=== PATIENT | male | born 1940 | race Caucasian/White ===

== ENCOUNTER 2016-09-10 10:38 | Inpatient (IN) | payer MEDICARE, OTHER, MEDICAID ==
[2016-09-10] MEDS ORDERED: Sodium Chloride 0.9% 10 ML Syringe FLUSH PRN ×2 (11:11→11:53)
[2016-09-10] MEDS ORDERED: Sodium Chloride 0.9% 1,000 ML IV ONE (11:13)
--- NOTE | 2016-09-10 11:26 | EDM.PDOC ---
<Shamar Chapman - Last Filed: 09/10/16 15:39> ED HPI Trauma - General Chief Complaint: Lower Extremity Injury/Pain Stated Complaint: LEG ULCER Time Seen by Provider: 09/10/16 11:03 - History of Present Illness Allergies/ADRs: Allergies levofloxacin [From Levaquin] Allergy (Verified 09/10/16 18:46) Rash Home Medications: Ambulatory Orders Amitriptyline [Elavil] 10 mg PO BEDTIME 01/08/15 [Confirmed 09/10/16] Clopidogrel [Plavix] 75 mg PO BEDTIME 01/08/15 [Confirmed 09/10/16] Furosemide 40 mg PO DAILY 01/08/15 [Confirmed 09/10/16] Gabapentin [Neurontin] 900 mg PO TID 01/08/15 [Confirmed 09/10/16] Insulin Aspart [NovoLOG] 14 units INJECT TIDMEALS 01/08/15 [Confirmed 09/10/16] Insulin Glarg,Human.Rec.Analog [LantUS Solostar] 40 units INJECT BEDTIME [Confirmed 09/10/16] Losartan [Cozaar] 100 mg PO DAILY 01/08/15 [Confirmed 09/10/16] Simvastatin [Zocor] 40 mg PO BEDTIME 01/08/15 [Confirmed 09/10/16] Arginine/Ascorbate Sod/Wilfred AC [Arginaid Powder] 1 each PO BID 04/08/16 [ Confirmed 09/10/16] Ascorbic Acid [Vitamin C] 500 mg PO DAILY 04/08/16 [Confirmed 09/10/16] Cranberry 400 mg PO BID 04/08/16 [Confirmed 09/10/16] Pantoprazole [Protonix] 40 mg PO ACBREAKFAST 04/08/16 [Confirmed 09/10/16] Sennosides [Senna] 17.2 mg PO DAILY PRN 04/08/16 [Confirmed 09/10/16] Acetaminophen [Tylenol] 650 mg PO Q4H PRN 06/25/16 [Confirmed 09/10/16] Albuterol [IJD: Ventolin HFA] 2 puff INH Q6H PRN 06/25/16 [Confirmed 09/10/16] Lactobacillus Acidophilus [Acidophilus Lactobacillus] 1 tab PO DAILY 06/25/16 [ Confirmed 09/10/16] Lidocaine 2% [Xylocaine 2% Jelly] 1 dose TOP TID PRN 06/25/16 [Confirmed ] Levothyroxine [Synthroid] 300 mcg PO ACBREAKFAST #30 tablet 06/27/16 [Confirmed 09/10/16] Albuterol/Ipratropium [DuoNeb 3.0-0.5 MG/3 ML] 3 ml NEB ACDINNER PRN 09/10/16 [ Confirmed 09/10/16] Bisacodyl [Dulcolax] 10 mg RECTAL DAILY PRN 09/10/16 [Confirmed 09/10/16] Insulin Glarg,Human.Rec.Analog [LantUS Solostar] 50 units SUBCUT DAILY 09/10/16 [Confirmed 09/10/16] oxyCODONE HCl/Acetaminophen [oxyCODONE-Acetaminophen 5-325] 2 tab PO Q6H PRN 09/24 [Confirmed 09/10/16] Course - Vital Signs Last Recorded V/S: Last Vital Signs Temp 37.1 C 09/10/16 20:13 Pulse 85 09/10/16 20:14 Resp 16 09/10/16 20:13 BP 116/48 L 09/10/16 20:14 Pulse Ox 97 09/10/16 20:14 - Orders/Labs/Meds Orders: Active Orders 24 hr Category Date Time Status POC Glucose [Blood Glucose Check, Bedside] [RC] ONETIME Care 09/10/16 11:13 Inactive CULTURE ANAEROBIC + SMEAR [] Stat Lab 09/10/16 13:10 Results CULTURE BLOOD [BC] Stat Lab 09/10/16 11:34 Received CULTURE BLOOD [BC] Stat Lab 09/10/16 11:43 Received Sodium Chloride 0.9% [Saline Flush] Med 09/10/16 11:11 Active 10 ml FLUSH ASDIRECTED PRN Sodium Chloride 0.9% [Saline Flush] Med 09/10/16 11:53 Active 10 ml FLUSH ONETIME PRN Blood Culture x2 Reflex Set [OM.PC] Stat Oth 09/10/16 11:11 Ordered Peripheral IV Insertion Adult [OM.PC] Routine Oth 09/10/16 11:10 Ordered Medication Orders Albuterol/Ipratropium (Duoneb 3.0-0.5 Mg/3 Ml) 3 ml NEB QIDRT PRN PRN Reason: Shortness of Breath Amitriptyline HCl (Elavil) 10 mg PO BEDTIME [facility] Last Admin: 09/10/16 20:39 Dose: 10 mg Ascorbic Acid (Vitamin C) 500 mg PO DAILY [facility] Bisacodyl (Dulcolax) 10 mg RECTAL DAILY PRN PRN Reason: Constipation Clopidogrel Bisulfate (Plavix) 75 mg PO BEDTIME [facility] Last Admin: 09/10/16 20:39 Dose: 75 mg Furosemide (Lasix) 40 mg PO DAILY [facility] Gabapentin (Neurontin) 900 mg PO TID [facility] Last Admin: 09/10/16 20:39 Dose: 900 mg Ceftazidime 1 gm/ Sodium (Chloride) 50 mls @ 100 mls/hr IV Q8HR [facility] Vancomycin HCl 1 gm/Vancomycin HCl 250 mg/ Sodium Chloride 250 mls @ 166.667 mls/hr IV Q12H [facility] Insulin Aspart (Novolog) 0 unit SUBCUT QIDACANDBED [facility] PRN Reason: Protocol Last Admin: 09/10/16 21:19 Dose: 3 units Levothyroxine Sodium (Synthroid) 300 mcg PO ACBREAKFAST [facility] Lidocaine HCl (Xylocaine 2% Jelly) 0 ml TOP TID PRN PRN Reason: Pain Losartan Potassium (Cozaar) 100 mg PO DAILY [facility] Non-Formulary Medication (Lactobacillus Acidophilus [Acidophilus Lactobacillus] ) 1 tab PO DAILY [facility] Non-Formulary Medication (Arginine/Ascorbate Sod/Wilfred Ac [Arginaid Powder]) 1 each PO BID [facility] Oxycodone/Acetaminophen (Percocet 325-5 Mg) 2 tab PO Q6H PRN PRN Reason: Pain Pantoprazole Sodium (Protonix) 40 mg PO ACBREAKFAST [facility] Senna (Senna) 17.2 mg PO DAILY PRN PRN Reason: Constipation Simvastatin (Zocor) 40 mg PO BEDTIME [facility] Last Admin: 09/10/16 20:39 Dose: 40 mg Sodium Chloride (Saline Flush) 10 ml FLUSH ASDIRECTED PRN PRN Reason: Keep Vein Open Last Admin: 09/10/16 13:29 Dose: 10 ml Sodium Chloride (Saline Flush) 10 ml FLUSH ONETIME PRN PRN Reason: Keep Vein Open Last Admin: 09/10/16 13:32 Dose: 10 ml Vancomycin HCl (Pharmacy To Dose - Vancomycin) 1 dose .XX ASDIRECTED [facility] Labs: Laboratory Tests 09/10/16 09/10/16 09/10/16 Range/Units 11:34 11:43 11:43 WBC 12.47 H (4.23-9.07) K/mm3 RBC 4.58 L (4.63-6.08) M/mm3 Hgb 11.0 L (13.7-17.5) gm/L Hct 35.4 L (40.1-51.0) % MCV 77.3 L (79.0-92.2) fl MCH 24.0 L (25.7-32.2) pg MCHC 31.1 L (32.2-35.5) g/dl RDW Std Deviation 42.6 (35.1-43.9) fL Plt Count 333 (163-337) K/mm3 MPV 9.8 (9.4-12.3) fl Neutrophils % (Manual) 81 H (40-60) % Band Neutrophils % 1 (0-10) % Lymphocytes % (Manual) 11 L (20-40) % Atypical Lymphs % 0 % Monocytes % (Manual) 4 (2-10) % Eosinophils % (Manual) 3 (0.8-7.0) % Basophils % (Manual) 0 L (0.2-1.2) Platelet Estimate Adequate RBC Morph Comment Normal ESR 84 H (0-15) mm/hr Sodium 133 L (136-145) mEq/L Potassium 4.7 (3.5-5.1) mEq/L Chloride 95 L (98-107) mEq/L Carbon Dioxide 28 (21-32) mEq/L Anion Gap 14.7 (5-15) BUN 30 H (7-18) mg/dL Creatinine 1.2 (0.7-1.3) mg/dL Est Cr Clr Drug Dosing 53.23 mL/min Estimated GFR (MDRD) 59 (>60) mL/min BUN/Creatinine Ratio 25.0 H (14-18) Glucose 267 H (83-115) mg/dL Calcium 9.1 (8.5-10.1) mg/dL Total Bilirubin 0.4 (0.2-1.0) mg/dL AST 16 (15-37) U/L ALT 19 (16-63) U/L Alkaline Phosphatase 69 (46-116) U/L C-Reactive Protein 4.6 H* (<1.0) mg/dL Total Protein 7.4 (6.4-8.2) g/dl Albumin 3.0 L (3.4-5.0) g/dl Globulin 4.4 gm/dL Albumin/Globulin Ratio 0.7 L (1-2) Urine Color (Yellow) Urine Appearance (Clear) Urine pH (5.0-8.0) Ur Specific Central (1.005-1.030) Urine Protein (Negative) Urine Glucose (UA) (Negative) Urine Ketones (Negative) Urine Occult Blood (Negative) Urine Nitrite (Negative) Urine Bilirubin (Negative) Urine Urobilinogen (0.2-1.0) Ur Leukocyte Esterase (Negative) Urine RBC (0-5) /hpf Urine WBC (0-5) /hpf Ur Epithelial Cells (0-5) /hpf Urine Bacteria (FEW) /hpf Urine Mucus (FEW) /hpf 09/10/16 Range/Units 13:15 WBC (4.23-9.07) K/mm3 RBC (4.63-6.08) M/mm3 Hgb (13.7-17.5) gm/L Hct (40.1-51.0) % MCV (79.0-92.2) fl MCH (25.7-32.2) pg MCHC (32.2-35.5) g/dl RDW Std Deviation (35.1-43.9) fL Plt Count (163-337) K/mm3 MPV (9.4-12.3) fl Neutrophils % (Manual) (40-60) % Band Neutrophils % (0-10) % Lymphocytes % (Manual) (20-40) % Atypical Lymphs % % Monocytes % (Manual) (2-10) % Eosinophils % (Manual) (0.8-7.0) % Basophils % (Manual) (0.2-1.2) Platelet Estimate RBC Morph Comment ESR (0-15) mm/hr Sodium (136-145) mEq/L Potassium (3.5-5.1) mEq/L Chloride (98-107) mEq/L Carbon Dioxide (21-32) mEq/L Anion Gap (5-15) BUN (7-18) mg/dL Creatinine (0.7-1.3) mg/dL Est Cr Clr Drug Dosing mL/min Estimated GFR (MDRD) (>60) mL/min BUN/Creatinine Ratio (14-18) Glucose (83-115) mg/dL Calcium (8.5-10.1) mg/dL Total Bilirubin (0.2-1.0) mg/dL AST (15-37) U/L ALT (16-63) U/L Alkaline Phosphatase (46-116) U/L C-Reactive Protein (<1.0) mg/dL Total Protein (6.4-8.2) g/dl Albumin (3.4-5.0) g/dl Globulin gm/dL Albumin/Globulin Ratio (1-2) Urine Color Light yellow (Yellow) Urine Appearance Slt cloudy H (Clear) Urine pH 7.0 (5.0-8.0) Ur Specific Central 1.020 (1.005-1.030) Urine Protein Trace H (Negative) Urine Glucose (UA) Negative (Negative) Urine Ketones Negative (Negative) Urine Occult Blood Negative (Negative) Urine Nitrite Negative (Negative) Urine Bilirubin Negative (Negative) Urine Urobilinogen 0.2 (0.2-1.0) Ur Leukocyte Esterase 2+ H (Negative) Urine RBC 0-5 (0-5) /hpf Urine WBC 75-100 H (0-5) /hpf Ur Epithelial Cells 0-5 (0-5) /hpf Urine Bacteria Few (FEW) /hpf Urine Mucus Not seen (FEW) /hpf Meds: Medications Generic Name Dose Route Start Last Admin Trade Name Freq PRN Reason Stop Dose Admin Albuterol/Ipratropium 3 ml 09/10/16 18:31 Duoneb 3.0-0.5 Mg/3 Ml NEB QIDRT PRN Shortness of Breath Amitriptyline HCl 10 mg 09/10/16 21:00 09/10/16 20:39 Elavil PO 10 mg BEDTIME DIAMOND Administration Ascorbic Acid 500 mg 09/11/16 09:00 Vitamin C PO DAILY DIAMOND Bisacodyl 10 mg 09/10/16 18:27 Dulcolax RECTAL DAILY PRN Constipation Clopidogrel Bisulfate 75 mg 09/10/16 21:00 09/10/16 20:39 Plavix PO 75 mg BEDTIME DIAMOND Administration Furosemide 40 mg 09/11/16 09:00 Lasix PO DAILY DIAMOND Gabapentin 900 mg 09/10/16 21:00 09/10/16 20:39 Neurontin PO 900 mg TID [facility] Administration Ceftazidime 1 gm/ Sodium 50 mls @ 100 mls/hr 09/10/16 22:00 Chloride IV Q8HR DIAMOND Vancomycin HCl 1 gm/ 250 mls @ 166.667 mls/hr 09/11/16 00:00 Vancomycin HCl 250 mg/ Sodium IV Chloride Q12H [facility] Insulin Aspart 0 unit 09/10/16 22:00 09/10/16 21:19 Novolog SUBCUT 3 units QIDACANDBED [facility] Administration Protocol Levothyroxine Sodium 300 mcg 09/11/16 06:00 Synthroid PO ACBREAKFAST [facility] Lidocaine HCl 0 ml 09/10/16 18:27 Xylocaine 2% Jelly TOP TID PRN Pain Losartan Potassium 100 mg 09/11/16 09:00 Cozaar PO DAILY [facility] Non-Formulary Medication 1 tab 09/11/16 09:00 Lactobacillus Acidophilus [Acidophilus Lactobacillus] PO DAILY [facility] Non-Formulary Medication 1 each 09/10/16 21:00 Arginine/Ascorbate Sod/Wilfred Ac [Arginaid Powder] PO BID [facility] Oxycodone/Acetaminophen 2 tab 09/10/16 18:27 Percocet 325-5 Mg PO Q6H PRN Pain Pantoprazole Sodium 40 mg 09/11/16 06:00 Protonix PO ACBREAKFAST [facility] Senna 17.2 mg 09/10/16 18:27 Senna PO DAILY PRN Constipation Simvastatin 40 mg 09/10/16 21:00 09/10/16 20:39 Zocor PO 40 mg BEDTIME DIAMOND Administration Sodium Chloride 10 ml 09/10/16 11:11 09/10/16 13:29 Saline Flush FLUSH 10 ml ASDIRECTED PRN Administration Keep Vein Open Sodium Chloride 10 ml 09/10/16 11:53 09/10/16 13:32 Saline Flush FLUSH 10 ml ONETIME PRN Administration Keep Vein Open Vancomycin HCl 1 dose 09/10/16 18:45 Pharmacy To Dose - Vancomycin .XX ASDIRECTED [facility] Discontinued Medications Generic Name Dose Route Start Last Admin Trade Name Freq PRN Reason Stop Dose Admin Gadobenate Dimeglumine 20 ml 09/10/16 11:53 09/10/16 13:12 Multihance IVPUSH 09/10/16 11:54 20 ml ONETIME ONE Administration Sodium Chloride 1,000 mls @ 125 mls/hr 09/10/16 11:13 09/10/16 13:29 Normal Saline IV 09/10/16 19:12 125 mls/hr ONETIME ONE Administration Vancomycin HCl 1 gm/ Sodium 250 mls @ 250 mls/hr 09/10/16 13:51 09/10/16 16: 10 Chloride IV 09/10/16 14:50 250 mls/hr ONETIME ONE Administration - Re-Assessments/Exams Free Text/Narrative Re-Assessment/Exam: 09/10/16 15:39PICC line placement right antecubital fossa met with difficulties in terms of that became tortuous at the axilla and came back down the vein supplying the inferior surface of the scapula. Multiple attempts at pullback and reinsertion failed to get the end of the PICC line into the vena cava. We will do as far as serving its need as far as antibiotic placement in its current position. Departure - Departure Disposition: Admitted As Inpatient 65 Clinical Impression: Osteomyelitis of ankle or foot, Diabetic foot ulcer - My Orders Last 24 Hours: My Active Orders 09/10/16 11:10 Peripheral IV Insertion Adult [OM.PC] Routine 09/10/16 11:11 Sodium Chloride 0.9% [Saline Flush] 10 ml FLUSH ASDIRECTED PRN Blood Culture x2 Reflex Set [OM.PC] Stat 09/10/16 11:13 POC Glucose [Blood Glucose Check, Bedside] [RC] ONETIME 09/10/16 11:34 CULTURE BLOOD [BC] Stat 09/10/16 11:43 CULTURE BLOOD [BC] Stat 09/10/16 11:53 Sodium Chloride 0.9% [Saline Flush] 10 ml FLUSH ONETIME PRN 09/10/16 13:10 CULTURE ANAEROBIC + SMEAR [] Stat - Assessment/Plan Last 24 Hours: My Active Orders 09/10/16 11:10 Peripheral IV Insertion Adult [OM.PC] Routine 09/10/16 11:11 Sodium Chloride 0.9% [Saline Flush] 10 ml FLUSH ASDIRECTED PRN Blood Culture x2 Reflex Set [OM.PC] Stat 09/10/16 11:13 POC Glucose [Blood Glucose Check, Bedside] [RC] ONETIME 09/10/16 11:34 CULTURE BLOOD [BC] Stat 09/10/16 11:43 CULTURE BLOOD [BC] Stat 09/10/16 11:53 Sodium Chloride 0.9% [Saline Flush] 10 ml FLUSH ONETIME PRN 09/10/16 13:10 CULTURE ANAEROBIC + SMEAR [RM] Stat <Zaira Bates - Last Filed: 09/10/16 22:08> ED HPI Trauma - General Source: Reports: Patient, Old records (clinic visit 09-09-16) History Limitations: Reports: No limitations - History of Present Illness INITIAL COMMENTS - FREE TEXT/NARRATIVE: Patient presents for evaluation and treatment of a left diabetic foot ulcer. Patient reports that ulcer has been present since December or January of this year. Located over the left heel. Patient reports that he has severe peripheral neuropathy and does not feel much pain. He has been seeing the surgeon for this but is overall been worsening. He is a diabetic on insulin. He does not know what his blood sugars are running. He is uncertain if he is currently on any antibiotics. He reports he has been coughing recently. he denies any fevers, nausea or vomiting. He is a poor historian. Dr. Kirk, surgeon at [facility] has sent over labs and her clinic visit from yesterday, 09-09-16. Cultures of the wound, a CBC, CMP, CRP and blood cultures were obtained. Patient was found to have an elevated white blood cell count of 14.2, hemoglobin is 11.2 and platelets are 305. He had no bandemia. Patient also had an elevated CRP of 44.1. 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 Past Medical History HEENT History: Reports: Impaired vision Cardiovascular History: Reports: Heart Failure, High cholesterol, Hypertension, PVD Respiratory History: Reports: COPD, Sleep apnea Other Respiratory History: Uases c-PAP at night Gastrointestinal History: Reports: Chronic constipation, GERD, PUD Other Gastrointestinal History: Bleeding ulcer Genitourinary History: Reports: BPH, Prostate disorder, UTI, recurrent Other Genitourinary History: Urinary catheter placed 11/19/15 Musculoskeletal History: Reports: Amputation, Fracture, Other (see below) Other Musculoskeletal History: Osteomylitis, Right arm w/plate/screws, Right leg Neurological History: Reports: Neuropathy, diabetic, Neuropathy, peripheral Psychiatric History: Reports: Depression Endocrine/Metabolic History: Reports: Diabetes, type II, Hypothyroidism Oncologic (Cancer) History: Reports: None Dermatologic History: Reports: Cellulitis, Other (see below) Other Dermatologic History: Ulcers - Infectious Disease History Infectious Disease History: Reports: MRSA - Past Surgical History HEENT Surgical History: Reports: Cataract surgery, Eye surgery Other HEENT Surgeries/Procedures: lens implant GI Surgical History: Reports: Appendectomy Endocrine Surgical History: Reports: Other (see below) Other Endocrine Surgeries/Procedures: Right BKA Musculoskeletal Surgical History: Reports: Amputation Social & Family History - Family History Family Medical History: Noncontributory Cardiac: Reports: VT Respiratory: Reports: Asthma, Other (see below) Other Respiratory Family Hisory: black lung disease : Reports: Diabetic nephropathy Neurological: Reports: Parkinson's Endocrine/Metabolic: Reports: Diabetes, type I, Diabetes, type II Oncologic: Reports: Colon - Tobacco Use Smoking Status *Q: Never Smoker Years of Tobacco use: 43 Packs/Tins Daily: 0.5 Used Tobacco, but Quit: Yes Month Tobacco Last Used: 1997 Second Hand Smoke Exposure: No - Caffeine Use Caffeine Use: Reports: Soda - Alcohol Use Days Per Week of Alcohol Use: 0 Number of Drinks Per Day: 0 Total Drinks Per Week: 0 - Recreational Drug Use Recreational Drug Use: No Drug Use in Last 12 Months: No - Living Situation & Occupation Living situation: Reports: Occupation: retired Review of Systems - Review of Systems Review Of Systems: See Below Constitutional: Denies: fever Respiratory: Reports: cough GI/Abdominal: Denies: Nausea, Vomiting Musculoskeletal: Reports: other (right BKA) Skin: Reports: wound (diabetic ulcer to the left heel) Neurological: Reports: numbness (peripheral neuropathy) Trauma Exam - Physical Exam Exam: See Below Exam Limited By: No limitations General Appearance: Reports: alert, WD/WN, no apparent distress Throat/Mouth: Reports: Normal inspection, Normal lips, Normal voice Respiratory Exam: Reports: no respiratory distress, lungs clear, normal breath sounds Cardiovascular: Reports: normal peripheral pulses, regular rate, rhythm, no murmur Extremities: Reports: other (right BKA) Skin: Reports: Normal color, Warm/dry, Other (7 x 4cm diabetic ulcer to the left heel with approximatly 3cm in diameter eschar ) Course - Orders/Labs/Meds Labs: Laboratory Tests 09/10/16 09/10/16 09/10/16 Range/Units 11:34 11:43 11:43 WBC 12.47 H (4.23-9.07) K/mm3 RBC 4.58 L (4.63-6.08) M/mm3 Hgb 11.0 L (13.7-17.5) gm/L Hct 35.4 L (40.1-51.0) % MCV 77.3 L (79.0-92.2) fl MCH 24.0 L (25.7-32.2) pg MCHC 31.1 L (32.2-35.5) g/dl RDW Std Deviation 42.6 (35.1-43.9) fL Plt Count 333 (163-337) K/mm3 MPV 9.8 (9.4-12.3) fl Neutrophils % (Manual) 81 H (40-60) % Band Neutrophils % 1 (0-10) % Lymphocytes % (Manual) 11 L (20-40) % Atypical Lymphs % 0 % Monocytes % (Manual) 4 (2-10) % Eosinophils % (Manual) 3 (0.8-7.0) % Basophils % (Manual) 0 L (0.2-1.2) Platelet Estimate Adequate RBC Morph Comment Normal ESR 84 H (0-15) mm/hr Sodium 133 L (136-145) mEq/L Potassium 4.7 (3.5-5.1) mEq/L Chloride 95 L (98-107) mEq/L Carbon Dioxide 28 (21-32) mEq/L Anion Gap 14.7 (5-15) BUN 30 H (7-18) mg/dL Creatinine 1.2 (0.7-1.3) mg/dL Est Cr Clr Drug Dosing 53.23 mL/min Estimated GFR (MDRD) 59 (>60) mL/min BUN/Creatinine Ratio 25.0 H (14-18) Glucose 267 H (83-115) mg/dL Calcium 9.1 (8.5-10.1) mg/dL Total Bilirubin 0.4 (0.2-1.0) mg/dL AST 16 (15-37) U/L ALT 19 (16-63) U/L Alkaline Phosphatase 69 (46-116) U/L C-Reactive Protein 4.6 H* (<1.0) mg/dL Total Protein 7.4 (6.4-8.2) g/dl Albumin 3.0 L (3.4-5.0) g/dl Globulin 4.4 gm/dL Albumin/Globulin Ratio 0.7 L (1-2) Urine Color (Yellow) Urine Appearance (Clear) Urine pH (5.0-8.0) Ur Specific Central (1.005-1.030) Urine Protein (Negative) Urine Glucose (UA) (Negative) Urine Ketones (Negative) Urine Occult Blood (Negative) Urine Nitrite (Negative) Urine Bilirubin (Negative) Urine Urobilinogen (0.2-1.0) Ur Leukocyte Esterase (Negative) Urine RBC (0-5) /hpf Urine WBC (0-5) /hpf Ur Epithelial Cells (0-5) /hpf Urine Bacteria (FEW) /hpf Urine Mucus (FEW) /hpf 09/10/16 Range/Units 13:15 WBC (4.23-9.07) K/mm3 RBC (4.63-6.08) M/mm3 Hgb (13.7-17.5) gm/L Hct (40.1-51.0) % MCV (79.0-92.2) fl MCH (25.7-32.2) pg MCHC (32.2-35.5) g/dl RDW Std Deviation (35.1-43.9) fL Plt Count (163-337) K/mm3 MPV (9.4-12.3) fl Neutrophils % (Manual) (40-60) % Band Neutrophils % (0-10) % Lymphocytes % (Manual) (20-40) % Atypical Lymphs % % Monocytes % (Manual) (2-10) % Eosinophils % (Manual) (0.8-7.0) % Basophils % (Manual) (0.2-1.2) Platelet Estimate RBC Morph Comment ESR (0-15) mm/hr Sodium (136-145) mEq/L Potassium (3.5-5.1) mEq/L Chloride (98-107) mEq/L Carbon Dioxide (21-32) mEq/L Anion Gap (5-15) BUN (7-18) mg/dL Creatinine (0.7-1.3) mg/dL Est Cr Clr Drug Dosing mL/min Estimated GFR (MDRD) (>60) mL/min BUN/Creatinine Ratio (14-18) Glucose (83-115) mg/dL Calcium (8.5-10.1) mg/dL Total Bilirubin (0.2-1.0) mg/dL AST (15-37) U/L ALT (16-63) U/L Alkaline Phosphatase (46-116) U/L C-Reactive Protein (<1.0) mg/dL Total Protein (6.4-8.2) g/dl Albumin (3.4-5.0) g/dl Globulin gm/dL Albumin/Globulin Ratio (1-2) Urine Color Light yellow (Yellow) Urine Appearance Slt cloudy H (Clear) Urine pH 7.0 (5.0-8.0) Ur Specific Central 1.020 (1.005-1.030) Urine Protein Trace H (Negative) Urine Glucose (UA) Negative (Negative) Urine Ketones Negative (Negative) Urine Occult Blood Negative (Negative) Urine Nitrite Negative (Negative) Urine Bilirubin Negative (Negative) Urine Urobilinogen 0.2 (0.2-1.0) Ur Leukocyte Esterase 2+ H (Negative) Urine RBC 0-5 (0-5) /hpf Urine WBC 75-100 H (0-5) /hpf Ur Epithelial Cells 0-5 (0-5) /hpf Urine Bacteria Few (FEW) /hpf Urine Mucus Not seen (FEW) /hpf - Radiology Interpretation Free Text/Narrative:: Chest [address] Zhou: 1.Nothing acute is identified on two- view chest xray. Left foot [address] Zhou: 1. mild focal osteopenia within the distal forth and fifth metatarsals. This may be projectile but if patient has symptoms to this area difficult to completely exclude early osteomyelitis. There is no erosive change being seen within the bones. 2. Diffuse soft tissue swelling. MRI left foot with and without contrast impression per Dr. Zhou: 1. Soft tissue ulceration within the calcaneus. Findings compatible with very minimal osteomyelitis within the adjacent posterior calcaneus 2. Diffuse sofe tissue edema with soft tissue enhancement compatible with edema/cellulitis. 3. No abnormal enhancement is seen within the distal fourth and fifth metatarsal heads as questioned on plain film exam. No findings of osteomyelitis are seen within these areasn ad osteopenia seen on plain film exam is felt to be benign. - Re-Assessments/Exams Free Text/Narrative Re-Assessment/Exam: 09/10/16 13:18 Labs returned. WBC elevated at 12.47, hgb is 11.0 and plts are 333 Sodium is 133, potassium is 4.7 and chloride is 95. Anion gap is 14.7. Glucose is 267 CRP is elevated at 4.6 ESR is elevated at 84 Patient resting comfortably. No complaints. Daughter is not yet present. 09/10/16 16:05 Reviewed the MRI results with the patient and his family. He is at he has mild osteomyelitis to the left calcaneous. He will likely need a month of antibiotics. Failed outpatient treatment. He also will require a wound care team. I attempted to get the patient into the [facility] for long-term care in [place], [place]. They're currently full. Spoke with Dr. Emmanuel regarding the patient. She agrees to admission. PICC line placed by anesthesia for suspected long-term antibiotics. Dr. Chapman was consulted during the patient's ER stay. Departure - Departure Time of Disposition: 17:00 Condition: serious
[2016-09-10] MEDS ORDERED: Gadobenate Dimeglumine 529 MG/ML 20 ML SDV IVPUSH ONE (11:53)
--- NOTE | 2016-09-10 12:20 | CR ---
Left foot: Four views of the left foot were obtained. Comparison: Previous left foot study of 02/28/13. Focal osteopenia is seen within the head of the distal fifth metatarsal. Focal osteopenia which appears less prominent than the fifth digit is noted within the head of the fourth metatarsal. Bony structures are also diffusely osteopenic. Diffuse soft tissue swelling is noted. No focal erosive change is seen. No acute fracture or other abnormality is seen. Impression: 1. Mild focal osteopenia within the distal fourth and fifth metatarsals. This may be projectional but if patient has symptoms to this area difficult to completely exclude early osteomyelitis. There is no erosive change being seen within the bones. 2. Diffuse soft tissue swelling. Diagnostic code #3
--- NOTE | 2016-09-10 12:20 | CR ---
Chest: AP and lateral views of the chest were obtained. Comparison: Previous chest x-ray of 04/07/16. Heart size and mediastinum are within normal limits. Lungs show no acute infiltrates. Degenerative endplate spurring noted within the spine. Impression: 1. Nothing acute is identified on two-view chest x-ray. Diagnostic code #2
--- NOTE | 2016-09-10 14:16 | MR ---
MRI left foot Technique: T1, fat-suppressed inversion recovery sagittal through the calcaneus were obtained. T1, fat-suppressed inversion recovery sagittal through the rest of the foot were obtained. T2 fat-suppressed coronal images were obtained through the calcaneus. Additional T2 fat-suppressed, T2 and proton weighted coronal images were obtained through the foot. Post-gadolinium fat-suppressed T1 axial, sagittal and coronal images were obtained through the foot and ankle. Comparison: Previous foot plain film study of 09/10/16. Findings: Soft tissue ulceration seen within the heel. Very minimal edema noted within the posterior calcaneus with very minimal enhancement. This is felt compatible with very early area of osteomyelitis. No significant enhancement is seen within the metatarsal heads as questioned on plain film exam. Diffuse soft tissue edema/cellulitis is seen. Diffuse soft tissue enhancement seen after gadolinium. No focal fluid collections are seen to indicate soft tissue abscess. Impression: 1. Soft tissue ulceration within the calcaneus. Findings compatible with very minimal osteomyelitis within the adjacent posterior calcaneus. 2. Diffuse soft tissue edema with soft tissue enhancement compatible with edema/cellulitis. 3. No abnormal enhancement is seen within the distal fourth and fifth metatarsal heads as questioned on plain film exam. No findings of osteomyelitis are seen within these areas and osteopenia seen on plain film exam is felt to be benign. Diagnostic code #3
--- NOTE | 2016-09-10 16:25 | PCM.SN ---
- Free Text/Narrative Note: Date: 09/10/2016 Start: 1430 Stop: 1550 Time Out: 1508 Procedure: PICC Line placement for IV antibiotic therapy Diagnosis: Anesthesia requested for PICC line placement. Patient educated on risk/benefits , allergies reviewed, medication list reviewed, patient agrees to proceed, consent obtained. Patient positioned in supine position. Right arm prepped with 3 chloroprep's, 20 gauge angiocatheter placed without difficulty, sterile drapes placed, and sterile gown, gloves used, along with cap and mask. (Sterile Technique Noted). MicroIntroducer kit used: [facility] PICC 4 honduran catheter single lumen advanced without difficulties noted. REF: [id number] LOT: [id number] EXP: 11/07/2017 Catheter advanced and secured at 43 cm at the skin. Catheter trimmed at 53cm. Easy blood aspiration noted and catheter flushed with 50 ml's of Normal Saline. Mastisol/Steri-Strips placed, along with Tegaderm with chlorahexidine square noted. Stat-Lock holding device used and dressing dated. Education card given to patient, and patient tolerated procedure well. Thank-you! Sara Dee CRNA / Arianna Yates CRNA
--- NOTE | 2016-09-10 16:33 | PCM.SN ---
- Free Text/Narrative Note: Anesthesia Note: Correction noted on PICC line placement times: Date: Start: 1430 Stop: 1625 Time Out: 1508 Please note corrections. Tripp RASHEED
[2016-09-10] MEDS ORDERED: Lidocaine 2% Jelly 5 ML Tube TOP PRN (18:27)
[2016-09-10] MEDS ORDERED: Bisacodyl 10 MG Supp RECTAL PRN (18:27)
[2016-09-10] MEDS ORDERED: Acetaminophen/oxyCODONE 325-5 MG Tab PO PRN (18:27)
[2016-09-10] MEDS ORDERED: Albuterol/Ipratropium 3.0-0.5 MG/3 ML Neb Soln NEB PRN (18:31)
--- NOTE | 2016-09-10 18:51 | PCM.HP ---
H&P History of Present Illness - General Date of Service: 09/10/16 Admit Problem/Dx: Admission Diagnosis/Problem Admission Diagnosis/Problem Osteomyelitis of ankle AND/OR foot Source of Information: Patient, Family, Provider History Limitations: Reports: No limitations - History of Present Illness Initial Comments - Free Text/Narative: 76 year old poorly controlled diabetic with long standing history of non compliance had been seen by general surgeon, Dr Kirk one day [employer]. Data from the [facility] system will be obtained; during the clinic visit; wound cx, blood cx, CBC, CMP, CRP were drawn. The patient has inconsistently sought medical care often not keeping appointments or completing medical therapy. Several providers have declined participating in his care as a result of his behavior. Currently the plan of care will focus on treatment of his OM, choice of antibiotics will be adjusted as needed. In the meantime, the patient will receive Vancomycin as well as a cephalosporin. A PICC line was successfully placed in the [facility], as the patient is expected to be transferred to [facility] when a bed is available. Onset of Symptoms: Reports: unknown/unsure Duration of Symptoms: Reports: Week(s):, Getting worse Location: Reports: lower extremity, left (heel) Quality: Reports: Other (numbness) Severity: moderate Improves with: Reports: Medication Worsens with: Reports: Movement Associated Symptoms: Reports: no other symptoms Left foot Pain Score (Numeric/FACES): 8 - Related Data Allergies/Adverse Reactions: Allergies Allergy/AdvReac Type Severity Reaction Status Date / Time levofloxacin [From Levaquin] Allergy Rash Verified 09/10/16 18:46 Home Medications: Home Meds Amitriptyline [Elavil] 10 mg PO BEDTIME 01/08/15 [History] Clopidogrel [Plavix] 75 mg PO BEDTIME 01/08/15 [History] Furosemide 40 mg PO DAILY 01/08/15 [History] Gabapentin [Neurontin] 900 mg PO TID 01/08/15 [History] Insulin Aspart [NovoLOG] 14 units INJECT TIDMEALS 01/08/15 [History] Insulin Glarg,Human.Rec.Analog [LantUS Solostar] 40 units INJECT BEDTIME [History] Losartan [Cozaar] 100 mg PO DAILY 01/08/15 [History] Simvastatin [Zocor] 40 mg PO BEDTIME 01/08/15 [History] Arginine/Ascorbate Sod/Wilfred AC [Arginaid Powder] 1 each PO BID 04/08/16 [History ] Ascorbic Acid [Vitamin C] 500 mg PO DAILY 04/08/16 [History] Cranberry 400 mg PO BID 04/08/16 [History] Pantoprazole [Protonix] 40 mg PO ACBREAKFAST 04/08/16 [History] Sennosides [Senna] 17.2 mg PO DAILY PRN 04/08/16 [History] Acetaminophen [Tylenol] 650 mg PO Q4H PRN 06/25/16 [History] Albuterol [IJD: Ventolin HFA] 2 puff INH Q6H PRN 06/25/16 [History] Lactobacillus Acidophilus [Acidophilus Lactobacillus] 1 tab PO DAILY 06/25/16 [ History] Lidocaine 2% [Xylocaine 2% Jelly] 1 dose TOP TID PRN 06/25/16 [History] Levothyroxine [Synthroid] 300 mcg PO ACBREAKFAST #30 tablet 06/27/16 [Rx] Albuterol/Ipratropium [DuoNeb 3.0-0.5 MG/3 ML] 3 ml NEB ACDINNER PRN 09/10/16 [ History] Bisacodyl [Dulcolax] 10 mg RECTAL DAILY PRN 09/10/16 [History] Insulin Glarg,Human.Rec.Analog [LantUS Solostar] 50 units SUBCUT DAILY 09/10/16 [History] oxyCODONE HCl/Acetaminophen [oxyCODONE-Acetaminophen 5-325] 2 tab PO Q6H PRN 09/24 [History] Past Medical History HEENT History: Reports: Impaired vision Cardiovascular History: Reports: Heart Failure, High cholesterol, Hypertension, PVD Respiratory History: Reports: COPD, Sleep apnea Other Respiratory History: Uases c-PAP at night Gastrointestinal History: Reports: Chronic constipation, GERD, PUD Other Gastrointestinal History: Bleeding ulcer Genitourinary History: Reports: BPH, Prostate disorder, UTI, recurrent Other Genitourinary History: Urinary catheter placed 11/19/15 Musculoskeletal History: Reports: Amputation, Fracture, Other (see below) Other Musculoskeletal History: Osteomylitis, Right arm w/plate/screws, Right leg Neurological History: Reports: Neuropathy, diabetic, Neuropathy, peripheral Psychiatric History: Reports: Depression Endocrine/Metabolic History: Reports: Diabetes, type II, Hypothyroidism Oncologic (Cancer) History: Reports: None Dermatologic History: Reports: Cellulitis, Other (see below) Other Dermatologic History: Ulcers - Infectious Disease History Infectious Disease History: Reports: Chicken pox, Measles, MRSA, Mumps - Past Surgical History HEENT Surgical History: Reports: Cataract surgery, Eye surgery Other HEENT Surgeries/Procedures: lens implant GI Surgical History: Reports: Appendectomy Endocrine Surgical History: Reports: Other (see below) Other Endocrine Surgeries/Procedures: Right BKA Musculoskeletal Surgical History: Reports: Amputation Social & Family History - Family History Family Medical History: Noncontributory Cardiac: Reports: [place] Respiratory: Reports: Asthma, Other (see below) Other Respiratory Family Hisory: black lung disease : Reports: Diabetic nephropathy Neurological: Reports: Parkinson's Endocrine/Metabolic: Reports: Diabetes, type I, Diabetes, type II Oncologic: Reports: Colon - Tobacco Use Smoking Status *Q: Never Smoker Years of Tobacco use: 43 Packs/Tins Daily: 0.5 Used Tobacco, but Quit: Yes Month Tobacco Last Used: 1997 Second Hand Smoke Exposure: No - Caffeine Use Caffeine Use: Reports: Coffee Caffeine Use Comment: with every meal - Alcohol Use Days Per Week of Alcohol Use: 0 Number of Drinks Per Day: 0 Total Drinks Per Week: 0 - Recreational Drug Use Recreational Drug Use: No Drug Use in Last 12 Months: No - Living Situation & Occupation Living situation: Reports: Occupation: retired H&P Review of Systems - Review of Systems: Review Of Systems: See Below General: Reports: fever, weakness HEENT: Reports: no symptoms Pulmonary: Reports: no symptoms Cardiovascular: Reports: no symptoms Gastrointestinal: Reports: No symptoms Genitourinary: Reports: no symptoms Musculoskeletal: Reports: no symptoms Skin: Reports: no symptoms Psychiatric: Reports: depression Neurological: Reports: paresthesia Hematologic/Lymphatic: Reports: no symptoms Immunologic: Reports: no symptoms Exam - Exam Exam: See Below - Vital Signs Vital Signs: Last Vital Signs Temp 36.4 C 09/10/16 16:56 Pulse 81 09/10/16 16:56 Resp 15 09/10/16 16:56 BP 113/38 L 09/10/16 16:56 Pulse Ox 94 L 09/10/16 16:56 Weight: 106.005 kg - Exam Quality Assessment: central line/PICC (RUE), urinary catheter, DVT prophylaxis General: alert, oriented, cooperative HEENT: Conjunctiva clear, EACs clear, EOMI, Nares patent, Normal nasal septum, Pupils equal, Pupils reactive Neck: supple, trachea midline Lungs: Clear to auscultation, Normal respiratory effort Cardiovascular: regular rate, regular rhythm Abdomen: normal bowel sounds, soft (Male) Exam: Deferred Rectal (Males) Exam: Deferred Back Exam: normal inspection Extremities: normal inspection (Bilateral UE), edema (LLE, heel/foot) Skin: other (medial heel with large ulcer) Neurological: cranial nerves intact Neuro Extensive - Mental Status: alert, oriented x3 Neuro Extensive - Motor, Sensory, Reflexes: CN II-XII intact Psychiatric: alert, depressed - Patient Data Result Diagrams: 09/11/16 06:05 09/11/16 06:05 *Q Meaningful Use (ADM) - VTE *Q VTE Criteria *Q: - Stroke *Q Stroke Criteria *Q: - AMI *Q AMI Criteria *Q: - Problem List (1) Cellulitis SNOMED Code(s): 656743651 ICD Code: L03.90 - CELLULITIS, UNSPECIFIED Status: Acute Current Visit: No Qualifiers: Site of cellulitis: extremity Site of cellulitis of extremity: lower extremity Laterality: left Qualified Code(s): L03.116 - Cellulitis of left lower limb (2) Diabetic foot ulcer SNOMED Code(s): 854026753 ICD Code: E11.621 - TYPE 2 DIABETES MELLITUS WITH FOOT ULCER; L97.509 - NON- PRESSURE CHRONIC ULCER OTH PRT UNSP FOOT W UNSP SEVERITY Status: Acute Current Visit: Yes (3) Diabetic ulcer of heel SNOMED Code(s): 37141251, 828108640 ICD Code: E11.621 - TYPE 2 DIABETES MELLITUS WITH FOOT ULCER; L97.409 - NON- PRS CHRONIC ULCER OF UNSP HEEL AND MIDFOOT W UNSP SEVERT Status: Acute Current Visit: No Problem List Initiated/Reviewed/Updated: Yes Orders Last 24hrs: Active Orders 24 hr Category Date Time Status Accu Check [Blood Glucose Check, Bedside] [RC] Care 09/10/16 18:32 Ordered QIDACANDBED RT Aerosol Therapy [RC] ASDIRECTED Care 09/10/16 18:31 Ordered Vital Signs [RC] PER UNIT ROUTINE Care 09/10/16 18:25 Ordered Consult to Case Management [CONS] Routine Cons 09/10/16 18:26 Ordered Consult to Occupational Therapy [OT Evaluation and Cons 09/10/16 18:26 Ordered Treatment] [CONS] Routine Consult to Physical Therapy [PT Evaluation and Cons 09/10/16 18:27 Ordered Treatment] [CONS] Routine Consult to Physical Therapy [PT Evaluation and Cons 09/10/16 18:37 Ordered Treatment] [CONS] Routine OR PCXR-No Charge-PICC/Central [CR] Routine Exams 09/10/16 15:44 Taken OR PCXR-No Charge-PICC/Central [CR] Routine Exams 09/10/16 15:44 Taken OR PCXR-No Charge-PICC/Central [CR] Routine Exams 09/10/16 15:45 Taken OR PCXR-No Charge-PICC/Central [CR] Stat Exams 09/10/16 15:11 Taken BASIC METABOLIC PANEL,BMP [CHEM] DAILY Lab 09/11/16 05:00 Ordered BASIC METABOLIC PANEL,BMP [CHEM] DAILY Lab 09/12/16 05:00 Ordered BASIC METABOLIC PANEL,BMP [CHEM] DAILY Lab 09/13/16 05:00 Ordered BASIC METABOLIC PANEL,BMP [CHEM] DAILY Lab 09/14/16 05:00 Ordered CBC WITH AUTO DIFF [HEME] DAILY Lab 09/11/16 05:00 Ordered CBC WITH AUTO DIFF [HEME] DAILY Lab 09/12/16 05:00 Ordered CBC WITH AUTO DIFF [HEME] DAILY Lab 09/13/16 05:00 Ordered CBC WITH AUTO DIFF [HEME] DAILY Lab 09/14/16 05:00 Ordered CRP [C-REACTIVE PROTEIN] [CHEM] DAILY Lab 09/11/16 05:00 Ordered CRP [C-REACTIVE PROTEIN] [CHEM] DAILY Lab 09/12/16 05:00 Ordered CRP [C-REACTIVE PROTEIN] [CHEM] DAILY Lab 09/13/16 05:00 Ordered CRP [C-REACTIVE PROTEIN] [CHEM] DAILY Lab 09/14/16 05:00 Ordered GLYCOSYLATED HEMOGLOBIN,HGBA1C [CHEM] Routine Lab 09/11/16 05:00 Ordered INFLUENZA A,B, H1N1 BY PCR [MREF] Routine Lab 09/10/16 18:44 Uncollected TSH [CHEM] Routine Lab 09/11/16 05:00 Ordered Acetaminophen/oxyCODONE [Percocet 325-5 MG] Med 09/10/16 18:27 Ordered 2 tab PO Q6H PRN Albuterol/Ipratropium [DuoNeb 3.0-0.5 MG/3 ML] Med 09/10/16 18:31 Ordered 3 ml NEB QID PRN Amitriptyline [Elavil] Med 09/10/16 21:00 Ordered 10 mg PO BEDTIME Arginine/Ascorbate Sod/Wilfred AC [Arginaid Powder] Med 09/10/16 21:00 Ordered 1 each PO BID Ascorbic Acid [Vitamin C] Med 09/11/16 09:00 Ordered 500 mg PO DAILY Bisacodyl [Dulcolax] Med 09/10/16 18:27 Ordered 10 mg RECTAL DAILY PRN Clopidogrel [Plavix] Med 09/10/16 21:00 Ordered 75 mg PO BEDTIME Furosemide [Lasix] Med 09/11/16 09:00 Ordered 40 mg PO DAILY Gabapentin [Neurontin] Med 09/10/16 21:00 Ordered 900 mg PO TID Insulin Aspart [NovoLOG] Med 09/10/16 22:00 Ordered See Protocol SUBCUT QIDACANDBED Lactobacillus Acidophilus [Acidophilus Lactobacillus] Med 09/11/16 09:00 Ordered 1 tab PO DAILY Levothyroxine [Synthroid] Med 09/11/16 06:00 Ordered 300 mcg PO ACBREAKFAST Lidocaine 2% [Xylocaine 2% Jelly] Med 09/10/16 18:27 Ordered 1 dose TOP TID PRN Losartan [Cozaar] Med 09/11/16 09:00 Ordered 100 mg PO DAILY Pantoprazole [Protonix] Med 09/11/16 06:00 Ordered 40 mg PO ACBREAKFAST Sennosides [Senna] Med 09/10/16 18:27 Ordered 17.2 mg PO DAILY PRN Simvastatin [Zocor] Med 09/10/16 21:00 Ordered 40 mg PO BEDTIME Vancomycin Pharmacy to Dose [Pharmacy to Dose - Med 09/10/16 18:45 Ordered Vancomycin] 1 dose .XX ASDIRECTED cefTAZidime [Fortaz] 1 gm Med 09/10/16 22:00 Ordered Sodium Chloride 0.9% [Normal Saline] 50 ml IV Q8HR Medication Orders Albuterol/Ipratropium (Duoneb 3.0-0.5 Mg/3 Ml) 3 ml NEB QID PRN PRN Reason: Shortness of Breath Amitriptyline HCl (Elavil) 10 mg PO BEDTIME [facility] Ascorbic Acid (Vitamin C) 500 mg PO DAILY [facility] Bisacodyl (Dulcolax) 10 mg RECTAL DAILY PRN PRN Reason: Constipation Clopidogrel Bisulfate (Plavix) 75 mg PO BEDTIME [facility] Furosemide (Lasix) 40 mg PO DAILY [facility] Gabapentin (Neurontin) 900 mg PO TID DI[facility]OND Sodium Chloride (Normal Saline) 1,000 mls @ 125 mls/hr IV ONETIME ONE Stop: 09/10/16 19:12 Last Admin: 09/10/16 13:29 Dose: 125 mls/hr Ceftazidime 1 gm/ Sodium (Chloride) 50 mls @ 100 mls/hr IV Q8HR [facility] Insulin Aspart (Novolog) 0 unit SUBCUT QIDACANDBED DIAMOND PRN Reason: Protocol Levothyroxine Sodium (Synthroid) 300 mcg PO ACBREAKFAST DI[facility]OND Lidocaine HCl (Xylocaine 2% Jelly) ml TOP TID PRN PRN Reason: Pain Losartan Potassium (Cozaar) 100 mg PO DAILY [facility] Non-Formulary Medication (Simvastatin [Zocor]) 40 mg PO BEDTIME [facility] Non-Formulary Medication (Lactobacillus Acidophilus [Acidophilus Lactobacillus] ) 1 tab PO DAILY [facility] Non-Formulary Medication (Arginine/Ascorbate Sod/Wilfred Ac [Arginaid Powder]) 1 each PO BID [facility] Oxycodone/Acetaminophen (Percocet 325-5 Mg) 2 tab PO Q6H PRN PRN Reason: Pain Pantoprazole Sodium (Protonix) 40 mg PO ACBREAKFAST [facility] Senna (Senna) 17.2 mg PO DAILY PRN PRN Reason: Constipation Sodium Chloride (Saline Flush) 10 ml FLUSH ASDIRECTED PRN PRN Reason: Keep Vein Open Last Admin: 09/10/16 13:29 Dose: 10 ml Sodium Chloride (Saline Flush) 10 ml FLUSH ONETIME PRN PRN Reason: Keep Vein Open Last Admin: 09/10/16 13:32 Dose: 10 ml Vancomycin HCl (Pharmacy To Dose - Vancomycin) 1 dose .XX ASDIRECTED [facility] Assessment/Plan Comment:: Impression: Non healing diabetic foot ulcer radiographic study illustrates min-mild OM; edema/cellulitis Poor controlled non complaint diabetic patient with extensive PVD S/P R BKA Has prosthesis but rarely willing to attempt wgt bearing Chronic DM, type II CHF HTN Hyperlipidemia JOSUE COPD GERD Depression Plan: Wound/Bld cx pending Wound care Parvin with pharmacy consuly [facility] Pain meds DM teaching Placement 24-[address] [facility] for safety analyst ATB Consult CM/PT/OT DVT/GI prophylaxis
[2016-09-10] MEDS: Gabapentin 300 MG Cap PO SCH (20:39)
[2016-09-10] MEDS: Simvastatin 40 MG Tab PO SCH (20:39)
[2016-09-10] MEDS: Amitriptyline 10 MG Tab PO SCH (20:39)
[2016-09-10] MEDS: Clopidogrel 75 MG Tab PO SCH (20:39)
[2016-09-10] MEDS: Insulin Aspart 100 Units/ML 3 ML Pen SUBCUT SCH (21:19)
[2016-09-10] MEDS ORDERED: cefTAZidime 1 GM in Sodium Chloride 0.9% 50 ML IV SCH (22:00)
[2016-09-10] MEDS: cefTAZidime 1 GM in Sodium Chloride 0.9% 50 ML IV SCH (22:23)
[2016-09-10] MEDS: Vancomycin 1 GM, Vancomycin 250 MG in Sodium Chloride 0.9% 250 ML IV SCH (23:25)
[2016-09-11] MEDS: cefTAZidime 1 GM in Sodium Chloride 0.9% 50 ML IV SCH ×3 (05:25→21:09)
[2016-09-11] MEDS: Levothyroxine 100 MCG Tab PO SCH (05:25)
[2016-09-11] MEDS: Pantoprazole 40 MG Tab.CR PO SCH (05:25)
[2016-09-11] MEDS: Insulin Aspart 100 Units/ML 3 ML Pen SUBCUT SCH ×4 (06:10→21:04)
[2016-09-11] MEDS: Sennosides 8.6 MG Tab PO PRN (08:33)
[2016-09-11] MEDS: Ascorbic Acid 500 MG Tab PO SCH (08:33)
[2016-09-11] MEDS: Gabapentin 300 MG Cap PO SCH ×3 (08:33→21:04)
[2016-09-11] MEDS: VITE AC PO SCH ×2 (08:34→21:04)
[2016-09-11] MEDS: ARGININE PO SCH ×2 (08:34→21:04)
[2016-09-11] MEDS: Furosemide 40 MG Tab PO SCH (08:34)
[2016-09-11] MEDS: ASCORBATE SOD PO SCH ×2 (08:34→21:04)
[2016-09-11] MEDS: Losartan 100 MG Tab PO SCH (08:38)
[2016-09-11] MEDS: Saccharomyces Boulardii (Probiotic) 250 MG Cap PO SCH (08:40)
[2016-09-11] MEDS: Vancomycin 1 GM, Vancomycin 250 MG in Sodium Chloride 0.9% 250 ML IV SCH ×2 (13:06→23:52)
--- NOTE | 2016-09-11 18:48 | PCM.PN ---
- General Info Date of Service: 09/11/16 Functional Status: Reports: pain controlled, tolerating diet, ambulating (rarely ) - Review of Systems General: Reports: weakness HEENT: Reports: no symptoms Pulmonary: Reports: no symptoms Cardiovascular: Reports: no symptoms Gastrointestinal: Reports: No symptoms Genitourinary: Reports: no symptoms Musculoskeletal: Reports: no symptoms Skin: Reports: no symptoms Neurological: Reports: no symptoms Psychiatric: Reports: depression - Patient Data Vitals - most recent: Last Vital Signs Temp 36.3 C 09/11/16 16:49 Pulse 80 09/11/16 16:49 Resp 18 09/11/16 16:49 BP 105/58 L 09/11/16 16:49 Pulse Ox 100 09/11/16 16:49 Weight - most recent: 106.005 kg I&O - last 24 hours: Intake & Output 09/11/16 09/11/16 09/11/16 06:59 14:59 22:59 Intake Total 147 792 7150 Output Total 1350 2475 Balance -744 810 -1325 Lab Results last 24 hrs: Laboratory Results - last 24 hr 09/10/16 09/11/16 09/11/16 Range/Units 21:10 06:03 06:05 WBC 11.97 H (4.23-9.07) K/mm3 RBC 4.61 L (4.63-6.08) M/mm3 Hgb 11.2 L (13.7-17.5) gm/L Hct 35.8 L (40.1-51.0) % MCV 77.7 L (79.0-92.2) fl MCH 24.3 L (25.7-32.2) pg MCHC 31.3 L (32.2-35.5) g/dl RDW Std Deviation 43.0 (35.1-43.9) fL Plt Count 319 (163-337) K/mm3 MPV 9.9 (9.4-12.3) fl Neut % (Auto) 74.5 H (34.0-67.9) % Lymph % (Auto) 12.3 L (21.8-53.1) % Brooke % (Auto) 8.9 (5.3-12.2) % Eos % (Auto) 3.4 (0.8-7.0) Baso % (Auto) 0.4 (0.1-1.2) % Neut # 8.92 H (1.78-5.38) K/mm3 Lymph # 1.47 (1.32-3.57) K/mm3 Brooke # 1.06 H (0.30-0.82) K/mm3 Eos # 0.41 (0.04-0.54) K/mm3 Baso # 0.05 (0.01-0.08) K/mm3 Sodium (136-145) mEq/L Potassium (3.5-5.1) mEq/L Chloride (98-107) mEq/L Carbon Dioxide (21-32) mEq/L Anion Gap (5-15) BUN (7-18) mg/dL Creatinine (0.7-1.3) mg/dL Est Cr Clr Drug Dosing mL/min Estimated GFR (MDRD) (>60) mL/min BUN/Creatinine Ratio (14-18) Glucose (83-115) mg/dL POC Glucose 179 H 127 H (83-110) mg/dL Hemoglobin A1c (4.50-6.20) % Calcium (8.5-10.1) mg/dL C-Reactive Protein (<1.0) mg/dL TSH 3rd Generation (0.358-3.74) uIU/mL 09/11/16 09/11/16 09/11/16 Range/Units 06:05 06:05 11:32 WBC (4.23-9.07) K/mm3 RBC (4.63-6.08) M/mm3 Hgb (13.7-17.5) gm/L Hct (40.1-51.0) % MCV (79.0-92.2) fl MCH (25.7-32.2) pg MCHC (32.2-35.5) g/dl RDW Std Deviation (35.1-43.9) fL Plt Count (163-337) K/mm3 MPV (9.4-12.3) fl Neut % (Auto) (34.0-67.9) % Lymph % (Auto) (21.8-53.1) % Brooke % (Auto) (5.3-12.2) % Eos % (Auto) (0.8-7.0) Baso % (Auto) (0.1-1.2) % Neut # (1.78-5.38) K/mm3 Lymph # (1.32-3.57) K/mm3 Brooke # (0.30-0.82) K/mm3 Eos # (0.04-0.54) K/mm3 Baso # (0.01-0.08) K/mm3 Sodium 134 L (136-145) mEq/L Potassium 4.3 (3.5-5.1) mEq/L Chloride 100 (98-107) mEq/L Carbon Dioxide 28 (21-32) mEq/L Anion Gap 10.3 (5-15) BUN 26 H (7-18) mg/dL Creatinine 1.2 (0.7-1.3) mg/dL Est Cr Clr Drug Dosing 53.23 mL/min Estimated GFR (MDRD) 59 (>60) mL/min BUN/Creatinine Ratio 21.7 H (14-18) Glucose 108 (83-115) mg/dL POC Glucose 195 H (83-110) mg/dL Hemoglobin A1c 7.20 H (4.50-6.20) % Calcium 8.6 (8.5-10.1) mg/dL C-Reactive Protein 4.9 H* (<1.0) mg/dL TSH 3rd Generation 0.137 L (0.358-3.74) uIU/mL 09/11/16 Range/Units 17:43 WBC (4.23-9.07) K/mm3 RBC (4.63-6.08) M/mm3 Hgb (13.7-17.5) gm/L Hct (40.1-51.0) % MCV (79.0-92.2) fl MCH (25.7-32.2) pg MCHC (32.2-35.5) g/dl RDW Std Deviation (35.1-43.9) fL Plt Count (163-337) K/mm3 MPV (9.4-12.3) fl Neut % (Auto) (34.0-67.9) % Lymph % (Auto) (21.8-53.1) % Brooke % (Auto) (5.3-12.2) % Eos % (Auto) (0.8-7.0) Baso % (Auto) (0.1-1.2) % Neut # (1.78-5.38) K/mm3 Lymph # (1.32-3.57) K/mm3 Brooke # (0.30-0.82) K/mm3 Eos # (0.04-0.54) K/mm3 Baso # (0.01-0.08) K/mm3 Sodium (136-145) mEq/L Potassium (3.5-5.1) mEq/L Chloride (98-107) mEq/L Carbon Dioxide (21-32) mEq/L Anion Gap (5-15) BUN (7-18) mg/dL Creatinine (0.7-1.3) mg/dL Est Cr Clr Drug Dosing mL/min Estimated GFR (MDRD) (>60) mL/min BUN/Creatinine Ratio (14-18) Glucose (83-115) mg/dL POC Glucose 191 H (83-110) mg/dL Hemoglobin A1c (4.50-6.20) % Calcium (8.5-10.1) mg/dL C-Reactive Protein (<1.0) mg/dL TSH 3rd Generation (0.358-3.74) uIU/mL Med Orders - Current: Current Medications Albuterol/Ipratropium (Duoneb 3.0-0.5 Mg/3 Ml) 3 ml NEB QIDRT PRN PRN Reason: Shortness of Breath Amitriptyline HCl (Elavil) 10 mg PO BEDTIME [facility] Last Admin: 09/10/16 20:39 Dose: 10 mg Ascorbic Acid (Vitamin C) 500 mg PO DAILY [facility] Last Admin: 09/11/16 08:33 Dose: 500 mg Bisacodyl (Dulcolax) 10 mg RECTAL DAILY PRN PRN Reason: Constipation Clopidogrel Bisulfate (Plavix) 75 mg PO BEDTIME [facility] Last Admin: 09/10/16 20:39 Dose: 75 mg Furosemide (Lasix) 40 mg PO DAILY [facility] Last Admin: 09/11/16 08:34 Dose: 40 mg Gabapentin (Neurontin) 900 mg PO TID [facility] Last Admin: 09/11/16 16:21 Dose: 900 mg Vancomycin HCl 1 gm/Vancomycin HCl 250 mg/ Sodium Chloride 250 mls @ 166.667 mls/hr IV Q12H [facility] Last Admin: 09/11/16 13:06 Dose: 166.667 mls/hr Ceftazidime 1 gm/ Sodium (Chloride) 50 mls @ 100 mls/hr IV Q8HR [facility] Last Admin: 09/11/16 16:21 Dose: 100 mls/hr Insulin Aspart (Novolog) 0 unit SUBCUT QIDACANDBED [facility] PRN Reason: Protocol Last Admin: 09/11/16 17:44 Dose: 3 units Levothyroxine Sodium (Synthroid) 300 mcg PO ACBREAKFAST [facility] Last Admin: 09/11/16 05:25 Dose: 300 mcg Lidocaine HCl (Xylocaine 2% Jelly) 0 ml TOP TID PRN PRN Reason: Pain Losartan Potassium (Cozaar) 100 mg PO DAILY [facility] Last Admin: 09/11/16 08:38 Dose: Not Given Oxycodone/Acetaminophen (Percocet 325-5 Mg) 2 tab PO Q6H PRN PRN Reason: Pain Last Admin: 09/10/16 22:35 Dose: 2 tab Pantoprazole Sodium (Protonix) 40 mg PO ACBREAKFAST [facility] Last Admin: 09/11/16 05:25 Dose: 40 mg Arginine/Ascorbate Sod/Wilfred Ac ( Arginiaid Powder) 0 each PO BID [facility] Last Admin: 09/11/16 08:34 Dose: Not Given Saccharomyces Boulardii (Florastor) 250 mg PO DAILY [facility] Last Admin: 09/11/16 08:40 Dose: 250 mg Senna (Senna) 17.2 mg PO DAILY PRN PRN Reason: Constipation Last Admin: 09/11/16 08:33 Dose: 17.2 mg Simvastatin (Zocor) 40 mg PO BEDTIME [facility] Last Admin: 09/10/16 20:39 Dose: 40 mg Sodium Chloride (Saline Flush) 10 ml FLUSH ASDIRECTED PRN PRN Reason: Keep Vein Open Last Admin: 09/10/16 13:29 Dose: 10 ml Sodium Chloride (Saline Flush) 10 ml FLUSH ONETIME PRN PRN Reason: Keep Vein Open Last Admin: 09/10/16 13:32 Dose: 10 ml Vancomycin HCl (Pharmacy To Dose - Vancomycin) 0 dose .XX ASDIRECTED PRN PRN Reason: RX DOSE Discontinued Medications Gadobenate Dimeglumine (Multihance) 20 ml IVPUSH ONETIME ONE Stop: 09/10/16 11:54 Last Admin: 09/10/16 13:12 Dose: 20 ml Sodium Chloride (Normal Saline) 1,000 mls @ 125 mls/hr IV ONETIME ONE Stop: 09/10/16 19:12 Last Admin: 09/10/16 13:29 Dose: 125 mls/hr Vancomycin HCl 1 gm/ Sodium (Chloride) 250 mls @ 250 mls/hr IV ONETIME ONE Stop: 09/10/16 14:50 Last Admin: 09/10/16 16:10 Dose: 250 mls/hr Ceftazidime 1 gm/ Sodium (Chloride) 50 mls @ 100 mls/hr IV Q8HR [facility] Last Admin: 09/10/16 22:43 Dose: Not Given - Exam Quality Assessment: central line/PICC (LUE), DVT prophylaxis General: alert, oriented, cooperative HEENT: Pupils equal, Pupils reactive, EOMI Neck: trachea midline Lungs: Clear to auscultation, Normal respiratory effort Cardiovascular: regular rate, regular rhythm Abdomen: bowel sounds present, soft, no tenderness, no distension (Male) Exam: Deferred Back Exam: normal inspection Extremities: normal pulses (UE, bilaterally) Skin: warm Wound/Incisions: dressing dry and intact Neurological: normal speech Psy/Mental Status: alert, depressed - Problem List & Annotations (1) Cellulitis SNOMED Code(s): 956540364 Code(s): L03.90 - CELLULITIS, UNSPECIFIED Status: Acute Current Visit: No Qualifiers: Site of cellulitis: extremity Site of cellulitis of extremity: lower extremity Laterality: left Qualified Code(s): L03.116 - Cellulitis of left lower limb (2) Diabetic foot ulcer SNOMED Code(s): 930422461 Code(s): E11.621 - TYPE 2 DIABETES MELLITUS WITH FOOT ULCER; L97.509 - NON- PRESSURE CHRONIC ULCER OTH PRT UNSP FOOT W UNSP SEVERITY Status: Acute Current Visit: Yes (3) Diabetic ulcer of heel SNOMED Code(s): 18695015, 768878036 Code(s): E11.621 - TYPE 2 DIABETES MELLITUS WITH FOOT ULCER; L97.409 - NON- PRS CHRONIC ULCER OF UNSP HEEL AND MIDFOOT W UNSP SEVERT Status: Acute Current Visit: No - Problem List Review Problem List Initiated/Reviewed/Updated: Yes - My Orders Last 24 Hours: My Active Orders 09/10/16 18:25 Vital Signs [RC] 03,09,15,21 09/10/16 18:26 Consult to Case Management [CONS] Routine Consult to Occupational Therapy [OT Evaluation and Treatment] [CONS] Routine 09/10/16 18:27 Consult to Physical Therapy [PT Evaluation and Treatment] [CONS] Routine Acetaminophen/oxyCODONE [Percocet 325-5 MG] 2 tab PO Q6H PRN Bisacodyl [Dulcolax] 10 mg RECTAL DAILY PRN Lidocaine 2% [Xylocaine 2% Jelly] 0 ml TOP TID PRN Sennosides [Senna] 17.2 mg PO DAILY PRN 09/10/16 18:31 RT Aerosol Therapy [RC] ASDIRECTED Albuterol/Ipratropium [DuoNeb 3.0-0.5 MG/3 ML] 3 ml NEB QIDRT PRN 09/10/16 18:32 Accu Check [Blood Glucose Check, Bedside] [RC] QIDACANDBED 09/10/16 18:37 Consult to Physical Therapy [PT Evaluation and Treatment] [CONS] Routine 09/10/16 18:45 Vancomycin Pharmacy to Dose [Pharmacy to Dose - Vancomycin] 0 dose .XX ASDIRECTED PRN 09/10/16 18:57 Resuscitation Status Routine 09/10/16 21:00 Amitriptyline [Elavil] 10 mg PO BEDTIME Clopidogrel [Plavix] 75 mg PO BEDTIME Gabapentin [Neurontin] 900 mg PO TID Patient's Own Medication [Ptom] 0 each PO BID Simvastatin [Zocor] 40 mg PO BEDTIME 09/10/16 21:30 INFLUENZA A,B, H1N1 BY PCR [MREF] Routine 09/10/16 22:00 Insulin Aspart [NovoLOG] See Protocol SUBCUT QIDACANDBED cefTAZidime [Fortaz] 1 gm Sodium Chloride 0.9% [Normal Saline] 50 ml IV Q8HR 09/11/16 00:00 Vancomycin 1 gm Vancomycin 250 mg Sodium Chloride 0.9% [Normal Saline] 250 ml IV Q12H 09/11/16 06:00 Levothyroxine [Synthroid] 300 mcg PO ACBREAKFAST Pantoprazole [Protonix] 40 mg PO ACBREAKFAST 09/11/16 09:00 Ascorbic Acid [Vitamin C] 500 mg PO DAILY Furosemide [Lasix] 40 mg PO DAILY Losartan [Cozaar] 100 mg PO DAILY Saccharomyces Boulardii [Florastor] 250 mg PO DAILY 09/11/16 09:13 Activity as Tolerated [RC] .Routine 09/11/16 Breakfast ADA Diabetic [[place] [employer] Diet] [DIET] 09/12/16 05:00 BASIC METABOLIC PANEL,BMP [CHEM] DAILY CBC WITH AUTO DIFF [HEME] DAILY CRP [C-REACTIVE PROTEIN] [CHEM] DAILY 09/13/16 05:00 BASIC METABOLIC PANEL,BMP [CHEM] DAILY CBC WITH AUTO DIFF [HEME] DAILY CRP [C-REACTIVE PROTEIN] [CHEM] DAILY 09/14/16 05:00 BASIC METABOLIC PANEL,BMP [CHEM] DAILY CBC WITH AUTO DIFF [HEME] DAILY CRP [C-REACTIVE PROTEIN] [CHEM] DAILY - Plan Plan:: Impression: Non healing diabetic foot ulcer radiographic study illustrates min-mild OM; edema/cellulitis Poor controlled non complaint diabetic patient with extensive PVD S/P R BKA Has prosthesis but rarely willing to attempt wgt bearing Chronic DM, type II CHF HTN Hyperlipidemia JOSUE COPD GERD Depression Plan: Wound/Bld cx pending Wound care Vanco with pharmacy consult [facility] Pain meds DM teaching [facility] Consult CM/PT/OT DVT/GI prophylaxis
[2016-09-11] MEDS: Amitriptyline 10 MG Tab PO SCH (21:04)
[2016-09-11] MEDS: Simvastatin 40 MG Tab PO SCH (21:04)
[2016-09-11] MEDS: Clopidogrel 75 MG Tab PO SCH (21:04)
[2016-09-12] MEDS: cefTAZidime 1 GM in Sodium Chloride 0.9% 50 ML IV SCH ×3 (05:27→21:53)
[2016-09-12] MEDS: Levothyroxine 100 MCG Tab PO SCH (05:27)
[2016-09-12] MEDS: Pantoprazole 40 MG Tab.CR PO SCH (05:27)
[2016-09-12] MEDS: Insulin Aspart 100 Units/ML 3 ML Pen SUBCUT SCH ×4 (07:29→22:00)
[2016-09-12] MEDS: Gabapentin 300 MG Cap PO SCH ×3 (08:52→21:55)
[2016-09-12] MEDS: Furosemide 40 MG Tab PO SCH (08:52)
[2016-09-12] MEDS: Ascorbic Acid 500 MG Tab PO SCH (08:52)
[2016-09-12] MEDS: Losartan 100 MG Tab PO SCH (08:52)
[2016-09-12] MEDS: Sennosides 8.6 MG Tab PO PRN (08:52)
[2016-09-12] MEDS: Saccharomyces Boulardii (Probiotic) 250 MG Cap PO SCH (08:52)
[2016-09-12] MEDS: ARGININE PO SCH ×2 (08:53→22:00)
[2016-09-12] MEDS: ASCORBATE SOD PO SCH ×2 (08:53→22:00)
[2016-09-12] MEDS: VITE AC PO SCH ×2 (08:53→22:00)
[2016-09-12] MEDS ORDERED: Diphtheria,Pertussis(Acell),Tetanus Vaccine 0.5 ML SDV inactive IM ONE (09:18)
[2016-09-12] MEDS: Enoxaparin 40 MG/0.4 ML Syringe SUBCUT SCH (12:19)
[2016-09-12] MEDS: Vancomycin 1 GM, Vancomycin 250 MG in Sodium Chloride 0.9% 250 ML IV SCH ×2 (12:44→17:41)
--- NOTE | 2016-09-12 18:59 | PCM.PN ---
- General Info Date of Service: 09/12/16 Functional Status: Reports: tolerating diet, urinating - Review of Systems General: Reports: weakness, fatigue HEENT: Reports: no symptoms Pulmonary: Reports: no symptoms Cardiovascular: Reports: no symptoms Gastrointestinal: Reports: No symptoms Genitourinary: Reports: no symptoms Musculoskeletal: Reports: foot pain Skin: Reports: no symptoms Neurological: Reports: no symptoms Psychiatric: Reports: no symptoms - Patient Data Vitals - most recent: Last Vital Signs Temp 36.7 C 09/12/16 15:22 Pulse 91 09/12/16 15:22 Resp 16 09/12/16 15:22 BP 125/86 09/12/16 15:22 Pulse Ox 100 09/12/16 15:22 Weight - most recent: 106.005 kg I&O - last 24 hours: Intake & Output 09/12/16 09/12/16 09/12/16 06:59 14:59 22:59 Intake Total 516 1070 Output Total 1650 Balance -1134 1070 Lab Results last 24 hrs: Laboratory Results - last 24 hr 09/11/16 09/12/16 09/12/16 Range/Units 21:03 06:55 06:55 WBC 10.67 H (4.23-9.07) K/mm3 RBC 4.34 L (4.63-6.08) M/mm3 Hgb 10.5 L (13.7-17.5) gm/L Hct 33.6 L (40.1-51.0) % MCV 77.4 L (79.0-92.2) fl MCH 24.2 L (25.7-32.2) pg MCHC 31.3 L (32.2-35.5) g/dl RDW Std Deviation 41.7 (35.1-43.9) fL Plt Count 325 (163-337) K/mm3 MPV 9.7 (9.4-12.3) fl Neut % (Auto) 73.5 H (34.0-67.9) % Lymph % (Auto) 13.4 L (21.8-53.1) % Rhea % (Auto) 8.7 (5.3-12.2) % Eos % (Auto) 3.5 (0.8-7.0) Baso % (Auto) 0.4 (0.1-1.2) % Neut # 7.85 H (1.78-5.38) K/mm3 Lymph # 1.43 (1.32-3.57) K/mm3 Rhea # 0.93 H (0.30-0.82) K/mm3 Eos # 0.37 (0.04-0.54) K/mm3 Baso # 0.04 (0.01-0.08) K/mm3 Sodium 132 L (136-145) mEq/L Potassium 4.3 (3.5-5.1) mEq/L Chloride 97 L (98-107) mEq/L Carbon Dioxide 28 (21-32) mEq/L Anion Gap 11.3 (5-15) BUN 22 H (7-18) mg/dL Creatinine 1.1 (0.7-1.3) mg/dL Est Cr Clr Drug Dosing 58.07 mL/min Estimated GFR (MDRD) > 60 (>60) mL/min BUN/Creatinine Ratio 20.0 H (14-18) Glucose 145 H (83-115) mg/dL POC Glucose 235 H (83-110) mg/dL Calcium 8.5 (8.5-10.1) mg/dL C-Reactive Protein 6.3 H* (<1.0) mg/dL Free T4 (0.76-1.46) ng/dL Vancomycin Trough (10.0-20.0) 09/12/16 09/12/16 09/12/16 Range/Units 06:55 07:04 11:19 WBC (4.23-9.07) K/mm3 RBC (4.63-6.08) M/mm3 Hgb (13.7-17.5) gm/L Hct (40.1-51.0) % MCV (79.0-92.2) fl MCH (25.7-32.2) pg MCHC (32.2-35.5) g/dl RDW Std Deviation (35.1-43.9) fL Plt Count (163-337) K/mm3 MPV (9.4-12.3) fl Neut % (Auto) (34.0-67.9) % Lymph % (Auto) (21.8-53.1) % Rhea % (Auto) (5.3-12.2) % Eos % (Auto) (0.8-7.0) Baso % (Auto) (0.1-1.2) % Neut # (1.78-5.38) K/mm3 Lymph # (1.32-3.57) K/mm3 Rhea # (0.30-0.82) K/mm3 Eos # (0.04-0.54) K/mm3 Baso # (0.01-0.08) K/mm3 Sodium (136-145) mEq/L Potassium (3.5-5.1) mEq/L Chloride (98-107) mEq/L Carbon Dioxide (21-32) mEq/L Anion Gap (5-15) BUN (7-18) mg/dL Creatinine (0.7-1.3) mg/dL Est Cr Clr Drug Dosing mL/min Estimated GFR (MDRD) (>60) mL/min BUN/Creatinine Ratio (14-18) Glucose (83-115) mg/dL POC Glucose 143 H 184 H (83-110) mg/dL Calcium (8.5-10.1) mg/dL C-Reactive Protein (<1.0) mg/dL Free T4 2.06 H (0.76-1.46) ng/dL Vancomycin Trough (10.0-20.0) 09/12/16 09/12/16 Range/Units 11:39 17:22 WBC (4.23-9.07) K/mm3 RBC (4.63-6.08) M/mm3 Hgb (13.7-17.5) gm/L Hct (40.1-51.0) % MCV (79.0-92.2) fl MCH (25.7-32.2) pg MCHC (32.2-35.5) g/dl RDW Std Deviation (35.1-43.9) fL Plt Count (163-337) K/mm3 MPV (9.4-12.3) fl Neut % (Auto) (34.0-67.9) % Lymph % (Auto) (21.8-53.1) % Rhea % (Auto) (5.3-12.2) % Eos % (Auto) (0.8-7.0) Baso % (Auto) (0.1-1.2) % Neut # (1.78-5.38) K/mm3 Lymph # (1.32-3.57) K/mm3 Rhea # (0.30-0.82) K/mm3 Eos # (0.04-0.54) K/mm3 Baso # (0.01-0.08) K/mm3 Sodium (136-145) mEq/L Potassium (3.5-5.1) mEq/L Chloride (98-107) mEq/L Carbon Dioxide (21-32) mEq/L Anion Gap (5-15) BUN (7-18) mg/dL Creatinine (0.7-1.3) mg/dL Est Cr Clr Drug Dosing mL/min Estimated GFR (MDRD) (>60) mL/min BUN/Creatinine Ratio (14-18) Glucose (83-115) mg/dL POC Glucose 276 H (83-110) mg/dL Calcium (8.5-10.1) mg/dL C-Reactive Protein (<1.0) mg/dL Free T4 (0.76-1.46) ng/dL Vancomycin Trough 22.7 H (10.0-20.0) Med Orders - Current: Current Medications Albuterol/Ipratropium (Duoneb 3.0-0.5 Mg/3 Ml) 3 ml NEB QIDRT PRN PRN Reason: Shortness of Breath Amitriptyline HCl (Elavil) 10 mg PO BEDTIME [facility] Last Admin: 09/11/16 21:04 Dose: 10 mg Ascorbic Acid (Vitamin C) 500 mg PO DAILY [facility] Last Admin: 09/12/16 08:52 Dose: 500 mg Bisacodyl (Dulcolax) 10 mg RECTAL DAILY PRN PRN Reason: Constipation Clopidogrel Bisulfate (Plavix) 75 mg PO BEDTIME [facility] Last Admin: 09/11/16 21:04 Dose: 75 mg Enoxaparin Sodium (Lovenox) 40 mg SUBCUT DAILY [facility] Last Admin: 09/12/16 12:19 Dose: 40 mg Furosemide (Lasix) 40 mg PO DAILY [facility] Last Admin: 09/12/16 08:52 Dose: 40 mg Gabapentin (Neurontin) 900 mg PO TID [facility] Last Admin: 09/12/16 15:12 Dose: 900 mg Ceftazidime 1 gm/ Sodium (Chloride) 50 mls @ 100 mls/hr IV Q8HR [facility] Last Admin: 09/12/16 15:13 Dose: 100 mls/hr Vancomycin HCl 1 gm/Vancomycin HCl 250 mg/ Sodium Chloride 250 mls @ 166.667 mls/hr IV Q18H [facility] Last Admin: 09/12/16 17:41 Dose: 166.667 mls/hr Insulin Aspart (Novolog) 0 unit SUBCUT QIDACANDBED [facility] PRN Reason: Protocol Last Admin: 09/12/16 17:30 Dose: 9 units Levothyroxine Sodium (Synthroid) 300 mcg PO ACBREAKFAST [facility] Last Admin: 09/12/16 05:27 Dose: 300 mcg Lidocaine HCl (Xylocaine 2% Jelly) 0 ml TOP TID PRN PRN Reason: Pain Losartan Potassium (Cozaar) 100 mg PO DAILY [facility] Last Admin: 09/12/16 08:52 Dose: 100 mg Oxycodone/Acetaminophen (Percocet 325-5 Mg) 2 tab PO Q6H PRN PRN Reason: Pain Last Admin: 09/10/16 22:35 Dose: 2 tab Pantoprazole Sodium (Protonix) 40 mg PO ACBREAKFAST [facility] Last Admin: 09/12/16 05:27 Dose: 40 mg Arginine/Ascorbate Sod/Wilfred Ac ( Arginiaid Powder) 0 each PO BID [facility] Last Admin: 09/12/16 08:53 Dose: Not Given Saccharomyces Boulardii (Florastor) 250 mg PO DAILY [facility] Last Admin: 09/12/16 08:52 Dose: 250 mg Senna (Senna) 17.2 mg PO DAILY PRN PRN Reason: Constipation Last Admin: 09/12/16 08:52 Dose: 17.2 mg Simvastatin (Zocor) 40 mg PO BEDTIME [facility] Last Admin: 09/11/16 21:04 Dose: 40 mg Sodium Chloride (Saline Flush) 10 ml FLUSH ASDIRECTED PRN PRN Reason: Keep Vein Open Last Admin: 09/10/16 13:29 Dose: 10 ml Sodium Chloride (Saline Flush) 10 ml FLUSH ONETIME PRN PRN Reason: Keep Vein Open Last Admin: 09/10/16 13:32 Dose: 10 ml Vancomycin HCl (Pharmacy To Dose - Vancomycin) 0 dose .XX ASDIRECTED PRN PRN Reason: RX DOSE Discontinued Medications Diphtheria/Tetanus/Acell Pertussis (Boostrix) 0.5 ml IM .ONCE ONE Stop: 09/12/16 09:19 Gadobenate Dimeglumine (Multihance) 20 ml IVPUSH ONETIME ONE Stop: 09/10/16 11:54 Last Admin: 09/10/16 13:12 Dose: 20 ml Sodium Chloride (Normal Saline) 1,000 mls @ 125 mls/hr IV ONETIME ONE Stop: 09/10/16 19:12 Last Admin: 09/10/16 13:29 Dose: 125 mls/hr Vancomycin HCl 1 gm/ Sodium (Chloride) 250 mls @ 250 mls/hr IV ONETIME ONE Stop: 09/10/16 14:50 Last Admin: 09/10/16 16:10 Dose: 250 mls/hr Ceftazidime 1 gm/ Sodium (Chloride) 50 mls @ 100 mls/hr IV Q8HR [facility] Last Admin: 09/10/16 22:43 Dose: Not Given Vancomycin HCl 1 gm/Vancomycin HCl 250 mg/ Sodium Chloride 250 mls @ 166.667 mls/hr IV Q12H [facility] Last Admin: 09/12/16 12:44 Dose: Not Given - Exam Quality Assessment: central line/PICC, DVT prophylaxis General: alert, oriented, cooperative, no acute distress HEENT: Pupils equal, Pupils reactive, EOMI Neck: trachea midline, no JVD Lungs: Normal respiratory effort Cardiovascular: regular rate, regular rhythm Abdomen: bowel sounds present, soft, no tenderness, no distension (Male) Exam: Deferred Back Exam: normal inspection Extremities: normal pulses, edema Skin: warm Wound/Incisions: dressing dry and intact Neurological: no new focal deficit, normal speech Psy/Mental Status: alert, depressed. No: normal affect - Problem List & Annotations (1) Cellulitis SNOMED Code(s): 075547290 Code(s): L03.90 - CELLULITIS, UNSPECIFIED Status: Acute Current Visit: No Qualifiers: Site of cellulitis: extremity Site of cellulitis of extremity: lower extremity Laterality: left Qualified Code(s): L03.116 - Cellulitis of left lower limb (2) Diabetic foot ulcer SNOMED Code(s): 357295442 Code(s): E11.621 - TYPE 2 DIABETES MELLITUS WITH FOOT ULCER; L97.509 - NON- PRESSURE CHRONIC ULCER OTH PRT UNSP FOOT W UNSP SEVERITY Status: Acute Current Visit: Yes (3) Diabetic ulcer of heel SNOMED Code(s): 96804020, 999768884 Code(s): E11.621 - TYPE 2 DIABETES MELLITUS WITH FOOT ULCER; L97.409 - NON- PRS CHRONIC ULCER OF UNSP HEEL AND MIDFOOT W UNSP SEVERT Status: Acute Current Visit: No - Problem List Review Problem List Initiated/Reviewed/Updated: Yes - My Orders Last 24 Hours: My Active Orders 09/12/16 09:18 Vaccines to be Administered [RC] PER UNIT ROUTINE 09/12/16 09:23 CULTURE URINE [RM] Routine 09/12/16 11:15 Enoxaparin [Lovenox] 40 mg SUBCUT DAILY 09/12/16 18:00 Vancomycin 1 gm Vancomycin 250 mg Sodium Chloride 0.9% [Normal Saline] 250 ml IV Q18H 09/13/16 05:00 BASIC METABOLIC PANEL,BMP [CHEM] DAILY CBC WITH AUTO DIFF [HEME] DAILY CRP [C-REACTIVE PROTEIN] [CHEM] DAILY 09/13/16 07:00 CBC W/O DIFF,HEMOGRAM [HEME] MOTH@0700 09/14/16 05:00 BASIC METABOLIC PANEL,BMP [CHEM] DAILY CBC WITH AUTO DIFF [HEME] DAILY CRP [C-REACTIVE PROTEIN] [CHEM] DAILY 09/16/16 07:00 CBC W/O DIFF,HEMOGRAM [HEME] MOTH@0700 09/20/16 07:00 CBC W/O DIFF,HEMOGRAM [HEME] MOTH@0700 09/23/16 07:00 CBC W/O DIFF,HEMOGRAM [HEME] MOTH@0700 09/27/16 07:00 CBC W/O DIFF,HEMOGRAM [HEME] MOTH@0700 09/30/16 07:00 CBC W/O DIFF,HEMOGRAM [HEME] MOTH@0700 - Plan Plan:: Impression: Non healing diabetic foot ulcer radiographic study illustrates min-mild OM; edema/cellulitis Poor controlled non complaint diabetic patient with extensive PVD S/P R BKA Has prosthesis but rarely willing to attempt wgt bearing Chronic DM, type II CHF HTN Hyperlipidemia JOSUE COPD GERD Depression Plan: Wound/Bld cx pending Wound care Vanco with pharmacy consult [facility] Pain meds DM teaching Placement 24-72 hours at [facility] for custodial ATB Consult CM/PT/OT DVT/GI prophylaxis
[2016-09-12] MEDS: Simvastatin 40 MG Tab PO SCH (21:55)
[2016-09-12] MEDS: Clopidogrel 75 MG Tab PO SCH (21:55)
[2016-09-12] MEDS: Amitriptyline 10 MG Tab PO SCH (21:55)
[2016-09-13] MEDS: cefTAZidime 1 GM in Sodium Chloride 0.9% 50 ML IV SCH (05:50)
[2016-09-13] MEDS: Levothyroxine 100 MCG Tab PO SCH (05:53)
[2016-09-13] MEDS: Pantoprazole 40 MG Tab.CR PO SCH (05:54)
[2016-09-13] MEDS: Insulin Aspart 100 Units/ML 3 ML Pen SUBCUT SCH ×4 (06:39→22:04)
[2016-09-13] MEDS: ASCORBATE SOD PO SCH ×2 (09:31→22:04)
[2016-09-13] MEDS: VITE AC PO SCH ×2 (09:31→22:04)
[2016-09-13] MEDS: ARGININE PO SCH ×2 (09:31→22:04)
[2016-09-13] MEDS: Enoxaparin 40 MG/0.4 ML Syringe SUBCUT SCH (09:32)
[2016-09-13] MEDS: Ascorbic Acid 500 MG Tab PO SCH (09:33)
[2016-09-13] MEDS: Furosemide 40 MG Tab PO SCH (09:33)
[2016-09-13] MEDS: Losartan 100 MG Tab PO SCH (09:33)
[2016-09-13] MEDS: Saccharomyces Boulardii (Probiotic) 250 MG Cap PO SCH (09:33)
[2016-09-13] MEDS: Gabapentin 300 MG Cap PO SCH ×3 (09:33→22:03)
--- NOTE | 2016-09-13 10:03 | CR ---
Chest: Portable view of the chest was obtained. Study obtained at time 3:21 PM Comparison: Previous chest x-ray performed earlier on the same day. PICC line has been slightly withdrawn but still remains within abnormal position. Other portions of the study are stable. Impression: 1. PICC line slightly withdrawn but still within abnormal position. Diagnostic code #3
--- NOTE | 2016-09-13 10:03 | CR ---
Chest: Portable view of the chest was obtained time 13:16 p.m. Right-sided PICC line is seen extending down the lateral thoracic vein. Visualized lungs are clear. Heart size and mediastinum are within normal limits for portable technique. Bony structures are grossly intact. Impression: 1. Abnormal position of right-sided PICC line. Diagnostic code #3
--- NOTE | 2016-09-13 10:03 | CR ---
Chest: Portable view of the chest was obtained time 3:32 PM. Comparison: Previous studies are available. PICC line has been withdrawn but still remains in an abnormal position. Other portions of the chest remain stable. Impression: 1. Continuing abnormal position of PICC line. Diagnostic code #3
--- NOTE | 2016-09-13 10:03 | CR ---
Chest: Portable view of the chest was obtained at time 3:31 PM. Comparison: Previous studies performed earlier on Tuesday. PICC line continues to be within an abnormal position. Other portions of the chest are stable. Impression: 1. Continued abnormal position of PICC line. Diagnostic code #3
[2016-09-13] MEDS: Vancomycin 1 GM, Vancomycin 250 MG in Sodium Chloride 0.9% 250 ML IV SCH (11:28)
[2016-09-13] MEDS: Meropenem 500 MG in Sodium Chloride 0.9% 100 ML IV SCH ×2 (15:01→22:03)
--- NOTE | 2016-09-13 20:25 | PCM.PN ---
- General Info Date of Service: 09/13/16 Functional Status: Reports: pain controlled, tolerating diet, urinating - Review of Systems General: Reports: no symptoms HEENT: Reports: no symptoms Pulmonary: Reports: no symptoms Cardiovascular: Reports: no symptoms Gastrointestinal: Reports: No symptoms Genitourinary: Reports: no symptoms Musculoskeletal: Reports: no symptoms Skin: Reports: no symptoms Neurological: Reports: no symptoms Psychiatric: Reports: no symptoms - Patient Data Vitals - most recent: Last Vital Signs Temp 36.8 C 09/13/16 15:27 Pulse 69 09/13/16 15:27 Resp 18 09/13/16 15:27 BP 119/80 09/13/16 15:27 Pulse Ox 100 09/13/16 15:27 Weight - most recent: 106.821 kg I&O - last 24 hours: Intake & Output 09/13/16 09/13/16 09/13/16 06:59 14:59 22:59 Intake Total 650 1100 1930 Output Total 1750 2000 Balance -1100 1100 -70 Lab Results last 24 hrs: Laboratory Results - last 24 hr 09/12/16 09/13/16 09/13/16 Range/Units 21:51 04:48 04:48 WBC 10.62 H (4.23-9.07) K/mm3 RBC 4.31 L (4.63-6.08) M/mm3 Hgb 10.4 L (13.7-17.5) gm/L Hct 32.9 L (40.1-51.0) % MCV 76.3 L (79.0-92.2) fl MCH 24.1 L (25.7-32.2) pg MCHC 31.6 L (32.2-35.5) g/dl RDW Std Deviation 40.8 (35.1-43.9) fL Plt Count 301 (163-337) K/mm3 MPV 9.9 (9.4-12.3) fl Neut % (Auto) 70.4 H (34.0-67.9) % Lymph % (Auto) 15.6 L (21.8-53.1) % [place] % (Auto) 9.7 (5.3-12.2) % Eos % (Auto) 3.4 (0.8-7.0) Baso % (Auto) 0.4 (0.1-1.2) % Neut # 7.48 H (1.78-5.38) K/mm3 Lymph # 1.66 (1.32-3.57) K/mm3 [place] # 1.03 H (0.30-0.82) K/mm3 Eos # 0.36 (0.04-0.54) K/mm3 Baso # 0.04 (0.01-0.08) K/mm3 Sodium 130 L (136-145) mEq/L Potassium 4.6 (3.5-5.1) mEq/L Chloride 97 L (98-107) mEq/L Carbon Dioxide 26 (21-32) mEq/L Anion Gap 11.6 (5-15) BUN 22 H (7-18) mg/dL Creatinine 0.9 (0.7-1.3) mg/dL Est Cr Clr Drug Dosing 70.97 mL/min Estimated GFR (MDRD) > 60 (>60) mL/min BUN/Creatinine Ratio 24.4 H (14-18) Glucose 166 H (83-115) mg/dL POC Glucose 222 H (83-110) mg/dL Calcium 8.7 (8.5-10.1) mg/dL C-Reactive Protein 4.5 H* (<1.0) mg/dL 09/13/16 09/13/16 09/13/16 Range/Units 06:38 10:47 17:44 WBC (4.23-9.07) K/mm3 RBC (4.63-6.08) M/mm3 Hgb (13.7-17.5) gm/L Hct (40.1-51.0) % MCV (79.0-92.2) fl MCH (25.7-32.2) pg MCHC (32.2-35.5) g/dl RDW Std Deviation (35.1-43.9) fL Plt Count (163-337) K/mm3 MPV (9.4-12.3) fl Neut % (Auto) (34.0-67.9) % Lymph % (Auto) (21.8-53.1) % [place] % (Auto) (5.3-12.2) % Eos % (Auto) (0.8-7.0) Baso % (Auto) (0.1-1.2) % Neut # (1.78-5.38) K/mm3 Lymph # (1.32-3.57) K/mm3 [place] # (0.30-0.82) K/mm3 Eos # (0.04-0.54) K/mm3 Baso # (0.01-0.08) K/mm3 Sodium (136-145) mEq/L Potassium (3.5-5.1) mEq/L Chloride (98-107) mEq/L Carbon Dioxide (21-32) mEq/L Anion Gap (5-15) BUN (7-18) mg/dL Creatinine (0.7-1.3) mg/dL Est Cr Clr Drug Dosing mL/min Estimated GFR (MDRD) (>60) mL/min BUN/Creatinine Ratio (14-18) Glucose (83-115) mg/dL POC Glucose 161 H 288 H 249 H (83-110) mg/dL Calcium (8.5-10.1) mg/dL C-Reactive Protein (<1.0) mg/dL Med Orders - Current: Current Medications Albuterol/Ipratropium (Duoneb 3.0-0.5 Mg/3 Ml) 3 ml NEB QIDRT PRN PRN Reason: Shortness of Breath Amitriptyline HCl (Elavil) 10 mg PO BEDTIME [facility] Last Admin: 09/12/16 21:55 Dose: 10 mg Ascorbic Acid (Vitamin C) 500 mg PO DAILY [facility] Last Admin: 09/13/16 09:33 Dose: 500 mg Bisacodyl (Dulcolax) 10 mg RECTAL DAILY PRN PRN Reason: Constipation Clopidogrel Bisulfate (Plavix) 75 mg PO BEDTIME [facility] Last Admin: 09/12/16 21:55 Dose: 75 mg Enoxaparin Sodium (Lovenox) 40 mg SUBCUT DAILY [facility] Last Admin: 09/13/16 09:32 Dose: 40 mg Furosemide (Lasix) 40 mg PO DAILY [facility] Last Admin: 09/13/16 09:33 Dose: 40 mg Gabapentin (Neurontin) 900 mg PO TID [facility] Last Admin: 09/13/16 15:01 Dose: 900 mg Vancomycin HCl 1 gm/Vancomycin HCl 250 mg/ Sodium Chloride 250 mls @ 166.667 mls/hr IV Q18H [facility] Last Admin: 09/13/16 11:28 Dose: 166.667 mls/hr Meropenem 500 mg/ Sodium (Chloride) 100 mls @ 200 mls/hr IV Q6H [facility] Last Admin: 09/13/16 15:01 Dose: 200 mls/hr Insulin Aspart (Novolog) 0 unit SUBCUT QIDACANDBED [facility] PRN Reason: Protocol Last Admin: 09/13/16 17:45 Dose: 6 units Levothyroxine Sodium (Synthroid) 300 mcg PO ACBREAKFAST [facility] Last Admin: 09/13/16 05:53 Dose: 300 mcg Lidocaine HCl (Xylocaine 2% Jelly) 0 ml TOP TID PRN PRN Reason: Pain Losartan Potassium (Cozaar) 100 mg PO DAILY [facility] Last Admin: 09/13/16 09:33 Dose: 100 mg Oral Electrolytes (Thermotabs) 2 each PO DAILY [facility] Oxycodone/Acetaminophen (Percocet 325-5 Mg) 2 tab PO Q6H PRN PRN Reason: Pain Last Admin: 09/10/16 22:35 Dose: 2 tab Pantoprazole Sodium (Protonix) 40 mg PO ACBREAKFAST [facility] Last Admin: 09/13/16 05:54 Dose: 40 mg Arginine/Ascorbate Sod/Wilfred Ac ( Arginiaid Powder) 0 each PO BID [facility] Last Admin: 09/13/16 09:31 Dose: Not Given Saccharomyces Boulardii (Florastor) 250 mg PO DAILY [facility] Last Admin: 09/13/16 09:33 Dose: 250 mg Senna (Senna) 17.2 mg PO DAILY PRN PRN Reason: Constipation Last Admin: 09/12/16 08:52 Dose: 17.2 mg Simvastatin (Zocor) 40 mg PO BEDTIME [facility] Last Admin: 09/12/16 21:55 Dose: 40 mg Sodium Chloride (Saline Flush) 10 ml FLUSH ASDIRECTED PRN PRN Reason: Keep Vein Open Last Admin: 09/10/16 13:29 Dose: 10 ml Sodium Chloride (Saline Flush) 10 ml FLUSH ONETIME PRN PRN Reason: Keep Vein Open Last Admin: 09/10/16 13:32 Dose: 10 ml Vancomycin HCl (Pharmacy To Dose - Vancomycin) 0 dose .XX ASDIRECTED PRN PRN Reason: RX DOSE Discontinued Medications Diphtheria/Tetanus/Acell Pertussis (Boostrix) 0.5 ml IM .ONCE ONE Stop: 09/12/16 09:19 Gadobenate Dimeglumine (Multihance) 20 ml IVPUSH ONETIME ONE Stop: 09/10/16 11:54 Last Admin: 09/10/16 13:12 Dose: 20 ml Sodium Chloride (Normal Saline) 1,000 mls @ 125 mls/hr IV ONETIME ONE Stop: 09/10/16 19:12 Last Admin: 09/10/16 13:29 Dose: 125 mls/hr Vancomycin HCl 1 gm/ Sodium (Chloride) 250 mls @ 250 mls/hr IV ONETIME ONE Stop: 09/10/16 14:50 Last Admin: 09/10/16 16:10 Dose: 250 mls/hr Ceftazidime 1 gm/ Sodium (Chloride) 50 mls @ 100 mls/hr IV Q8HR [facility] Last Admin: 09/10/16 22:43 Dose: Not Given Vancomycin HCl 1 gm/Vancomycin HCl 250 mg/ Sodium Chloride 250 mls @ 166.667 mls/hr IV Q12H [facility] Last Admin: 09/12/16 12:44 Dose: Not Given Ceftazidime 1 gm/ Sodium (Chloride) 50 mls @ 100 mls/hr IV Q8HR [facility] Last Admin: 09/13/16 05:50 Dose: 100 mls/hr - Exam Quality Assessment: DVT prophylaxis General: alert, oriented, no acute distress HEENT: Pupils equal, Pupils reactive, EOMI Neck: supple, trachea midline Lungs: Normal respiratory effort, Decreased breath sounds Cardiovascular: regular rate, regular rhythm Abdomen: bowel sounds present, soft, no tenderness, no distension (Male) Exam: Deferred Back Exam: normal inspection Extremities: normal pulses Skin: warm Neurological: no new focal deficit, normal speech Psy/Mental Status: alert, depressed - Problem List & Annotations (1) Cellulitis SNOMED Code(s): 081484909 Code(s): L03.90 - CELLULITIS, UNSPECIFIED Status: Acute Current Visit: No Qualifiers: Site of cellulitis: extremity Site of cellulitis of extremity: lower extremity Laterality: left Qualified Code(s): L03.116 - Cellulitis of left lower limb (2) Diabetic foot ulcer SNOMED Code(s): 085229177 Code(s): E11.621 - TYPE 2 DIABETES MELLITUS WITH FOOT ULCER; L97.509 - NON- PRESSURE CHRONIC ULCER OTH PRT UNSP FOOT W UNSP SEVERITY Status: Acute Current Visit: Yes (3) Diabetic ulcer of heel SNOMED Code(s): 59014558, 741975547 Code(s): E11.621 - TYPE 2 DIABETES MELLITUS WITH FOOT ULCER; L97.409 - NON- PRS CHRONIC ULCER OF UNSP HEEL AND MIDFOOT W UNSP SEVERT Status: Acute Current Visit: No - Problem List Review Problem List Initiated/Reviewed/Updated: Yes - My Orders Last 24 Hours: My Active Orders 09/13/16 14:00 Meropenem [Merrem] 500 mg Sodium Chloride 0.9% [Normal Saline] 100 ml IV Q6H 09/13/16 20:30 Potassium Chloride/NaCl [Thermotabs] 2 each PO DAILY 09/14/16 05:00 BASIC METABOLIC PANEL,BMP [CHEM] DAILY CBC WITH AUTO DIFF [HEME] DAILY CRP [C-REACTIVE PROTEIN] [CHEM] DAILY 09/14/16 05:30 VANCOMYCIN TROUGH [CHEM] Timed 09/16/16 07:00 CBC W/O DIFF,HEMOGRAM [HEME] MOTH@0700 09/20/16 07:00 CBC W/O DIFF,HEMOGRAM [HEME] MOTH@0700 09/23/16 07:00 CBC W/O DIFF,HEMOGRAM [HEME] MOTH@0700 09/27/16 07:00 CBC W/O DIFF,HEMOGRAM [HEME] MOTH@0700 09/30/16 07:00 CBC W/O DIFF,HEMOGRAM [HEME] MOTH@0700 - Plan Plan:: Impression: Non healing diabetic foot ulcer radiographic study illustrates min-mild OM; edema/cellulitis Poor controlled non complaint diabetic patient with extensive PVD S/P R BKA Has prosthesis but rarely willing to attempt wgt bearing Chronic DM, type II CHF HTN Hyperlipidemia JOSUE COPD GERD Depression Plan: Wound/Bld Cx, change per sensitivity: Cont Vanco, change to Meropenem; stop Fortaz. 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
[2016-09-13] MEDS: Clopidogrel 75 MG Tab PO SCH (22:03)
[2016-09-13] MEDS: Amitriptyline 10 MG Tab PO SCH (22:04)
[2016-09-13] MEDS: Simvastatin 40 MG Tab PO SCH (22:04)
[2016-09-13] MEDS: Potassium Chloride/Sodium Chloride Tab PO SCH (22:04)
[2016-09-14] MEDS: Meropenem 500 MG in Sodium Chloride 0.9% 100 ML IV SCH ×4 (02:05→21:12)
[2016-09-14] MEDS: Pantoprazole 40 MG Tab.CR PO SCH (07:02)
[2016-09-14] MEDS: Levothyroxine 100 MCG Tab PO SCH (07:02)
[2016-09-14] MEDS: Vancomycin 1 GM, Vancomycin 250 MG in Sodium Chloride 0.9% 250 ML IV SCH ×2 (08:06→11:03)
[2016-09-14] MEDS: Insulin Aspart 100 Units/ML 3 ML Pen SUBCUT SCH ×4 (08:27→21:29)
[2016-09-14] MEDS: Saccharomyces Boulardii (Probiotic) 250 MG Cap PO SCH (08:29)
[2016-09-14] MEDS: Gabapentin 300 MG Cap PO SCH ×3 (08:29→21:11)
[2016-09-14] MEDS: Potassium Chloride/Sodium Chloride Tab PO SCH (08:30)
[2016-09-14] MEDS: Losartan 100 MG Tab PO SCH (08:30)
[2016-09-14] MEDS: Ascorbic Acid 500 MG Tab PO SCH (08:30)
[2016-09-14] MEDS: Enoxaparin 40 MG/0.4 ML Syringe SUBCUT SCH (08:31)
[2016-09-14] MEDS: ARGININE PO SCH ×2 (10:48→21:59)
[2016-09-14] MEDS: ASCORBATE SOD PO SCH ×2 (10:48→21:59)
[2016-09-14] MEDS: VITE AC PO SCH ×2 (10:48→21:59)
--- NOTE | 2016-09-14 15:38 | PCM.PN ---
- General Info Date of Service: 09/14/16 Functional Status: Reports: pain controlled, tolerating diet, urinating - Review of Systems General: Reports: weakness HEENT: Reports: no symptoms Pulmonary: Reports: no symptoms Cardiovascular: Reports: no symptoms Gastrointestinal: Reports: No symptoms Genitourinary: Reports: no symptoms Musculoskeletal: Reports: no symptoms Skin: Reports: no symptoms Neurological: Reports: no symptoms Psychiatric: Reports: no symptoms - Patient Data Vitals - most recent: Last Vital Signs Temp 36.4 C 09/14/16 07:41 Pulse 71 09/14/16 07:43 Resp 16 09/14/16 07:41 BP 94/54 L 09/14/16 08:30 Pulse Ox 97 09/14/16 07:43 Weight - most recent: 103.464 kg I&O - last 24 hours: Intake & Output 09/14/16 09/14/16 09/14/16 06:59 14:59 22:59 Intake Total 900 270 Output Total 1675 Balance -775 270 Lab Results last 24 hrs: Laboratory Results - last 24 hr 09/12/16 09/13/16 09/13/16 Range/Units 06:55 17:44 22:02 WBC (4.23-9.07) K/mm3 RBC (4.63-6.08) M/mm3 Hgb (13.7-17.5) gm/L Hct (40.1-51.0) % MCV (79.0-92.2) fl MCH (25.7-32.2) pg MCHC (32.2-35.5) g/dl RDW Std Deviation (35.1-43.9) fL Plt Count (163-337) K/mm3 MPV (9.4-12.3) fl Neut % (Auto) (34.0-67.9) % Lymph % (Auto) (21.8-53.1) % [place] % (Auto) (5.3-12.2) % Eos % (Auto) (0.8-7.0) Baso % (Auto) (0.1-1.2) % Neut # (1.78-5.38) K/mm3 Lymph # (1.32-3.57) K/mm3 [place] # (0.30-0.82) K/mm3 Eos # (0.04-0.54) K/mm3 Baso # (0.01-0.08) K/mm3 Sodium (136-145) mEq/L Potassium (3.5-5.1) mEq/L Chloride (98-107) mEq/L Carbon Dioxide (21-32) mEq/L Anion Gap (5-15) BUN (7-18) mg/dL Creatinine (0.7-1.3) mg/dL Est Cr Clr Drug Dosing mL/min Estimated GFR (MDRD) (>60) mL/min BUN/Creatinine Ratio (14-18) Glucose (83-115) mg/dL POC Glucose 249 H 233 H (83-110) mg/dL Calcium (8.5-10.1) mg/dL C-Reactive Protein (<1.0) mg/dL Free T4 2.06 H (0.76-1.46) ng/dL Vancomycin Trough (10.0-20.0) 09/14/16 09/14/16 09/14/16 Range/Units 05:55 05:56 05:56 WBC 10.50 H (4.23-9.07) K/mm3 RBC 4.58 L (4.63-6.08) M/mm3 Hgb 11.0 L (13.7-17.5) gm/L Hct 34.8 L (40.1-51.0) % MCV 76.0 L (79.0-92.2) fl MCH 24.0 L (25.7-32.2) pg MCHC 31.6 L (32.2-35.5) g/dl RDW Std Deviation 41.1 (35.1-43.9) fL Plt Count 308 (163-337) K/mm3 MPV 9.7 (9.4-12.3) fl Neut % (Auto) 71.8 H (34.0-67.9) % Lymph % (Auto) 14.4 L (21.8-53.1) % [place] % (Auto) 9.4 (5.3-12.2) % Eos % (Auto) 3.4 (0.8-7.0) Baso % (Auto) 0.4 (0.1-1.2) % Neut # 7.54 H (1.78-5.38) K/mm3 Lymph # 1.51 (1.32-3.57) K/mm3 [place] # 0.99 H (0.30-0.82) K/mm3 Eos # 0.36 (0.04-0.54) K/mm3 Baso # 0.04 (0.01-0.08) K/mm3 Sodium 132 L (136-145) mEq/L Potassium 4.2 (3.5-5.1) mEq/L Chloride 97 L (98-107) mEq/L Carbon Dioxide 28 (21-32) mEq/L Anion Gap 11.2 (5-15) BUN 18 (7-18) mg/dL Creatinine 0.9 (0.7-1.3) mg/dL Est Cr Clr Drug Dosing 70.97 mL/min Estimated GFR (MDRD) > 60 (>60) mL/min BUN/Creatinine Ratio 20.0 H (14-18) Glucose 193 H (83-115) mg/dL POC Glucose 186 H (83-110) mg/dL Calcium 8.8 (8.5-10.1) mg/dL C-Reactive Protein 3.1 H* (<1.0) mg/dL Free T4 (0.76-1.46) ng/dL Vancomycin Trough (10.0-20.0) 09/14/16 09/14/16 Range/Units 05:56 11:05 WBC (4.23-9.07) K/mm3 RBC (4.63-6.08) M/mm3 Hgb (13.7-17.5) gm/L Hct (40.1-51.0) % MCV (79.0-92.2) fl MCH (25.7-32.2) pg MCHC (32.2-35.5) g/dl RDW Std Deviation (35.1-43.9) fL Plt Count (163-337) K/mm3 MPV (9.4-12.3) fl Neut % (Auto) (34.0-67.9) % Lymph % (Auto) (21.8-53.1) % [place] % (Auto) (5.3-12.2) % Eos % (Auto) (0.8-7.0) Baso % (Auto) (0.1-1.2) % Neut # (1.78-5.38) K/mm3 Lymph # (1.32-3.57) K/mm3 [place] # (0.30-0.82) K/mm3 Eos # (0.04-0.54) K/mm3 Baso # (0.01-0.08) K/mm3 Sodium (136-145) mEq/L Potassium (3.5-5.1) mEq/L Chloride (98-107) mEq/L Carbon Dioxide (21-32) mEq/L Anion Gap (5-15) BUN (7-18) mg/dL Creatinine (0.7-1.3) mg/dL Est Cr Clr Drug Dosing mL/min Estimated GFR (MDRD) (>60) mL/min BUN/Creatinine Ratio (14-18) Glucose (83-115) mg/dL POC Glucose 247 H (83-110) mg/dL Calcium (8.5-10.1) mg/dL C-Reactive Protein (<1.0) mg/dL Free T4 (0.76-1.46) ng/dL Vancomycin Trough 21.7 H (10.0-20.0) Karlos Results last 24 hrs: Microbiology 09/13/16 04:45 Urine Culture - Preliminary Urine, Clean Catch Gram Negative Rods 09/10/16 21:30 Influenza Types A & B (PCR) - Final Nasopharynx, Left Med Orders - Current: Current Medications Albuterol/Ipratropium (Duoneb 3.0-0.5 Mg/3 Ml) 3 ml NEB QIDRT PRN PRN Reason: Shortness of Breath Amitriptyline HCl (Elavil) 10 mg PO BEDTIME [facility] Last Admin: 09/13/16 22:04 Dose: 10 mg Ascorbic Acid (Vitamin C) 500 mg PO DAILY [facility] Last Admin: 09/14/16 08:30 Dose: 500 mg Bisacodyl (Dulcolax) 10 mg RECTAL DAILY PRN PRN Reason: Constipation Clopidogrel Bisulfate (Plavix) 75 mg PO BEDTIME [facility] Last Admin: 09/13/16 22:03 Dose: 75 mg Enoxaparin Sodium (Lovenox) 40 mg SUBCUT DAILY [facility] Last Admin: 09/14/16 08:31 Dose: 40 mg Furosemide (Lasix) 40 mg PO DAILY [facility] Last Admin: 09/13/16 09:33 Dose: 40 mg Gabapentin (Neurontin) 900 mg PO TID [facility] Last Admin: 09/14/16 14:01 Dose: 900 mg Meropenem 500 mg/ Sodium (Chloride) 100 mls @ 200 mls/hr IV Q6H [facility] Last Admin: 09/14/16 14:01 Dose: 200 mls/hr Vancomycin HCl 1 gm/Vancomycin HCl 250 mg/ Sodium Chloride 250 mls @ 166.667 mls/hr IV Q24H [facility] Last Admin: 09/14/16 11:03 Dose: 166.667 mls/hr Insulin Aspart (Novolog) 0 unit SUBCUT QIDACANDBED [facility] PRN Reason: Protocol Last Admin: 09/14/16 11:42 Dose: 6 units Levothyroxine Sodium (Synthroid) 300 mcg PO ACBREAKFAST [facility] Last Admin: 09/14/16 07:02 Dose: 300 mcg Lidocaine HCl (Xylocaine 2% Jelly) 0 ml TOP TID PRN PRN Reason: Pain Losartan Potassium (Cozaar) 100 mg PO DAILY [facility] Last Admin: 09/14/16 08:30 Dose: 100 mg Oral Electrolytes (Thermotabs) 2 each PO DAILY [facility] Last Admin: 09/14/16 08:30 Dose: 2 each Oxycodone/Acetaminophen (Percocet 325-5 Mg) 2 tab PO Q6H PRN PRN Reason: Pain Last Admin: 09/10/16 22:35 Dose: 2 tab Pantoprazole Sodium (Protonix) 40 mg PO ACBREAKFAST [facility] Last Admin: 09/14/16 07:02 Dose: 40 mg Arginine/Ascorbate Sod/Wilrfed Ac ( Arginiaid Powder) 0 each PO BID [facility] Last Admin: 09/14/16 10:48 Dose: Not Given Saccharomyces Boulardii (Florastor) 250 mg PO DAILY [facility] Last Admin: 09/14/16 08:29 Dose: 250 mg Senna (Senna) 17.2 mg PO DAILY PRN PRN Reason: Constipation Last Admin: 09/12/16 08:52 Dose: 17.2 mg Simvastatin (Zocor) 40 mg PO BEDTIME [facility] Last Admin: 09/13/16 22:04 Dose: 40 mg Sodium Chloride (Saline Flush) 10 ml FLUSH ASDIRECTED PRN PRN Reason: Keep Vein Open Last Admin: 09/10/16 13:29 Dose: 10 ml Sodium Chloride (Saline Flush) 10 ml FLUSH ONETIME PRN PRN Reason: Keep Vein Open Last Admin: 09/10/16 13:32 Dose: 10 ml Vancomycin HCl (Pharmacy To Dose - Vancomycin) 0 dose .XX ASDIRECTED PRN PRN Reason: RX DOSE Discontinued Medications Diphtheria/Tetanus/Acell Pertussis (Boostrix) 0.5 ml IM .ONCE ONE Stop: 09/12/16 09:19 Gadobenate Dimeglumine (Multihance) 20 ml IVPUSH ONETIME ONE Stop: 09/10/16 11:54 Last Admin: 09/10/16 13:12 Dose: 20 ml Sodium Chloride (Normal Saline) 1,000 mls @ 125 mls/hr IV ONETIME ONE Stop: 09/10/16 19:12 Last Admin: 09/10/16 13:29 Dose: 125 mls/hr Vancomycin HCl 1 gm/ Sodium (Chloride) 250 mls @ 250 mls/hr IV ONETIME ONE Stop: 09/10/16 14:50 Last Admin: 09/10/16 16:10 Dose: 250 mls/hr Ceftazidime 1 gm/ Sodium (Chloride) 50 mls @ 100 mls/hr IV Q8HR [facility] Last Admin: 09/10/16 22:43 Dose: Not Given Vancomycin HCl 1 gm/Vancomycin HCl 250 mg/ Sodium Chloride 250 mls @ 166.667 mls/hr IV Q12H [facility] Last Admin: 09/12/16 12:44 Dose: Not Given Ceftazidime 1 gm/ Sodium (Chloride) 50 mls @ 100 mls/hr IV Q8HR [facility] Last Admin: 09/13/16 05:50 Dose: 100 mls/hr Vancomycin HCl 1 gm/Vancomycin HCl 250 mg/ Sodium Chloride 250 mls @ 166.667 mls/hr IV Q18H [facility] Last Admin: 09/14/16 08:06 Dose: Not Given - Exam Quality Assessment: DVT prophylaxis General: alert, oriented, cooperative, no acute distress HEENT: Pupils reactive, EOMI Neck: supple, trachea midline Lungs: Normal respiratory effort Cardiovascular: regular rhythm Abdomen: bowel sounds present, soft, no tenderness, no distension (Male) Exam: Deferred Back Exam: normal inspection Extremities: edema Skin: warm Wound/Incisions: dressing dry and intact Neurological: no new focal deficit, normal speech Psy/Mental Status: alert - Problem List & Annotations (1) Cellulitis SNOMED Code(s): 567358192 Code(s): L03.90 - CELLULITIS, UNSPECIFIED Status: Acute Current Visit: No Qualifiers: Site of cellulitis: extremity Site of cellulitis of extremity: lower extremity Laterality: left Qualified Code(s): L03.116 - Cellulitis of left lower limb (2) Diabetic foot ulcer SNOMED Code(s): 581732386 Code(s): E11.621 - TYPE 2 DIABETES MELLITUS WITH FOOT ULCER; L97.509 - NON- PRESSURE CHRONIC ULCER OTH PRT UNSP FOOT W UNSP SEVERITY Status: Acute Current Visit: Yes (3) Diabetic ulcer of heel SNOMED Code(s): 72091063, 061616234 Code(s): E11.621 - TYPE 2 DIABETES MELLITUS WITH FOOT ULCER; L97.409 - NON- PRS CHRONIC ULCER OF UNSP HEEL AND MIDFOOT W UNSP SEVERT Status: Acute Current Visit: No - Problem List Review Problem List Initiated/Reviewed/Updated: Yes - My Orders Last 24 Hours: My Active Orders 09/13/16 20:30 Potassium Chloride/NaCl [Thermotabs] 2 each PO DAILY 09/14/16 12:00 Vancomycin 1 gm Vancomycin 250 mg Sodium Chloride 0.9% [Normal Saline] 250 ml IV Q24H 09/16/16 07:00 CBC W/O DIFF,HEMOGRAM [HEME] MOTH@0700 09/16/16 11:30 VANCOMYCIN TROUGH [CHEM] Timed 09/20/16 07:00 CBC W/O DIFF,HEMOGRAM [HEME] MOTH@0700 09/23/16 07:00 CBC W/O DIFF,HEMOGRAM [HEME] MOTH@0700 09/27/16 07:00 CBC W/O DIFF,HEMOGRAM [HEME] MOTH@0700 09/30/16 07:00 CBC W/O DIFF,HEMOGRAM [HEME] MOTH@0700 - Plan Plan:: Impression: Non healing diabetic foot ulcer radiographic study illustrates min-mild OM; edema/cellulitis Poor controlled non complaint diabetic patient with extensive PVD S/P R BKA Has prosthesis but rarely willing to attempt wgt bearing Chronic DM, type II CHF HTN Hyperlipidemia JOSUE COPD GERD Depression Plan: Wound/Bld Cx; Meropenem; Wound care Pain meds DM teaching Possible swing bed placement PT/OT DVT/GI prophylaxis LOS>96 hours for placement
[2016-09-14] MEDS: Simvastatin 40 MG Tab PO SCH (21:11)
[2016-09-14] MEDS: Amitriptyline 10 MG Tab PO SCH (21:12)
[2016-09-14] MEDS: Clopidogrel 75 MG Tab PO SCH (21:30)
[2016-09-15] MEDS: Meropenem 500 MG in Sodium Chloride 0.9% 100 ML IV SCH ×4 (02:37→20:10)
[2016-09-15] MEDS: Pantoprazole 40 MG Tab.CR PO SCH (06:10)
[2016-09-15] MEDS: Levothyroxine 100 MCG Tab PO SCH (06:10)
[2016-09-15] MEDS: Insulin Aspart 100 Units/ML 3 ML Pen SUBCUT SCH ×4 (07:47→21:10)
[2016-09-15] MEDS: Enoxaparin 40 MG/0.4 ML Syringe SUBCUT SCH (09:34)
[2016-09-15] MEDS: Saccharomyces Boulardii (Probiotic) 250 MG Cap PO SCH (09:34)
[2016-09-15] MEDS: Potassium Chloride/Sodium Chloride Tab PO SCH (09:34)
[2016-09-15] MEDS: Ascorbic Acid 500 MG Tab PO SCH (09:35)
[2016-09-15] MEDS: Losartan 100 MG Tab PO SCH (09:35)
[2016-09-15] MEDS: Gabapentin 300 MG Cap PO SCH ×3 (09:35→20:10)
[2016-09-15] MEDS: Furosemide 40 MG Tab PO SCH (09:35)
[2016-09-15] MEDS: ASCORBATE SOD PO SCH ×2 (09:38→21:10)
[2016-09-15] MEDS: ARGININE PO SCH ×2 (09:38→21:10)
[2016-09-15] MEDS: VITE AC PO SCH ×2 (09:38→21:10)
[2016-09-15] MEDS: Vancomycin 1 GM, Vancomycin 250 MG in Sodium Chloride 0.9% 250 ML IV SCH (12:31)
--- NOTE | 2016-09-15 12:43 | PCM.PN ---
- General Info Date of Service: 09/15/16 Admission Dx/Problem (Free Text): Admission Diagnosis/Problem Admission Diagnosis/Problem Osteomyelitis of ankle AND/OR foot Functional Status: Reports: pain controlled, tolerating diet, urinating. Denies : new symptoms - Review of Systems General: Reports: no symptoms HEENT: Reports: no symptoms Pulmonary: Reports: no symptoms Cardiovascular: Reports: no symptoms Gastrointestinal: Reports: No symptoms Genitourinary: Reports: no symptoms Musculoskeletal: Reports: leg pain, foot pain Skin: Reports: no symptoms Neurological: Reports: no symptoms Psychiatric: Reports: no symptoms - Patient Data Vitals - most recent: Last Vital Signs Temp 97.5 F 09/15/16 02:37 Pulse 74 09/15/16 02:37 Resp 18 09/15/16 02:37 BP 111/76 09/15/16 09:35 Pulse Ox 97 09/15/16 02:37 Weight - most recent: 233 lb 14.4 oz I&O - last 24 hours: Intake & Output 09/14/16 09/15/16 09/15/16 22:59 06:59 14:59 Intake Total 2770 1100 690 Output Total 1100 2350 Balance 1670 -1250 690 Lab Results last 24 hrs: Laboratory Results - last 24 hr 09/14/16 09/14/16 09/15/16 Range/Units 16:42 21:26 09:51 Sodium 132 L (136-145) mEq/L POC Glucose 224 H 221 H (83-110) mg/dL 09/15/16 Range/Units 12:24 Sodium (136-145) mEq/L POC Glucose 260 H (83-110) mg/dL Karlos Results last 24 hrs: Microbiology 09/13/16 04:45 Urine Culture - Final Urine, Clean Catch Pseudomonas Aeruginosa Med Orders - Current: Current Medications Albuterol/Ipratropium (Duoneb 3.0-0.5 Mg/3 Ml) 3 ml NEB QIDRT PRN PRN Reason: Shortness of Breath Amitriptyline HCl (Elavil) 10 mg PO BEDTIME [facility] Last Admin: 09/14/16 21:12 Dose: 10 mg Ascorbic Acid (Vitamin C) 500 mg PO DAILY [facility] Last Admin: 09/15/16 09:35 Dose: 500 mg Bisacodyl (Dulcolax) 10 mg RECTAL DAILY PRN PRN Reason: Constipation Clopidogrel Bisulfate (Plavix) 75 mg PO BEDTIME [facility] Last Admin: 09/14/16 21:30 Dose: 75 mg Enoxaparin Sodium (Lovenox) 40 mg SUBCUT DAILY [facility] Last Admin: 09/15/16 09:34 Dose: 40 mg Furosemide (Lasix) 40 mg PO DAILY [facility] Last Admin: 09/15/16 09:35 Dose: 40 mg Gabapentin (Neurontin) 900 mg PO TID [facility] Last Admin: 09/15/16 09:35 Dose: 900 mg Meropenem 500 mg/ Sodium (Chloride) 100 mls @ 200 mls/hr IV Q6H [facility] Last Admin: 09/15/16 09:33 Dose: 200 mls/hr Vancomycin HCl 1 gm/Vancomycin HCl 250 mg/ Sodium Chloride 250 mls @ 166.667 mls/hr IV Q24H [facility] Last Admin: 09/15/16 12:31 Dose: 166.667 mls/hr Insulin Aspart (Novolog) 0 unit SUBCUT QIDACANDBED [facility] PRN Reason: Protocol Last Admin: 09/15/16 07:47 Dose: 3 units Levothyroxine Sodium (Synthroid) 300 mcg PO ACBREAKFAST [facility] Last Admin: 09/15/16 06:10 Dose: 300 mcg Lidocaine HCl (Xylocaine 2% Jelly) 0 ml TOP TID PRN PRN Reason: Pain Losartan Potassium (Cozaar) 100 mg PO DAILY [facility] Last Admin: 09/15/16 09:35 Dose: 100 mg Oral Electrolytes (Thermotabs) 2 each PO DAILY [facility] Last Admin: 09/15/16 09:34 Dose: 2 each Oxycodone/Acetaminophen (Percocet 325-5 Mg) 2 tab PO Q6H PRN PRN Reason: Pain Last Admin: 09/10/16 22:35 Dose: 2 tab Pantoprazole Sodium (Protonix) 40 mg PO ACBREAKFAST [facility] Last Admin: 09/15/16 06:10 Dose: 40 mg Arginine/Ascorbate Sod/Wilfred Ac ( Arginiaid Powder) 0 each PO BID [facility] Last Admin: 09/15/16 09:38 Dose: Not Given Saccharomyces Boulardii (Florastor) 250 mg PO DAILY [facility] Last Admin: 09/15/16 09:34 Dose: 250 mg Senna (Senna) 17.2 mg PO DAILY PRN PRN Reason: Constipation Last Admin: 09/12/16 08:52 Dose: 17.2 mg Simvastatin (Zocor) 40 mg PO BEDTIME [facility] Last Admin: 09/14/16 21:11 Dose: 40 mg Sodium Chloride (Saline Flush) 10 ml FLUSH ASDIRECTED PRN PRN Reason: Keep Vein Open Last Admin: 09/10/16 13:29 Dose: 10 ml Sodium Chloride (Saline Flush) 10 ml FLUSH ONETIME PRN PRN Reason: Keep Vein Open Last Admin: 09/10/16 13:32 Dose: 10 ml Vancomycin HCl (Pharmacy To Dose - Vancomycin) 0 dose .XX ASDIRECTED PRN PRN Reason: RX DOSE Discontinued Medications Diphtheria/Tetanus/Acell Pertussis (Boostrix) 0.5 ml IM .ONCE ONE Stop: 09/12/16 09:19 Gadobenate Dimeglumine (Multihance) 20 ml IVPUSH ONETIME ONE Stop: 09/10/16 11:54 Last Admin: 09/10/16 13:12 Dose: 20 ml Sodium Chloride (Normal Saline) 1,000 mls @ 125 mls/hr IV ONETIME ONE Stop: 09/10/16 19:12 Last Admin: 09/10/16 13:29 Dose: 125 mls/hr Vancomycin HCl 1 gm/ Sodium (Chloride) 250 mls @ 250 mls/hr IV ONETIME ONE Stop: 09/10/16 14:50 Last Admin: 09/10/16 16:10 Dose: 250 mls/hr Ceftazidime 1 gm/ Sodium (Chloride) 50 mls @ 100 mls/hr IV Q8HR [facility] Last Admin: 09/10/16 22:43 Dose: Not Given Vancomycin HCl 1 gm/Vancomycin HCl 250 mg/ Sodium Chloride 250 mls @ 166.667 mls/hr IV Q12H [facility] Last Admin: 09/12/16 12:44 Dose: Not Given Ceftazidime 1 gm/ Sodium (Chloride) 50 mls @ 100 mls/hr IV Q8HR [facility] Last Admin: 09/13/16 05:50 Dose: 100 mls/hr Vancomycin HCl 1 gm/Vancomycin HCl 250 mg/ Sodium Chloride 250 mls @ 166.667 mls/hr IV Q18H [facility] Last Admin: 09/14/16 08:06 Dose: Not Given - Exam Quality Assessment: central line/PICC, urine catheter, DVT prophylaxis General: alert, oriented, cooperative, no acute distress HEENT: Pupils equal, Pupils reactive, EOMI, Mucous membr. moist/pink Neck: supple Lungs: Clear to auscultation, Normal respiratory effort, Decreased breath sounds (to bases) Cardiovascular: regular rate, regular rhythm Abdomen: bowel sounds present, soft, no tenderness (Male) Exam: Deferred Extremities: other (BKA rt; lt with dressing in place to lt foot) Wound/Incisions: dressing dry and intact (lt foot) Neurological: no new focal deficit - Problem List & Annotations (1) Osteomyelitis of ankle or foot SNOMED Code(s): 08811413 Code(s): M86.9 - OSTEOMYELITIS, UNSPECIFIED Status: Acute Priority: High Current Visit: Yes (2) Diabetic foot ulcer SNOMED Code(s): 948416254 Code(s): E11.621 - TYPE 2 DIABETES MELLITUS WITH FOOT ULCER; L97.509 - NON- PRESSURE CHRONIC ULCER OTH PRT UNSP FOOT W UNSP SEVERITY Status: Acute Priority: High Current Visit: Yes (3) 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 SNOMED Code(s): 38175464, 671987190 Code(s): E11.51 - TYPE 2 DIABETES W DIABETIC PERIPHERAL ANGIOPATH W/O GANGRENE; E11.65 - TYPE 2 DIABETES MELLITUS WITH HYPERGLYCEMIA Status: Chronic Priority: High Current Visit: Yes (4) Renal insufficiency SNOMED Code(s): 944230678 Code(s): N28.9 - DISORDER OF KIDNEY AND URETER, UNSPECIFIED Status: Chronic Priority: Medium Current Visit: Yes - Problem List Review Problem List Initiated/Reviewed/Updated: Yes - Plan Plan:: Impression: Non healing diabetic foot ulcer--radiographic study illustrates min-mild OM; edema/cellulitis -Placement for [facility] IV abx levaquin and vancomycin via PICC line; plan for dc to [facility] tomorrow morning -Wound care per PT instruction Poor controlled non complaint diabetic patient with extensive PVD S/P R BKA-- Has prosthesis but rarely willing to attempt wt bearing -CDE -SSI coverage during hospitalization 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
[2016-09-15] MEDS: Amitriptyline 10 MG Tab PO SCH (20:10)
[2016-09-15] MEDS: Simvastatin 40 MG Tab PO SCH (20:10)
[2016-09-15] MEDS: Clopidogrel 75 MG Tab PO SCH (20:10)
[2016-09-16] MEDS: Meropenem 500 MG in Sodium Chloride 0.9% 100 ML IV SCH ×2 (02:24→07:44)
--- NOTE | 2016-09-16 06:30 | PCM.DCSUM1 ---
Discharge Summary - Hospital Course Free Text/Narrative:: Patient presents to ER from [facility] where he resides, for evaluation and treatment of a left diabetic foot ulcer. Patient reports that ulcer has been present since December or January of this year. Located over the left heel. Patient reports that he has severe peripheral neuropathy and does not feel much pain. He has been seeing the surgeon for this but is overall been worsening. He last saw surgeon, Dr. Kirk yesterday at the clinic. He is a diabetic on insulin. He does not know what his blood sugars are running. He is uncertain if he is currently on any antibiotics. He reports he has been coughing recently. he denies any fevers, nausea or vomiting. He is a poor historian. Dr. Kirk, surgeon at [facility] has sent over labs and her clinic visit from yesterday, 09-09-16. Cultures of the wound, a CBC, CMP, CRP and blood cultures were obtained. Patient was found to have an elevated white blood cell count of 14.2, hemoglobin is 11.2 and platelets are 305. He had no bandemia. Patient also had an elevated CRP of 44.1. 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 ER evaluation was felt patient had osteomyelitis to left calcaneous, Hospitalist service was consulted for admission. PICC line was placed in ER. Social work did work on availability for LTAC placement with [facility] in [place] but there was no bed availability. He was admitted to medical surgical floor for further treatment. MRI of the left foot was obtained, confirming osteomyelitis of the calcaneous. He has hx of MRSA, was started on Vancomycin intially and Fortaz pending culture results. 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 He will continue on vancomycin and was switched to meropenem. He will require 6 weeks total of appropriate IV antibiotic treatment. He is insulin dependent diabetic. A1C was 7.2, sugars running 200-300's during his stay. He has chronic indwelling chandler catheter due to BPH and urinary retention. He was found to have AUTI, sensitive to merrem. VSS otherwise, he has been afebrile. He does have prosthesis for BKA to the right but does not like wearing it and is essentially NWB, transfers with lift with nursing and staff. He will be transferred via ambulance today to [facility] for residential antibiotic treatment via PICC line. I spoke with accepting provider yesterday for report. - Discharge Data Discharge Date: 09/16/16 (admit date09/10/16) Discharge Disposition: DC/Tfer to SNF 03 Condition: Good - Discharge Diagnosis/Problem(s) (1) Osteomyelitis of ankle or foot SNOMED Code(s): 49076267 ICD Code: M86.9 - OSTEOMYELITIS, UNSPECIFIED Status: Acute Priority: High Current Visit: Yes (2) Diabetic foot ulcer SNOMED Code(s): 234825973 ICD Code: E11.621 - TYPE 2 DIABETES MELLITUS WITH FOOT ULCER; L97.509 - NON- PRESSURE CHRONIC ULCER OTH PRT UNSP FOOT W UNSP SEVERITY Status: Acute Priority: High Current Visit: Yes (3) 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 SNOMED Code(s): 25928991, 942533626 ICD Code: E11.51 - TYPE 2 DIABETES W DIABETIC PERIPHERAL ANGIOPATH W/O GANGRENE; E11.65 - TYPE 2 DIABETES MELLITUS WITH HYPERGLYCEMIA Status: Chronic Priority: High Current Visit: Yes (4) Renal insufficiency SNOMED Code(s): 117987913 ICD Code: N28.9 - DISORDER OF KIDNEY AND URETER, UNSPECIFIED Status: Chronic Priority: Medium Current Visit: Yes - Patient Summary/Data Operative Procedure(s) Performed: None; PT for wound care- debriedments daily to ulcer to left heel. Complications: None Consults: Consultations 09/10/16 18:26 Consult to Case Management [CONS] Routine Consult to Occupational Therapy [OT Evaluation and Treatment] [CONS] Routine 09/10/16 18:27 Consult to Physical Therapy [PT Evaluation and Treatment] [CONS] Routine 09/10/16 18:37 Consult to Physical Therapy [PT Evaluation and Treatment] [CONS] Routine Labs Pending at D/C: None Recommended Follow-up Testing/Procedures: Follow up with Dr. Kirk, General Surgeon after completion of IV abx course Follow up with PCP, Dr. Mcginnis after discharge from [facility]/completion of IV abx course Planned Operative Procedure(s) after DC: None Hospital Course: As above - Patient Instructions Diet: Heart Healthy Diet, Low Sodium, Diabetic Diet Activity: As Tolerated, Elevate Extremity (left heel elevated off of bed at all times) Showering/Bathing: May Shower Wound/Incision Care: Change Dressing Daily Notify Provider of: Fever, Increased Pain, Swelling and Redness, Drainage, Nausea and/or Vomiting - Discharge Plan Prescriptions/Med Rec: Insulin Aspart [NovoLOG] 0 unit SUBCUT QIDACANDBED #2 pen Meropenem [Merrem] 500 mg IV Q6H #1 sdv Vancomycin 1 gm IV Q24H #1 sdv Home Medications: Home Meds Amitriptyline [Elavil] 10 mg PO BEDTIME 01/08/15 [History] Clopidogrel [Plavix] 75 mg PO BEDTIME 01/08/15 [History] Furosemide 40 mg PO DAILY 01/08/15 [History] Gabapentin [Neurontin] 900 mg PO TID 01/08/15 [History] Insulin Aspart [NovoLOG] 14 units INJECT TIDMEALS 01/08/15 [History] Insulin Glarg,Human.Rec.Analog [LantUS Solostar] 40 units INJECT BEDTIME [History] Losartan [Cozaar] 100 mg PO DAILY 01/08/15 [History] Simvastatin [Zocor] 40 mg PO BEDTIME 01/08/15 [History] Arginine/Ascorbate Sod/Wilfred AC [Arginaid Powder] 1 each PO BID 04/08/16 [History ] Ascorbic Acid [Vitamin C] 500 mg PO DAILY 04/08/16 [History] Cranberry 400 mg PO BID 04/08/16 [History] Pantoprazole [Protonix] 40 mg PO ACBREAKFAST 04/08/16 [History] Sennosides [Senna] 17.2 mg PO DAILY PRN 04/08/16 [History] Acetaminophen [Tylenol] 650 mg PO Q4H PRN 06/25/16 [History] Albuterol [IJD: Ventolin HFA] 2 puff INH Q6H PRN 06/25/16 [History] Lactobacillus Acidophilus [Acidophilus Lactobacillus] 1 tab PO DAILY 06/25/16 [ History] Lidocaine 2% [Xylocaine 2% Jelly] 1 dose TOP TID PRN 06/25/16 [History] Levothyroxine [Synthroid] 300 mcg PO ACBREAKFAST #30 tablet 06/27/16 [Rx] Albuterol/Ipratropium [DuoNeb 3.0-0.5 MG/3 ML] 3 ml NEB ACDINNER PRN 09/10/16 [ History] Bisacodyl [Dulcolax] 10 mg RECTAL DAILY PRN 09/10/16 [History] Insulin Glarg,Human.Rec.Analog [LantUS Solostar] 50 units SUBCUT DAILY 09/10/16 [History] oxyCODONE HCl/Acetaminophen [oxyCODONE-Acetaminophen 5-325] 2 tab PO Q6H PRN 09/24 [History] Insulin Aspart [NovoLOG] 0 unit SUBCUT QIDACANDBED #2 pen 09/16/16 [Rx] Meropenem [Merrem] 500 mg IV Q6H #1 sdv 09/16/16 [Rx] Vancomycin 1 gm IV Q24H #1 sdv 09/16/16 [Rx] Patient Handouts: Bone and Joint Infections, Adult Forms: ED Department Discharge Referrals: Gil Mcginnis MD [Primary Care Provider] - - Discharge Summary/Plan Comment DC Time >30 min.: Yes (40 min) - General Info Date of Service: 09/16/16 Admission Dx/Problem (Free Text: Admission Diagnosis/Problem Admission Diagnosis/Problem Osteomyelitis of ankle AND/OR foot Functional Status: Reports: pain controlled, tolerating diet, urinating ( chronic indwelling chandler cath). Denies: ambulating, new symptoms - Review of Systems General: Reports: no symptoms HEENT: Reports: no symptoms Pulmonary: Reports: no symptoms Cardiovascular: Reports: no symptoms Gastrointestinal: Reports: No symptoms Genitourinary: Reports: no symptoms Musculoskeletal: Reports: no symptoms Skin: Reports: no symptoms Neurological: Reports: other (peripheral neuropathy) Psychiatric: Reports: no symptoms - Patient Data Vitals - Most Recent: Last Vital Signs Temp 97.7 F 09/16/16 03:47 Pulse 75 09/16/16 03:47 Resp 16 09/16/16 03:47 BP 116/54 L 09/16/16 03:47 Pulse Ox 95 09/16/16 03:47 Weight - Most Recent: 233 lb 14.4 oz I&O - Last 24 hours: Intake & Output 09/15/16 09/15/16 09/16/16 14:59 22:59 06:59 Intake Total 690 2330 1800 Output Total 2800 1700 Balance 690 -470 100 Lab Results - Last 24 hrs: Laboratory Results - last 24 hr 09/15/16 09/15/16 09/15/16 Range/Units 09:51 12:24 20:25 WBC (4.23-9.07) K/mm3 RBC (4.63-6.08) M/mm3 Hgb (13.7-17.5) gm/L Hct (40.1-51.0) % MCV (79.0-92.2) fl MCH (25.7-32.2) pg MCHC (32.2-35.5) g/dl RDW Std Deviation (35.1-43.9) fL Plt Count (163-337) K/mm3 MPV (9.4-12.3) fl Neut % (Auto) (34.0-67.9) % Lymph % (Auto) (21.8-53.1) % [place] % (Auto) (5.3-12.2) % Eos % (Auto) (0.8-7.0) Baso % (Auto) (0.1-1.2) % Neut # (1.78-5.38) K/mm3 Lymph # (1.32-3.57) K/mm3 [place] # (0.30-0.82) K/mm3 Eos # (0.04-0.54) K/mm3 Baso # (0.01-0.08) K/mm3 Sodium 132 L (136-145) mEq/L Potassium (3.5-5.1) mEq/L Chloride (98-107) mEq/L Carbon Dioxide (21-32) mEq/L Anion Gap (5-15) BUN (7-18) mg/dL Creatinine (0.7-1.3) mg/dL Est Cr Clr Drug Dosing mL/min Estimated GFR (MDRD) (>60) mL/min BUN/Creatinine Ratio (14-18) Glucose (83-115) mg/dL POC Glucose 260 H 313 H (83-110) mg/dL Calcium (8.5-10.1) mg/dL 09/16/16 09/16/16 Range/Units 05:03 05:05 WBC 9.96 H (4.23-9.07) K/mm3 RBC 4.72 (4.63-6.08) M/mm3 Hgb 11.3 L (13.7-17.5) gm/L Hct 36.4 L (40.1-51.0) % MCV 77.1 L (79.0-92.2) fl MCH 23.9 L (25.7-32.2) pg MCHC 31.0 L (32.2-35.5) g/dl RDW Std Deviation 41.9 (35.1-43.9) fL Plt Count 268 (163-337) K/mm3 MPV 9.9 (9.4-12.3) fl Neut % (Auto) 65.2 (34.0-67.9) % Lymph % (Auto) 19.4 L (21.8-53.1) % [place] % (Auto) 10.0 (5.3-12.2) % Eos % (Auto) 4.2 (0.8-7.0) Baso % (Auto) 0.5 (0.1-1.2) % Neut # 6.49 H (1.78-5.38) K/mm3 Lymph # 1.93 (1.32-3.57) K/mm3 [place] # 1.00 H (0.30-0.82) K/mm3 Eos # 0.42 (0.04-0.54) K/mm3 Baso # 0.05 (0.01-0.08) K/mm3 Sodium 132 L (136-145) mEq/L Potassium 4.5 (3.5-5.1) mEq/L Chloride 99 (98-107) mEq/L Carbon Dioxide 26 (21-32) mEq/L Anion Gap 11.5 (5-15) BUN 26 H (7-18) mg/dL Creatinine 1.1 (0.7-1.3) mg/dL Est Cr Clr Drug Dosing 58.07 mL/min Estimated GFR (MDRD) > 60 (>60) mL/min BUN/Creatinine Ratio 23.6 H (14-18) Glucose 261 H (83-115) mg/dL POC Glucose (83-110) mg/dL Calcium 8.9 (8.5-10.1) mg/dL JACOB Results - Last 24 hrs: Microbiology 09/13/16 04:45 Urine Culture - Final Urine, Clean Catch Pseudomonas Aeruginosa Med Orders - Current: Current Medications Albuterol/Ipratropium (Duoneb 3.0-0.5 Mg/3 Ml) 3 ml NEB QIDRT PRN PRN Reason: Shortness of Breath Amitriptyline HCl (Elavil) 10 mg PO BEDTIME [facility] Last Admin: 09/15/16 20:10 Dose: 10 mg Ascorbic Acid (Vitamin C) 500 mg PO DAILY [facility] Last Admin: 09/15/16 09:35 Dose: 500 mg Bisacodyl (Dulcolax) 10 mg RECTAL DAILY PRN PRN Reason: Constipation Clopidogrel Bisulfate (Plavix) 75 mg PO BEDTIME [facility] Last Admin: 09/15/16 20:10 Dose: 75 mg Enoxaparin Sodium (Lovenox) 40 mg SUBCUT DAILY [facility] Last Admin: 09/15/16 09:34 Dose: 40 mg Furosemide (Lasix) 40 mg PO DAILY [facility] Last Admin: 09/15/16 09:35 Dose: 40 mg Gabapentin (Neurontin) 900 mg PO TID [facility] Last Admin: 09/15/16 20:10 Dose: 900 mg Meropenem 500 mg/ Sodium (Chloride) 100 mls @ 200 mls/hr IV Q6H [facility] Last Admin: 09/16/16 02:24 Dose: 200 mls/hr Vancomycin HCl 1 gm/Vancomycin HCl 250 mg/ Sodium Chloride 250 mls @ 166.667 mls/hr IV Q24H [facility] Last Admin: 09/15/16 12:31 Dose: 166.667 mls/hr Insulin Aspart (Novolog) 0 unit SUBCUT QIDACANDBED [facility] PRN Reason: Protocol Last Admin: 09/15/16 21:10 Dose: 12 units Levothyroxine Sodium (Synthroid) 300 mcg PO ACBREAKFAST [facility] Last Admin: 09/15/16 06:10 Dose: 300 mcg Lidocaine HCl (Xylocaine 2% Jelly) 0 ml TOP TID PRN PRN Reason: Pain Losartan Potassium (Cozaar) 100 mg PO DAILY [facility] Last Admin: 09/15/16 09:35 Dose: 100 mg Oral Electrolytes (Thermotabs) 2 each PO DAILY [facility] Last Admin: 09/15/16 09:34 Dose: 2 each Oxycodone/Acetaminophen (Percocet 325-5 Mg) 2 tab PO Q6H PRN PRN Reason: Pain Last Admin: 09/10/16 22:35 Dose: 2 tab Pantoprazole Sodium (Protonix) 40 mg PO ACBREAKFAST [facility] Last Admin: 09/15/16 06:10 Dose: 40 mg Arginine/Ascorbate Sod/Wilfred Ac ( Arginiaid Powder) 0 each PO BID [facility] Last Admin: 09/15/16 21:10 Dose: Not Given Saccharomyces Boulardii (Florastor) 250 mg PO DAILY [facility] Last Admin: 09/15/16 09:34 Dose: 250 mg Senna (Senna) 17.2 mg PO DAILY PRN PRN Reason: Constipation Last Admin: 09/12/16 08:52 Dose: 17.2 mg Simvastatin (Zocor) 40 mg PO BEDTIME [facility] Last Admin: 09/15/16 20:10 Dose: 40 mg Sodium Chloride (Saline Flush) 10 ml FLUSH ASDIRECTED PRN PRN Reason: Keep Vein Open Last Admin: 09/10/16 13:29 Dose: 10 ml Sodium Chloride (Saline Flush) 10 ml FLUSH ONETIME PRN PRN Reason: Keep Vein Open Last Admin: 09/10/16 13:32 Dose: 10 ml Vancomycin HCl (Pharmacy To Dose - Vancomycin) 0 dose .XX ASDIRECTED PRN PRN Reason: RX DOSE Discontinued Medications Diphtheria/Tetanus/Acell Pertussis (Boostrix) 0.5 ml IM .ONCE ONE Stop: 09/12/16 09:19 Gadobenate Dimeglumine (Multihance) 20 ml IVPUSH ONETIME ONE Stop: 09/10/16 11:54 Last Admin: 09/10/16 13:12 Dose: 20 ml Sodium Chloride (Normal Saline) 1,000 mls @ 125 mls/hr IV ONETIME ONE Stop: 09/10/16 19:12 Last Admin: 09/10/16 13:29 Dose: 125 mls/hr Vancomycin HCl 1 gm/ Sodium (Chloride) 250 mls @ 250 mls/hr IV ONETIME ONE Stop: 09/10/16 14:50 Last Admin: 09/10/16 16:10 Dose: 250 mls/hr Ceftazidime 1 gm/ Sodium (Chloride) 50 mls @ 100 mls/hr IV Q8HR [facility] Last Admin: 09/10/16 22:43 Dose: Not Given Vancomycin HCl 1 gm/Vancomycin HCl 250 mg/ Sodium Chloride 250 mls @ 166.667 mls/hr IV Q12H [facility] Last Admin: 09/12/16 12:44 Dose: Not Given Ceftazidime 1 gm/ Sodium (Chloride) 50 mls @ 100 mls/hr IV Q8HR [facility] Last Admin: 09/13/16 05:50 Dose: 100 mls/hr Vancomycin HCl 1 gm/Vancomycin HCl 250 mg/ Sodium Chloride 250 mls @ 166.667 mls/hr IV Q18H [facility] Last Admin: 09/14/16 08:06 Dose: Not Given - Exam Quality Assessment: Reports: DVT prophylaxis General: Reports: alert, oriented, cooperative, no acute distress HEENT: Reports: Pupils equal, Pupils reactive, EOMI, Mucous membr. moist/pink Neck: Reports: supple Lungs: Reports: Clear to auscultation, Normal respiratory effort, Decreased breath sounds (to bases) Cardiovascular: Reports: regular rate, regular rhythm Abdomen: Reports: bowel sounds present, soft, no tenderness (Male) Exam: Deferred Rectal (Males) Exam: Deferred Extremities: Reports: other (rt BKA; lt with dressing to foot CDI, trace to 1+ edema to ankle) Neurological: Reports: no new focal deficit Psy/Mental Status: Reports: alert, normal affect, normal mood *Q Meaningful Use (DIS) - VTE *Q VTE Criteria *Q: - Stroke *Q Stroke Criteria *Q: - AMI *Q AMI Criteria *Q:
[2016-09-16] MEDS: Levothyroxine 100 MCG Tab PO SCH (06:33)
[2016-09-16] MEDS: Pantoprazole 40 MG Tab.CR PO SCH (06:33)
[2016-09-16] MEDS: Insulin Aspart 100 Units/ML 3 ML Pen SUBCUT SCH (06:36)
[2016-09-16 07:35] VITALS: BP 121/56
[2016-09-16] MEDS: Potassium Chloride/Sodium Chloride Tab PO SCH ×2 (07:45→08:10)
[2016-09-16] MEDS ORDERED: Diphtheria,Pertussis(Acell),Tetanus Vaccine 0.5 ML SDV inactive IM ONE (07:45)
[2016-09-16] MEDS: Saccharomyces Boulardii (Probiotic) 250 MG Cap PO SCH (07:45)
[2016-09-16] MEDS: Gabapentin 300 MG Cap PO SCH ×2 (07:46→08:10)
[2016-09-16] MEDS: Furosemide 40 MG Tab PO SCH ×2 (07:46→08:10)
[2016-09-16] MEDS: Ascorbic Acid 500 MG Tab PO SCH ×2 (07:46→08:11)
[2016-09-16] MEDS: Losartan 100 MG Tab PO SCH ×2 (07:46→08:10)
[2016-09-16] MEDS: Enoxaparin 40 MG/0.4 ML Syringe SUBCUT SCH ×2 (07:47→08:10)
[2016-09-16] MEDS: VITE AC PO SCH (08:10)
[2016-09-16] MEDS: ASCORBATE SOD PO SCH (08:10)
[2016-09-16] MEDS: ARGININE PO SCH (08:10)
== END 2016-09-16 08:30 | DRG 638 ==
LOC: JD.ED 10:38 → JD.MS 14:53
PROVIDERS: ADMIT Internal Medicine Cardiovascular Disease; ATTEND Internal Medicine Cardiovascular Disease
PROC: 05H533Z Insertion of Infusion Device into Right Subclavian Vein, Percutaneous Approach (ICD-10-PCS; principal; 2016-09-10)
DX: E11.621 Type 2 diabetes mellitus with foot ulcer (principal); L97.429 Non-pressure chronic ulcer of left heel and midfoot with unspecified severity; L03.116 Cellulitis of left lower limb; M86.9 Osteomyelitis, unspecified; N39.0 Urinary tract infection, site not specified; E11.65 Type 2 diabetes mellitus with hyperglycemia; E11.42 Type 2 diabetes mellitus with diabetic polyneuropathy; Z79.4 Long term (current) use of insulin; Z91.14 Patient's other noncompliance with medication regimen; Z89.511 Acquired absence of right leg below knee; G47.30 Sleep apnea, unspecified; N28.9 Disorder of kidney and ureter, unspecified; I11.0 Hypertensive heart disease with heart failure; I50.9 Heart failure, unspecified; E78.00 Pure hypercholesterolemia, unspecified; E78.5 Hyperlipidemia, unspecified; G47.33 Obstructive sleep apnea (adult) (pediatric); J44.9 Chronic obstructive pulmonary disease, unspecified; K21.9 Gastro-esophageal reflux disease without esophagitis; K59.00 Constipation, unspecified; F32.9 Major depressive disorder, single episode, unspecified; I73.9 Peripheral vascular disease, unspecified; N40.0 Benign prostatic hyperplasia without lower urinary tract symptoms; E03.9 Hypothyroidism, unspecified; Z86.14 Personal history of Methicillin resistant Staphylococcus aureus infection; Z87.891 Personal history of nicotine dependence; Z88.1 Allergy status to other antibiotic agents; Z79.899 Other long term (current) drug therapy; Z93.6 Other artificial openings of urinary tract status; R33.9 Retention of urine, unspecified
CPT/HCPCS: 36415; 36556; 71020; 73630; 73720; 80053; 81001; 85025; 85652; 86140; 87040 ×2; 87075; 87077 ×3; 87186 ×3; 87205; 87804 ×2; 96361; 99285; A9577; C1751; J7040; J7050 ×2; 36569; 80048; 80202; 82962; 83036; 84295; 84439; 84443; 87086; 87088; 87502; 87503; 90471; 90715; 96360; 96365; 97110-GP; 97161-GP; 97166-GO; 97530-GP; 97597-GP; 99232; 99239; 99284; A9270-GY; J0713; J1650; J1815-GY; J2185; J3370; J7030

== ENCOUNTER 2016-10-29 13:26 | Emergency (ER) | payer MEDICARE, OTHER, MEDICAID ==
[2016-10-29 13:43] VITALS: BP 128/63
[2016-10-29] MEDS ORDERED: Sodium Chloride 0.9% 10 ML Syringe FLUSH PRN (13:59)
--- NOTE | 2016-10-29 14:13 | EDM.PDOC ---
ED HPI Trauma - General Chief Complaint: Lower Extremity Injury/Pain Stated Complaint: EVALUATE FOR OSTEOMYELITIS Time Seen by Provider: 10/29/16 13:50 Source: Reports: Patient History Limitations: Reports: No limitations - History of Present Illness INITIAL COMMENTS - FREE TEXT/NARRATIVE: Patient is a 76-year-old male presents ED complaining of intermittent left lower leg foot pain and MRI study suggesting osteomyelitis. Patient states he has a history of osteomyelitis and MRSA. He was just recently discharged from [facility] to which he was there for one month in 4 days for IV antibiotic therapy for osteomyelitis to left foot. 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 He developed fevers last night and some pain to his left hip and to his lower leg that has resolved as well. Denies any fever today, nausea/vomiting, shortness of breath, chest pain, pain to his lower leg, or abdominal pain. He does have a Chandler in place which was changed out 21 October. Urine is light yellow and clear. Has mild cough described as nonproductive. States the redness and swelling to lower leg are unchanged. He has no history of DVTs or PEs. Has history of 3 stents to the left leg and also femoral popliteal bypass per family. Pain/Injury Location: Reports: lower extremity, left (Intermittent) Associated Symptoms: Reports: trouble walking (Below the knee amputation right leg) Allergies/ADRs: Allergies levofloxacin [From Levaquin] Allergy (Verified 10/29/16 13:43) Rash Home Medications: Ambulatory Orders Amitriptyline [Elavil] 10 mg PO BEDTIME 01/08/15 [Confirmed 10/29/16] Furosemide 40 mg PO DAILY 01/08/15 [Confirmed 10/29/16] Gabapentin [Neurontin] 900 mg PO TID 01/08/15 [Confirmed 10/29/16] Losartan [Cozaar] 100 mg PO DAILY 01/08/15 [Confirmed 10/29/16] Simvastatin [Zocor] 40 mg PO BEDTIME 01/08/15 [Confirmed 10/29/16] Arginine/Ascorbate Sod/Wilfred AC [Arginaid Powder] 1,000 mg PO DAILY 04/08/16 [ Confirmed 10/29/16] Ascorbic Acid [Vitamin C] 500 mg PO DAILY 04/08/16 [Confirmed 10/29/16] Cranberry 400 mg PO BID 04/08/16 [Confirmed 10/29/16] Pantoprazole [ProTONIX] 40 mg PO ACBREAKFAST 04/08/16 [Confirmed 10/29/16] Sennosides [Senna] 17.2 mg PO DAILY PRN 04/08/16 [Confirmed 10/29/16] Acetaminophen [Tylenol] 650 mg PO Q4H PRN 06/25/16 [Confirmed 10/29/16] Albuterol [IJD: Ventolin HFA] 2 puff INH Q6H PRN 06/25/16 [Confirmed 10/29/16] Lactobacillus Acidophilus [Acidophilus Lactobacillus] 1 tab PO DAILY 06/25/16 [ Confirmed 10/29/16] Levothyroxine [Synthroid] 300 mcg PO ACBREAKFAST #30 tablet 06/27/16 [Confirmed 10/29/16] Albuterol/Ipratropium [DuoNeb 3.0-0.5 MG/3 ML] 3 ml NEB ACDINNER PRN 09/10/16 [ Confirmed 09/10/16] Bisacodyl [Dulcolax] 10 mg RECTAL DAILY PRN 09/10/16 [Confirmed 10/29/16] oxyCODONE HCl/Acetaminophen [oxyCODONE-Acetaminophen 5-325] 2 tab PO Q6H PRN 09/24 [Confirmed 10/29/16] Clopidogrel [Plavix] 75 mg PO BEDTIME 10/29/16 [Confirmed 10/29/16] Insulin Aspart [NovoLOG] 7 unit SUBCUT TIDMEALS 10/29/16 [Confirmed 10/29/16] Insulin Glarg,Human.Rec.Analog [LantUS Solostar] 25 units SQ BEDTIME 10/29/16 [ Confirmed 10/29/16] Insulin Glarg,Human.Rec.Analog [LantUS Solostar] 36 units SQ DAILY 10/29/16 [ Confirmed 10/29/16] Past Medical History HEENT History: Reports: Impaired vision Cardiovascular History: Reports: Heart Failure, High cholesterol, Hypertension, PVD Respiratory History: Reports: COPD, Sleep apnea Other Respiratory History: Uases c-PAP at night Gastrointestinal History: Reports: Chronic constipation, GERD, PUD Other Gastrointestinal History: Bleeding ulcer Genitourinary History: Reports: BPH, Prostate disorder, UTI, recurrent Other Genitourinary History: Urinary catheter placed 11/19/15 Musculoskeletal History: Reports: Amputation, Fracture, Other (see below) Other Musculoskeletal History: Osteomylitis, Right arm w/plate/screws, Right leg Neurological History: Reports: Neuropathy, diabetic, Neuropathy, peripheral Psychiatric History: Reports: Depression Endocrine/Metabolic History: Reports: Diabetes, type II, Hypothyroidism Oncologic (Cancer) History: Reports: None Dermatologic History: Reports: Cellulitis, Other (see below) Other Dermatologic History: Ulcers - Infectious Disease History Infectious Disease History: Reports: Chicken pox, Measles, MRSA, Mumps - Past Surgical History HEENT Surgical History: Reports: Cataract surgery, Eye surgery Other HEENT Surgeries/Procedures: lens implant GI Surgical History: Reports: Appendectomy Endocrine Surgical History: Reports: Other (see below) Other Endocrine Surgeries/Procedures: Right BKA Musculoskeletal Surgical History: Reports: Amputation Social & Family History - Family History Family Medical History: Noncontributory Cardiac: Reports: [place] Respiratory: Reports: Asthma, Other (see below) Other Respiratory Family Hisory: black lung disease : Reports: Diabetic nephropathy Neurological: Reports: Parkinson's Endocrine/Metabolic: Reports: Diabetes, type I, Diabetes, type II Oncologic: Reports: Colon - Tobacco Use Smoking Status *Q: Former Smoker Years of Tobacco use: 43 Packs/Tins Daily: 0.5 Used Tobacco, but Quit: Yes Month Tobacco Last Used: unknown Second Hand Smoke Exposure: No - Caffeine Use Caffeine Use: Reports: Coffee Caffeine Use Comment: with every meal - Alcohol Use Days Per Week of Alcohol Use: 0 Number of Drinks Per Day: 0 Total Drinks Per Week: 0 - Recreational Drug Use Recreational Drug Use: No Drug Use in Last 12 Months: No - Living Situation & Occupation Living situation: Reports: Occupation: retired Review of Systems - Review of Systems Review Of Systems: See Below Constitutional: Reports: fever (Last night) Ears: Reports: no symptoms Respiratory: Reports: No Symptoms Cardiovascular: Reports: no symptoms GI/Abdominal: Reports: No symptoms Genitourinary: Reports: other (Chandler in place) Musculoskeletal: Reports: leg pain (Left lower leg, intermittent pain), foot pain (Left foot intermittent pain), joint swelling (Swelling to the lower leg and foot below the knee) Skin: Reports: erythema (Mild redness noted to the lower leg and foot below the knee) Neurological: Reports: Numbness (Left foot, chronic) Trauma Exam - Physical Exam Exam: See Below Exam Limited By: No limitations General Appearance: Reports: alert, WD/WN, no apparent distress Ears: Reports: hearing grossly normal Nose: Reports: normal inspection Throat/Mouth: Reports: Normal voice, No airway compromise Neck: Reports: normal alignment, normal inspection Respiratory Exam: Reports: no respiratory distress, lungs clear, normal breath sounds, no accessory muscle use Cardiovascular: Reports: normal peripheral pulses, regular rate, rhythm GI/Abdominal: Reports: normal bowel sounds, soft, non tender, no organomegaly (Male) Exam: Other (chandler in place) Extremities: Reports: other (swelling and mild redness to the left lower leg and foot. No increased warmth or drainage noted. Aprox. Stage 2 ulcer to the left heal. No pain with palpation. ) Neurologic: Reports: alert, normal mood/affect, oriented x 3 Skin: Reports: Normal color, Warm/dry Course - Vital Signs Last Recorded V/S: Last Vital Signs Temp 98.5 F 10/29/16 13:39 Pulse 104 H 10/29/16 13:39 Resp 18 10/29/16 13:39 BP 128/63 10/29/16 13:39 Pulse Ox 95 10/29/16 13:39 - Orders/Labs/Meds Orders: Active Orders 24 hr Category Date Time Status Peripheral IV Care [RC] . DIRECTED Care 10/29/16 14:00 Active CXR [Chest 1V Frontal] [CR] Stat Exams 10/29/16 14:18 Taken CULTURE BLOOD [BC] Stat Lab 10/29/16 14:40 Received CULTURE BLOOD [BC] Stat Lab 10/29/16 14:44 Received UA W/MICROSCOPIC [URIN] Stat Lab 10/29/16 14:18 Uncollected Sodium Chloride 0.9% [Saline Flush] Med 10/29/16 13:59 Active 10 ml FLUSH ASDIRECTED PRN Blood Culture x2 Reflex Set [OM.PC] Stat Oth 10/29/16 14:01 Ordered Peripheral IV Insertion Adult [OM.PC] Stat Oth 10/29/16 13:59 Ordered Medication Orders Sodium Chloride (Saline Flush) 10 ml FLUSH ASDIRECTED PRN PRN Reason: Keep Vein Open Last Admin: 10/29/16 14:53 Dose: 10 ml Labs: Laboratory Tests 10/29/16 10/29/16 Range/Units 14:40 14:40 WBC 11.05 H (4.23-9.07) K/mm3 RBC 4.60 L (4.63-6.08) M/mm3 Hgb 10.7 L (13.7-17.5) gm/L Hct 33.2 L (40.1-51.0) % MCV 72.2 L (79.0-92.2) fl MCH 23.3 L (25.7-32.2) pg MCHC 32.2 (32.2-35.5) g/dl RDW Std Deviation 39.5 (35.1-43.9) fL Plt Count 291 (163-337) K/mm3 MPV 9.5 (9.4-12.3) fl Neut % (Auto) 64.4 (34.0-67.9) % Lymph % (Auto) 13.3 L (21.8-53.1) % Ross % (Auto) 15.9 H (5.3-12.2) % Eos % (Auto) 5.4 (0.8-7.0) Baso % (Auto) 0.5 (0.1-1.2) % Neut # (Auto) 7.12 H (1.78-5.38) K/mm3 Lymph # (Auto) 1.47 (1.32-3.57) K/mm3 Ross # (Auto) 1.76 H (0.30-0.82) K/mm3 Eos # (Auto) 0.60 H (0.04-0.54) K/mm3 Baso # (Auto) 0.05 (0.01-0.08) K/mm3 Manual Slide Review Abnormal smear Sodium 128 L (136-145) mEq/L Potassium 4.7 (3.5-5.1) mEq/L Chloride 93 L (98-107) mEq/L Carbon Dioxide 30 (21-32) mEq/L Anion Gap 9.7 (5-15) BUN 26 H (7-18) mg/dL Creatinine 1.4 H (0.7-1.3) mg/dL Est Cr Clr Drug Dosing 45.63 mL/min Estimated GFR (MDRD) 49 (>60) mL/min BUN/Creatinine Ratio 18.6 H (14-18) Glucose 316 H (83-115) mg/dL Calcium 9.1 (8.5-10.1) mg/dL Total Bilirubin 0.6 (0.2-1.0) mg/dL AST 11 L (15-37) U/L ALT 21 (16-63) U/L Alkaline Phosphatase 87 (46-116) U/L C-Reactive Protein 11.6 H* (<1.0) mg/dL Total Protein 7.7 (6.4-8.2) g/dl Albumin 3.1 L (3.4-5.0) g/dl Globulin 4.6 gm/dL Albumin/Globulin Ratio 0.7 L (1-2) Meds: Medications Generic Name Dose Route Start Last Admin Trade Name Freq PRN Reason Stop Dose Admin Sodium Chloride 10 ml 10/29/16 13:59 10/29/16 14:53 Saline Flush FLUSH 10 ml ASDIRECTED PRN Administration Keep Vein Open Discontinued Medications Generic Name Dose Route Start Last Admin Trade Name Freq PRN Reason Stop Dose Admin Linezolid 600 mg/ Premix 300 mls @ 300 mls/hr 10/29/16 15:35 10/29/16 15:55 IV 10/29/16 16:34 300 mls/hr ONETIME ONE Administration - Re-Assessments/Exams Free Text/Narrative Re-Assessment/Exam: Order peripheral IV, CBC, chem 14, CRP, and blood cultures x2. Ordered UA w/ micro and CXR. CXR: no acute findings noted. Final interpretation pending. MRI obtained yesterday reviewed impression: Diffuse edema and mild diffuse soft tissue enhancement. Findings presently due to persisting cellulitis. Minimal edema and enhancement within the posterior calcaneus presumably due to minimal residual change of previous osteomyelitis. No additional abnormalities identified. Reviewed discharge summary from [facility] dated October 21, 2016. Patient was admitted to swing bed and treated with vancomycin 1 g every 72 hours or meropenem 1 g every 8 hours for 6 weeks. Cultures of heal ulcer were obtained and grew out PSEAER, MRSA, and ENTFAECA. He completed the 6 weeks of IV antibiotic therapy and was discharged on October 21, 2016. He is to followup with Dr. Curtis for further evaluation of ulcer to the left heel. White blood cell count 10.05, hemoglobin 10.7, platelets 291, neutrophil percentage 64.4, neutrophil number is 7.12, sodium 128, potassium 4.7, creatinine 1.4, glucose 316, and CRP 11.6. 10/29/[address] Conteh, he has agreed to admit patient for osteomyelititis. Suggested patient be started on Zyvox. There is a type I contraindication with amitriptyline. Dr. Conteh was made aware of this and would like to continue with antibiotic therapy. Patient has not improved with the vancomycin or meropenem.. The amitriptyline will be discontinued with admission to the hospital. MCG status is pending. Do believe patient requires a second antibiotic to treat the pseudomonas since Zyvox does not treat this. This will be addressed on in patient's side. [address] Kirk race relations professor General Surgeon. She knows the patient very well. States he has had two vascular procedures by CT surgery [facility] in attempt to improve distal circulation to help heal the ulcer to left heal. States they have discussed further procedures such as femoral popliteal bypass and or BKA maybe required. States patient should be transferred to [facility] so that he can be evaluated by CT surgery, Infectious disease, and ortho to determine next treatment course. 10/29/16 16:[address] Bee race relations professor hospitalists at [facility] has accepted patient. Does not want any additional antibiotics administered at this time. Ambulance has been been notified. All appropriate transfer paper work has been completed. Departure - Departure Time of Disposition: 18:10 Disposition: DC/Tfer to Acute Hospital 02 Condition: fair Clinical Impression: MRSA (methicillin resistant Staphylococcus aureus) Osteomyelitis of foot Qualifiers: Osteomyelitis type: other Laterality: left Qualified Code(s): M86.8X7 - Other osteomyelitis, ankle and foot Decubitus ulcer Qualifiers: Pressure ulcer location: heel Pressure ulcer stage: unspecified pressure ulcer stage Laterality: left Qualified Code(s): L89.629 - Pressure ulcer of left heel , unspecified stage Diabetic ulcer of heel Qualifiers: Diabetes mellitus type: due to underlying condition Laterality: left Non- pressure ulcer stage: unspecified non-pressure ulcer stage Qualified Code(s): E08.621 - Diabetes mellitus due to underlying condition with foot ulcer Referrals: Taylor Murray NP [Ordering Only Provider] - Forms: ED Department Discharge - My Orders Last 24 Hours: My Active Orders 10/29/16 13:59 Sodium Chloride 0.9% [Saline Flush] 10 ml FLUSH ASDIRECTED PRN Peripheral IV Insertion Adult [OM.PC] Stat 10/29/16 14:00 Peripheral IV Care [RC] . DIRECTED 10/29/16 14:01 Blood Culture x2 Reflex Set [OM.PC] Stat 10/29/16 14:18 CXR [Chest 1V Frontal] [CR] Stat UA W/MICROSCOPIC [URIN] Stat 10/29/16 14:40 CULTURE BLOOD [BC] Stat 10/29/16 14:44 CULTURE BLOOD [BC] Stat - Assessment/Plan Last 24 Hours: My Active Orders 10/29/16 13:59 Sodium Chloride 0.9% [Saline Flush] 10 ml FLUSH ASDIRECTED PRN Peripheral IV Insertion Adult [OM.PC] Stat 10/29/16 14:00 Peripheral IV Care [RC] . DIRECTED 10/29/16 14:01 Blood Culture x2 Reflex Set [OM.PC] Stat 10/29/16 14:18 CXR [Chest 1V Frontal] [CR] Stat UA W/MICROSCOPIC [URIN] Stat 10/29/16 14:40 CULTURE BLOOD [BC] Stat 10/29/16 14:44 CULTURE BLOOD [BC] Stat
[2016-10-29] MEDS ORDERED: Linezolid 600 MG in Premix Bag 1 BAG IV ONE (15:35)
--- NOTE | 2016-10-31 11:59 | CR ---
Chest: Frontal view of the chest was obtained. Comparison: Previous chest x-ray of 09/10/16. Heart size and mediastinum are within normal limits. Lungs are clear. Bony structures are grossly intact. Impression: 1. Nothing acute is identified on frontal chest x-ray. Diagnostic code #1
== END 2016-10-29 18:16 ==
LOC: JD.ED 13:26
DX: M86.8X7 Other osteomyelitis, ankle and foot (principal); L89.629 Pressure ulcer of left heel, unspecified stage; E08.621 Diabetes mellitus due to underlying condition with foot ulcer; I11.0 Hypertensive heart disease with heart failure; I50.9 Heart failure, unspecified; K21.9 Gastro-esophageal reflux disease without esophagitis; E03.9 Hypothyroidism, unspecified; E11.9 Type 2 diabetes mellitus without complications; Z79.899 Other long term (current) drug therapy
CPT/HCPCS: 36415; 71010; 80053; 85025; 86140; 87040; 96365; 99283; J2020; J7050; 99285; 99285-25

== ENCOUNTER 2019-03-16 11:21 | Emergency (ER) | payer MEDICARE, OTHER, MEDICAID ==
[2019-03-16 11:35] VITALS: BP 126/60
--- NOTE | 2019-03-16 11:37 | EDM.PDOC ---
ED HPI GENERAL MEDICAL PROBLEM - General Chief Complaint: Genitourinary Problem Stated Complaint: URINARY PROBLEMS Time Seen by Provider: 03/16/19 11:37 - History of Present Illness INITIAL COMMENTS - FREE TEXT/NARRATIVE: 79-year-old male presents to the emergency room with urinary problems. Patient has had blood noticed out of this catheter all day today he had it intermittently a couple of days ago but that seemed to resolve. Patient has not had any other complaints. He has not had any clotting or catheter dysfunction issues. He's not had any fevers or chills. - Related Data Allergies Allergy/AdvReac Type Severity Reaction Status Date / Time levofloxacin [From Levaquin] Allergy Rash Verified 03/16/19 13:37 bactrim ds Allergy Other Uncoded 03/16/19 13:37 Home Meds: Home Meds Furosemide 40 mg PO DAILY 01/08/15 [History] Gabapentin [Neurontin] 900 mg PO TID 01/08/15 [History] Losartan [Cozaar] 50 mg PO DAILY 01/08/15 [History] Simvastatin [Zocor] 40 mg PO BEDTIME 01/08/15 [History] Ascorbic Acid [Vitamin C] 500 mg PO DAILY 04/08/16 [History] Cranberry 405 mg PO BID 04/08/16 [History] Sennosides [Senna] 2 tab PO DAILY PRN 04/08/16 [History] Acetaminophen [Tylenol] 650 mg PO Q4H PRN 06/25/16 [History] Bisacodyl [Dulcolax] 10 mg RECTAL DAILY PRN 09/10/16 [History] oxyCODONE HCl/Acetaminophen [oxyCODONE-Acetaminophen 5-325] 5 - 325 mg PO BID [History] Insulin Aspart [NovoLOG] 7 unit SUBCUT TIDMEALS 10/29/16 [History] Insulin Glarg,Human.Rec.Analog [LantUS Solostar] 27 units SQ BEDTIME 10/29/16 [ History] Insulin Glarg,Human.Rec.Analog [LantUS Solostar] 38 units SQ DAILY 10/29/16 [ History] Acetaminophen 650 mg PO BID 02/14/18 [History] Albuterol [Proventil HFA] 2 puff INH Q4H PRN #1 inhaler 08/07/18 [Rx] Aspirin [Adult Low Dose Aspirin EC] 81 mg PO DAILY 02/14/18 [History] Doxycycline [Vibramycin] 100 mg PO BID #20 cap 02/14/18 [Rx] Insulin Aspart [Novolog Flexpen] 0 units SQ ASDIRECTED PRN 02/14/18 [History] L Acidophil/B Lactis/B Longum [Florajen3] 460 mg PO DAILY 02/14/18 [History] Levothyroxine [Synthroid] 200 mcg PO ACBREAKFAST 02/14/18 [History] Lidocaine 2% [Xylocaine 2% Jelly] 1 applic TOP ASDIRECTED PRN 02/14/18 [History] Multivitamin with Minerals [Multivitamins with Minerals] 1 tab PO DAILY [History] Polyethylene Glycol 3350 [MiraLAX] 17 gm PO DAILY 02/14/18 [History] Sennosides/Docusate Sodium [Senna Plus Tablet] 2 tab PO DAILY 02/14/18 [History] Sertraline [Zoloft] 25 mg PO DAILY 02/14/18 [History] guaiFENesin [Robafen] 4 tsp PO Q4H PRN 02/14/18 [History] oxyCODONE HCl/Acetaminophen [Endocet 5-325 Tablet] 5 - 325 mg PO Q6H PRN [History] oxyCODONE HCl/Acetaminophen [Oxycodone-Acetaminophen 5-325] 2 tab PO Q6H PRN 01/25 [History] predniSONE 60 mg PO WITHBREAKFAST 3 Days tab 02/14/18 [Rx] Cefdinir [Omnicef] 300 mg PO Q12H #14 cap 03/16/19 [Rx] Past Medical History HEENT History: Reports: Impaired Vision Cardiovascular History: Reports: Heart Failure, High Cholesterol, Hypertension, PVD Respiratory History: Reports: COPD, Sleep Apnea Other Respiratory History: Uases c-PAP at night Gastrointestinal History: Reports: Chronic Constipation, GERD, PUD Other Gastrointestinal History: Bleeding ulcer Genitourinary History: Reports: BPH, Prostate Disorder, UTI, Recurrent Other Genitourinary History: Urinary catheter placed 11/19/15 Musculoskeletal History: Reports: Amputation, Fracture, Other (See Below) Other Musculoskeletal History: Osteomylitis, Right arm w/plate/screws, Right leg Neurological History: Reports: Neuropathy, Diabetic, Neuropathy, Peripheral Psychiatric History: Reports: Depression Endocrine/Metabolic History: Reports: Diabetes, Type II, Hypothyroidism Oncologic (Cancer) History: Reports: None Dermatologic History: Reports: Cellulitis, Other (See Below) Other Dermatologic History: Ulcers - Infectious Disease History Infectious Disease History: Reports: Chicken Pox, Measles, MRSA, Mumps - Past Surgical History HEENT Surgical History: Reports: Cataract Surgery, Eye Surgery Cardiovascular Surgical History: Reports: Carotid Endarterectomy, Carotid Stents , Other (See Below) Male Surgical History: Reports: Other (See Below) Endocrine Surgical History: Reports: Other (See Below) Social & Family History - Family History Family Medical History: Noncontributory Cardiac: Reports: [place] Respiratory: Reports: Asthma, Other (See Below) Other Respiratory Family Hisory: black lung disease : Reports: Diabetic Nephropathy Neurological: Reports: Parkinson's Endocrine/Metabolic: Reports: Diabetes, Type I, Diabetes, type II Oncologic: Reports: Colon - Caffeine Use Caffeine Use: Reports: Coffee Caffeine Use Comment: with every meal - Living Situation & Occupation Living situation: Reports: Occupation: Retired ED ROS GENERAL - Review of Systems Review Of Systems: See Below Constitutional: Denies: Fever, Chills Respiratory: Reports: No Symptoms Cardiovascular: Reports: No Symptoms GI/Abdominal: Reports: No Symptoms : Reports: No Symptoms, Other (He has a chronic indwelling [place]) ED EXAM, RENAL/ - Physical Exam Exam: See Below Exam Limited By: No Limitations General Appearance: Alert, No Apparent Distress Respiratory/Chest: No Respiratory Distress, Lungs Clear, Normal Breath Sounds Cardiovascular: Regular Rate, Rhythm, No Edema, No Murmur GI/Abdominal: Normal Bowel Sounds, Soft, Non-Tender (Male) Exam: Other (He has blood noted in the catheter that he said he had some draining around the catheter also) Back Exam: Normal Inspection. No: CVA Tenderness (L), CVA Tenderness (R) Neurological: Alert, Oriented, Normal Cognition Course - Vital Signs Last Recorded V/S: Last Vital Signs Temp 36.4 C 03/16/19 11:33 Pulse 97 03/16/19 11:33 Resp 20 03/16/19 11:33 BP 126/60 03/16/19 11:33 Pulse Ox 91 L 03/16/19 11:33 - Orders/Labs/Meds Orders: Active Orders 24 hr Category Date Time Status CULTURE URINE [RM] Stat Lab 03/16/19 13:28 Ordered Labs: Laboratory Tests 03/16/19 Range/Units 12:19 Urine Color Red H (Yellow) Urine Appearance Cloudy H (Clear) Urine pH 8.5 H (5.0-8.0) Ur Specific [place] 1.015 (1.005-1.030) Urine Protein 3+ H (Negative) Urine Glucose (UA) Trace H (Negative) Urine Ketones 1+ H (Negative) Urine Occult Blood 3+ H (Negative) Urine Nitrite Positive H (Negative) Urine Bilirubin 3+ H (Negative) Urine Urobilinogen 2.0 H (0.2-1.0) Ur Leukocyte Esterase 3+ H (Negative) Urine RBC Too numerous to cnt H (0-5) /hpf Urine WBC 20-30 H (0-5) /hpf Ur Epithelial Cells Not seen (0-5) /hpf Urine Bacteria Moderate H (FEW) /hpf Urine Mucus Not seen (FEW) /hpf Meds: Medications Discontinued Medications Generic Name Dose Route Start Last Admin Trade Name Freq PRN Reason Stop Dose Admin Ceftriaxone Sodium 1 gm 03/16/19 13:42 Rocephin IM 03/16/19 13:43 ONETIME ONE - Re-Assessments/Exams Free Text/Narrative Re-Assessment/Exam: 03/16/19 13:50 Lots of RBCs noted in the urine however his urine is leukocyte esterase positive and nitrate positive. The urine is sent for culture and sensitivity the patient is allergic to Levaquin and Bactrim. We'll give him a gram of IM Rocephin and start him on Omnicef 300 mg by mouth twice a day for a week. Departure - Departure Time of Disposition: 13:37 Disposition: DC/Tfer to [facility] Preliminary Cause of *Q: Cardiac Arrest Clinical Impression: Hemorrhagic cystitis - Discharge Information Prescriptions: Cefdinir [Omnicef] 300 mg PO Q12H #14 cap Referrals: Gil Mcginnis MD [Primary Care Provider] - Forms: ED Department Discharge - My Orders Last 24 Hours: My Active Orders 03/16/19 13:28 CULTURE URINE [RM] Stat - Assessment/Plan Last 24 Hours: My Active Orders 03/16/19 13:28 CULTURE URINE [RM] Stat
[2019-03-16] MEDS ORDERED: cefTRIAXone 1 GM Vial IM ONE (13:42)
== END 2019-03-16 14:15 ==
LOC: JD.ED 11:21
DX: N30.90 Cystitis, unspecified without hematuria (principal); I11.0 Hypertensive heart disease with heart failure; I50.9 Heart failure, unspecified; E78.00 Pure hypercholesterolemia, unspecified; E11.42 Type 2 diabetes mellitus with diabetic polyneuropathy; E03.9 Hypothyroidism, unspecified; J44.9 Chronic obstructive pulmonary disease, unspecified; F32.9 Major depressive disorder, single episode, unspecified; Z88.1 Allergy status to other antibiotic agents; Z79.82 Long term (current) use of aspirin; Z79.4 Long term (current) use of insulin; Z79.899 Other long term (current) drug therapy
CPT/HCPCS: 51700; 81001; 87086; 96372; 99284; J0696; 87077; 87088; 87186

== ENCOUNTER 2019-03-16 19:42 | Emergency (ER) | payer MEDICARE, OTHER, MEDICAID ==
[2019-03-16 19:58] VITALS: BP 140/95
[2019-03-16] MEDS ORDERED: Lidocaine 2% Jelly 10 ML Urojet MUCMEM ONE (20:39)
--- NOTE | 2019-03-16 21:48 | EDM.PDOC ---
ED HPI GENERAL MEDICAL PROBLEM - General Chief Complaint: Genitourinary Problem Stated Complaint: SENT FROM [facility] Time Seen by Provider: 03/16/19 21:05 Source of Information: Reports: Patient, Assisted Records, Old Records (ED visit 03/16/2019) History Limitations: Reports: Physical Impairment (Patient is a poor historian) - History of Present Illness INITIAL COMMENTS - FREE TEXT/NARRATIVE: The patient states that he has had a chronic indwelling Piedra for the past 2 years, he believes, but he does not know why. Medical records indicate that the patient was seen in this ED this morning after blood was found in his catheter. He apparently had had a similar issue intermittently a couple of days ago, that resolved on its own. The patient had not had any fevers or chills. A new catheter was placed and irrigated twice, until clear. A urinalysis was abnormal, therefore the patient was given IV Rocephin and discharged back to [facility] with a prescription for Omnicef. The patient is now returned to the ED because of gross hematuria from his Piedra catheter. He has been passing clots, although the Piedra does not appear to be obstructed, since it is still draining. The patient's PCP is Dr. Gil Mcginnis. His Urologist is Dr. Iraida Schwarz. Treatments MATERIAL ENGINEER: Reports: Other (see below) Other Treatments MATERIAL ENGINEER: norco Bladder Pain Score (Numeric/FACES): 10 - Related Data Allergies Allergy/AdvReac Type Severity Reaction Status Date / Time levofloxacin [From Levaquin] Allergy Rash Verified 03/16/19 13:37 bactrim ds Allergy Other Uncoded 03/16/19 13:37 Home Meds: Home Meds Furosemide 40 mg PO DAILY 01/08/15 [History] Gabapentin [Neurontin] 900 mg PO TID 01/08/15 [History] Losartan [Cozaar] 50 mg PO DAILY 01/08/15 [History] Simvastatin [Zocor] 40 mg PO BEDTIME 01/08/15 [History] Ascorbic Acid [Vitamin C] 500 mg PO DAILY 04/08/16 [History] Cranberry 405 mg PO BID 04/08/16 [History] Sennosides [Senna] 2 tab PO DAILY PRN 04/08/16 [History] Acetaminophen [Tylenol] 650 mg PO DAILY PRN 06/25/16 [History] Bisacodyl [Dulcolax] 10 mg RECTAL DAILY PRN 09/10/16 [History] oxyCODONE HCl/Acetaminophen [oxyCODONE-Acetaminophen 5-325] 5 - 325 mg PO TID [History] Insulin Aspart [NovoLOG] 7 unit SUBCUT TIDMEALS 10/29/16 [History] Insulin Glarg,Human.Rec.Analog [LantUS Solostar] 0 units SQ DAILY 10/29/16 [ History] Insulin Glarg,Human.Rec.Analog [LantUS Solostar] 27 units SQ BEDTIME 10/29/16 [ History] Albuterol [Proventil HFA] 2 puff INH Q4H PRN #1 inhaler 02/14/18 [Rx] Aspirin [Adult Low Dose Aspirin EC] 81 mg PO DAILY 02/14/18 [History] Insulin Aspart [Novolog Flexpen] 0 units SQ BID 02/14/18 [History] L Acidophil/B Lactis/B Longum [Florajen3] 460 mg PO DAILY 02/14/18 [History] Levothyroxine [Synthroid] 200 mcg PO ACBREAKFAST 02/14/18 [History] Multivitamin with Minerals [Multivitamins with Minerals] 1 tab PO DAILY [History] Polyethylene Glycol 3350 [MiraLAX] 17 gm PO DAILY 02/14/18 [History] Sennosides/Docusate Sodium [Senna Plus Tablet] 2 tab PO DAILY 02/14/18 [History] Sertraline [Zoloft] 25 mg PO DAILY 02/14/18 [History] oxyCODONE HCl/Acetaminophen [Endocet 5-325 Tablet] 5 - 325 mg PO Q6H PRN [History] Budesonide/Formoterol [Symbicort 160-4.5 MCG] 2 puff INH BID 03/16/19 [History] Cefdinir [Omnicef] 300 mg PO Q12H #14 cap 03/16/19 [Rx] Furosemide [Lasix] 20 mg PO DAILY 03/16/19 [History] fentaNYL [Fentanyl] 1 patch TOP Q72H 03/16/19 [History] metFORMIN [Glucophage XR] 500 mg PO DAILY 03/16/19 [History] Past Medical History HEENT History: Reports: Impaired Vision Cardiovascular History: Reports: CAD, Heart Failure, High Cholesterol, Hypertension, PVD Respiratory History: Reports: COPD, Sleep Apnea (nightly CPAP) Gastrointestinal History: Reports: GERD, PUD Genitourinary History: Reports: BPH, Retention, Urinary (chronic indwelling Piedra) Musculoskeletal History: Reports: Fracture Neurological History: Reports: Neuropathy, Diabetic Psychiatric History: Reports: Depression Endocrine/Metabolic History: Reports: Diabetes, Type II, Hypothyroidism, Obesity /BMI 30+ Hematologic History: Reports: Anemia (of chronic disease) Oncologic (Cancer) History: Reports: Prostate (s/p brachytharapy) - Infectious Disease History Infectious Disease History: Reports: Chicken Pox, Measles, MRSA, Mumps - Past Surgical History HEENT Surgical History: Reports: Cataract Surgery (bilateral) GI Surgical History: Reports: Appendectomy Musculoskeletal Surgical History: Reports: Amputation (bilateral BKAs), ORIF ( right forearm) Oncologic Surgical History: Reports: Other (See Below) (Prostate brachytherapy) Social & Family History - Family History Family Medical History: Noncontributory Cardiac: Reports: [place] Respiratory: Reports: Asthma, Other (See Below) Other Respiratory Family Hisory: black lung disease : Reports: Diabetic Nephropathy Neurological: Reports: Parkinson's Endocrine/Metabolic: Reports: Diabetes, Type I, Diabetes, type II Oncologic: Reports: Colon - Tobacco Use Smoking Status *Q: Former Smoker Years of Tobacco use: 43 Packs/Tins Daily: 1 Month/Year Tobacco Last Used: Quit 1997 - Caffeine Use Caffeine Use: Reports: None Caffeine Use Comment: with every meal - Alcohol Use Alcohol Use History: No - Recreational Drug Use Recreational Drug Use: No - Living Situation & Occupation Living situation: Reports: ( lives at home), Extended Care Facility ([facility]) Occupation: Retired ED ROS GENERAL - Review of Systems Review Of Systems: ROS reveals no pertinent complaints other than HPI. GI/Abdominal: Reports: Constipation ED EXAM, RENAL/ - Physical Exam Exam: See Below Exam Limited By: No Limitations General Appearance: Alert, WD/WN, No Apparent Distress Eye Exam: Bilateral Eye: EOMI, Normal Inspection Ears: Normal External Exam, Hearing Loss Nose: Normal Inspection Throat/Mouth: Normal Inspection, Normal Lips, Normal Voice, No Airway Compromise Head: Atraumatic, Normocephalic Neck: Normal Inspection, Full Range of Motion Respiratory/Chest: No Respiratory Distress, Lungs Clear, Normal Breath Sounds, No Accessory Muscle Use Cardiovascular: Normal Peripheral Pulses, Regular Rate, Rhythm, No Gallop, No JVD, No Murmur, No Rub GI/Abdominal: Normal Bowel Sounds, Soft, Non-Tender, No Organomegaly, No Distention, No Abnormal Bruit, No Mass (Male) Exam: Deferred Rectal (Males) Exam: Deferred Extremities: Normal Range of Motion, Normal Capillary Refill, Other (Bilateral BKAs) Neurological: Alert, No Motor/Sensory Deficits, Confused Psychiatric: Normal Affect Skin Exam: Warm, Dry, Intact, Normal Color, No Rash Course - Vital Signs Last Recorded V/S: Last Vital Signs Temp 36.9 C 03/16/19 19:56 Pulse 97 03/16/19 19:56 Resp 20 03/16/19 19:56 BP 140/95 H 03/16/19 19:56 Pulse Ox 91 L 03/16/19 19:56 - Orders/Labs/Meds Labs: Laboratory Tests 03/16/19 Range/Units 22:15 Hgb 13.6 L (13.7-17.5) gm/L Hct 41.6 (40.1-51.0) % Meds: Medications Discontinued Medications Generic Name Dose Route Start Last Admin Trade Name Walterq PRN Reason Stop Dose Admin Lidocaine HCl 10 ml 03/16/19 20:39 03/16/19 21:00 Xylocaine 2% Jelly MUCMEM 03/16/19 20:40 10 ml ONETIME ONE Administration - Re-Assessments/Exams Free Text/Narrative Re-Assessment/Exam: 03/16/19 21:42 Tomasa YOST changed the patient's Piedra catheter to a 3-way irrigation catheter and irrigated the catheter to what is now very light pink output. The patient's family has returned to the room and we discussed the case. I explained that we are unable to determine the cause of the patient's hematuria - whether it is from his kidneys, bladder, or urethra - that in order to do so would require cystoscopy, which we do not have at this facility, nor a Urologist to operate that equipment. It would require transfer to [facility] for cystoscopy, but since his catheter isn't obstructed, I doubt that a Urologist would agree to a transfer; they would likely recommend having the patient follow up in the office. Nevertheless, I offered to call the Urologist transcription specialist at [facility], to see if they agree, or if they had any other ideas. 03/16/19 21:54 Case discussed with Anuj at [facility] at 21:41. Case then discussed with Dr. Quesada, Urologist transcription specialist at [facility] , at 21:48. He stated that they do not perform cystoscopy for gross hematuria unless urgent surgical intervention, such as fulguration, is indicated, which it is not in this case. He stated that if the patient were transferred to their facility, they would do nothing other than irrigation, which we have already done. 03/16/19 23:24 The patient H/H has returned 13.6/41.6. This was discussed with the patient and his family. I will discharge the patient back to the group home, with the recommendation that the group home call Dr. Schwarz's office first thing Tuesday morning to make an appointment for the patient to be seen. In the meantime, Tomasa YOST will send the patient back to the group home with the 3- way catheter still in place, along with an irrigation kit. Departure - Departure Time of Disposition: 23:25 Disposition: Home, Self-Care 01 Condition: Good Clinical Impression: Gross hematuria - Discharge Information *PRESCRIPTION DRUG MONITORING PROGRAM REVIEWED*: Not Applicable *COPY OF PRESCRIPTION DRUG MONITORING REPORT IN PATIENT JUAN MIGUEL: Not Applicable Instructions: Hematuria, Adult Referrals: Gil Mcginnis MD [Primary Care Provider] - Iraida Schwarz MD [Consulting Physician] - Forms: ED Department Discharge Additional Instructions: Mr. Joyce was seen in the emergency room for recurrent bloody urine through his Piedra catheter. His Piedra catheter was removed and replaced with a 3-way irrigation catheter, and his bladder was copiously irrigated. Workup in the ER included checking a hemoglobin/hematocrit, which returned normal at 13.6/41.6. The cause of his gross hematuria is unknown, and is not able to be determined from the ER. That determination can only be made with cystoscopy. His case was discussed with the Urologist Dr. Quesada, who did not recommend transfer to [facility], as the only thing that they would do is irrigate his bladder. Going forward, his bladder can be irrigated anytime there is a significant amount of gross hematuria. We recommend that the office of Mr. Joyce's Urologist, Dr. Schwarz, be contacted on Tuesday morning, to have an appointment made. It might help if the human resources receptionist is made aware that this is a follow-up from the ER. If any other problems, please do not hesitate to return Mr. Joyce to the ER.
== END 2019-03-17 00:30 | disposition home or self-care (01) ==
LOC: JD.ED 19:42 → SUPCPDRO 19:42 → JD.ED 03-17 00:30
DX: R31.0 Gross hematuria (principal); F32.9 Major depressive disorder, single episode, unspecified; E03.9 Hypothyroidism, unspecified; I11.0 Hypertensive heart disease with heart failure; I50.9 Heart failure, unspecified; E78.00 Pure hypercholesterolemia, unspecified; E11.40 Type 2 diabetes mellitus with diabetic neuropathy, unspecified; Z88.1 Allergy status to other antibiotic agents; E66.9 Obesity, unspecified; Z79.899 Other long term (current) drug therapy; Z79.4 Long term (current) use of insulin; Z79.51 Long term (current) use of inhaled steroids; Z90.49 Acquired absence of other specified parts of digestive tract; Z86.2 Personal history of diseases of the blood and blood-forming organs and certain disorders involving the immune mechanism; Z87.891 Personal history of nicotine dependence
CPT/HCPCS: 36415; 51700; 51702; 85014; 85018; 99284-25

== ENCOUNTER 2020-08-12 09:38 | Inpatient (IN) | payer MEDICARE, OTHER, MEDICAID ==
[2020-08-12] MEDS ORDERED: Sodium Chloride 0.9% 10 ML Syringe FLUSH PRN (09:43)
[2020-08-12] MEDS ORDERED: Sodium Chloride 0.9% 1,000 ML IV SCH (09:45)
[2020-08-12] MEDS ORDERED: Sodium Chloride 0.9% 1,000 ML IV ONE (09:52)
[2020-08-12] MEDS ORDERED: Diltiazem 50 MG/10 ML SDV IVPUSH ONE ×2 (09:57→13:59)
--- NOTE | 2020-08-12 10:38 | EDM.PDOC ---
ED HPI GENERAL MEDICAL PROBLEM - General Chief Complaint: Cardiovascular Problem Stated Complaint: [facility] Time Seen by Provider: 08/12/20 09:42 Source of Information: Reports: Patient, EMS, Provider History Limitations: Reports: No Limitations - History of Present Illness INITIAL COMMENTS - FREE TEXT/NARRATIVE: The patient presents from [facility] for elevated heart rate, hypoglycemia and fever. The patient is a resident of one of the nursing homes and he has bilateral below the knee amputations and an indwelling chandler catheter. He has been having generalized weakness and he went to see Dr Mcginnis. He was found to have a fast heart rate. His blood sugar also was low in the 20s and a snack brought him up to the 200s. He also had a fever or 101 for EMS. He has no headache, chest pain, shortness of breath, abdominal pain, nausea or vomiting. He does have a slight cough. He is on home oxygen. His heart rate is in the 140s and it appears to be supraventricular. Onset: Gradual Duration: Day(s): Severity: Moderate Improves with: Reports: None Worsens with: Reports: None Associated Symptoms: Reports: Cough, Fever/Chills. Denies: Chest Pain, Headaches, Nausea/Vomiting, Shortness of Breath - Related Data Allergies Allergy/AdvReac Type Severity Reaction Status Date / Time levofloxacin [From Levaquin] Allergy Severe Rash Verified 08/12/20 10:10 bactrim ds Allergy Severe Other Uncoded 08/12/20 10:10 Home Meds: Home Meds Furosemide 40 mg PO DAILY 01/08/15 [History] Gabapentin [Neurontin] 900 mg PO TID 01/08/15 [History] Losartan [Cozaar] 50 mg PO DAILY 01/08/15 [History] Simvastatin [Zocor] 40 mg PO BEDTIME 01/08/15 [History] Ascorbic Acid [Vitamin C] 500 mg PO DAILY 04/08/16 [History] Cranberry 405 mg PO BID 04/08/16 [History] Sennosides [Senna] 2 tab PO DAILY PRN 04/08/16 [History] Acetaminophen [Tylenol] 650 mg PO DAILY PRN 06/25/16 [History] Bisacodyl [Dulcolax] 10 mg RECTAL DAILY PRN 09/10/16 [History] oxyCODONE HCl/Acetaminophen [oxyCODONE-Acetaminophen 5-325] 5 - 325 mg PO TID 09/10/16 [History] Insulin Aspart [NovoLOG] 7 unit SUBCUT TIDMEALS 10/29/16 [History] Insulin Glarg,Human.Rec.Analog [LantUS Solostar] 0 units SQ DAILY 10/29/16 [History] Insulin Glarg,Human.Rec.Analog [LantUS Solostar] 27 units SQ BEDTIME 10/29/16 [History] Albuterol [Proventil HFA] 2 puff INH Q4H PRN #1 inhaler 02/14/18 [Rx] Aspirin [Adult Low Dose Aspirin EC] 81 mg PO DAILY 02/14/18 [History] Insulin Aspart [Novolog Flexpen] 0 units SQ BID 02/14/18 [History] L Acidophil/B Lactis/B Longum [Florajen3] 460 mg PO DAILY 02/14/18 [History] Levothyroxine [Synthroid] 200 mcg PO ACBREAKFAST 02/14/18 [History] Multivitamin with Minerals [Multivitamins with Minerals] 1 tab PO DAILY 02/14/18 [History] Sennosides/Docusate Sodium [Senna Plus Tablet] 2 tab PO DAILY 02/14/18 [History] Sertraline [Zoloft] 25 mg PO DAILY 02/14/18 [History] oxyCODONE HCl/Acetaminophen [Endocet 5-325 Tablet] 5 - 325 mg PO Q6H PRN 02/14/18 [History] polyethylene glycoL 3350 [MiraLAX] 17 gm PO DAILY 02/14/18 [History] Budesonide/Formoterol [Symbicort 160-4.5 MCG] 2 puff INH BID 03/16/19 [History] Cefdinir [Omnicef] 300 mg PO Q12H #14 cap 03/16/19 [Rx] Furosemide [Lasix] 20 mg PO DAILY 03/16/19 [History] fentaNYL [Fentanyl] 1 patch TOP Q72H 03/16/19 [History] metFORMIN [Glucophage XR] 500 mg PO DAILY 03/16/19 [History] Nitrofurantoin Monohyd/M-Cryst [Macrobid 100 mg Capsule] 100 mg PO BID #14 capsule 03/20/19 [Rx] Past Medical History HEENT History: Reports: Impaired Vision Cardiovascular History: Reports: CAD, Heart Failure, High Cholesterol, Hypertension, PVD Respiratory History: Reports: COPD, Sleep Apnea Other Respiratory History: Uases c-PAP at night Gastrointestinal History: Reports: GERD, PUD Other Gastrointestinal History: Bleeding ulcer Genitourinary History: Reports: BPH, Retention, Urinary Other Genitourinary History: Urinary catheter placed 11/19/15 Musculoskeletal History: Reports: Fracture Other Musculoskeletal History: Osteomylitis, Right arm w/plate/screws, Right leg Neurological History: Reports: Neuropathy, Diabetic Psychiatric History: Reports: Depression Endocrine/Metabolic History: Reports: Diabetes, Type II, Hypothyroidism, Obesity/BMI 30+ Hematologic History: Reports: Anemia Oncologic (Cancer) History: Reports: Prostate Dermatologic History: Reports: Cellulitis, Other (See Below) Other Dermatologic History: Ulcers - Infectious Disease History Infectious Disease History: Reports: Chicken Pox, Measles, MRSA, Mumps - Past Surgical History HEENT Surgical History: Reports: Cataract Surgery Other HEENT Surgeries/Procedures: lens implant Cardiovascular Surgical History: Reports: Carotid Endarterectomy, Carotid Stents, Other (See Below) Other Cardiovascular Surgeries/Procedures: Femoral stents X2, Carotid stents X3, Angiogram GI Surgical History: Reports: Appendectomy Endocrine Surgical History: Reports: Other (See Below) Musculoskeletal Surgical History: Reports: Amputation, ORIF Oncologic Surgical History: Reports: Other (See Below) Social & Family History - Family History Family Medical History: No Pertinent Family History Cardiac: Reports: [facility] Respiratory: Reports: Asthma, Other (See Below) Other Respiratory Family Hisory: black lung disease : Reports: Diabetic Nephropathy Neurological: Reports: Parkinson's Endocrine/Metabolic: Reports: Diabetes, Type I, Diabetes, type II Oncologic: Reports: Colon - Tobacco Use Tobacco Use Status *Q: Former Tobacco User Used Tobacco, but Quit: Yes Month/Year Tobacco Last Used: 1997 - Caffeine Use Caffeine Use: Reports: None Caffeine Use Comment: with every meal - Recreational Drug Use Recreational Drug Use: No - Living Situation & Occupation Living situation: Reports: ( lives at home), Extended Care Facility ([facility]) Occupation: Retired ED ROS GENERAL - Review of Systems Review Of Systems: See Below Constitutional: Reports: No Symptoms HEENT: Reports: No Symptoms Respiratory: Reports: Cough. Denies: Shortness of Breath Cardiovascular: Reports: No Symptoms Endocrine: Reports: No Symptoms GI/Abdominal: Reports: No Symptoms : Reports: No Symptoms Musculoskeletal: Reports: Other (Bilateral below the knee amputations) ED EXAM, GENERAL - Physical Exam Exam: See Below Exam Limited By: No Limitations General Appearance: Alert, No Apparent Distress Ears: Normal External Exam Nose: Normal Inspection Head: Atraumatic, Normocephalic Neck: Normal Inspection Respiratory/Chest: No Respiratory Distress, Decreased Breath Sounds Cardiovascular: No Edema, No Murmur, Tachycardia GI/Abdominal: Soft, Non-Tender, No Organomegaly, No Mass Extremities: Other (bilateral below the knee amputations) Neurological: Alert, Oriented, No Motor/Sensory Deficits #1 Interpretation EKG Date: 08/12/20 Time: 09:48 Rhythm: Other (Supraventricular tachycardia) Rate (Beats/Min): 142 [place]: LAD-Left [place] Deviation P-Wave: Present QRS: Normal ST-T: Normal QT: Normal EKG Interpretation Comments: PVC Course - Vital Signs Last Recorded V/S: Last Vital Signs Temp 97.6 F 08/12/20 09:46 Pulse 142 H 08/12/20 09:46 Resp 17 08/12/20 09:46 BP 116/81 08/12/20 09:46 Pulse Ox 92 L 08/12/20 09:46 - Orders/Labs/Meds Orders: Active Orders 24 hr Category Date Time Status Cardiac Monitoring [RC] . DIRECTED Care 08/12/20 09:43 Active EKG Documentation Completion [RC] STAT Care 08/12/20 09:44 Active Oxygen Therapy [RC] PRN Care 08/12/20 09:43 Active Peripheral IV Care [RC] . DIRECTED Care 08/12/20 09:44 Active CULTURE BLOOD [BC] Stat Lab 08/12/20 10:00 Received CULTURE BLOOD [BC] Stat Lab 08/12/20 10:15 Received CULTURE URINE [RM] Stat Lab 08/12/20 10:05 Received Diltiazem [Cardizem] 100 mg Med 08/12/20 10:00 Active Sodium Chloride 0.9% [Normal Saline] 100 ml IV TITRATE Sodium Chloride 0.9% [Normal Saline] 1,000 ml Med 08/12/20 09:45 Active IV ASDIRECTED Sodium Chloride 0.9% [Saline Flush] Med 08/12/20 09:43 Active 10 ml FLUSH ASDIRECTED PRN Blood Culture x2 Reflex Set [OM.PC] Stat Oth 08/12/20 09:45 Ordered Peripheral IV Insertion Adult [OM.PC] Stat Ot 08/12/20 09:43 Ordered Medication Orders Sodium Chloride (Normal Saline) 1,000 mls @ 125 mls/hr IV ASDIRECTED DIAMOND Diltiazem HCl 100 mg/ Sodium (Chloride) 100 mls @ 5 mls/hr IV TITRATE DIAMOND; Protocol Last Admin: 08/12/20 10:47 Dose: 5 mg/hr, 5 mls/hr Documented by: PADMAJA Sodium Chloride (Saline Flush) 10 ml FLUSH ASDIRECTED PRN PRN Reason: Keep Vein Open Last Admin: 08/12/20 10:42 Dose: 10 ml Documented by: PADMAJA Labs: Laboratory Tests 08/12/20 08/12/20 08/12/20 Range/Units 10:00 10:00 10:00 WBC 14.24 H (4.23-9.07) K/mm3 RBC 4.89 (4.63-6.08) M/mm3 Hgb 13.4 L (13.7-17.5) gm/dl Hct 43.4 (40.1-51.0) % MCV 88.8 D (79.0-92.2) fl MCH 27.4 (25.7-32.2) pg MCHC 30.9 L (32.2-35.5) g/dl RDW Std Deviation 51.6 H (35.1-43.9) fL Plt Count 248 (163-337) K/mm3 MPV 9.8 (9.4-12.3) fl Neut % (Auto) 83.1 H (34.0-67.9) % Lymph % (Auto) 7.4 L (21.8-53.1) % [place] % (Auto) 7.9 (5.3-12.2) % Eos % (Auto) 1.1 (0.8-7.0) Baso % (Auto) 0.1 (0.1-1.2) % Neut # (Auto) 11.82 H (1.78-5.38) K/mm3 Lymph # (Auto) 1.06 L (1.32-3.57) K/mm3 [place] # (Auto) 1.12 H (0.30-0.82) K/mm3 Eos # (Auto) 0.16 (0.04-0.54) K/mm3 Baso # (Auto) 0.02 (0.01-0.08) K/mm3 Manual Slide Review Normal smear PT (9.7-12.0) SECONDS INR APTT (21.7-31.4) SECONDS Sodium 134 L (136-145) mEq/L Potassium 4.1 (3.5-5.1) mEq/L Chloride 91 L (98-107) mEq/L Carbon Dioxide 36 H (21-32) mEq/L Anion Gap 11.1 (5-15) BUN 48 H D (7-18) mg/dL Creatinine 1.4 H (0.7-1.3) mg/dL Est Cr Clr Drug Dosing TNP Estimated GFR (MDRD) 49 (>60) mL/min BUN/Creatinine Ratio 34.3 H (14-18) Glucose 200 H (83-115) mg/dL Lactic Acid (0.4-2.0) mmol/L Calcium 9.2 (8.5-10.1) mg/dL Magnesium 2.0 (1.8-2.4) mg/dl Total Bilirubin 0.5 (0.2-1.0) mg/dL AST 41 H (15-37) U/L ALT 27 (16-63) U/L Alkaline Phosphatase 85 (46-116) U/L Troponin I 0.452 H* (0.00-0.056) ng/mL C-Reactive Protein 9.3 H* (<1.0) mg/dL Total Protein 7.8 (6.4-8.2) g/dl Albumin 3.1 L (3.4-5.0) g/dl Globulin 4.7 gm/dL Albumin/Globulin Ratio 0.7 L (1-2) Urine Color (Yellow) Urine Appearance (Clear) Urine pH (5.0-8.0) Ur Specific [place] (1.005-1.030) Urine Protein (Negative) Urine Glucose (UA) (Negative) Urine Ketones (Negative) Urine Occult Blood (Negative) Urine Nitrite (Negative) Urine Bilirubin (Negative) Urine Urobilinogen (0.2-1.0) Ur Leukocyte Esterase (Negative) Urine RBC (0-5) /hpf Urine WBC (0-5) /hpf Ur Squamous Epith Cells (0-5) /hpf Urine Bacteria (FEW) /hpf Urine Mucus (FEW) /hpf Influenza Type A RNA Negative (NEGATIVE) Influenza Type B RNA Negative (NEGATIVE) SARS-CoV-2 RNA (DYLAN) Positive H (NEGATIVE) 08/12/20 08/12/20 08/12/20 Range/Units 10:00 10:00 10:05 WBC (4.23-9.07) K/mm3 RBC (4.63-6.08) M/mm3 Hgb (13.7-17.5) gm/dl Hct (40.1-51.0) % MCV (79.0-92.2) fl MCH (25.7-32.2) pg MCHC (32.2-35.5) g/dl RDW Std Deviation (35.1-43.9) fL Plt Count (163-337) K/mm3 MPV (9.4-12.3) fl Neut % (Auto) (34.0-67.9) % Lymph % (Auto) (21.8-53.1) % [place] % (Auto) (5.3-12.2) % Eos % (Auto) (0.8-7.0) Baso % (Auto) (0.1-1.2) % Neut # (Auto) (1.78-5.38) K/mm3 Lymph # (Auto) (1.32-3.57) K/mm3 [place] # (Auto) (0.30-0.82) K/mm3 Eos # (Auto) (0.04-0.54) K/mm3 Baso # (Auto) (0.01-0.08) K/mm3 Manual Slide Review PT 12.7 H (9.7-12.0) SECONDS INR 1.19 APTT 27.9 (21.7-31.4) SECONDS Sodium (136-145) mEq/L Potassium (3.5-5.1) mEq/L Chloride (98-107) mEq/L Carbon Dioxide (21-32) mEq/L Anion Gap (5-15) BUN (7-18) mg/dL Creatinine (0.7-1.3) mg/dL Est Cr Clr Drug Dosing Estimated GFR (MDRD) (>60) mL/min BUN/Creatinine Ratio (14-18) Glucose (83-115) mg/dL Lactic Acid 1.5 (0.4-2.0) mmol/L Calcium (8.5-10.1) mg/dL Magnesium (1.8-2.4) mg/dl Total Bilirubin (0.2-1.0) mg/dL AST (15-37) U/L ALT (16-63) U/L Alkaline Phosphatase (46-116) U/L Troponin I (0.00-0.056) ng/mL C-Reactive Protein (<1.0) mg/dL Total Protein (6.4-8.2) g/dl Albumin (3.4-5.0) g/dl Globulin gm/dL Albumin/Globulin Ratio (1-2) Urine Color Yellow (Yellow) Urine Appearance Clear (Clear) Urine pH 6.0 (5.0-8.0) Ur Specific [place] 1.020 (1.005-1.030) Urine Protein Negative (Negative) Urine Glucose (UA) Negative (Negative) Urine Ketones Negative (Negative) Urine Occult Blood 2+ H (Negative) Urine Nitrite Positive H (Negative) Urine Bilirubin Negative (Negative) Urine Urobilinogen 0.2 (0.2-1.0) Ur Leukocyte Esterase 3+ H (Negative) Urine RBC 20-30 H (0-5) /hpf Urine WBC 50-75 H (0-5) /hpf Ur Squamous Epith Cells 0-5 (0-5) /hpf Urine Bacteria Many H (FEW) /hpf Urine Mucus Not seen (FEW) /hpf Influenza Type A RNA (NEGATIVE) Influenza Type B RNA (NEGATIVE) SARS-CoV-2 RNA (DYLAN) (NEGATIVE) Meds: Medications Generic Name Dose Route Start Last Admin Trade Name Freq PRN Reason Stop Dose Admin Sodium Chloride 1,000 mls @ 125 mls/hr 08/12/20 09:45 Normal Saline IV ASDIRECTED DIAMOND Diltiazem HCl 100 mg/ Sodium 100 mls @ 5 mls/hr 08/12/20 10:00 08/12/20 10:47 Chloride IV 5 mg/hr TITRATE DIAMOND 5 mls/hr Administration Protocol 5 MG/HR Sodium Chloride 10 ml 08/12/20 09:43 08/12/20 10:42 Saline Flush FLUSH 10 ml ASDIRECTED PRN Administration Keep Vein Open Discontinued Medications Generic Name Dose Route Start Last Admin Trade Name Angelina PRN Reason Stop Dose Admin Diltiazem HCl 10 mg 08/12/20 09:57 08/12/20 10:40 Cardizem IVPUSH 08/12/20 09:58 10 mg ONETIME ONE Administration Sodium Chloride 1,000 mls @ 1,000 mls/hr 08/12/20 09:52 08/12/20 10:39 Normal Saline IV 08/12/20 10:51 1,000 mls/hr ONETIME ONE Administration Ceftriaxone Sodium 2 gm/ 100 mls @ 200 mls/hr 08/12/20 11:09 Sodium Chloride IV 08/12/20 11:38 ONETIME ONE - Re-Assessments/Exams Free Text/Narrative Re-Assessment/Exam: 08/12/20 10:39 I ordered oxygen, IV NS 500ml bolus, EKG, CXR, labs, blood cultures, UA and a lactic acid. I also ordered a cardizem bolus and drip. 08/12/20 12:19 His EKG shows a supraventricular tachycardia with some PVCs. Her heart rate is 142. His CXR shows some congestive changes. His WBC is elevated at 14.24. His Hgb is a little low at 13.4. His creatinine is elevated at 1.4. His glucose is 200. His AST was elevated at 41. His troponin is elevated at 0.452. His CRP is elevated at 9.3. His UA shows a UTI. He was influenza negative. His COVID 19 was positive. He has sepsis and a UTI. He is also COVID 19 positive. I had Laurie our infectious disease specialist talk to the state and they said this is considered a reinfection. He was COVID 19 positive back in March. I have ordered blood cultures and rocephin. His heart rate is better so I stopped the cardizem. I feel he needs to be admitted. I called Dr Mayfield and he agreed to the admission. I did also call his and let her know what is going on and I updated the halfway. The patient is DNR/DNI. Departure - Departure Time of Disposition: 12:30 Disposition: Admitted As Inpatient 65 Condition: Serious Clinical Impression: COVID-19, Elevated troponin, Renal insufficiency Sepsis Qualifiers: Sepsis type: sepsis due to unspecified organism Sepsis acute organ dysfunction status: unspecified Qualified Code(s): A41.9 - Sepsis, unspecified organism UTI (urinary tract infection) Qualifiers: Urinary tract infection type: acute cystitis Hematuria presence: without hematuria Qualified Code(s): N30.00 - Acute cystitis without hematuria CHF (congestive heart failure) Qualifiers: Heart failure type: unspecified Heart failure chronicity: unspecified Qualified Code(s): I50.9 - Heart failure, unspecified Sepsis Event Note (ED) - Evaluation Sepsis Screening Result: No Definite Risk - Focused Exam Vital Signs: Vital Signs Temp Pulse Resp BP Pulse Ox 08/12/20 09:46 97.6 F 142 H 17 116/81 92 L - My Orders Last 24 Hours: My Active Orders 08/12/20 09:43 Cardiac Monitoring [RC] . DIRECTED Oxygen Therapy [RC] PRN Sodium Chloride 0.9% [Saline Flush] 10 ml FLUSH ASDIRECTED PRN Peripheral IV Insertion Adult [OM.PC] Stat 08/12/20 09:44 EKG Documentation Completion [RC] STAT Peripheral IV Care [RC] . DIRECTED 08/12/20 09:45 Sodium Chloride 0.9% [Normal Saline] 1,000 ml IV ASDIRECTED Blood Culture x2 Reflex Set [OM.PC] Stat 08/12/20 10:00 CULTURE BLOOD [BC] Stat Diltiazem [Cardizem] 100 mg Sodium Chloride 0.9% [Normal Saline] 100 ml IV TITRATE 08/12/20 10:05 CULTURE URINE [RM] Stat 08/12/20 10:15 CULTURE BLOOD [BC] Stat - Assessment/Plan Last 24 Hours: My Active Orders 08/12/20 09:43 Cardiac Monitoring [RC] . DIRECTED Oxygen Therapy [RC] PRN Sodium Chloride 0.9% [Saline Flush] 10 ml FLUSH ASDIRECTED PRN Peripheral IV Insertion Adult [OM.PC] Stat 08/12/20 09:44 EKG Documentation Completion [RC] STAT Peripheral IV Care [RC] . DIRECTED 08/12/20 09:45 Sodium Chloride 0.9% [Normal Saline] 1,000 ml IV ASDIRECTED Blood Culture x2 Reflex Set [OM.PC] Stat 08/12/20 10:00 CULTURE BLOOD [BC] Stat Diltiazem [Cardizem] 100 mg Sodium Chloride 0.9% [Normal Saline] 100 ml IV TITRATE 08/12/20 10:05 CULTURE URINE [RM] Stat 08/12/20 10:15 CULTURE BLOOD [BC] Stat
[2020-08-12] MEDS: Diltiazem 100 MG in Sodium Chloride 0.9% 100 ML IV SCH (10:47)
[2020-08-12 10:52] LABS: CORONAVIRUS COVID-19 NAA POSITIVE (NEGATIVE)
--- NOTE | 2020-08-12 11:08 | CR ---
Chest: Portable view of the chest was obtained. Comparison: Prior chest x-ray of 02/14/18. Heart is enlarged. Pulmonary vessels are minimally congested. Lateral left costophrenic angle is not well seen which is most likely technical. Bony structures are grossly intact. Impression: 1. Findings suspicious for minimal CHF. Diagnostic code #3
[2020-08-12] MEDS ORDERED: cefTRIAXone 2 GM in Sodium Chloride 0.9% 100 ML IV ONE (11:09)
--- NOTE | 2020-08-12 13:14 | PCM.HP.2 ---
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 Patient is a resident of a local detention and he saw his primary care provider Dr. Anna for his generalized weakness. Patient was found to be tachycardic with a blood sugar in the 20s. Patient was given a snack which apparently brought his blood sugars up to the 200s. He had a fever of 101 for EMS and a heart rate in the 140s appearing to be SVT. He is on 2 L of oxygen via nasal cannula as an outpatient and does complain of a slight cough. Patient is a very poor historian secondary to being hard of hearing and likely some underlying dementia. It appears he received at least 1 dose of the Covid vaccination around a month ago. In the emergency department patient was swabbed for COVID-19 and was positive. R student accounts coordinator contacted the state who stated that he should be considered a new infection or reinfection. Chest x-ray in the emergency department did show cardiomegaly with suspicious findings for minimal CHF. Initial labs showed a white count of 14.24 with hemoglobin of 13.4 and a platelet count of 248. Sodium slightly low at 134, potassium 4.1, BUN 48, creatinine of 1.4, estimated GFR of 49. Troponin was elevated at 0.452 and C- reactive protein of 9.3. INR is 1.19 with a lactic acid of 1.5. Patient does have an indwelling urinary catheter with UA showing 50-75 WBCs, nitrites positive, and many bacteria. Patient was given ceftriaxone 2 g in the emergency department diagnosed with sepsis, UTI, and CHF and transferred to the unit. - Related Data Allergies/Adverse Reactions: Allergies Allergy/AdvReac Type Severity Reaction Status Date / Time levofloxacin [From Levaquin] Allergy Intermediate Rash Verified 08/12/20 15:48 sulfamethoxazole Allergy Unknown Other Verified 08/12/20 15:48 [From Sulfamethoxazole-Trimethoprim] trimethoprim Allergy Unknown Other Verified 08/12/20 15:48 [From Sulfamethoxazole-Trimethoprim] Home Medications: Home Meds Furosemide 80 mg PO BID 01/08/15 [History] Gabapentin [Neurontin] 900 mg PO TID 01/08/15 [History] Losartan [Cozaar] 50 mg PO DAILY 01/08/15 [History] Simvastatin [Zocor] 40 mg PO BEDTIME 01/08/15 [History] Acetaminophen [Tylenol] 650 mg PO DAILY PRN 06/25/16 [History] Bisacodyl [Dulcolax] 10 mg RECTAL DAILY PRN 09/10/16 [History] oxyCODONE HCl/Acetaminophen [oxyCODONE-Acetaminophen 5-325] 5 - 325 mg PO TID 09/10/16 [History] Insulin Aspart [NovoLOG] 0 unit SUBCUT DAILY 10/29/16 [History] Insulin Glarg,Human.Rec.Analog [LantUS Solostar] 54 units SQ BEDTIME 10/29/16 [History] Insulin Glarg,Human.Rec.Analog [LantUS Solostar] 56 units SQ DAILY 10/29/16 [History] Insulin Aspart [Novolog Flexpen] 0 units SQ BID 02/14/18 [History] Levothyroxine [Synthroid] 200 mcg PO ACBREAKFAST 02/14/18 [History] Sennosides/Docusate Sodium [Senna Plus Tablet] 3 tab PO BID 02/14/18 [History] Sertraline [Zoloft] 50 mg PO DAILY 02/14/18 [History] oxyCODONE HCl/Acetaminophen [Endocet 5-325 Tablet] 1 tab PO Q6H PRN 02/14/18 [History] polyethylene glycoL 3350 [MiraLAX] 17 gm PO DAILY 02/14/18 [History] Budesonide/Formoterol [Symbicort 160-4.5 MCG] 2 puff INH BID 03/16/19 [History] fentaNYL [Fentanyl] 1 patch TOP Q72H 03/16/19 [History] metFORMIN [Glucophage XR] 500 mg PO DAILY 03/16/19 [History] Albuterol [Proventil HFA] 2 puff INH QID PRN 08/12/20 [History] Naloxone [Narcan] 0.4 mg SQ TID PRN 08/12/20 [History] Past Medical History HEENT History: Reports: Impaired Vision Cardiovascular History: Reports: CAD, Heart Failure, High Cholesterol, Hype rtension, PVD Respiratory History: Reports: COPD, Sleep Apnea Other Respiratory History: Uases c-PAP at night Gastrointestinal History: Reports: GERD, PUD Other Gastrointestinal History: Bleeding ulcer Genitourinary History: Reports: BPH, Retention, Urinary Other Genitourinary History: Urinary catheter placed 11/19/15 Musculoskeletal History: Reports: Fracture Other Musculoskeletal History: Osteomylitis, Right arm w/plate/screws, Right leg Neurological History: Reports: Neuropathy, Diabetic Psychiatric History: Reports: Depression Endocrine/Metabolic History: Reports: Diabetes, Type II, Hypothyroidism, Obesity/BMI 30+ Hematologic History: Reports: Anemia Oncologic (Cancer) History: Reports: Prostate Dermatologic History: Reports: Cellulitis, Other (See Below) Other Dermatologic History: Ulcers - Infectious Disease History Infectious Disease History: Reports: Chicken Pox, Measles, MRSA, Mumps - Past Surgical History HEENT Surgical History: Reports: Cataract Surgery Other HEENT Surgeries/Procedures: lens implant Cardiovascular Surgical History: Reports: Carotid Endarterectomy, Carotid Stents, Other (See Below) Other Cardiovascular Surgeries/Procedures: Femoral stents X2, Carotid stents X3, Angiogram GI Surgical History: Reports: Appendectomy Endocrine Surgical History: Reports: Other (See Below) Musculoskeletal Surgical History: Reports: Amputation, ORIF Oncologic Surgical History: Reports: Other (See Below) Social & Family History - Family History Family Medical History: No Pertinent Family History Cardiac: Reports: [place] Respiratory: Reports: Asthma, Other (See Below) Other Respiratory Family Hisory: black lung disease : Reports: Diabetic Nephropathy Neurological: Reports: Parkinson's Endocrine/Metabolic: Reports: Diabetes, Type I, Diabetes, type II Oncologic: Reports: Colon - Tobacco Use Tobacco Use Status *Q: Former Tobacco User Used Tobacco, but Quit: Yes Month/Year Tobacco Last Used: 1997 - Caffeine Use Caffeine Use: Reports: None Caffeine Use Comment: with every meal - Recreational Drug Use Recreational Drug Use: No - Living Situation & Occupation Living situation: Reports: ( lives at home), Extended Care Facility ([facility]) Occupation: Retired H&P Review of Systems - Review of Systems: Review Of Systems: Comprehensive ROS is negative, except as noted in HPI. Exam - Exam Exam: See Below - Vital Signs Vital Signs: Last Vital Signs Temp 97.6 F 08/12/20 09:46 Pulse 142 H 08/12/20 09:46 Resp 17 08/12/20 09:46 BP 116/81 08/12/20 09:46 Pulse Ox 92 L 08/12/20 09:46 - Exam Quality Assessment: Supplemental Oxygen General: Alert, Oriented, 4 HEENT: Conjunctiva Clear, Mucosa Moist & [place], Normal Nasal Septum. No: Hearing Intact Neck: Supple, Trachea Midline, 2 Lungs: Normal Respiratory Effort, Rales (Bibasilar) Cardiovascular: Irregular Rhythm, Tachycardia GI/Abdominal Exam: Normal Bowel Sounds, Soft, Non-Tender, No Organomegaly, No Distention (Morbidly obese), No Abnormal Bruit Extremities: Non-Tender, Other (Bilateral below-knee amputation. Excoriations to the right stump) Skin: Warm, Dry, Intact Neurological: Cranial Nerves Intact Neuro Extensive - Mental Status: Alert, Normal Mood/Affect. No: Memory Intact Psychiatric: Alert, Normal Affect, Normal Mood - Patient Data Lab Results Last 24 hrs: Laboratory Results - last 24 hr 08/12/20 08/12/20 08/12/20 Range/Units 10:00 10:00 10:00 WBC 14.24 H (4.23-9.07) K/mm3 RBC 4.89 (4.63-6.08) M/mm3 Hgb 13.4 L (13.7-17.5) gm/dl Hct 43.4 (40.1-51.0) % MCV 88.8 D (79.0-92.2) fl MCH 27.4 (25.7-32.2) pg MCHC 30.9 L (32.2-35.5) g/dl RDW Std Deviation 51.6 H (35.1-43.9) fL Plt Count 248 (163-337) K/mm3 MPV 9.8 (9.4-12.3) fl Neut % (Auto) 83.1 H (34.0-67.9) % Lymph % (Auto) 7.4 L (21.8-53.1) % [place] % (Auto) 7.9 (5.3-12.2) % Eos % (Auto) 1.1 (0.8-7.0) Baso % (Auto) 0.1 (0.1-1.2) % Neut # (Auto) 11.82 H (1.78-5.38) K/mm3 Lymph # (Auto) 1.06 L (1.32-3.57) K/mm3 [place] # (Auto) 1.12 H (0.30-0.82) K/mm3 Eos # (Auto) 0.16 (0.04-0.54) K/mm3 Baso # (Auto) 0.02 (0.01-0.08) K/mm3 Manual Slide Review Normal smear PT (9.7-12.0) SECONDS INR APTT (21.7-31.4) SECONDS Sodium 134 L (136-145) mEq/L Potassium 4.1 (3.5-5.1) mEq/L Chloride 91 L (98-107) mEq/L Carbon Dioxide 36 H (21-32) mEq/L Anion Gap 11.1 (5-15) BUN 48 H D (7-18) mg/dL Creatinine 1.4 H (0.7-1.3) mg/dL Est Cr Clr Drug Dosing TNP Estimated GFR (MDRD) 49 (>60) mL/min BUN/Creatinine Ratio 34.3 H (14-18) Glucose 200 H (83-115) mg/dL Lactic Acid (0.4-2.0) mmol/L Calcium 9.2 (8.5-10.1) mg/dL Magnesium 2.0 (1.8-2.4) mg/dl Total Bilirubin 0.5 (0.2-1.0) mg/dL AST 41 H (15-37) U/L ALT 27 (16-63) U/L Alkaline Phosphatase 85 (46-116) U/L Troponin I 0.452 H* (0.00-0.056) ng/mL C-Reactive Protein 9.3 H* (<1.0) mg/dL Total Protein 7.8 (6.4-8.2) g/dl Albumin 3.1 L (3.4-5.0) g/dl Globulin 4.7 gm/dL Albumin/Globulin Ratio 0.7 L (1-2) Urine Color (Yellow) Urine Appearance (Clear) Urine pH (5.0-8.0) Ur Specific Usk (1.005-1.030) Urine Protein (Negative) Urine Glucose (UA) (Negative) Urine Ketones (Negative) Urine Occult Blood (Negative) Urine Nitrite (Negative) Urine Bilirubin (Negative) Urine Urobilinogen (0.2-1.0) Ur Leukocyte Esterase (Negative) Urine RBC (0-5) /hpf Urine WBC (0-5) /hpf Ur Squamous Epith Cells (0-5) /hpf Urine Bacteria (FEW) /hpf Urine Mucus (FEW) /hpf Influenza Type A RNA Negative (NEGATIVE) Influenza Type B RNA Negative (NEGATIVE) SARS-CoV-2 RNA (DYLAN) Positive H (NEGATIVE) 08/12/20 08/12/20 08/12/20 Range/Units 10:00 10:00 10:05 WBC (4.23-9.07) K/mm3 RBC (4.63-6.08) M/mm3 Hgb (13.7-17.5) gm/dl Hct (40.1-51.0) % MCV (79.0-92.2) fl MCH (25.7-32.2) pg MCHC (32.2-35.5) g/dl RDW Std Deviation (35.1-43.9) fL Plt Count (163-337) K/mm3 MPV (9.4-12.3) fl Neut % (Auto) (34.0-67.9) % Lymph % (Auto) (21.8-53.1) % [place] % (Auto) (5.3-12.2) % Eos % (Auto) (0.8-7.0) Baso % (Auto) (0.1-1.2) % Neut # (Auto) (1.78-5.38) K/mm3 Lymph # (Auto) (1.32-3.57) K/mm3 [place] # (Auto) (0.30-0.82) K/mm3 Eos # (Auto) (0.04-0.54) K/mm3 Baso # (Auto) (0.01-0.08) K/mm3 Manual Slide Review PT 12.7 H (9.7-12.0) SECONDS INR 1.19 APTT 27.9 (21.7-31.4) SECONDS Sodium (136-145) mEq/L Potassium (3.5-5.1) mEq/L Chloride (98-107) mEq/L Carbon Dioxide (21-32) mEq/L Anion Gap (5-15) BUN (7-18) mg/dL Creatinine (0.7-1.3) mg/dL Est Cr Clr Drug Dosing Estimated GFR (MDRD) (>60) mL/min BUN/Creatinine Ratio (14-18) Glucose (83-115) mg/dL Lactic Acid 1.5 (0.4-2.0) mmol/L Calcium (8.5-10.1) mg/dL Magnesium (1.8-2.4) mg/dl Total Bilirubin (0.2-1.0) mg/dL AST (15-37) U/L ALT (16-63) U/L Alkaline Phosphatase (46-116) U/L Troponin I (0.00-0.056) ng/mL C-Reactive Protein (<1.0) mg/dL Total Protein (6.4-8.2) g/dl Albumin (3.4-5.0) g/dl Globulin gm/dL Albumin/Globulin Ratio (1-2) Urine Color Yellow (Yellow) Urine Appearance Clear (Clear) Urine pH 6.0 (5.0-8.0) Ur Specific Usk 1.020 (1.005-1.030) Urine Protein Negative (Negative) Urine Glucose (UA) Negative (Negative) Urine Ketones Negative (Negative) Urine Occult Blood 2+ H (Negative) Urine Nitrite Positive H (Negative) Urine Bilirubin Negative (Negative) Urine Urobilinogen 0.2 (0.2-1.0) Ur Leukocyte Esterase 3+ H (Negative) Urine RBC 20-30 H (0-5) /hpf Urine WBC 50-75 H (0-5) /hpf Ur Squamous Epith Cells 0-5 (0-5) /hpf Urine Bacteria Many H (FEW) /hpf Urine Mucus Not seen (FEW) /hpf Influenza Type A RNA (NEGATIVE) Influenza Type B RNA (NEGATIVE) SARS-CoV-2 RNA (DYLAN) (NEGATIVE) Result Diagrams: 08/12/20 10:00 08/12/20 10:00 Sepsis Event Note - Evaluation Sepsis Screening Result: Sepsis Risk - Focused Exam Vital Signs: Vital Signs Temp Pulse Resp BP Pulse Ox 08/12/20 09:46 97.6 F 142 H 17 116/81 92 L - Problem List (1) CHF (congestive heart failure) SNOMED Code(s): 24582481 ICD Code: I50.9 - HEART FAILURE, UNSPECIFIED Status: Acute Current Visit: Yes Qualifiers: Heart failure type: unspecified Heart failure chronicity: unspecified Qualified Code(s): I50.9 - Heart failure, unspecified (2) COVID-19 SNOMED Code(s): 234643764 ICD Code: U07.1 - COVID-19 Status: Acute Current Visit: Yes (3) Elevated troponin SNOMED Code(s): 080894251, 951425321, 247232812 ICD Code: R77.8 - OTHER SPECIFIED ABNORMALITIES OF PLASMA PROTEINS Status: Acute Current Visit: Yes (4) Sepsis SNOMED Code(s): 43169277 ICD Code: A41.9 - SEPSIS, UNSPECIFIED ORGANISM Status: Acute Current Visit: Yes Qualifiers: Sepsis type: sepsis due to unspecified organism Sepsis acute organ dysfunc tion status: unspecified Qualified Code(s): A41.9 - Sepsis, unspecified organism (5) UTI (urinary tract infection) SNOMED Code(s): 50046643 ICD Code: N39.0 - URINARY TRACT INFECTION, SITE NOT SPECIFIED Status: Acute Current Visit: Yes Qualifiers: Urinary tract infection type: acute cystitis Hematuria presence: without hematuria Qualified Code(s): N30.00 - Acute cystitis without hematuria (6) Renal insufficiency SNOMED Code(s): 684400614, 987240189 ICD Code: N28.9 - DISORDER OF KIDNEY AND URETER, UNSPECIFIED Status: Chronic Priority: Medium Current Visit: Yes Problem List Initiated/Reviewed/Updated: Yes Orders Last 24hrs: Active Orders 24 hr Category Date Time Status Patient Status [ADT] Routine ADT 08/12/20 11:58 Active Cardiac Monitoring [RC] . DIRECTED Care 08/12/20 09:43 Active EKG Documentation Completion [RC] STAT Care 08/12/20 09:44 Active Oxygen Therapy [RC] PRN Care 08/12/20 09:43 Active Peripheral IV Care [RC] . DIRECTED Care 08/12/20 09:44 Active CULTURE BLOOD [BC] Stat Lab 08/12/20 10:00 Received CULTURE BLOOD [BC] Stat Lab 08/12/20 10:15 Received CULTURE URINE [RM] Stat Lab 08/12/20 10:05 Received Diltiazem [Cardizem] 100 mg Med 08/12/20 10:00 Active Sodium Chloride 0.9% [Normal Saline] 100 ml IV TITRATE Sodium Chloride 0.9% [Normal Saline] 1,000 ml Med 08/12/20 09:45 Active IV ASDIRECTED Sodium Chloride 0.9% [Saline Flush] Med 08/12/20 09:43 Active 10 ml FLUSH ASDIRECTED PRN Blood Culture x2 Reflex Set [OM.PC] Stat Oth 08/12/20 09:45 Ordered Peripheral IV Insertion Adult [OM.PC] Stat Oth 08/12/20 09:43 Ordered Code Status [Resuscitation Status] Routine Resus Stat 08/12/20 12:28 Ordered Medication Orders Sodium Chloride (Normal Saline) 1,000 mls @ 125 mls/hr IV ASDIRECTED DIAMOND Diltiazem HCl 100 mg/ Sodium (Chloride) 100 mls @ 5 mls/hr IV TITRATE DIAMOND; Protocol Last Admin: 08/12/20 10:47 Dose: 5 mg/hr, 5 mls/hr Documented by: PADMAJA Sodium Chloride (Saline Flush) 10 ml FLUSH ASDIRECTED PRN PRN Reason: Keep Vein Open Last Admin: 08/12/20 10:42 Dose: 10 ml Documented by: PADMAJA Assessment/Plan Comment:: Assessment 80-year-old male with history of COVID-19 teen in March and vaccination last month comes to the emergency department with from his primary care providers office with UTI, sepsis, and reinfection from COVID-19. Severe sepsis UTI * Patient fulfills sepsis criteria * White count 14.2, C-reactive protein of 9.3 * Lactic acid 1.5 * Given Rocephin in the emergency department. * Blood cultures and urine cultures obtained prior to Rocephin * Given 1 L bolus in the emergency department Atrial flutter/SVT Elevated troponin CHF * EKG obtained at clinic showed SVT * Subsequent EKG done on admission showed atrial flutter with 2: 1 AV block. Borderline/minimal ST elevation in lead III. * Troponin 0.452. This is a independent risk factor for poor outcome. With the minimal ST elevation and elevated troponin this could signify a type II [place] versus myocardial strain. * Trial of Cardizem drip in ER was stopped because of low blood pressure. * No proBNP done in the emergency department Renal insufficiency stage III * Outpatient records are not available so it makes it difficult to know if this is a change from baseline or if this is his baseline GFR. * Creatinine 1.4, GFR 49, BUN 48 Type 2 diabetesinsulin-dependent * Unknown hemoglobin A1c. * Home insulin: Lantus 56 units every morning, 54 units every afternoon. NovoLog unknown 7 units 3 times daily with meals and sliding scale. COVID-19 reinfection * Initial infection in March 2020 * Vaccination last month * Respiratory status is at baseline * No D-dimer ordered Plan * Admit to ICU * Treat for complicated UTI to include vancomycin and meropenem * Follow blood cultures and urine cultures * 500 mL fluid bolus * Cardizem 5 mg IV x1 then start Cardizem drip as long as blood pressure holds * If he does not convert out of atrial flutter will need to anticoagulate * Continue FiO2 to keep SPO2 above 90%. * Repeat troponin in the morning. This will be a lagging indicator secondary to renal function. * Get proBNP for baseline * Get hemoglobin A1c and TSH * VTE prophylaxis with Lovenox, but will need to switch to full anticoagulation if he does not convert out of atrial flutter. * CODE STATUS: DNR/DNI - Mortality Measure Prognosis:: Poor
[2020-08-12] MEDS ORDERED: Lactated Ringers 500 ML IV ONE ×2 (13:58→20:06)
[2020-08-12] MEDS ORDERED: Diltiazem 100 MG in Sodium Chloride 0.9% 100 ML IV SCH (14:15)
[2020-08-12] MEDS: Lactated Ringers 1,000 ML IV SCH ×2 (15:00→19:37)
[2020-08-12] MEDS ORDERED: Acetaminophen 325 MG Tab PO PRN (15:35)
[2020-08-12] MEDS ORDERED: Ondansetron 4 MG/2 ML SDV IV PRN (15:35)
[2020-08-12] MEDS ORDERED: Meropenem 1 GM SDV IVPUSH SCH (15:45)
[2020-08-12] MEDS: Meropenem Premix 500 MG in Premix Bag 1 BAG IV SCH ×2 (17:59→22:07)
[2020-08-12] MEDS ORDERED: Vancomycin 1 GM, Vancomycin 500 MG in Sodium Chloride 0.9% 500 ML IV ONE (18:00)
[2020-08-12] MEDS ORDERED: Bisacodyl 10 MG Supp RECTAL PRN (19:42)
[2020-08-12] MEDS ORDERED: Albuterol 6.7 GM Inhaler INH PRN (19:42)
[2020-08-12] MEDS: Gabapentin 300 MG Cap PO SCH (21:11)
[2020-08-12] MEDS: Formoterol/Mometasone 200-5 MCG 8.8 GM Inhaler IH SCH (23:26)
[2020-08-13] MEDS: Diltiazem 100 MG in Sodium Chloride 0.9% 100 ML IV SCH ×3 (00:28→16:50)
[2020-08-13] MEDS: Meropenem Premix 500 MG in Premix Bag 1 BAG IV SCH ×3 (05:17→18:07)
[2020-08-13] MEDS ORDERED: Vancomycin 1 GM, Vancomycin 250 MG in Sodium Chloride 0.9% 250 ML IV SCH (06:00)
[2020-08-13 07:37] LABS: HEMOGLOBIN A1C 7.6 %
[2020-08-13] MEDS: Formoterol/Mometasone 200-5 MCG 8.8 GM Inhaler IH SCH ×2 (08:16→20:08)
[2020-08-13] MEDS: Gabapentin 300 MG Cap PO SCH ×3 (08:28→20:16)
[2020-08-13] MEDS: Sertraline 50 MG Tab PO SCH (08:29)
[2020-08-13] MEDS: Levalbuterol HCl 1.25 MG/3 ML Neb NEB PRN ×2 (08:49→17:48)
[2020-08-13] MEDS ORDERED: Enoxaparin 40 MG/0.4 ML Syringe SUBCUT SCH (09:00)
[2020-08-13] MEDS ORDERED: fentaNYL 25 MCG/HR Transdermal Patch TOP SCH (09:00)
[2020-08-13 10:45] LABS: VITAMIN D,25-HYDROXY 20.2 ng/ml (30.0-100.0)
--- NOTE | 2020-08-13 12:29 | PCM.PN ---
- General Info Date of Service: 08/13/20 Admission Dx/Problem (Free Text): Admission Diagnosis/Problem Admission Diagnosis/Problem Sepsis Subjective Update: Patient states that he is feeling well. Unfortunately, his heart rate has continued in the 120s even with titration of Cardizem. Fortunately blood pressure is improved with the resolution of his sepsis. Patient has good appetite. - Review of Systems General: Reports: No Symptoms HEENT: Reports: No Symptoms Pulmonary: Reports: No Symptoms Cardiovascular: Reports: No Symptoms Gastrointestinal: Reports: No Symptoms Musculoskeletal: Reports: No Symptoms Neurological: Reports: No Symptoms Psychiatric: Reports: No Symptoms - Patient Data Vitals - Most Recent: Last Vital Signs Temp 96.7 F L 08/13/20 08:00 Pulse 125 H 08/12/20 15:10 Resp 19 08/13/20 11:00 BP 132/95 H 08/13/20 11:00 Pulse Ox 92 L 08/13/20 11:00 Weight - Most Recent: 263 lb 7.662 oz I&O - Last 24 Hours: Intake & Output 08/12/20 08/13/20 08/13/20 22:59 06:59 14:59 Intake Total 1615 2261 360 Output Total 2225 725 375 Balance -610 1536 -15 Lab Results Last 24 Hours: Laboratory Results - last 24 hr 08/12/20 08/12/20 08/12/20 Range/Units 16:55 17:10 17:10 WBC (4.23-9.07) K/mm3 RBC (4.63-6.08) M/mm3 Hgb (13.7-17.5) gm/dl Hct (40.1-51.0) % MCV (79.0-92.2) fl MCH (25.7-32.2) pg MCHC (32.2-35.5) g/dl RDW Std Deviation (35.1-43.9) fL Plt Count (163-337) K/mm3 MPV (9.4-12.3) fl Neut % (Auto) (34.0-67.9) % Lymph % (Auto) (21.8-53.1) % Dewitt % (Auto) (5.3-12.2) % Eos % (Auto) (0.8-7.0) Baso % (Auto) (0.1-1.2) % Neut # (Auto) (1.78-5.38) K/mm3 Lymph # (Auto) (1.32-3.57) K/mm3 [place] # (Auto) (0.30-0.82) K/mm3 Eos # (Auto) (0.04-0.54) K/mm3 Baso # (Auto) (0.01-0.08) K/mm3 Manual Slide Review D-Dimer, Quantitative 1.85 H (0.19-0.50) mg/L Sodium (136-145) mEq/L Potassium (3.5-5.1) mEq/L Chloride (98-107) mEq/L Carbon Dioxide (21-32) mEq/L Anion Gap (5-15) BUN (7-18) mg/dL Creatinine (0.7-1.3) mg/dL Est Cr Clr Drug Dosing mL/min Estimated GFR (MDRD) (>60) mL/min BUN/Creatinine Ratio (14-18) Glucose (83-115) mg/dL POC Glucose 51 L (83-110) mg/dL Hemoglobin A1c ( - 5.6) % Calcium (8.5-10.1) mg/dL Phosphorus (2.6-4.7) mg/dL Magnesium (1.8-2.4) mg/dl Total Bilirubin (0.2-1.0) mg/dL AST (15-37) U/L ALT (16-63) U/L Alkaline Phosphatase (46-116) U/L C-Reactive Protein (<1.0) mg/dL NT-Pro-B Natriuret Pep 3067 H (0-450) pg/mL Total Protein (6.4-8.2) g/dl Albumin (3.4-5.0) g/dl Globulin gm/dL Albumin/Globulin Ratio (1-2) Vitamin D 25-Hydroxy (30.0-100.0) ng/ml TSH 3rd Generation (0.358-3.74) uIU/mL 08/12/20 08/12/20 08/12/20 Range/Units 17:10 17:51 21:17 WBC (4.23-9.07) K/mm3 RBC (4.63-6.08) M/mm3 Hgb (13.7-17.5) gm/dl Hct (40.1-51.0) % MCV (79.0-92.2) fl MCH (25.7-32.2) pg MCHC (32.2-35.5) g/dl RDW Std Deviation (35.1-43.9) fL Plt Count (163-337) K/mm3 MPV (9.4-12.3) fl Neut % (Auto) (34.0-67.9) % Lymph % (Auto) (21.8-53.1) % Dewitt % (Auto) (5.3-12.2) % Eos % (Auto) (0.8-7.0) Baso % (Auto) (0.1-1.2) % Neut # (Auto) (1.78-5.38) K/mm3 Lymph # (Auto) (1.32-3.57) K/mm3 Dewitt # (Auto) (0.30-0.82) K/mm3 Eos # (Auto) (0.04-0.54) K/mm3 Baso # (Auto) (0.01-0.08) K/mm3 Manual Slide Review D-Dimer, Quantitative (0.19-0.50) mg/L Sodium (136-145) mEq/L Potassium (3.5-5.1) mEq/L Chloride (98-107) mEq/L Carbon Dioxide (21-32) mEq/L Anion Gap (5-15) BUN (7-18) mg/dL Creatinine (0.7-1.3) mg/dL Est Cr Clr Drug Dosing mL/min Estimated GFR (MDRD) (>60) mL/min BUN/Creatinine Ratio (14-18) Glucose (83-115) mg/dL POC Glucose 246 H 176 H (83-110) mg/dL Hemoglobin A1c ( - 5.6) % Calcium (8.5-10.1) mg/dL Phosphorus (2.6-4.7) mg/dL Magnesium (1.8-2.4) mg/dl Total Bilirubin (0.2-1.0) mg/dL AST (15-37) U/L ALT (16-63) U/L Alkaline Phosphatase (46-116) U/L C-Reactive Protein (<1.0) mg/dL NT-Pro-B Natriuret Pep (0-450) pg/mL Total Protein (6.4-8.2) g/dl Albumin (3.4-5.0) g/dl Globulin gm/dL Albumin/Globulin Ratio (1-2) Vitamin D 25-Hydroxy (30.0-100.0) ng/ml TSH 3rd Generation 2.528 (0.358-3.74) uIU/mL 08/13/20 08/13/20 08/13/20 Range/Units 05:54 06:07 06:07 WBC 15.04 H (4.23-9.07) K/mm3 RBC 4.76 (4.63-6.08) M/mm3 Hgb 13.0 L (13.7-17.5) gm/dl Hct 42.7 (40.1-51.0) % MCV 89.7 (79.0-92.2) fl MCH 27.3 (25.7-32.2) pg MCHC 30.4 L (32.2-35.5) g/dl RDW Std Deviation 51.6 H (35.1-43.9) fL Plt Count 218 (163-337) K/mm3 MPV 9.9 (9.4-12.3) fl Neut % (Auto) 79.5 H (34.0-67.9) % Lymph % (Auto) 6.6 L (21.8-53.1) % Dewitt % (Auto) 11.0 (5.3-12.2) % Eos % (Auto) 2.2 (0.8-7.0) Baso % (Auto) 0.3 (0.1-1.2) % Neut # (Auto) 11.97 H (1.78-5.38) K/mm3 Lymph # (Auto) 0.99 L (1.32-3.57) K/mm3 Dewitt # (Auto) 1.65 H (0.30-0.82) K/mm3 Eos # (Auto) 0.33 (0.04-0.54) K/mm3 Baso # (Auto) 0.04 (0.01-0.08) K/mm3 Manual Slide Review Abnormal smear D-Dimer, Quantitative 1.76 H (0.19-0.50) mg/L Sodium (136-145) mEq/L Potassium (3.5-5.1) mEq/L Chloride (98-107) mEq/L Carbon Dioxide (21-32) mEq/L Anion Gap (5-15) BUN (7-18) mg/dL Creatinine (0.7-1.3) mg/dL Est Cr Clr Drug Dosing mL/min Estimated GFR (MDRD) (>60) mL/min BUN/Creatinine Ratio (14-18) Glucose (83-115) mg/dL POC Glucose 108 (83-110) mg/dL Hemoglobin A1c ( - 5.6) % Calcium (8.5-10.1) mg/dL Phosphorus (2.6-4.7) mg/dL Magnesium (1.8-2.4) mg/dl Total Bilirubin (0.2-1.0) mg/dL AST (15-37) U/L ALT (16-63) U/L Alkaline Phosphatase (46-116) U/L C-Reactive Protein (<1.0) mg/dL NT-Pro-B Natriuret Pep (0-450) pg/mL Total Protein (6.4-8.2) g/dl Albumin (3.4-5.0) g/dl Globulin gm/dL Albumin/Globulin Ratio (1-2) Vitamin D 25-Hydroxy (30.0-100.0) ng/ml TSH 3rd Generation (0.358-3.74) uIU/mL 08/13/20 08/13/20 08/13/20 Range/Units 06:07 06:07 12:15 WBC (4.23-9.07) K/mm3 RBC (4.63-6.08) M/mm3 Hgb (13.7-17.5) gm/dl Hct (40.1-51.0) % MCV (79.0-92.2) fl MCH (25.7-32.2) pg MCHC (32.2-35.5) g/dl RDW Std Deviation (35.1-43.9) fL Plt Count (163-337) K/mm3 MPV (9.4-12.3) fl Neut % (Auto) (34.0-67.9) % Lymph % (Auto) (21.8-53.1) % [place]itt % (Auto) (5.3-12.2) % Eos % (Auto) (0.8-7.0) Baso % (Auto) (0.1-1.2) % Neut # (Auto) (1.78-5.38) K/mm3 Lymph # (Auto) (1.32-3.57) K/mm3 [place]itt # (Auto) (0.30-0.82) K/mm3 Eos # (Auto) (0.04-0.54) K/mm3 Baso # (Auto) (0.01-0.08) K/mm3 Manual Slide Review D-Dimer, Quantitative (0.19-0.50) mg/L Sodium 137 (136-145) mEq/L Potassium 3.9 (3.5-5.1) mEq/L Chloride 95 L (98-107) mEq/L Carbon Dioxide 34 H (21-32) mEq/L Anion Gap 11.9 (5-15) BUN 37 H (7-18) mg/dL Creatinine 1.3 (0.7-1.3) mg/dL Est Cr Clr Drug Dosing 31.52 mL/min Estimated GFR (MDRD) 53 (>60) mL/min BUN/Creatinine Ratio 28.5 H (14-18) Glucose 88 (83-115) mg/dL POC Glucose 195 H (83-110) mg/dL Hemoglobin A1c 7.6 H ( - 5.6) % Calcium 8.8 (8.5-10.1) mg/dL Phosphorus 3.3 (2.6-4.7) mg/dL Magnesium 2.1 (1.8-2.4) mg/dl Total Bilirubin 0.5 (0.2-1.0) mg/dL AST 24 (15-37) U/L ALT 21 (16-63) U/L Alkaline Phosphatase 75 (46-116) U/L C-Reactive Protein 7.6 H* (<1.0) mg/dL NT-Pro-B Natriuret Pep (0-450) pg/mL Total Protein 7.3 (6.4-8.2) g/dl Albumin 2.9 L (3.4-5.0) g/dl Globulin 4.4 gm/dL Albumin/Globulin Ratio 0.7 L (1-2) Vitamin D 25-Hydroxy 20.2 L (30.0-100.0) ng/ml TSH 3rd Generation (0.358-3.74) uIU/mL Karlos Results Last 24 Hours: Microbiology 08/12/20 10:15 Aerobic Blood Culture - Preliminary Blood - Venous - Lab Draw NO GROWTH AFTER 1 DAY Anaerobic Blood Culture - Preliminary NO GROWTH AFTER 1 DAY 08/12/20 10:00 Aerobic Blood Culture - Preliminary Blood - Venous NO GROWTH AFTER 1 DAY Anaerobic Blood Culture - Preliminary NO GROWTH AFTER 1 DAY 08/12/20 10:05 Urine Culture - Preliminary Urine, Catheterized Gram Negative Rods Med Orders - Current: Current Medications Acetaminophen (Tylenol) 650 mg PO Q4H PRN PRN Reason: Pain (Mild 1-3)/fever Albuterol (Proventil Hfa) 0 gm INH QID PRN PRN Reason: Wheezing Bisacodyl (Dulcolax) 10 mg RECTAL DAILY PRN PRN Reason: Constipation Enoxaparin Sodium (Lovenox) 40 mg SUBCUT DAILY [facility] Last Admin: 08/13/20 08:29 Dose: 40 mg Documented by: Fentanyl (Duragesic) 25 mcg TOP Q72H [facility] Last Admin: 08/13/20 09:16 Dose: 25 mcg Documented by: Gabapentin (Neurontin) 900 mg PO TID [facility] Last Admin: 08/13/20 08:28 Dose: 900 mg Documented by: Diltiazem HCl 100 mg/ Sodium (Chloride) 100 mls @ 5 mls/hr IV TITRATE [facility]; Protocol Last Admin: 08/13/20 11:01 Dose: 15 mg/hr, 15 mls/hr Documented by: Lactated Ringer's (Ringers, Lactated) 1,000 mls @ 100 mls/hr IV ASDIRECTED [facility] Last Admin: 08/12/20 19:37 Dose: 100 mls/hr Documented by: Meropenem/Sodium Chloride 500 (mg/ Premix) 50 mls @ 100 mls/hr IV Q8H [facility] Vancomycin HCl 1 gm/Vancomycin HCl 250 mg/ Sodium Chloride 250 mls @ 166.667 mls/hr IV Q18H [facility] Insulin Human Lispro (Humalog) 0 unit SUBCUT QIDACANDBED [facility]; Protocol Last Admin: 08/13/20 06:58 Dose: Not Given Documented by: Levalbuterol HCl (Xopenex) 1.25 mg NEB Q2H PRN PRN Reason: Wheezing Last Admin: 08/13/20 08:49 Dose: 1.25 mg Documented by: Levothyroxine Sodium (Levothyroxine) 200 mcg PO ACBREAKFAST [facility] Last Admin: 08/13/20 05:17 Dose: 200 mcg Documented by: Miscellaneous Information (Remove Patch) 1 ea TRDERM Q72H [facility] Last Admin: 08/13/20 09:16 Dose: 1 ea Documented by: Mometasone Furoate/Formoterol Fumar (Dulera 200-5 Mcg) 2 puff IH BID [facility] Last Admin: 08/13/20 08:16 Dose: 2 dose Documented by: Ondansetron HCl (Zofran) 4 mg IV Q4H PRN PRN Reason: Nausea/Vomiting Oxycodone HCl (Oxycodone) 5 mg PO Q4H PRN PRN Reason: Pain (moderate 4-6) Senna/Docusate Sodium (Senna Plus) 3 tab PO BID [facility] Last Admin: 08/13/20 08:27 Dose: 3 tab Documented by: Sertraline HCl (Zoloft) 50 mg PO DAILY [facility] Last Admin: 08/13/20 08:29 Dose: 50 mg Documented by: Sodium Chloride (Saline Flush) 10 ml FLUSH ASDIRECTED PRN PRN Reason: Keep Vein Open Last Admin: 08/12/20 10:42 Dose: 10 ml Documented by: Vancomycin HCl (Pharmacy To Dose - Vancomycin) 0 dose .XX ASDIRECTED PRN PRN Reason: RX TO DOSE VANCOMYCIN Discontinued Medications Diltiazem HCl (Cardizem) 10 mg IVPUSH ONETIME ONE Stop: 08/12/20 09:58 Last Admin: 08/12/20 10:40 Dose: 10 mg Documented by: Diltiazem HCl (Cardizem) 5 mg IVPUSH ONETIME ONE Stop: 08/12/20 14:00 Last Admin: 08/12/20 14:48 Dose: 5 mg Documented by: Sodium Chloride (Normal Saline) 1,000 mls @ 125 mls/hr IV ASDIRECTED [facility] Sodium Chloride (Normal Saline) 1,000 mls @ 1,000 mls/hr IV ONETIME ONE Stop: 08/12/20 10:51 Last Admin: 08/12/20 10:39 Dose: 1,000 mls/hr Documented by: Ceftriaxone Sodium 2 gm/ (Sodium Chloride) 100 mls @ 200 mls/hr IV ONETIME ONE Stop: 08/12/20 11:38 Last Admin: 08/12/20 11:50 Dose: 200 mls/hr Documented by: Lactated Ringer's (Ringers, Lactated) 500 mls @ 999 mls/hr IV .BOLUS ONE Stop: 08/12/20 14:28 Last Admin: 08/12/20 14:16 Dose: 999 mls/hr Documented by: Diltiazem HCl 100 mg/ Sodium (Chloride) 100 mls @ 5 mls/hr IV TITRATE [facility]; Protocol Meropenem/Sodium Chloride 500 (mg/ Premix) 50 mls @ 100 mls/hr IV Q6H [facility] Last Admin: 08/13/20 10:09 Dose: 100 mls/hr Documented by: Vancomycin HCl 1 gm/Vancomycin HCl 500 mg/ Sodium Chloride 500 mls @ 250 mls/hr IV ONETIME ONE Stop: 08/12/20 19:59 Last Admin: 08/12/20 18:37 Dose: 250 mls/hr Documented by: Vancomycin HCl 1 gm/Vancomycin HCl 250 mg/ Sodium Chloride 250 mls @ 166 mls/hr IV Q12H [facility] Last Admin: 08/13/20 05:17 Dose: 166 mls/hr Documented by: Lactated Ringer's (Ringers, Lactated) 500 mls @ 500 mls/hr IV .BOLUS ONE Stop: 08/12/20 21:05 Last Admin: 08/12/20 21:11 Dose: 500 mls/hr Documented by: Meropenem (Merrem) 1 gm IVPUSH Q8H [facility] Last Admin: 08/12/20 20:32 Dose: Not Given Documented by: - Exam Quality Assessment: Supplemental Oxygen General: Alert, Oriented HEENT: Pupils Equal, Mucous Membr. Moist/[place] Neck: Supple Lungs: Normal Respiratory Effort, Rales (Mild bibasilar rales) Cardiovascular: Irregular Rhythm, Tachycardia GI/Abdominal Exam: Normal Bowel Sounds, Soft, Non-Tender, No Distention, No Abnormal Bruit Extremities: Normal Inspection, Other (1-2+ edema in bilateral stumps) Skin: Warm, Dry, Intact Psy/Mental Status: Alert, Normal Affect, Normal Mood Sepsis Event Note - Evaluation Sepsis Screening Result: Sepsis Risk - Focused Exam Vital Signs: Vital Signs Temp Resp BP BP Pulse Ox Pulse Ox 08/13/20 11:00 19 132/95 H 92 L 08/13/20 10:00 18 118/82 93 L 08/13/20 09:00 18 128/68 92 L 08/13/20 08:51 95 08/13/20 08:17 93 L 08/13/20 08:00 96.7 F L 18 126/107 H 93 L 08/13/20 07:00 18 121/109 H 93 L 08/13/20 06:00 19 113/86 94 L 08/13/20 05:00 20 112/64 95 08/13/20 04:00 98.1 F 24 H 118/69 96 08/13/20 03:00 16 107/73 94 L 08/13/20 02:00 22 H 128/79 98 08/13/20 01:00 24 H 124/88 99 - Problem List & Annotations (1) CHF (congestive heart failure) SNOMED Code(s): 36438097 Code(s): I50.9 - HEART FAILURE, UNSPECIFIED Status: Acute Current Visit: Yes Qualifiers: Heart failure type: unspecified Heart failure chronicity: unspecified Qualified Code(s): I50.9 - Heart failure, unspecified (2) COVID-19 SNOMED Code(s): 059887594 Code(s): U07.1 - COVID-19 Status: Acute Current Visit: Yes (3) Elevated troponin SNOMED Code(s): 589389717, 380300782, 384796363 Code(s): R77.8 - OTHER SPECIFIED ABNORMALITIES OF PLASMA PROTEINS Status: Acute Current Visit: Yes (4) Sepsis SNOMED Code(s): 68654745 Code(s): A41.9 - SEPSIS, UNSPECIFIED ORGANISM Status: Acute Current Visit: Yes Qualifiers: Sepsis type: sepsis due to unspecified organism Sepsis acute organ dysfunction status: unspecified Qualified Code(s): A41.9 - Sepsis, unspecified organism (5) UTI (urinary tract infection) SNOMED Code(s): 18858317 Code(s): N39.0 - URINARY TRACT INFECTION, SITE NOT SPECIFIED Status: Acute Current Visit: Yes Qualifiers: Urinary tract infection type: acute cystitis Hematuria presence: without hematuria Qualified Code(s): N30.00 - Acute cystitis without hematuria (6) Renal insufficiency SNOMED Code(s): 495844573, 870660343 Code(s): N28.9 - DISORDER OF KIDNEY AND URETER, UNSPECIFIED Status: Chronic Priority: Medium Current Visit: Yes - Problem List Review Problem List Initiated/Reviewed/Updated: Yes - My Orders Last 24 Hours: My Active Orders 08/12/20 14:00 Lactated Ringers [Ringers, Lactated] 1,000 ml IV ASDIRECTED 08/12/20 15:27 EKG 12 Lead [EK] Urgent 08/12/20 15:30 Up With Assistance [RC] ASDIRECTED 08/12/20 15:35 Acetaminophen [TylenoL] 650 mg PO Q4H PRN Ondansetron [Zofran] 4 mg IV Q4H PRN oxyCODONE 5 mg PO Q4H PRN 08/12/20 15:45 Pharmacy to Dose - Vancomycin 0 dose .XX ASDIRECTED PRN 08/12/20 16:28 Blood Glucose Check, Bedside [RC] WITHMEALSANDBED 08/12/20 Dinner Heart Healthy Diet [DIET] Insulin Lispro [HumaLOG] See Protocol SUBCUT QIDACANDBED 08/12/20 19:42 Albuterol [Proventil HFA] 0 gm INH QID PRN bisacodyL [Dulcolax] 10 mg RECTAL DAILY PRN 08/12/20 19:44 RT Post Treatment Assessment [RC] Click to Edit RT Pre-Treatment Assessment [RC] Click to Edit 08/12/20 21:00 Docusate Sodium/Sennosides [Senna Plus] 3 tab PO BID Gabapentin [Neurontin] 900 mg PO TID Mometasone/Formoterol [Dulera 200-5 MCG] 2 puff IH BID 08/13/20 06:00 Levothyroxine 200 mcg PO ACBREAKFAST 08/13/20 06:54 EKG 12 Lead [EK] Stat 08/13/20 06:55 EKG Documentation Completion [RC] ASDIRECTED 08/13/20 08:20 levalbuterol HCL [Xopenex] 1.25 mg NEB Q2H PRN 08/13/20 08:21 RT Aerosol Therapy [RC] ASDIRECTED 08/13/20 09:00 Enoxaparin [Lovenox] 40 mg SUBCUT DAILY Remove Patch 1 ea TRDERM Q72H Sertraline [Zoloft] 50 mg PO DAILY fentaNYL [Duragesic] 25 mcg TOP Q72H 08/13/20 12:30 Cholecalciferol (Vitamin D3) [Vitamin D3] 5,000 unit PO DAILY 08/13/20 18:00 Meropenem Premix [Meropenem in NS 500 MG/50 ML] 500 mg Premix Bag 1 bag IV Q8H 08/14/20 00:00 Vancomycin 1 gm Vancomycin 250 mg Sodium Chloride 0.9% [Normal Saline] 250 ml IV Q18H 08/14/20 17:00 VANCOMYCIN TROUGH [CHEM] Timed - Plan Plan:: Assessment 80-year-old male with history of COVID-19 teen in March and vaccination last month comes to the emergency department with from his primary care providers office with UTI, sepsis, and reinfection from COVID-19. Severe sepsis UTI * Patient fulfills sepsis criteria * White count 14.2, C-reactive protein of 9.3 * Lactic acid 1.5 * Given Rocephin in the emergency department. * Blood cultures and urine cultures obtained prior to Rocephin * Given 1 L bolus in the emergency department Atrial flutter/SVT Elevated troponin CHF * EKG obtained at clinic showed SVT * Subsequent EKG done on admission showed atrial flutter with 2: 1 AV block. Borderline/minimal ST elevation in lead III. * Troponin 0.452. This is a independent risk factor for poor outcome. With the minimal ST elevation and elevated troponin this could signify a type II PA versus myocardial strain. * Trial of Cardizem drip in ER was stopped because of low blood pressure. * No proBNP done in the emergency department Renal insufficiency stage III * Outpatient records are not available so it makes it difficult to know if this is a change from baseline or if this is his baseline GFR. * Creatinine 1.4, GFR 49, BUN 48 Type 2 diabetesinsulin-dependent * Unknown hemoglobin A1c. * Home insulin: Lantus 56 units every morning, 54 units every afternoon. NovoLog unknown 7 units 3 times daily with meals and sliding scale. COVID-19 reinfection * Initial infection in March 2020 * Vaccination last month * Respiratory status is at baseline * No D-dimer ordered Plan * Admit to ICU * Treat for complicated UTI to include vancomycin and meropenem * Follow blood cultures and urine cultures * 500 mL fluid bolus * Cardizem 5 mg IV x1 then start Cardizem drip as long as blood pressure holds * If he does not convert out of atrial flutter will need to anticoagulate * Continue FiO2 to keep SPO2 above 90%. * Repeat troponin in the morning. This will be a lagging indicator secondary to renal function. * Get proBNP for baseline * Get hemoglobin A1c and TSH * VTE prophylaxis with Lovenox, but will need to switch to full anticoagulation if he does not convert out of atrial flutter. * CODE STATUS: DNR/DNI August 13, 2020 Severe sepsisresolved UTI Atrial flutter/atrial fibrillation with rapid ventricular response CHF Renal insufficiency stage III COVID-19 reinfection Insulin-dependent type 2 diabetes * Patient continues to be tachycardic but his hypotension has resolved. * Continue to increase Cardizem drip until heart rate is less than 90 then switch to oral * Start dexamethasone 6 mg daily * Continue meropenem until sensitivities on urine culture * Stop vancomycin * Creatinine 1.3improved * Hemoglobin A1c 7.6 * Restart small dose of long-acting insulin * Discharge likely in 3 to 4 days.
[2020-08-13] MEDS: Lactated Ringers 1,000 ML IV SCH ×2 (13:18→21:46)
[2020-08-13] MEDS: Cholecalciferol (Vitamin D3) 5,000 UNIT Cap PO SCH (14:32)
[2020-08-13] MEDS: Dexamethasone 4 MG Tab PO SCH (14:32)
[2020-08-13] MEDS ORDERED: Metoprolol Tartrate 25 MG Tab PO ONE ×2 (17:30→22:00)
[2020-08-13] MEDS ORDERED: Furosemide 40 MG/4 ML VIAL IVPUSH ONE ×2 (17:52→17:55)
[2020-08-13] MEDS ORDERED: REMDESIVIR 200 MG in Sodium Chloride 0.9% 250 ML IV ONE (19:48)
--- NOTE | 2020-08-13 19:54 | PCM.SN.2 ---
- Free Text/Narrative Note: Called to patient's bedside secondary the patient requiring increasing oxygen supplementation. Madelaine stated that he was not feeling well and he is having increasing shortness of breath. Patient's breath sounds are increasingly wheezy and labored. He is requiring 4 L nasal cannula to keep his SPO2 in the low 90s. Madelaine did receive his first dose of dexamethasone but has not received remdesivir secondary to no increased oxygen demand. Also, patient was felt to be in heart failure so a repeat proBNP was performed which was lower than the initial BNP. BNP decreased from 3067 down to 2439.Weight did go up overnight by approximately 1-1/2 pounds so patient was given IV Lasix. Assessment/plan Covid reinfection * It appears patient is having increasing labored breathing and oxygen demand secondary to his Covid reinfection. He has been started on dexamethasone and we will now start him on remdesivir. Atrial flutter/atrial fib with RVR * Patient was started on 25 mg of metoprolol tartrate orally and had a very good response with decreasing his heart rate. We will wean him off of Cardizem.
[2020-08-13] MEDS: Insulin Glarg,Human.Rec.Analog 100 Unit/ML SUBCUT SCH (20:49)
[2020-08-13] MEDS ORDERED: Lactated Ringers 250 ML IV ONE (22:00)
[2020-08-14] MEDS ORDERED: Vancomycin 1 GM, Vancomycin 250 MG in Sodium Chloride 0.9% 250 ML IV SCH ×3
[2020-08-14] MEDS ORDERED: Lactated Ringers 250 ML IV ONE (00:03)
[2020-08-14] MEDS: Meropenem Premix 500 MG in Premix Bag 1 BAG IV SCH ×3 (01:29→20:27)
[2020-08-14] MEDS ORDERED: Metoprolol Tartrate 5 MG in Sodium Chloride 0.9% 50 ML IV PRN (05:28)
[2020-08-14] MEDS: Metoprolol Tartrate 5 MG/5 ML SDV IVPUSH PRN ×4 (06:05→11:52)
[2020-08-14] MEDS: Gabapentin 300 MG Cap PO SCH ×4 (08:11→20:30)
[2020-08-14] MEDS: Metoprolol Tartrate 50 MG Tab PO SCH ×2 (08:11→09:03)
[2020-08-14] MEDS ORDERED: Furosemide 40 MG/4 ML VIAL IVPUSH ONE ×2 (08:11→12:30)
[2020-08-14] MEDS: Cholecalciferol (Vitamin D3) 5,000 UNIT Cap PO SCH ×2 (08:12→09:03)
[2020-08-14] MEDS: Dexamethasone 4 MG Tab PO SCH ×2 (08:12→09:02)
[2020-08-14] MEDS: Losartan 50 MG Tab PO SCH ×2 (08:15→09:02)
[2020-08-14] MEDS: Rivaroxaban 15 MG Tab PO SCH ×2 (08:16→09:03)
[2020-08-14] MEDS: Sertraline 50 MG Tab PO SCH ×2 (08:16→09:03)
[2020-08-14] MEDS: Formoterol/Mometasone 200-5 MCG 8.8 GM Inhaler IH SCH ×2 (08:55→21:01)
[2020-08-14] MEDS ORDERED: Insulin Glarg,Human.Rec.Analog 100 Unit/ML SUBCUT SCH (09:00)
[2020-08-14] MEDS ORDERED: Furosemide 40 MG/4 ML VIAL IVPUSH SCH (09:00)
--- NOTE | 2020-08-14 09:07 | PCM.PN ---
- General Info Date of Service: 08/14/20 Admission Dx/Problem (Free Text): Admission Diagnosis/Problem Admission Diagnosis/Problem Sepsis Subjective Update: Patient had of his respiratory status and mental status overnight. He became more obtunded and his oxygen saturations worsened. Patient required increasing O2 and even after 60 mg of Lasix he had very little urine output overnight. He was given a total of three 250 mL boluses of LR and placed on maintenance dose of 100 mL an hour. Patient had very little urine output with those measures. Early this morning patient required increase to 6 L for short time. He was then placed on BiPAP and blood gases were drawn. Blood gases at 837 hours: pH 7.24, PCO2 83, PO2 98, PCO 334, saturation at 96%. Patient at that time was on 14/7 BiPAP. BiPAP was adjusted to 18/7 with 35% FiO2 and blood gases improved somewhat to: pH 7.27, PCO2 78, PO2 81, HCO3 34.5, oxygen saturation of 93.3. At this time patient was unable to take his medications orally because of altered mental status. Oxygen saturations maintained in the upper to mid 90s, therefore supplemental oxygen was ultimately weaned down to room air. Patient was given Lasix 40 mg IV and had 600 mL per 4 hours urine output. Patient was more arousa ble but still unable to carry on a conversation. Patient also had his fentanyl patch removed and was also given Narcan 0.4 mg x 2 which did cause restlessness but did not help him become less sedated. - Review of Systems General: Reports: Other (Unable to obtain secondary to patient being lethargic) - Patient Data Vitals - Most Recent: Last Vital Signs Temp 96.8 F L 08/14/20 07:54 Pulse 127 H 08/14/20 07:42 Resp 18 08/14/20 09:01 BP 108/61 08/14/20 09:00 Pulse Ox 93 L 08/14/20 09:05 Weight - Most Recent: 265 lb 14.251 oz I&O - Last 24 Hours: Intake & Output 08/13/20 08/14/20 08/14/20 22:59 06:59 14:59 Intake Total 2541 1664 Output Total 425 215 120 Balance 2116 1449 -120 Lab Results Last 24 Hours: Laboratory Results - last 24 hr 08/13/20 08/13/20 08/13/20 Range/Units 06:07 12:15 18:07 WBC (4.23-9.07) K/mm3 RBC (4.63-6.08) M/mm3 Hgb (13.7-17.5) gm/dl Hct (40.1-51.0) % MCV (79.0-92.2) fl MCH (25.7-32.2) pg MCHC (32.2-35.5) g/dl RDW Std Deviation (35.1-43.9) fL Plt Count (163-337) K/mm3 MPV (9.4-12.3) fl Neut % (Auto) (34.0-67.9) % Lymph % (Auto) (21.8-53.1) % [place] % (Auto) (5.3-12.2) % Eos % (Auto) (0.8-7.0) Baso % (Auto) (0.1-1.2) % Neut # (Auto) (1.78-5.38) K/mm3 Lymph # (Auto) (1.32-3.57) K/mm3 [place] # (Auto) (0.30-0.82) K/mm3 Eos # (Auto) (0.04-0.54) K/mm3 Baso # (Auto) (0.01-0.08) K/mm3 Manual Slide Review D-Dimer, Quantitative (0.19-0.50) mg/L Puncture Site ABG pH (7.35-7.45) ABG pCO2 (35.0-45.0) mmHg ABG pO2 (80.0-100.0) mmHg ABG HCO3 (22.0-26.0) meq/L ABG O2 Saturation (96.0-97.0) % ABG Base Excess (-2-2.0) Abdullahi Test O2 Delivery Device FiO2 (21.00-100.00) % PEEP cmH20 Sodium (136-145) mEq/L Potassium (3.5-5.1) mEq/L Chloride (98-107) mEq/L Carbon Dioxide (21-32) mEq/L Anion Gap (5-15) BUN (7-18) mg/dL Creatinine (0.7-1.3) mg/dL Est Cr Clr Drug Dosing mL/min Estimated GFR (MDRD) (>60) mL/min BUN/Creatinine Ratio (14-18) Glucose (83-115) mg/dL POC Glucose 195 H 337 H (83-110) mg/dL Lactic Acid (0.4-2.0) mmol/L Calcium (8.5-10.1) mg/dL Phosphorus (2.6-4.7) mg/dL Magnesium (1.8-2.4) mg/dl Total Bilirubin (0.2-1.0) mg/dL AST (15-37) U/L ALT (16-63) U/L Alkaline Phosphatase (46-116) U/L Troponin I (0.00-0.056) ng/mL C-Reactive Protein (<1.0) mg/dL NT-Pro-B Natriuret Pep (0-450) pg/mL Total Protein (6.4-8.2) g/dl Albumin (3.4-5.0) g/dl Globulin gm/dL Albumin/Globulin Ratio (1-2) Vitamin D 25-Hydroxy 20.2 L (30.0-100.0) ng/ml 08/13/20 08/13/20 08/14/20 Range/Units 18:12 20:20 01:37 WBC (4.23-9.07) K/mm3 RBC (4.63-6.08) M/mm3 Hgb (13.7-17.5) gm/dl Hct (40.1-51.0) % MCV (79.0-92.2) fl MCH (25.7-32.2) pg MCHC (32.2-35.5) g/dl RDW Std Deviation (35.1-43.9) fL Plt Count (163-337) K/mm3 MPV (9.4-12.3) fl Neut % (Auto) (34.0-67.9) % Lymph % (Auto) (21.8-53.1) % [place] % (Auto) (5.3-12.2) % Eos % (Auto) (0.8-7.0) Baso % (Auto) (0.1-1.2) % Neut # (Auto) (1.78-5.38) K/mm3 Lymph # (Auto) (1.32-3.57) K/mm3 [place] # (Auto) (0.30-0.82) K/mm3 Eos # (Auto) (0.04-0.54) K/mm3 Baso # (Auto) (0.01-0.08) K/mm3 Manual Slide Review D-Dimer, Quantitative (0.19-0.50) mg/L Puncture Site ABG pH (7.35-7.45) ABG pCO2 (35.0-45.0) mmHg ABG pO2 (80.0-100.0) mmHg ABG HCO3 (22.0-26.0) meq/L ABG O2 Saturation (96.0-97.0) % ABG Base Excess (-2-2.0) Abdullahi Test O2 Delivery Device FiO2 (21.00-100.00) % PEEP cmH20 Sodium (136-145) mEq/L Potassium (3.5-5.1) mEq/L Chloride (98-107) mEq/L Carbon Dioxide (21-32) mEq/L Anion Gap (5-15) BUN (7-18) mg/dL Creatinine (0.7-1.3) mg/dL Est Cr Clr Drug Dosing mL/min Estimated GFR (MDRD) (>60) mL/min BUN/Creatinine Ratio (14-18) Glucose (83-115) mg/dL POC Glucose 331 H 258 H (83-110) mg/dL Lactic Acid (0.4-2.0) mmol/L Calcium (8.5-10.1) mg/dL Phosphorus (2.6-4.7) mg/dL Magnesium (1.8-2.4) mg/dl Total Bilirubin (0.2-1.0) mg/dL AST (15-37) U/L ALT (16-63) U/L Alkaline Phosphatase (46-116) U/L Troponin I (0.00-0.056) ng/mL C-Reactive Protein (<1.0) mg/dL NT-Pro-B Natriuret Pep 2439 H (0-450) pg/mL Total Protein (6.4-8.2) g/dl Albumin (3.4-5.0) g/dl Globulin gm/dL Albumin/Globulin Ratio (1-2) Vitamin D 25-Hydroxy (30.0-100.0) ng/ml 08/14/20 08/14/20 08/14/20 Range/Units 05:30 05:30 05:30 WBC 13.96 H (4.23-9.07) K/mm3 RBC 5.42 (4.63-6.08) M/mm3 Hgb 14.7 D (13.7-17.5) gm/dl Hct 48.6 (40.1-51.0) % MCV 89.7 (79.0-92.2) fl MCH 27.1 (25.7-32.2) pg MCHC 30.2 L (32.2-35.5) g/dl RDW Std Deviation 53.7 H (35.1-43.9) fL Plt Count 209 (163-337) K/mm3 MPV 10.1 (9.4-12.3) fl Neut % (Auto) 80.9 H (34.0-67.9) % Lymph % (Auto) 6.0 L (21.8-53.1) % [place] % (Auto) 7.7 (5.3-12.2) % Eos % (Auto) 3.9 (0.8-7.0) Baso % (Auto) 0.1 (0.1-1.2) % Neut # (Auto) 11.30 H (1.78-5.38) K/mm3 Lymph # (Auto) 0.84 L (1.32-3.57) K/mm3 [place] # (Auto) 1.07 H (0.30-0.82) K/mm3 Eos # (Auto) 0.54 (0.04-0.54) K/mm3 Baso # (Auto) 0.02 (0.01-0.08) K/mm3 Manual Slide Review Abnormal smear D-Dimer, Quantitative 2.37 H (0.19-0.50) mg/L Puncture Site ABG pH (7.35-7.45) ABG pCO2 (35.0-45.0) mmHg ABG pO2 (80.0-100.0) mmHg ABG HCO3 (22.0-26.0) meq/L ABG O2 Saturation (96.0-97.0) % ABG Base Excess (-2-2.0) Abdullahi Test O2 Delivery Device FiO2 (21.00-100.00) % PEEP cmH20 Sodium (136-145) mEq/L Potassium (3.5-5.1) mEq/L Chloride (98-107) mEq/L Carbon Dioxide (21-32) mEq/L Anion Gap (5-15) BUN (7-18) mg/dL Creatinine (0.7-1.3) mg/dL Est Cr Clr Drug Dosing mL/min Estimated GFR (MDRD) (>60) mL/min BUN/Creatinine Ratio (14-18) Glucose (83-115) mg/dL POC Glucose (83-110) mg/dL Lactic Acid 1.2 (0.4-2.0) mmol/L Calcium (8.5-10.1) mg/dL Phosphorus (2.6-4.7) mg/dL Magnesium (1.8-2.4) mg/dl Total Bilirubin (0.2-1.0) mg/dL AST (15-37) U/L ALT (16-63) U/L Alkaline Phosphatase (46-116) U/L Troponin I (0.00-0.056) ng/mL C-Reactive Protein (<1.0) mg/dL NT-Pro-B Natriuret Pep (0-450) pg/mL Total Protein (6.4-8.2) g/dl Albumin (3.4-5.0) g/dl Globulin gm/dL Albumin/Globulin Ratio (1-2) Vitamin D 25-Hydroxy (30.0-100.0) ng/ml 08/14/20 08/14/20 08/14/20 Range/Units 05:54 07:05 08:37 WBC (4.23-9.07) K/mm3 RBC (4.63-6.08) M/mm3 Hgb (13.7-17.5) gm/dl Hct (40.1-51.0) % MCV (79.0-92.2) fl MCH (25.7-32.2) pg MCHC (32.2-35.5) g/dl RDW Std Deviation (35.1-43.9) fL Plt Count (163-337) K/mm3 MPV (9.4-12.3) fl Neut % (Auto) (34.0-67.9) % Lymph % (Auto) (21.8-53.1) % [place] % (Auto) (5.3-12.2) % Eos % (Auto) (0.8-7.0) Baso % (Auto) (0.1-1.2) % Neut # (Auto) (1.78-5.38) K/mm3 Lymph # (Auto) (1.32-3.57) K/mm3 [place] # (Auto) (0.30-0.82) K/mm3 Eos # (Auto) (0.04-0.54) K/mm3 Baso # (Auto) (0.01-0.08) K/mm3 Manual Slide Review D-Dimer, Quantitative (0.19-0.50) mg/L Puncture Site Lt radial ABG pH 7.24 L (7.35-7.45) ABG pCO2 82.8 H* (35.0-45.0) mmHg ABG pO2 98.0 (80.0-100.0) mmHg ABG HCO3 34.1 H (22.0-26.0) meq/L ABG O2 Saturation 96.3 (96.0-97.0) % ABG Base Excess 3.8 H (-2-2.0) Abdullahi Test Positive O2 Delivery Device Bipap FiO2 0.00 L (21.00-100.00) % PEEP 7.0 cmH20 Sodium 138 (136-145) mEq/L Potassium 4.9 (3.5-5.1) mEq/L Chloride 96 L (98-107) mEq/L Carbon Dioxide 33 H (21-32) mEq/L Anion Gap 13.9 (5-15) BUN 43 H (7-18) mg/dL Creatinine 1.3 (0.7-1.3) mg/dL Est Cr Clr Drug Dosing 31.52 mL/min Estimated GFR (MDRD) 53 (>60) mL/min BUN/Creatinine Ratio 33.1 H (14-18) Glucose 163 H (83-115) mg/dL POC Glucose 206 H (83-110) mg/dL Lactic Acid (0.4-2.0) mmol/L Calcium 9.2 (8.5-10.1) mg/dL Phosphorus 4.8 H (2.6-4.7) mg/dL Magnesium 2.6 H (1.8-2.4) mg/dl Total Bilirubin 0.6 (0.2-1.0) mg/dL AST 47 H (15-37) U/L ALT 41 (16-63) U/L Alkaline Phosphatase 96 (46-116) U/L Troponin I 0.136 H* (0.00-0.056) ng/mL C-Reactive Protein 17.7 H* (<1.0) mg/dL NT-Pro-B Natriuret Pep (0-450) pg/mL Total Protein 8.5 H (6.4-8.2) g/dl Albumin 3.2 L (3.4-5.0) g/dl Globulin 5.3 gm/dL Albumin/Globulin Ratio 0.6 L (1-2) Vitamin D 25-Hydroxy (30.0-100.0) ng/ml Karlos Results Last 24 Hours: Microbiology 08/12/20 10:15 Aerobic Blood Culture - Preliminary Blood - Venous - Lab Draw NO GROWTH AFTER 1 DAY Anaerobic Blood Culture - Preliminary NO GROWTH AFTER 1 DAY 08/12/20 10:00 Aerobic Blood Culture - Preliminary Blood - Venous NO GROWTH AFTER 1 DAY Anaerobic Blood Culture - Preliminary NO GROWTH AFTER 1 DAY 08/12/20 10:05 Urine Culture - Preliminary Urine, Catheterized Gram Negative Rods Med Orders - Current: Current Medications Acetaminophen (Tylenol) 650 mg PO Q4H PRN PRN Reason: Pain (Mild 1-3)/fever Albuterol (Proventil Hfa) 0 gm INH QID PRN PRN Reason: Wheezing Bisacodyl (Dulcolax) 10 mg RECTAL DAILY PRN PRN Reason: Constipation Cholecalciferol (Vitamin D3) 5,000 unit PO DAILY [facility] Last Admin: 08/14/20 09:03 Dose: Not Given Documented by: Dexamethasone (Dexamethasone) 6 mg PO DAILY [facility] Last Admin: 08/14/20 09:02 Dose: Not Given Documented by: Fentanyl (Duragesic) 25 mcg TOP Q72H [facility] Last Admin: 08/13/20 09:16 Dose: 25 mcg Documented by: Gabapentin (Neurontin) 900 mg PO TID [facility] Last Admin: 08/14/20 09:03 Dose: Not Given Documented by: Diltiazem HCl 100 mg/ Sodium (Chloride) 100 mls @ 5 mls/hr IV TITRATE [facility]; Protocol Last Titration: 08/13/20 20:21 Dose: 0 mg/hr, 0 mls/hr Documented by: Lactated Ringer's (Ringers, Lactated) 1,000 mls @ 100 mls/hr IV ASDIRECTED [facility] Last Admin: 08/13/20 21:46 Dose: 100 mls/hr Documented by: Meropenem/Sodium Chloride 500 (mg/ Premix) 50 mls @ 100 mls/hr IV Q8H [facility] Last Admin: 08/14/20 01:29 Dose: 100 mls/hr Documented by: Remdesivir 100 mg/ Sodium (Chloride) 100 mls @ 100 mls/hr IV Q24H [facility] Stop: 08/17/20 20:59 Insulin Glargine (Lantus) 25 unit SUBCUT BID [facility] Last Admin: 08/13/20 20:49 Dose: 25 units Documented by: Insulin Human Lispro (Humalog) 0 unit SUBCUT QIDACANDBED [facility]; Protocol Last Admin: 08/14/20 06:03 Dose: 4 units Documented by: Levalbuterol HCl (Xopenex) 1.25 mg NEB Q2H PRN PRN Reason: Wheezing Last Admin: 08/13/20 17:48 Dose: 1.25 mg Documented by: Levothyroxine Sodium (Levothyroxine) 200 mcg PO ACBREAKFAST [facility] Last Admin: 08/14/20 05:53 Dose: 200 mcg Documented by: Losartan Potassium (Cozaar) 50 mg PO DAILY [facility] Last Admin: 08/14/20 09:02 Dose: Not Given Documented by: Metoprolol Tartrate (Lopressor) 50 mg PO Q12H [facility] Last Admin: 08/14/20 09:03 Dose: Not Given Documented by: Metoprolol Tartrate (Lopressor) 5 mg IVPUSH Q4H PRN PRN Reason: Tachycardia Last Admin: 08/14/20 07:42 Dose: 5 mg Documented by: Miscellaneous Information (Remove Patch) 1 ea TRDERM Q72H [facility] Last Admin: 08/13/20 09:16 Dose: 1 ea Documented by: Mometasone Furoate/Formoterol Fumar (Dulera 200-5 Mcg) 2 puff IH BID [facility] Last Admin: 08/14/20 08:55 Dose: Not Given Documented by: Ondansetron HCl (Zofran) 4 mg IV Q4H PRN PRN Reason: Nausea/Vomiting Oxycodone HCl (Oxycodone) 5 mg PO Q4H PRN PRN Reason: Pain (moderate 4-6) Rivaroxaban (Xarelto) 15 mg PO DAILY [facility] Last Admin: 08/14/20 09:03 Dose: Not Given Documented by: Senna/Docusate Sodium (Senna Plus) 3 tab PO BID [facility] Last Admin: 08/14/20 09:03 Dose: Not Given Documented by: Sertraline HCl (Zoloft) 50 mg PO DAILY [facility] Last Admin: 08/14/20 09:03 Dose: Not Given Documented by: Sodium Chloride (Saline Flush) 10 ml FLUSH ASDIRECTED PRN PRN Reason: Keep Vein Open Last Admin: 08/12/20 10:42 Dose: 10 ml Documented by: Vancomycin HCl (Pharmacy To Dose - Vancomycin) 0 dose .XX ASDIRECTED PRN PRN Reason: RX TO DOSE VANCOMYCIN Discontinued Medications Diltiazem HCl (Cardizem) 10 mg IVPUSH ONETIME ONE Stop: 08/12/20 09:58 Last Admin: 08/12/20 10:40 Dose: 10 mg Documented by: Diltiazem HCl (Cardizem) 5 mg IVPUSH ONETIME ONE Stop: 08/12/20 14:00 Last Admin: 08/12/20 14:48 Dose: 5 mg Documented by: Enoxaparin Sodium (Lovenox) 40 mg SUBCUT DAILY [facility] Last Admin: 08/13/20 08:29 Dose: 40 mg Documented by: Furosemide (Lasix) 40 mg IVPUSH DAILY [facility] Furosemide (Lasix) 60 mg IVPUSH NOW ONE Stop: 08/13/20 17:53 Last Admin: 08/13/20 18:09 Dose: 60 mg Documented by: Furosemide (Lasix) 40 mg IVPUSH NOW ONE Stop: 08/14/20 08:12 Last Admin: 08/14/20 08:35 Dose: 40 mg Documented by: Sodium Chloride (Normal Saline) 1,000 mls @ 125 mls/hr IV ASDIRECTED [facility] Sodium Chloride (Normal Saline) 1,000 mls @ 1,000 mls/hr IV ONETIME ONE Stop: 08/12/20 10:51 Last Admin: 08/12/20 10:39 Dose: 1,000 mls/hr Documented by: Ceftriaxone Sodium 2 gm/ (Sodium Chloride) 100 mls @ 200 mls/hr IV ONETIME ONE Stop: 08/12/20 11:38 Last Admin: 08/12/20 11:50 Dose: 200 mls/hr Documented by: Lactated Ringer's (Ringers, Lactated) 500 mls @ 999 mls/hr IV .BOLUS ONE Stop: 08/12/20 14:28 Last Admin: 08/12/20 14:16 Dose: 999 mls/hr Documented by: Diltiazem HCl 100 mg/ Sodium (Chloride) 100 mls @ 5 mls/hr IV TITRATE [facility]; Protocol Meropenem/Sodium Chloride 500 (mg/ Premix) 50 mls @ 100 mls/hr IV Q6H [facility] Last Admin: 08/13/20 10:09 Dose: 100 mls/hr Documented by: Vancomycin HCl 1 gm/Vancomycin HCl 500 mg/ Sodium Chloride 500 mls @ 250 mls/hr IV ONETIME ONE Stop: 08/12/20 19:59 Last Admin: 08/12/20 18:37 Dose: 250 mls/hr Documented by: Vancomycin HCl 1 gm/Vancomycin HCl 250 mg/ Sodium Chloride 250 mls @ 166 mls/hr IV Q12H [facility] Last Admin: 08/13/20 05:17 Dose: 166 mls/hr Documented by: Lactated Ringer's (Ringers, Lactated) 500 mls @ 500 mls/hr IV .BOLUS ONE Stop: 08/12/20 21:05 Last Admin: 08/12/20 21:11 Dose: 500 mls/hr Documented by: Vancomycin HCl 1 gm/Vancomycin HCl 250 mg/ Sodium Chloride 250 mls @ 166.667 mls/hr IV Q18H [facility] Remdesivir 200 mg/ Sodium (Chloride) 250 mls @ 250 mls/hr IV ONETIME ONE Stop: 08/13/20 19:49 Last Admin: 08/13/20 20:14 Dose: 250 mls/hr Documented by: Lactated Ringer's (Ringers, Lactated) 250 mls @ 999 mls/hr IV ONETIME ONE Stop: 08/13/20 22:15 Last Admin: 08/13/20 21:59 Dose: 999 mls/hr Documented by: Lactated Ringer's (Ringers, Lactated) 250 mls @ 999 mls/hr IV ONETIME ONE Stop: 08/14/20 00:18 Last Admin: 08/14/20 00:36 Dose: 999 mls/hr Documented by: Metoprolol Tartrate 5 mg/ (Sodium Chloride) 55 mls @ 100 mls/hr IV Q4H PRN PRN Reason: Tachycardia Insulin Glargine (Lantus) 56 unit SUBCUT DAILY [facility] Meropenem (Merrem) 1 gm IVPUSH Q8H [facility] Last Admin: 08/12/20 20:32 Dose: Not Given Documented by: Metoprolol Tartrate (Lopressor) 25 mg PO ONETIME ONE Stop: 08/13/20 17:31 Last Admin: 08/13/20 17:32 Dose: 25 mg Documented by: Metoprolol Tartrate (Lopressor) 25 mg PO ONETIME ONE Stop: 08/13/20 22:01 Last Admin: 08/13/20 22:05 Dose: 25 mg Documented by: - Exam Quality Assessment: Supplemental Oxygen (BiPAP), Urine Catheter (Chronic) General: Lethargic Neck: Supple Lungs: Crackles (Throughout). No: Normal Respiratory Effort (Increased respiratory rate and effort) Cardiovascular: Irregular Rhythm, Tachycardia GI/Abdominal Exam: Normal Bowel Sounds, Soft, Non-Tender, No Distention Extremities: Other (Edema bilateral Bright) Sepsis Event Note - Evaluation Sepsis Screening Result: Sepsis Risk - Focused Exam Vital Signs: Vital Signs Temp Pulse Resp BP BP Pulse Ox Pulse Ox 08/14/20 09:05 93 L 08/14/20 09:01 18 93 L 08/14/20 09:00 21 H 108/61 94 L 08/14/20 08:59 18 93 L 08/14/20 08:54 16 110/70 94 L 08/14/20 08:53 16 94 L 08/14/20 08:50 18 107/71 95 08/14/20 08:49 11 L 96 08/14/20 08:20 96 08/14/20 08:01 20 119/80 94 L 08/14/20 08:00 17 93 L 08/14/20 07:59 17 112/98 H 93 L 08/14/20 07:58 23 H 91 L 08/14/20 07:55 22 H 92 L 08/14/20 07:54 96.8 F L 18 163/94 H 92 L 08/14/20 07:46 20 163/94 H 90 L 08/14/20 07:45 19 93 L 08/14/20 07:44 19 160/104 H 94 L 08/14/20 07:43 20 91 L 08/14/20 07:42 127 H 163/94 H 08/14/20 07:00 15 94 L 08/14/20 06:05 115 H 133/76 08/14/20 06:01 18 133/76 96 08/14/20 06:00 20 94 L 08/14/20 05:55 08/14/20 05:24 19 136/101 H 08/14/20 05:23 18 08/14/20 05:01 18 131/107 H 96 08/14/20 05:00 18 94 L 08/14/20 04:01 28 H 08/14/20 04:00 97.5 F 18 130/90 130/90 95 08/14/20 03:59 18 08/14/20 03:01 18 08/14/20 03:00 17 125/84 08/14/20 02:59 16 08/14/20 02:01 16 93 L 08/14/20 02:00 20 135/102 H 91 L 08/14/20 01:59 17 93 L 08/14/20 01:40 19 129/90 94 L 08/14/20 01:39 21 H 95 08/14/20 01:33 18 85/37 L 90 L 08/14/20 01:32 17 88 L 08/14/20 01:30 19 93 L 08/14/20 01:01 20 98 08/14/20 00:59 17 96 08/14/20 00:30 15 127/75 93 L 08/14/20 00:29 18 87 L 08/14/20 00:01 18 121/68 91 L 08/14/20 00:00 97.2 F 16 121/68 95 08/13/20 23:30 19 127/110 H 97 08/13/20 23:29 21 H 90 L 08/13/20 23:01 16 126/108 H 93 L 08/13/20 23:00 16 94 L 08/13/20 22:05 90 127/72 Pulse Ox 08/14/20 09:05 08/14/20 09:01 08/14/20 09:00 08/14/20 08:59 08/14/20 08:54 08/14/20 08:53 08/14/20 08:50 08/14/20 08:49 08/14/20 08:20 08/14/20 08:01 08/14/20 08:00 08/14/20 07:59 08/14/20 07:58 08/14/20 07:55 08/14/20 07:54 08/14/20 07:46 08/14/20 07:45 08/14/20 07:44 08/14/20 07:43 08/14/20 07:42 08/14/20 07:00 08/14/20 06:05 08/14/20 06:01 08/14/20 06:00 08/14/20 05:55 93 L 08/14/20 05:24 08/14/20 05:23 08/14/20 05:01 08/14/20 05:00 08/14/20 04:01 08/14/20 04:00 08/14/20 03:59 08/14/20 03:01 08/14/20 03:00 08/14/20 02:59 08/14/20 02:01 08/14/20 02:00 08/14/20 01:59 08/14/20 01:40 08/14/20 01:39 08/14/20 01:33 08/14/20 01:32 08/14/20 01:30 08/14/20 01:01 08/14/20 00:59 08/14/20 00:30 08/14/20 00:29 08/14/20 00:01 08/14/20 00:00 08/13/20 23:30 08/13/20 23:29 08/13/20 23:01 08/13/20 23:00 08/13/20 22:05 - Problem List & Annotations (1) CHF (congestive heart failure) SNOMED Code(s): 45566830 Code(s): I50.9 - HEART FAILURE, UNSPECIFIED Status: Acute Current Visit: Yes Qualifiers: Heart failure type: unspecified Heart failure chronicity: unspecified Qualified Code(s): I50.9 - Heart failure, unspecified (2) COVID-19 SNOMED Code(s): 812309669 Code(s): U07.1 - COVID-19 Status: Acute Current Visit: Yes (3) Elevated troponin SNOMED Code(s): 472091100, 598099123, 604514251 Code(s): R77.8 - OTHER SPECIFIED ABNORMALITIES OF PLASMA PROTEINS Status: Acute Current Visit: Yes (4) Sepsis SNOMED Code(s): 61660515 Code(s): A41.9 - SEPSIS, UNSPECIFIED ORGANISM Status: Acute Current Visit: Yes Qualifiers: Sepsis type: sepsis due to unspecified organism Sepsis acute organ dysfu nction status: unspecified Qualified Code(s): A41.9 - Sepsis, unspecified organism (5) UTI (urinary tract infection) SNOMED Code(s): 19841686 Code(s): N39.0 - URINARY TRACT INFECTION, SITE NOT SPECIFIED Status: Acute Current Visit: Yes Qualifiers: Urinary tract infection type: acute cystitis Hematuria presence: without hematuria Qualified Code(s): N30.00 - Acute cystitis without hematuria (6) Renal insufficiency SNOMED Code(s): 867684037, 626439608 Code(s): N28.9 - DISORDER OF KIDNEY AND URETER, UNSPECIFIED Status: Chronic Priority: Medium Current Visit: Yes - Problem List Review Problem List Initiated/Reviewed/Updated: Yes - My Orders Last 24 Hours: My Active Orders 08/13/20 08:20 levalbuterol HCL [Xopenex] 1.25 mg NEB Q2H PRN 08/13/20 08:21 RT Aerosol Therapy [RC] ASDIRECTED 08/13/20 09:00 Remove Patch 1 ea TRDERM Q72H Sertraline [Zoloft] 50 mg PO DAILY fentaNYL [Duragesic] 25 mcg TOP Q72H 08/13/20 12:30 Cholecalciferol (Vitamin D3) [Vitamin D3] 5,000 unit PO DAILY 08/13/20 14:15 dexAMETHasone 6 mg PO DAILY 08/13/20 18:00 Meropenem Premix [Meropenem in NS 500 MG/50 ML] 500 mg Premix Bag 1 bag IV Q8H 08/13/20 21:00 Insulin Glarg,Human.Rec.Analog [LantUS] 25 unit SUBCUT BID 08/14/20 06:02 Metoprolol Tartrate [Lopressor] 5 mg IVPUSH Q4H PRN 08/14/20 09:00 Losartan [Cozaar] 50 mg PO DAILY Metoprolol Tartrate [Lopressor] 50 mg PO Q12H Rivaroxaban [Xarelto] 15 mg PO DAILY 08/14/20 09:02 RT BiPAP/CPAP [RC] ASDIRECTED 08/14/20 20:00 Remdesivir 100 mg Sodium Chloride 0.9% [Normal Saline] 100 ml IV Q24H - Plan Plan:: Assessment 80-year-old male with history of COVID-19 teen in March and vaccination last month comes to the emergency department with from his primary care providers office with UTI, sepsis, and reinfection from COVID-19. Severe sepsis UTI * Patient fulfills sepsis criteria * White count 14.2, C-reactive protein of 9.3 * Lactic acid 1.5 * Given Rocephin in the emergency department. * Blood cultures and urine cultures obtained prior to Rocephin * Given 1 L bolus in the emergency department Atrial flutter/SVT Elevated troponin CHF * EKG obtained at clinic showed SVT * Subsequent EKG done on admission showed atrial flutter with 2: 1 AV block. Borderline/minimal ST elevation in lead III. * Troponin 0.452. This is a independent risk factor for poor outcome. With the minimal ST elevation and elevated troponin this could signify a type II MN versus myocardial strain. * Trial of Cardizem drip in ER was stopped because of low blood pressure. * No proBNP done in the emergency department Renal insufficiency stage III * Outpatient records are not available so it makes it difficult to know if this is a change from baseline or if this is his baseline GFR. * Creatinine 1.4, GFR 49, BUN 48 Type 2 diabetesinsulin-dependent * Unknown hemoglobin A1c. * Home insulin: Lantus 56 units every morning, 54 units every afternoon. NovoLog unknown 7 units 3 times daily with meals and sliding scale. COVID-19 reinfection * Initial infection in March 2020 * Vaccination last month * Respiratory status is at baseline * No D-dimer ordered Plan * Admit to ICU * Treat for complicated UTI to include vancomycin and meropenem * Follow blood cultures and urine cultures * 500 mL fluid bolus * Cardizem 5 mg IV x1 then start Cardizem drip as long as blood pressure holds * If he does not convert out of atrial flutter will need to anticoagulate * Continue FiO2 to keep SPO2 above 90%. * Repeat troponin in the morning. This will be a lagging indicator secondary to renal function. * Get proBNP for baseline * Get hemoglobin A1c and TSH * VTE prophylaxis with Lovenox, but will need to switch to full anticoagulation if he does not convert out of atrial flutter. * CODE STATUS: DNR/DNI August 13, 2020 Severe sepsisresolved UTI Atrial flutter/atrial fibrillation with rapid ventricular response CHF Renal insufficiency stage III COVID-19 reinfection Insulin-dependent type 2 diabetes * Patient continues to be tachycardic but his hypotension has resolved. * Continue to increase Cardizem drip until heart rate is less than 90 then switch to oral * Start dexamethasone 6 mg daily * Continue meropenem until sensitivities on urine culture * Stop vancomycin * Creatinine 1.3improved * Hemoglobin A1c 7.6 * Restart small dose of long-acting insulin * Discharge likely in 3 to 4 days. August 14, 2020 COVID-19 reinfection Respiratory failure D-dimer did increase to 2.37 Patient developed respiratory failure with exacerbation of CHF and renal failure overnight. Apparently patient has a CPAP/BiPAP at the [facility]. That was not continued here last night. Patient also appears to have severe sleep apnea and likely pickwickian syndrome. He had a significant elevation in his CO2 overnight and decrease in mentation. This was followed by an ABG showing severe hypercapnia with a PCO2 greater than 80. Patient was placed on BiPAP and PCO2 decreased to 66. Patient's mentation is improving, but he still not following commands. Acute kidney injury stage II-likely secondary to ATN from sepsis versus prerenal disease from circulating hypovolemia His urine output went to less than 0.5 mL/kg/h for over 12 hours. This placed him at stage II acute kidney injury. Patient was given several fluid boluses over the evening and after then giving him Lasix 40 mg x 2 he had very urine output greater than 100 mL/h. Fortunately his creatinine did not change overnight and his creatinine was 1.3 although his BUN was 43. UTI Sepsis resolved UA growing gram-negative rods, gram-positive cocci, and a separate gram-negative rods Vancomycin was stopped yesterday secondary to initial cultures growing out only gram-negative rods Atrial flutter/atrial fibrillation with rapid ventricular response CHF Elevated troponintroponin decreased to 0.136 Patient has had good response to beta-miriam with calcium channel miriam. Unfortunately we do not have a recent echocardiogram. Patient was switched over to digoxin and a calcium channel miriam. This may be adjusted or have a beta- miriam added to digoxin at a later date. Plan echocardiogram if rate is less than 90 in the morning. Insulin-dependent type 2 diabetes Essentially half of his Lantus was started overnight at 25 units twice daily. Unfortunately, patient is no longer able to take p.o. and will continue to follow his blood sugars 4 times daily. Will stick to sliding scale and hold his long-acting insulin at this time. Plan * Continue BiPAP * Lasix drip to keep urine output greater than 100 mL/h * Repeat ABGs as needed * Hold fentanyl at this time avoid centrally acting sedating agents including gabapentin for now * Follow CBC, CMP, magnesium, Phos, C-reactive protein * Digoxin loading with 500 mcg x 1 then 250 mcg x 2 * Diltiazem drip to keep heart rate less than 90 * Hold metoprolol * Echocardiogram in the morning * Restart vancomycin secondary to gram-positive cocci in urine possible Enterococcus * Continue meropenem * Start Lovenox 1 mg/kg every 12 hours and stop Xarelto * Hold Lantus until taking orally * Follow potassium closely secondary to Lasix drip and digoxin. Will repeat BMP this evening. * Continue remdesivir and dexamethasone. Switch dexamethasone to IV.
[2020-08-14] MEDS ORDERED: Dexamethasone 4 MG/ML SDV IV ONE (09:48)
[2020-08-14] MEDS ORDERED: Naloxone 0.4 MG/ML SDV IVPUSH ONE ×2 (09:57→10:30)
[2020-08-14] MEDS: Insulin Glarg,Human.Rec.Analog 100 Unit/ML SUBCUT SCH ×2 (10:00→21:58)
--- NOTE | 2020-08-14 12:04 | CR ---
Chest: Portable view of the chest was obtained. Comparison: Prior chest x-ray of 08/12/20. Increasing lung markings are noted on both sides of the chest. Possible small right-sided pleural effusion is seen. Heart is enlarged. Bony structures show nothing acute. Impression: 1. Findings are felt compatible with worsening CHF. Diagnostic code #3
[2020-08-14] MEDS ORDERED: Furosemide 100 MG in Sodium Chloride 0.9% 90 ML IV SCH (12:30)
[2020-08-14] MEDS ORDERED: Digoxin 500 MCG/2 ML Amp IVPUSH ONE (12:30)
[2020-08-14] MEDS: Enoxaparin 120 MG/0.8 ML Syringe SUBCUT SCH (12:53)
[2020-08-14] MEDS: Diltiazem 100 MG in Sodium Chloride 0.9% 100 ML IV SCH ×2 (13:39→20:23)
[2020-08-14] MEDS: Vancomycin 1 GM, Vancomycin 250 MG in Sodium Chloride 0.9% 250 ML IV SCH (18:32)
[2020-08-14] MEDS ORDERED: Digoxin 500 MCG/2 ML Amp IVPUSH SCH (19:00)
--- NOTE | 2020-08-14 20:16 | PCM.PRNOTE ---
- Free Text/Narrative Note: Procedure note Date: 08/14/2020 Procedure: left internal jugular vein central line placement Surgeon: Reji Constantino MD Report: Informed consent was obtained from the patient. The left neck was prepped and draped in sterile fashion. The ultrasound was used to identify the left jugular vein. 1 cc 1% lidocaine was injected at this site intradermally. A large hollow needle on syringe was used to access the vein under visualization with ultrasound. Dark venous-appearing blood was aspirated. The syringe was removed, and the guidewire was threaded through the needle with ease. A small incision was made at the insertion site at the skin, and dilator passed over the tract. A triple lumen catheter was threaded over the wire into position. All ports flushed and sanjiv back without a problem. The catheter was secured at the skin with silk suture and a sterile dressing was placed. Chest X-ray confirmed proper positioning of the central line.
--- NOTE | 2020-08-14 20:28 | CR ---
Chest: Portable view of the chest was obtained. Comparison: Prior chest x-ray performed earlier on same day (10:17 AM). Heart size is enlarged. Pulmonary vessels remain congested. Left jugular line is seen. Inferior tip lies within the right atria, if superior vena cava location is needed this should be removed by about 7 mm. Scattered degenerative spurring is noted within the spine. Impression: 1. Findings compatible with continuing CHF. 2. Jugular line is seen with tip lying within the right atria. If superior vena cava location is needed this line should be removed by about 7 mm. Diagnostic code #3
[2020-08-14] MEDS: REMDESIVIR 100 MG in Sodium Chloride 0.9% 100 ML IV SCH (20:30)
[2020-08-14] MEDS: Levalbuterol HCl 1.25 MG/3 ML Neb NEB PRN (21:02)
[2020-08-15] MEDS: Enoxaparin 120 MG/0.8 ML Syringe SUBCUT SCH ×3 (01:56→21:44)
[2020-08-15] MEDS: Meropenem Premix 500 MG in Premix Bag 1 BAG IV SCH ×3 (01:57→18:14)
[2020-08-15] MEDS ORDERED: Digoxin 500 MCG/2 ML Amp IVPUSH SCH (02:30)
[2020-08-15] MEDS ORDERED: Digoxin 500 MCG/2 ML Amp IVPUSH ONE (02:30)
[2020-08-15] MEDS: Formoterol/Mometasone 200-5 MCG 8.8 GM Inhaler IH SCH ×2 (08:15→20:01)
[2020-08-15] MEDS: Insulin Glarg,Human.Rec.Analog 100 Unit/ML SUBCUT SCH ×2 (08:25→21:45)
[2020-08-15] MEDS: Losartan 50 MG Tab PO SCH (08:29)
[2020-08-15] MEDS: Digoxin 250 MCG Tab PO SCH (08:30)
[2020-08-15] MEDS: Gabapentin 300 MG Cap PO SCH ×3 (08:31→20:04)
[2020-08-15] MEDS: Cholecalciferol (Vitamin D3) 5,000 UNIT Cap PO SCH (08:31)
[2020-08-15] MEDS: Dexamethasone 4 MG Tab PO SCH (08:33)
[2020-08-15] MEDS: Sertraline 50 MG Tab PO SCH (08:35)
[2020-08-15] MEDS: Diltiazem 100 MG in Sodium Chloride 0.9% 100 ML IV SCH (10:50)
--- NOTE | 2020-08-15 16:02 | PCM.PN ---
- General Info Date of Service: 08/15/20 Admission Dx/Problem (Free Text): Admission Diagnosis/Problem Admission Diagnosis/Problem Sepsis Subjective Update: When I saw this patient this morning, he was on BiPAP with setting 16/7/FiO2 35% with good oxygen saturation. Patient alert and awake. he can answer questions. He does not have any new complaints. His urine output greater than 5 L today Blood pressure is fine, 144/66 ABG showed PCO2 66.2 and PO2 68.2 which are improving WBC 14.59 Creatinine 1.1 CRP 11.7, D-dimer 3.82 Glucose 201 - Review of Systems Systems Review Comment:: Positive for shortness of breath. All other systems were reviewed and are negative. - Patient Data Vitals - Most Recent: Last Vital Signs Temp 36.2 C 08/15/20 15:48 Pulse 98 08/15/20 15:48 Resp 20 08/15/20 15:48 BP 143/83 H 08/15/20 15:48 Pulse Ox 95 08/15/20 15:48 Weight - Most Recent: 118.614 kg I&O - Last 24 Hours: Intake & Output 08/15/20 08/15/20 08/15/20 06:59 14:59 22:59 Intake Total 797 Output Total 1303 1690 375 Balance -506 -1690 -375 Lab Results Last 24 Hours: Laboratory Results - last 24 hr 08/14/20 08/14/20 08/14/20 Range/Units 17:30 18:32 21:43 WBC (4.23-9.07) K/mm3 RBC (4.63-6.08) M/mm3 Hgb (13.7-17.5) gm/dl Hct (40.1-51.0) % MCV (79.0-92.2) fl MCH (25.7-32.2) pg MCHC (32.2-35.5) g/dl RDW Std Deviation (35.1-43.9) fL Plt Count (163-337) K/mm3 MPV (9.4-12.3) fl Neut % (Auto) (34.0-67.9) % Lymph % (Auto) (21.8-53.1) % [place] % (Auto) (5.3-12.2) % Eos % (Auto) (0.8-7.0) Baso % (Auto) (0.1-1.2) % Neut # (Auto) (1.78-5.38) K/mm3 Lymph # (Auto) (1.32-3.57) K/mm3 [place] # (Auto) (0.30-0.82) K/mm3 Eos # (Auto) (0.04-0.54) K/mm3 Baso # (Auto) (0.01-0.08) K/mm3 Manual Slide Review D-Dimer, Quantitative (0.19-0.50) mg/L Sodium 142 (136-145) mEq/L Potassium 4.7 (3.5-5.1) mEq/L Chloride 99 (98-107) mEq/L Carbon Dioxide 34 H (21-32) mEq/L Anion Gap 13.7 (5-15) BUN 42 H (7-18) mg/dL Creatinine 1.3 (0.7-1.3) mg/dL Est Cr Clr Drug Dosing 31.52 mL/min Estimated GFR (MDRD) 53 (>60) mL/min BUN/Creatinine Ratio 32.3 H (14-18) Glucose 155 H (83-115) mg/dL POC Glucose 159 H 218 H (83-110) mg/dL Calcium 9.3 (8.5-10.1) mg/dL Phosphorus (2.6-4.7) mg/dL Magnesium (1.8-2.4) mg/dl Total Bilirubin (0.2-1.0) mg/dL AST (15-37) U/L ALT (16-63) U/L Alkaline Phosphatase (46-116) U/L C-Reactive Protein (<1.0) mg/dL Total Protein (6.4-8.2) g/dl Albumin (3.4-5.0) g/dl Globulin gm/dL Albumin/Globulin Ratio (1-2) 08/15/20 08/15/20 08/15/20 Range/Units 05:25 05:25 05:25 WBC 14.59 H (4.23-9.07) K/mm3 RBC 5.41 (4.63-6.08) M/mm3 Hgb 14.6 (13.7-17.5) gm/dl Hct 48.2 (40.1-51.0) % MCV 89.1 (79.0-92.2) fl MCH 27.0 (25.7-32.2) pg MCHC 30.3 L (32.2-35.5) g/dl RDW Std Deviation 51.4 H (35.1-43.9) fL Plt Count 252 (163-337) K/mm3 MPV 9.9 (9.4-12.3) fl Neut % (Auto) 85.6 H (34.0-67.9) % Lymph % (Auto) 5.0 L (21.8-53.1) % Upson % (Auto) 8.8 (5.3-12.2) % Eos % (Auto) 0 L (0.8-7.0) Baso % (Auto) 0.0 L (0.1-1.2) % Neut # (Auto) 12.49 H (1.78-5.38) K/mm3 Lymph # (Auto) 0.73 L (1.32-3.57) K/mm3 [place] # (Auto) 1.28 H (0.30-0.82) K/mm3 Eos # (Auto) 0.00 L (0.04-0.54) K/mm3 Baso # (Auto) 0.00 L (0.01-0.08) K/mm3 Manual Slide Review Abnormal smear D-Dimer, Quantitative 3.20 H (0.19-0.50) mg/L Sodium 143 (136-145) mEq/L Potassium 4.1 (3.5-5.1) mEq/L Chloride 99 (98-107) mEq/L Carbon Dioxide 38 H (21-32) mEq/L Anion Gap 10.1 (5-15) BUN 43 H (7-18) mg/dL Creatinine 1.1 (0.7-1.3) mg/dL Est Cr Clr Drug Dosing 37.25 mL/min Estimated GFR (MDRD) > 60 (>60) mL/min BUN/Creatinine Ratio 39.1 H (14-18) Glucose 131 H (83-115) mg/dL POC Glucose (83-110) mg/dL Calcium 8.8 (8.5-10.1) mg/dL Phosphorus 2.8 (2.6-4.7) mg/dL Magnesium 2.1 (1.8-2.4) mg/dl Total Bilirubin 0.6 (0.2-1.0) mg/dL AST 31 (15-37) U/L ALT 33 (16-63) U/L Alkaline Phosphatase 81 (46-116) U/L C-Reactive Protein 11.7 H* (<1.0) mg/dL Total Protein 7.3 (6.4-8.2) g/dl Albumin 2.7 L (3.4-5.0) g/dl Globulin 4.6 gm/dL Albumin/Globulin Ratio 0.6 L (1-2) 08/15/20 08/15/20 Range/Units 06:54 11:09 WBC (4.23-9.07) K/mm3 RBC (4.63-6.08) M/mm3 Hgb (13.7-17.5) gm/dl Hct (40.1-51.0) % MCV (79.0-92.2) fl MCH (25.7-32.2) pg MCHC (32.2-35.5) g/dl RDW Std Deviation (35.1-43.9) fL Plt Count (163-337) K/mm3 MPV (9.4-12.3) fl Neut % (Auto) (34.0-67.9) % Lymph % (Auto) (21.8-53.1) % [place] % (Auto) (5.3-12.2) % Eos % (Auto) (0.8-7.0) Baso % (Auto) (0.1-1.2) % Neut # (Auto) (1.78-5.38) K/mm3 Lymph # (Auto) (1.32-3.57) K/mm3 [place] # (Auto) (0.30-0.82) K/mm3 Eos # (Auto) (0.04-0.54) K/mm3 Baso # (Auto) (0.01-0.08) K/mm3 Manual Slide Review D-Dimer, Quantitative (0.19-0.50) mg/L Sodium (136-145) mEq/L Potassium (3.5-5.1) mEq/L Chloride (98-107) mEq/L Carbon Dioxide (21-32) mEq/L Anion Gap (5-15) BUN (7-18) mg/dL Creatinine (0.7-1.3) mg/dL Est Cr Clr Drug Dosing mL/min Estimated GFR (MDRD) (>60) mL/min BUN/Creatinine Ratio (14-18) Glucose (83-115) mg/dL POC Glucose 231 H 201 H (83-110) mg/dL Calcium (8.5-10.1) mg/dL Phosphorus (2.6-4.7) mg/dL Magnesium (1.8-2.4) mg/dl Total Bilirubin (0.2-1.0) mg/dL AST (15-37) U/L ALT (16-63) U/L Alkaline Phosphatase (46-116) U/L C-Reactive Protein (<1.0) mg/dL Total Protein (6.4-8.2) g/dl Albumin (3.4-5.0) g/dl Globulin gm/dL Albumin/Globulin Ratio (1-2) Karlos Results Last 24 Hours: Microbiology 08/12/20 10:15 Aerobic Blood Culture - Preliminary Blood - Venous - Lab Draw NO GROWTH AFTER 3 DAYS Anaerobic Blood Culture - Preliminary NO GROWTH AFTER 3 DAYS 08/12/20 10:00 Aerobic Blood Culture - Preliminary Blood - Venous NO GROWTH AFTER 3 DAYS Anaerobic Blood Culture - Preliminary NO GROWTH AFTER 3 DAYS 08/12/20 10:05 Urine Culture - Preliminary Urine, Catheterized Gram Negative Rods Gram Positive Cocci Gram Negative Rods#2 Med Orders - Current: Current Medications Acetaminophen (Tylenol) 650 mg PO Q4H PRN PRN Reason: Pain (Mild 1-3)/fever Albuterol (Proventil Hfa) 0 gm INH QID PRN PRN Reason: Wheezing Bisacodyl (Dulcolax) 10 mg RECTAL DAILY PRN PRN Reason: Constipation Cholecalciferol (Vitamin D3) 5,000 unit PO DAILY [facility] Last Admin: 08/15/20 08:31 Dose: 5,000 unit Documented by: Dexamethasone (Dexamethasone) 6 mg PO DAILY [facility] Stop: 08/21/20 09:01 Last Admin: 08/15/20 08:33 Dose: 6 mg Documented by: Digoxin (Lanoxin) 250 mcg PO DAILY [facility] Last Admin: 08/15/20 08:30 Dose: 250 mcg Documented by: Enoxaparin Sodium (Lovenox) 120 mg SUBCUT Q12H [facility] Last Admin: 08/15/20 13:13 Dose: 120 mg Documented by: Gabapentin (Neurontin) 900 mg PO TID [facility] Last Admin: 08/15/20 15:44 Dose: 900 mg Documented by: Diltiazem HCl 100 mg/ Sodium (Chloride) 100 mls @ 5 mls/hr IV TITRATE [facility]; Protocol Last Admin: 08/15/20 10:50 Dose: 10 mg/hr, 10 mls/hr Documented by: Meropenem/Sodium Chloride 500 (mg/ Premix) 50 mls @ 100 mls/hr IV Q8H [facility] Last Admin: 08/15/20 10:12 Dose: 100 mls/hr Documented by: Remdesivir 100 mg/ Sodium (Chloride) 100 mls @ 100 mls/hr IV Q24H [facility] Stop: 08/17/20 20:59 Last Admin: 08/14/20 20:30 Dose: 100 mls/hr Documented by: Vancomycin HCl 1 gm/Vancomycin HCl 250 mg/ Sodium Chloride 250 mls @ 166.667 mls/hr IV Q24H [facility] Last Admin: 08/14/20 18:32 Dose: 166.667 mls/hr Documented by: Insulin Glargine (Lantus) 25 unit SUBCUT BID [facility] Last Admin: 08/15/20 08:25 Dose: 25 units Documented by: Insulin Human Lispro (Humalog) 0 unit SUBCUT QIDACANDBED [facility]; Protocol Last Admin: 08/15/20 13:12 Dose: 4 units Documented by: Levalbuterol HCl (Xopenex) 1.25 mg NEB Q2H PRN PRN Reason: Wheezing Last Admin: 08/14/20 21:02 Dose: 1.25 mg Documented by: Levothyroxine Sodium (Levothyroxine) 200 mcg PO ACBREAKFAST [facility] Last Admin: 08/15/20 06:09 Dose: 200 mcg Documented by: Losartan Potassium (Cozaar) 50 mg PO DAILY [facility] Last Admin: 08/15/20 08:29 Dose: 50 mg Documented by: Mometasone Furoate/Formoterol Fumar (Dulera 200-5 Mcg) 2 puff IH BID [facility] Last Admin: 08/15/20 08:15 Dose: 2 dose Documented by: Ondansetron HCl (Zofran) 4 mg IV Q4H PRN PRN Reason: Nausea/Vomiting Oxycodone HCl (Oxycodone) 5 mg PO Q4H PRN PRN Reason: Pain (moderate 4-6) Senna/Docusate Sodium (Senna Plus) 3 tab PO BID [facility] Last Admin: 08/15/20 08:31 Dose: 3 tab Documented by: Sertraline HCl (Zoloft) 50 mg PO DAILY [facility] Last Admin: 08/15/20 08:35 Dose: 50 mg Documented by: Sodium Chloride (Saline Flush) 10 ml FLUSH ASDIRECTED PRN PRN Reason: Keep Vein Open Last Admin: 08/12/20 10:42 Dose: 10 ml Documented by: Vancomycin HCl (Pharmacy To Dose - Vancomycin) 1 dose .XX ASDIRECTED PRN PRN Reason: RX TO DOSE VANCO Discontinued Medications Dexamethasone (Decadron) 6 mg IV ONETIME ONE Stop: 08/14/20 09:49 Last Admin: 08/14/20 10:11 Dose: 6 mg Documented by: Digoxin (Lanoxin) 500 mcg IVPUSH ONETIME ONE Stop: 08/14/20 12:31 Last Admin: 08/14/20 12:40 Dose: 500 mcg Documented by: Digoxin (Lanoxin) 250 mcg IVPUSH Q6H [facility] Stop: 08/15/20 01:01 Last Admin: 08/14/20 20:28 Dose: 250 mcg Documented by: Digoxin (Lanoxin) 250 mcg IVPUSH ONETIME ONE Stop: 08/15/20 02:31 Last Admin: 08/15/20 02:34 Dose: 250 mcg Documented by: Diltiazem HCl (Cardizem) 10 mg IVPUSH ONETIME ONE Stop: 08/12/20 09:58 Last Admin: 08/12/20 10:40 Dose: 10 mg Documented by: Diltiazem HCl (Cardizem) 5 mg IVPUSH ONETIME ONE Stop: 08/12/20 14:00 Last Admin: 08/12/20 14:48 Dose: 5 mg Documented by: Enoxaparin Sodium (Lovenox) 40 mg SUBCUT DAILY [facility] Last Admin: 08/13/20 08:29 Dose: 40 mg Documented by: Fentanyl (Duragesic) 25 mcg TOP Q72H [facility] Last Admin: 08/13/20 09:16 Dose: 25 mcg Documented by: Furosemide (Lasix) 40 mg IVPUSH DAILY [facility] Furosemide (Lasix) 60 mg IVPUSH NOW ONE Stop: 08/13/20 17:53 Last Admin: 08/13/20 18:09 Dose: 60 mg Documented by: Furosemide (Lasix) 40 mg IVPUSH NOW ONE Stop: 08/14/20 08:12 Last Admin: 08/14/20 08:35 Dose: 40 mg Documented by: Furosemide (Lasix) 40 mg IVPUSH NOW ONE Stop: 08/14/20 12:31 Last Admin: 08/14/20 12:48 Dose: 40 mg Documented by: Furosemide (Lasix) 40 mg IVPUSH Q12H [facility] Sodium Chloride (Normal Saline) 1,000 mls @ 125 mls/hr IV ASDIRECTED [facility] Sodium Chloride (Normal Saline) 1,000 mls @ 1,000 mls/hr IV ONETIME ONE Stop: 08/12/20 10:51 Last Admin: 08/12/20 10:39 Dose: 1,000 mls/hr Documented by: Ceftriaxone Sodium 2 gm/ (Sodium Chloride) 100 mls @ 200 mls/hr IV ONETIME ONE Stop: 08/12/20 11:38 Last Admin: 08/12/20 11:50 Dose: 200 mls/hr Documented by: Lactated Ringer's (Ringers, Lactated) 500 mls @ 999 mls/hr IV .BOLUS ONE Stop: 08/12/20 14:28 Last Admin: 08/12/20 14:16 Dose: 999 mls/hr Documented by: Lactated Ringer's (Ringers, Lactated) 1,000 mls @ 100 mls/hr IV ASDIRECTED [facility] Last Admin: 08/13/20 21:46 Dose: 100 mls/hr Documented by: Diltiazem HCl 100 mg/ Sodium (Chloride) 100 mls @ 5 mls/hr IV TITRATE [facility]; Protocol Meropenem/Sodium Chloride 500 (mg/ Premix) 50 mls @ 100 mls/hr IV Q6H [facility] Last Admin: 08/13/20 10:09 Dose: 100 mls/hr Documented by: Vancomycin HCl 1 gm/Vancomycin HCl 500 mg/ Sodium Chloride 500 mls @ 250 mls/hr IV ONETIME ONE Stop: 08/12/20 19:59 Last Admin: 08/12/20 18:37 Dose: 250 mls/hr Documented by: Vancomycin HCl 1 gm/Vancomycin HCl 250 mg/ Sodium Chloride 250 mls @ 166 mls/hr IV Q12H [facility] Last Admin: 08/13/20 05:17 Dose: 166 mls/hr Documented by: Lactated Ringer's (Ringers, Lactated) 500 mls @ 500 mls/hr IV .BOLUS ONE Stop: 08/12/20 21:05 Last Admin: 08/12/20 21:11 Dose: 500 mls/hr Documented by: Vancomycin HCl 1 gm/Vancomycin HCl 250 mg/ Sodium Chloride 250 mls @ 166.667 mls/hr IV Q18H [facility] Remdesivir 200 mg/ Sodium (Chloride) 250 mls @ 250 mls/hr IV ONETIME ONE Stop: 08/13/20 19:49 Last Admin: 08/13/20 20:14 Dose: 250 mls/hr Documented by: Lactated Ringer's (Ringers, Lactated) 250 mls @ 999 mls/hr IV ONETIME ONE Stop: 08/13/20 22:15 Last Admin: 08/13/20 21:59 Dose: 999 mls/hr Documented by: Lactated Ringer's (Ringers, Lactated) 250 mls @ 999 mls/hr IV ONETIME ONE Stop: 08/14/20 00:18 Last Admin: 08/14/20 00:36 Dose: 999 mls/hr Documented by: Metoprolol Tartrate 5 mg/ (Sodium Chloride) 55 mls @ 100 mls/hr IV Q4H PRN PRN Reason: Tachycardia Furosemide 100 mg/ Sodium (Chloride) 100 mls @ 10 mls/hr IV TITRATE [facility]; Protocol Stop: 08/15/20 12:00 Last Titration: 08/15/20 11:16 Dose: 0 mg/hr, 0 mls/hr Documented by: Insulin Glargine (Lantus) 56 unit SUBCUT DAILY [facility] Meropenem (Merrem) 1 gm IVPUSH Q8H [facility] Last Admin: 08/12/20 20:32 Dose: Not Given Documented by: Metoprolol Tartrate (Lopressor) 25 mg PO ONETIME ONE Stop: 08/13/20 17:31 Last Admin: 08/13/20 17:32 Dose: 25 mg Documented by: Metoprolol Tartrate (Lopressor) 50 mg PO Q12H [facility] Last Admin: 08/14/20 09:03 Dose: Not Given Documented by: Metoprolol Tartrate (Lopressor) 25 mg PO ONETIME ONE Stop: 08/13/20 22:01 Last Admin: 08/13/20 22:05 Dose: 25 mg Documented by: Metoprolol Tartrate (Lopressor) 5 mg IVPUSH Q4H PRN PRN Reason: Tachycardia Last Admin: 08/14/20 11:52 Dose: 5 mg Documented by: Miscellaneous Information (Remove Patch) 1 ea TRDERM Q72H [facility] Last Admin: 08/13/20 09:16 Dose: 1 ea Documented by: Naloxone HCl (Narcan) 0.4 mg IVPUSH ONETIME ONE Stop: 08/14/20 09:58 Last Admin: 08/14/20 10:11 Dose: 0.4 mg Documented by: Naloxone HCl (Narcan) 0.4 mg IVPUSH ONETIME ONE Stop: 08/14/20 10:31 Last Admin: 08/14/20 10:46 Dose: 0.4 mg Documented by: Rivaroxaban (Xarelto) 15 mg PO DAILY [facility] Last Admin: 08/14/20 09:03 Dose: Not Given Documented by: Vancomycin HCl (Pharmacy To Dose - Vancomycin) 0 dose .XX ASDIRECTED PRN PRN Reason: RX TO DOSE VANCOMYCIN - Exam Physical Findings Comments:: Physical Exam: General: No acute distress, on BiPAP HEENT: Conjunctiva Clear, EOMI, Mucosa Moist & [place] Neck: Supple, Trachea Midline, NO JVD Lungs: Diminished breathing sounds, bibasilar crackles Cardiovascular: Regular Rate, Regular Rhythm GI/Abdominal Exam: Normal Bowel Sounds, Soft, Non-Tender, No Organomegaly, No Distention, No Abnormal Bruit, No Mass Extremities: Bilateral BKA, normal Inspection, Non-Tender Skin: Warm, Dry, Intact Neurology: A+O x 3, no focal neurological deficits Psychiatric: Normal Mood Sepsis Event Note - Evaluation Sepsis Screening Result: No Definite Risk - Focused Exam Vital Signs: Vital Signs Temp Pulse Resp BP BP Pulse Ox Pulse Ox 08/15/20 15:48 36.2 C 98 20 143/83 H 95 08/15/20 15:11 95 08/15/20 13:52 95 02/05/21 12:00 36.1 C 93 125/85 08/15/20 11:32 94 L 08/15/20 09:31 18 141/66 H 90 L 08/15/20 09:30 15 93 L 08/15/20 09:01 19 145/97 H 90 L 08/15/20 09:00 19 89 L 08/15/20 08:30 111 H 21 H 93 L 08/15/20 08:29 155/81 H 08/15/20 08:25 21 H 155/81 H 89 L 08/15/20 08:24 22 H 90 L 08/15/20 08:16 08/15/20 08:01 22 H 155/75 H 93 L 08/15/20 08:00 36.2 C 108 H 21 H 145/97 H 91 L 08/15/20 07:38 23 H 153/70 H 91 L 08/15/20 07:37 21 H 91 L 08/15/20 07:31 20 151/100 H 92 L 08/15/20 07:30 23 H 08/15/20 07:01 22 H 138/62 96 08/15/20 07:00 24 H 88 L 08/15/20 06:31 17 148/70 H 96 08/15/20 06:30 22 H 97 08/15/20 06:01 19 139/69 97 08/15/20 06:00 15 96 08/15/20 05:31 21 H 120/94 H 95 08/15/20 05:30 20 97 08/15/20 05:01 14 143/69 H 95 08/15/20 05:00 21 H 98 08/15/20 04:46 91 L 08/15/20 04:31 16 148/68 H 93 L 08/15/20 04:30 17 93 L 08/15/20 04:01 19 129/64 93 L 08/15/20 04:00 36.1 C 21 H 129/64 92 L Pulse Ox 08/15/20 15:48 08/15/20 15:11 08/15/20 13:52 08/15/20 12:00 08/15/20 11:32 08/15/20 09:31 08/15/20 09:30 08/15/20 09:01 08/15/20 09:00 08/15/20 08:30 08/15/20 08:29 08/15/20 08:25 08/15/20 08:24 08/15/20 08:16 92 L 08/15/20 08:01 08/15/20 08:00 08/15/20 07:38 08/15/20 07:37 08/15/20 07:31 08/15/20 07:30 08/15/20 07:01 08/15/20 07:00 08/15/20 06:31 08/15/20 06:30 08/15/20 06:01 08/15/20 06:00 08/15/20 05:31 08/15/20 05:30 08/15/20 05:01 08/15/20 05:00 08/15/20 04:46 08/15/20 04:31 08/15/20 04:30 08/15/20 04:01 08/15/20 04:00 - Problem List Review Problem List Initiated/Reviewed/Updated: Yes - My Orders Last 24 Hours: My Active Orders 08/15/20 Lunch Regular Diet [DIET] 08/16/20 05:00 CRP [C-REACTIVE PROTEIN] [CHEM] Routine DD [D-DIMER QUANTITATIVE] [COAG] Routine DIGOXIN [CHEM] Routine 08/16/20 05:30 COMPREHENSIVE METABOLIC PN,CMP [CHEM] AM 08/16/20 06:00 BLOOD GAS ARTERIAL [BG] Routine - Plan Plan:: Assessment 80-year-old male with history of COVID-19 teen in March and vaccination last month comes to the emergency department with from his primary care providers office with UTI, sepsis, and reinfection from COVID-19. Severe sepsis UTI * Patient fulfills sepsis criteria * White count 14.2, C-reactive protein of 9.3 * Lactic acid 1.5 * Given Rocephin in the emergency department. * Blood cultures and urine cultures obtained prior to Rocephin * Given 1 L bolus in the emergency department Atrial flutter/SVT Elevated troponin CHF * EKG obtained at clinic showed SVT * Subsequent EKG done on admission showed atrial flutter with 2: 1 AV block. Borderline/minimal ST elevation in lead III. * Troponin 0.452. This is a independent risk factor for poor outcome. With the minimal ST elevation and elevated troponin this could signify a type II MS versus myocardial strain. * Trial of Cardizem drip in ER was stopped because of low blood pressure. * No proBNP done in the emergency department Renal insufficiency stage III * Outpatient records are not available so it makes it difficult to know if this is a change from baseline or if this is his baseline GFR. * Creatinine 1.4, GFR 49, BUN 48 Type 2 diabetesinsulin-dependent * Unknown hemoglobin A1c. * Home insulin: Lantus 56 units every morning, 54 units every afternoon. NovoLog unknown 7 units 3 times daily with meals and sliding scale. COVID-19 reinfection * Initial infection in March 2020 * Vaccination last month * Respiratory status is at baseline * No D-dimer ordered Plan * Admit to ICU * Treat for complicated UTI to include vancomycin and meropenem * Follow blood cultures and urine cultures * 500 mL fluid bolus * Cardizem 5 mg IV x1 then start Cardizem drip as long as blood pressure holds * If he does not convert out of atrial flutter will need to anticoagulate * Continue FiO2 to keep SPO2 above 90%. * Repeat troponin in the morning. This will be a lagging indicator secondary to renal function. * Get proBNP for baseline * Get hemoglobin A1c and TSH * VTE prophylaxis with Lovenox, but will need to switch to full anticoagulation if he does not convert out of atrial flutter. * CODE STATUS: DNR/DNI August 13, 2020 Severe sepsisresolved UTI Atrial flutter/atrial fibrillation with rapid ventricular response CHF Renal insufficiency stage III COVID-19 reinfection Insulin-dependent type 2 diabetes * Patient continues to be tachycardic but his hypotension has resolved. * Continue to increase Cardizem drip until heart rate is less than 90 then switch to oral * Start dexamethasone 6 mg daily * Continue meropenem until sensitivities on urine culture * Stop vancomycin * Creatinine 1.3improved * Hemoglobin A1c 7.6 * Restart small dose of long-acting insulin * Discharge likely in 3 to 4 days. August 14, 2020 COVID-19 reinfection Respiratory failure D-dimer did increase to 2.37 Patient developed respiratory failure with exacerbation of CHF and renal failure overnight. Apparently patient has a CPAP/BiPAP at the detention. That was not continued here last night. Patient also appears to have severe sleep apnea and likely pickwickian syndrome. He had a significant elevation in his CO2 overnight and decrease in mentation. This was followed by an ABG showing severe hypercapnia with a PCO2 greater than 80. Patient was placed on BiPAP and PCO2 decreased to 66. Patient's mentation is improving, but he still not following commands. Acute kidney injury stage II-likely secondary to ATN from sepsis versus prerenal disease from circulating hypovolemia His urine output went to less than 0.5 mL/kg/h for over 12 hours. This placed him at stage II acute kidney injury. Patient was given several fluid boluses over the evening and after then giving him Lasix 40 mg x 2 he had very urine output greater than 100 mL/h. Fortunately his creatinine did not change overnight and his creatinine was 1.3 although his BUN was 43. UTI Sepsis resolved UA growing gram-negative rods, gram-positive cocci, and a separate gram-negative rods Vancomycin was stopped yesterday secondary to initial cultures growing out only gram-negative rods Atrial flutter/atrial fibrillation with rapid ventricular response CHF Elevated troponintroponin decreased to 0.136 Patient has had good response to beta-miriam with calcium channel miriam. Unfortunately we do not have a recent echocardiogram. Patient was switched over to digoxin and a calcium channel miriam. This may be adjusted or have a beta- miriam added to digoxin at a later date. Plan echocardiogram if rate is less than 90 in the morning. Insulin-dependent type 2 diabetes Essentially half of his Lantus was started overnight at 25 units twice daily. Unfortunately, patient is no longer able to take p.o. and will continue to follow his blood sugars 4 times daily. Will stick to sliding scale and hold his long-acting insulin at this time. Plan * Continue BiPAP * Lasix drip to keep urine output greater than 100 mL/h * Repeat ABGs as needed * Hold fentanyl at this time avoid centrally acting sedating agents including gabapentin for now * Follow CBC, CMP, magnesium, Phos, C-reactive protein * Digoxin loading with 500 mcg x 1 then 250 mcg x 2 * Diltiazem drip to keep heart rate less than 90 * Hold metoprolol * Echocardiogram in the morning * Restart vancomycin secondary to gram-positive cocci in urine possible Enterococcus * Continue meropenem * Start Lovenox 1 mg/kg every 12 hours and stop Xarelto * Hold Lantus until taking orally * Follow potassium closely secondary to Lasix drip and digoxin. Will repeat BMP this evening. * Continue remdesivir and dexamethasone. Switch dexamethasone to IV. August 15, 2020 Acute on chronic hypoxic respiratory failure COVID-19 reinfection D-dimer did increase to 2.37 Patient has a CPAP/BiPAP at the detention. That was not continued here last night. Patient also appears to have severe sleep apnea and likely pickwickian syndrome. He had a significant elevation in his CO2 overnight and decrease in mentation. This was followed by an ABG showing severe hypercapnia with a PCO2 greater than 80. Patient was placed on BiPAP and PCO2 decreased to 66. Patient's mentation is improving. He can follow simple commands Acute kidney injury stage II-likely secondary to ATN from sepsis versus prerenal disease from circulating hypovolemia urine output > 5L today, patient developed polyuria. Creatinine 1.1 With discontinue Lasix Monitor I and O UTI Sepsis resolved UA growing gram-negative rods, gram-positive cocci, and a separate gram-negative rods Continue vancomycin and meropenem, pending sensitivities Atrial flutter/atrial fibrillation with rapid ventricular response CHF Elevated troponintroponin decreased to 0.136 Patient has had good response to beta-miriam with calcium channel miriam. Unfortunately we do not have a recent echocardiogram. Patient was switched over to digoxin and a calcium channel miriam. This may be adjusted or have a beta- miriam added to digoxin at a later date. Echocardiogram Insulin-dependent type 2 diabetes Essentially half of his Lantus was started overnight at 25 units twice daily. patient is no longer able to take p.o. check blood glucose 4 times a day. Will stick to sliding scale and hold his long-acting insulin at this time. Plan * Continue BiPAP, trying to wean from all BiPAP * Discontinued Lasix. Monitor I&O * Repeat ABGs as needed * Hold fentanyl at this time avoid centrally acting sedating agents including gabapentin for now * Follow CBC, CMP, magnesium, Phos, C-reactive protein * Digoxin loading with 500 mcg x 1 then 250 mcg x 2. Digoxin level tomorrow morning * Diltiazem drip to keep heart rate less than 90 * Hold metoprolol * vancomycin secondary to gram-positive cocci in urine possible Enterococcus * Continue meropenem * Start Lovenox 1 mg/kg every 12 hours * Hold Lantus until taking orally * Continue remdesivir and IV dexamethasone. Deprivation: Length of stay greater than 96 hours due to multiple comorbidities and slow response to treatment
[2020-08-15] MEDS: Vancomycin 1 GM, Vancomycin 250 MG in Sodium Chloride 0.9% 250 ML IV SCH (17:55)
[2020-08-15] MEDS ORDERED: Furosemide 40 MG/4 ML VIAL IVPUSH SCH (18:00)
[2020-08-15] MEDS ORDERED: Sodium Chloride 0.9% 100 ML ONE (19:59)
[2020-08-15] MEDS: REMDESIVIR 100 MG in Sodium Chloride 0.9% 100 ML IV SCH (20:06)
[2020-08-16] MEDS: Meropenem Premix 500 MG in Premix Bag 1 BAG IV SCH ×3 (02:04→17:12)
[2020-08-16] MEDS: Diltiazem 100 MG in Sodium Chloride 0.9% 100 ML IV SCH ×3 (02:27→16:28)
[2020-08-16] MEDS: Digoxin 250 MCG Tab PO SCH (08:01)
[2020-08-16] MEDS: Gabapentin 300 MG Cap PO SCH ×3 (08:01→21:03)
[2020-08-16] MEDS: Formoterol/Mometasone 200-5 MCG 8.8 GM Inhaler IH SCH ×2 (08:03→20:33)
[2020-08-16] MEDS: Sertraline 50 MG Tab PO SCH (08:04)
[2020-08-16] MEDS: Losartan 50 MG Tab PO SCH (08:04)
[2020-08-16] MEDS: Dexamethasone 4 MG Tab PO SCH (08:05)
[2020-08-16] MEDS: Cholecalciferol (Vitamin D3) 5,000 UNIT Cap PO SCH (08:06)
[2020-08-16] MEDS: Insulin Glarg,Human.Rec.Analog 100 Unit/ML SUBCUT SCH ×2 (08:07→21:00)
[2020-08-16] MEDS: Enoxaparin 120 MG/0.8 ML Syringe SUBCUT SCH ×2 (08:07→21:38)
[2020-08-16] MEDS ORDERED: hydrALAZINE 20 MG/ML SDV IVPUSH PRN (09:49)
[2020-08-16] MEDS: Metoprolol Tartrate 25 MG Tab PO SCH ×2 (10:06→21:03)
--- NOTE | 2020-08-16 10:30 | CR ---
Chest: Portable view of the chest was obtained. Comparison: Prior chest x-ray obtained during 08/14/20. Lungs are improved from prior exam. Slight thickening of the right minor fissure is seen possibly due to small residual pleural effusion. Heart is enlarged. Left jugular line is seen with tip lying within the right atria. Bony structures are grossly intact. Impression: 1. Improved appearance of the lungs with slight persisting pleural effusion within the right minor fissure. 2. Stable cardiomegaly. Stable left jugular line. Diagnostic code #2
--- NOTE | 2020-08-16 15:17 | PCM.PN ---
- General Info Date of Service: 08/16/20 Admission Dx/Problem (Free Text): Admission Diagnosis/Problem Admission Diagnosis/Problem Sepsis Subjective Update: Generally speaking, patient condition is improving. When I saw this patient this morning, he was on BiPAP with setting 16/7/FiO2 30% with good oxygen saturation. Patient alert and awake. he can answer questions. He does not have any new complaints. Patient is BiPAP dependent. He will be desaturated without BiPAP for minutes. He cannot complete his meals. But I do not think we should not try TPN or PEG tube feeding at this moment. Encourage the patient to complete his meal with short interval without mask on but x multiple times His urine output > 4 L today so far Blood pressure is fine, discontinued losartan and initiate the metoprolol 12.5 mg twice daily to control heart rate ABG showed PCO2 43.9, PO2 68 WBC 15.32, CRP 6.0, D-dimer 1.77 Sodium 143 Digoxin 1.6 - Review of Systems Systems Review Comment:: Positive for shortness of breath. All other systems were reviewed and are negative. - Patient Data Vitals - Most Recent: Last Vital Signs Temp 36.3 C 08/16/20 12:00 Pulse 85 08/16/20 15:00 Resp 18 08/16/20 12:00 BP 105/57 L 08/16/20 15:00 Pulse Ox 94 L 08/16/20 13:09 Weight - Most Recent: 118.025 kg I&O - Last 24 Hours: Intake & Output 08/16/20 08/16/20 08/16/20 06:59 14:59 22:59 Intake Total 560 120 Output Total 920 735 Balance -360 -615 Lab Results Last 24 Hours: Laboratory Results - last 24 hr 08/15/20 08/15/20 08/16/20 Range/Units 17:35 21:30 04:33 WBC (4.23-9.07) K/mm3 RBC (4.63-6.08) M/mm3 Hgb (13.7-17.5) gm/dl Hct (40.1-51.0) % MCV (79.0-92.2) fl MCH (25.7-32.2) pg MCHC (32.2-35.5) g/dl RDW Std Deviation (35.1-43.9) fL Plt Count (163-337) K/mm3 MPV (9.4-12.3) fl Neut % (Auto) (34.0-67.9) % Lymph % (Auto) (21.8-53.1) % Bee % (Auto) (5.3-12.2) % Eos % (Auto) (0.8-7.0) Baso % (Auto) (0.1-1.2) % Neut # (Auto) (1.78-5.38) K/mm3 Lymph # (Auto) (1.32-3.57) K/mm3 Bee # (Auto) (0.30-0.82) K/mm3 Eos # (Auto) (0.04-0.54) K/mm3 Baso # (Auto) (0.01-0.08) K/mm3 Manual Slide Review D-Dimer, Quantitative (0.19-0.50) mg/L Puncture Site ABG pH (7.35-7.45) ABG pCO2 (35.0-45.0) mmHg ABG pO2 (80.0-100.0) mmHg ABG HCO3 (22.0-26.0) meq/L ABG O2 Saturation (96.0-97.0) % ABG Base Excess (-2-2.0) Abdullahi Test A-a Gradient mmHg O2 Delivery Device FiO2 (21.00-100.00) % Blood Gas Comments Sodium (136-145) mEq/L Potassium (3.5-5.1) mEq/L Chloride (98-107) mEq/L Carbon Dioxide (21-32) mEq/L Anion Gap (5-15) BUN (7-18) mg/dL Creatinine (0.7-1.3) mg/dL Est Cr Clr Drug Dosing mL/min Estimated GFR (MDRD) (>60) mL/min BUN/Creatinine Ratio (14-18) Glucose (83-115) mg/dL POC Glucose 190 H 286 H (83-110) mg/dL Calcium (8.5-10.1) mg/dL Total Bilirubin (0.2-1.0) mg/dL AST (15-37) U/L ALT (16-63) U/L Alkaline Phosphatase (46-116) U/L C-Reactive Protein 6.0 H* (<1.0) mg/dL Total Protein (6.4-8.2) g/dl Albumin (3.4-5.0) g/dl Globulin gm/dL Albumin/Globulin Ratio (1-2) Digoxin 1.6 (0.9-2.0) ng/mL 08/16/20 08/16/20 08/16/20 Range/Units 04:33 04:33 04:33 WBC 15.32 H (4.23-9.07) K/mm3 RBC 5.21 (4.63-6.08) M/mm3 Hgb 14.1 (13.7-17.5) gm/dl Hct 46.4 (40.1-51.0) % MCV 89.1 (79.0-92.2) fl MCH 27.1 (25.7-32.2) pg MCHC 30.4 L (32.2-35.5) g/dl RDW Std Deviation 50.2 H (35.1-43.9) fL Plt Count 269 (163-337) K/mm3 MPV 9.7 (9.4-12.3) fl Neut % (Auto) 82.4 H (34.0-67.9) % Lymph % (Auto) 5.9 L (21.8-53.1) % Bee % (Auto) 11.0 (5.3-12.2) % Eos % (Auto) 0 L (0.8-7.0) Baso % (Auto) 0.0 L (0.1-1.2) % Neut # (Auto) 12.63 H (1.78-5.38) K/mm3 Lymph # (Auto) 0.91 L (1.32-3.57) K/mm3 Bee # (Auto) 1.68 H (0.30-0.82) K/mm3 Eos # (Auto) 0.00 L (0.04-0.54) K/mm3 Baso # (Auto) 0.00 L (0.01-0.08) K/mm3 Manual Slide Review Abnormal smear D-Dimer, Quantitative 1.77 H (0.19-0.50) mg/L Puncture Site ABG pH (7.35-7.45) ABG pCO2 (35.0-45.0) mmHg ABG pO2 (80.0-100.0) mmHg ABG HCO3 (22.0-26.0) meq/L ABG O2 Saturation (96.0-97.0) % ABG Base Excess (-2-2.0) Abdullahi Test A-a Gradient mmHg O2 Delivery Device FiO2 (21.00-100.00) % Blood Gas Comments Sodium 143 (136-145) mEq/L Potassium 3.7 (3.5-5.1) mEq/L Chloride 100 (98-107) mEq/L Carbon Dioxide 37 H (21-32) mEq/L Anion Gap 9.7 (5-15) BUN 43 H (7-18) mg/dL Creatinine 1.1 (0.7-1.3) mg/dL Est Cr Clr Drug Dosing 37.25 mL/min Estimated GFR (MDRD) > 60 (>60) mL/min BUN/Creatinine Ratio 39.1 H (14-18) Glucose 152 H (83-115) mg/dL POC Glucose (83-110) mg/dL Calcium 8.6 (8.5-10.1) mg/dL Total Bilirubin 0.7 (0.2-1.0) mg/dL AST 30 (15-37) U/L ALT 37 (16-63) U/L Alkaline Phosphatase 73 (46-116) U/L C-Reactive Protein (<1.0) mg/dL Total Protein 6.8 (6.4-8.2) g/dl Albumin 2.6 L (3.4-5.0) g/dl Globulin 4.2 gm/dL Albumin/Globulin Ratio 0.6 L (1-2) Digoxin (0.9-2.0) ng/mL 08/16/20 08/16/20 08/16/20 Range/Units 05:55 06:07 07:49 WBC (4.23-9.07) K/mm3 RBC (4.63-6.08) M/mm3 Hgb (13.7-17.5) gm/dl Hct (40.1-51.0) % MCV (79.0-92.2) fl MCH (25.7-32.2) pg MCHC (32.2-35.5) g/dl RDW Std Deviation (35.1-43.9) fL Plt Count (163-337) K/mm3 MPV (9.4-12.3) fl Neut % (Auto) (34.0-67.9) % Lymph % (Auto) (21.8-53.1) % Bee % (Auto) (5.3-12.2) % Eos % (Auto) (0.8-7.0) Baso % (Auto) (0.1-1.2) % Neut # (Auto) (1.78-5.38) K/mm3 Lymph # (Auto) (1.32-3.57) K/mm3 Bee # (Auto) (0.30-0.82) K/mm3 Eos # (Auto) (0.04-0.54) K/mm3 Baso # (Auto) (0.01-0.08) K/mm3 Manual Slide Review D-Dimer, Quantitative (0.19-0.50) mg/L Puncture Site Rt radial ABG pH 7.53 H (7.35-7.45) ABG pCO2 43.9 (35.0-45.0) mmHg ABG pO2 68.0 L (80.0-100.0) mmHg ABG HCO3 36.6 H (22.0-26.0) meq/L ABG O2 Saturation 93.5 L (96.0-97.0) % ABG Base Excess 12.3 H (-2-2.0) Abdullahi Test Positive A-a Gradient 91 mmHg O2 Delivery Device Bipap FiO2 30.00 (21.00-100.00) % Blood Gas Comments Bipap 16/7 Sodium (136-145) mEq/L Potassium (3.5-5.1) mEq/L Chloride (98-107) mEq/L Carbon Dioxide (21-32) mEq/L Anion Gap (5-15) BUN (7-18) mg/dL Creatinine (0.7-1.3) mg/dL Est Cr Clr Drug Dosing mL/min Estimated GFR (MDRD) (>60) mL/min BUN/Creatinine Ratio (14-18) Glucose (83-115) mg/dL POC Glucose 148 H 143 H (83-110) mg/dL Calcium (8.5-10.1) mg/dL Total Bilirubin (0.2-1.0) mg/dL AST (15-37) U/L ALT (16-63) U/L Alkaline Phosphatase (46-116) U/L C-Reactive Protein (<1.0) mg/dL Total Protein (6.4-8.2) g/dl Albumin (3.4-5.0) g/dl Globulin gm/dL Albumin/Globulin Ratio (1-2) Digoxin (0.9-2.0) ng/mL 08/16/20 Range/Units 11:07 WBC (4.23-9.07) K/mm3 RBC (4.63-6.08) M/mm3 Hgb (13.7-17.5) gm/dl Hct (40.1-51.0) % MCV (79.0-92.2) fl MCH (25.7-32.2) pg MCHC (32.2-35.5) g/dl RDW Std Deviation (35.1-43.9) fL Plt Count (163-337) K/mm3 MPV (9.4-12.3) fl Neut % (Auto) (34.0-67.9) % Lymph % (Auto) (21.8-53.1) % Bee % (Auto) (5.3-12.2) % Eos % (Auto) (0.8-7.0) Baso % (Auto) (0.1-1.2) % Neut # (Auto) (1.78-5.38) K/mm3 Lymph # (Auto) (1.32-3.57) K/mm3 Bee # (Auto) (0.30-0.82) K/mm3 Eos # (Auto) (0.04-0.54) K/mm3 Baso # (Auto) (0.01-0.08) K/mm3 Manual Slide Review D-Dimer, Quantitative (0.19-0.50) mg/L Puncture Site ABG pH (7.35-7.45) ABG pCO2 (35.0-45.0) mmHg ABG pO2 (80.0-100.0) mmHg ABG HCO3 (22.0-26.0) meq/L ABG O2 Saturation (96.0-97.0) % ABG Base Excess (-2-2.0) Abdullahi Test A-a Gradient mmHg O2 Delivery Device FiO2 (21.00-100.00) % Blood Gas Comments Sodium (136-145) mEq/L Potassium (3.5-5.1) mEq/L Chloride (98-107) mEq/L Carbon Dioxide (21-32) mEq/L Anion Gap (5-15) BUN (7-18) mg/dL Creatinine (0.7-1.3) mg/dL Est Cr Clr Drug Dosing mL/min Estimated GFR (MDRD) (>60) mL/min BUN/Creatinine Ratio (14-18) Glucose (83-115) mg/dL POC Glucose 162 H (83-110) mg/dL Calcium (8.5-10.1) mg/dL Total Bilirubin (0.2-1.0) mg/dL AST (15-37) U/L ALT (16-63) U/L Alkaline Phosphatase (46-116) U/L C-Reactive Protein (<1.0) mg/dL Total Protein (6.4-8.2) g/dl Albumin (3.4-5.0) g/dl Globulin gm/dL Albumin/Globulin Ratio (1-2) Digoxin (0.9-2.0) ng/mL Karlos Results Last 24 Hours: Microbiology 08/12/20 10:15 Aerobic Blood Culture - Preliminary Blood - Venous - Lab Draw NO GROWTH AFTER 4 DAYS Anaerobic Blood Culture - Preliminary NO GROWTH AFTER 4 DAYS 08/12/20 10:00 Aerobic Blood Culture - Preliminary Blood - Venous NO GROWTH AFTER 4 DAYS Anaerobic Blood Culture - Preliminary NO GROWTH AFTER 4 DAYS 08/12/20 10:05 Urine Culture - Preliminary Urine, Catheterized Escherichia Coli Enterococcus Faecalis A Baumannii/Haemolyticus Med Orders - Current: Current Medications Acetaminophen (Tylenol) 650 mg PO Q4H PRN PRN Reason: Pain (Mild 1-3)/fever Albuterol (Proventil Hfa) 0 gm INH QID PRN PRN Reason: Wheezing Bisacodyl (Dulcolax) 10 mg RECTAL DAILY PRN PRN Reason: Constipation Cholecalciferol (Vitamin D3) 5,000 unit PO DAILY [facility] Last Admin: 08/16/20 08:06 Dose: 5,000 unit Documented by: Dexamethasone (Dexamethasone) 6 mg PO DAILY [facility] Stop: 08/21/20 09:01 Last Admin: 08/16/20 08:05 Dose: 6 mg Documented by: Digoxin (Lanoxin) 250 mcg PO DAILY [facility] Last Admin: 08/16/20 08:01 Dose: 250 mcg Documented by: Enoxaparin Sodium (Lovenox) 120 mg SUBCUT Q12H [facility] Last Admin: 08/16/20 08:07 Dose: 120 mg Documented by: Gabapentin (Neurontin) 900 mg PO TID [facility] Last Admin: 08/16/20 14:03 Dose: 900 mg Documented by: Hydralazine HCl (Apresoline) 10 mg IVPUSH Q4H PRN PRN Reason: Hypertension Diltiazem HCl 100 mg/ Sodium (Chloride) 100 mls @ 5 mls/hr IV TITRATE [facility]; Protocol Last Titration: 08/16/20 14:08 Dose: 10 mg/hr, 10 mls/hr Documented by: Meropenem/Sodium Chloride 500 (mg/ Premix) 50 mls @ 100 mls/hr IV Q8H [facility] Last Admin: 08/16/20 09:23 Dose: 100 mls/hr Documented by: Remdesivir 100 mg/ Sodium (Chloride) 100 mls @ 100 mls/hr IV Q24H [facility] Stop: 08/17/20 20:59 Last Admin: 08/15/20 20:06 Dose: 100 mls/hr Documented by: Insulin Glargine (Lantus) 25 unit SUBCUT BID [facility] Last Admin: 08/16/20 08:07 Dose: 25 units Documented by: Insulin Human Lispro (Humalog) 0 unit SUBCUT QIDACANDBED [facility]; Protocol Last Admin: 08/16/20 11:16 Dose: 2 units Documented by: Levalbuterol HCl (Xopenex) 1.25 mg NEB Q2H PRN PRN Reason: Wheezing Last Admin: 08/14/20 21:02 Dose: 1.25 mg Documented by: Levothyroxine Sodium (Levothyroxine) 200 mcg PO ACBREAKFAST [facility] Last Admin: 08/16/20 05:59 Dose: 200 mcg Documented by: Metoprolol Tartrate (Lopressor) 12.5 mg PO Q12H [facility] Last Admin: 08/16/20 10:06 Dose: 12.5 mg Documented by: Mometasone Furoate/Formoterol Fumar (Dulera 200-5 Mcg) 2 puff IH BID [facility] Last Admin: 08/16/20 08:03 Dose: 2 dose Documented by: Ondansetron HCl (Zofran) 4 mg IV Q4H PRN PRN Reason: Nausea/Vomiting Oxycodone HCl (Oxycodone) 5 mg PO Q4H PRN PRN Reason: Pain (moderate 4-6) Senna/Docusate Sodium (Senna Plus) 3 tab PO BID [facility] Last Admin: 08/16/20 08:02 Dose: 3 tab Documented by: Sertraline HCl (Zoloft) 50 mg PO DAILY [facility] Last Admin: 08/16/20 08:04 Dose: 50 mg Documented by: Sodium Chloride (Saline Flush) 10 ml FLUSH ASDIRECTED PRN PRN Reason: Keep Vein Open Last Admin: 08/12/20 10:42 Dose: 10 ml Documented by: Discontinued Medications Dexamethasone (Decadron) 6 mg IV ONETIME ONE Stop: 08/14/20 09:49 Last Admin: 08/14/20 10:11 Dose: 6 mg Documented by: Digoxin (Lanoxin) 500 mcg IVPUSH ONETIME ONE Stop: 08/14/20 12:31 Last Admin: 08/14/20 12:40 Dose: 500 mcg Documented by: Digoxin (Lanoxin) 250 mcg IVPUSH Q6H [facility] Stop: 08/15/20 01:01 Last Admin: 08/14/20 20:28 Dose: 250 mcg Documented by: Digoxin (Lanoxin) 250 mcg IVPUSH ONETIME ONE Stop: 08/15/20 02:31 Last Admin: 08/15/20 02:34 Dose: 250 mcg Documented by: Diltiazem HCl (Cardizem) 10 mg IVPUSH ONETIME ONE Stop: 08/12/20 09:58 Last Admin: 08/12/20 10:40 Dose: 10 mg Documented by: Diltiazem HCl (Cardizem) 5 mg IVPUSH ONETIME ONE Stop: 08/12/20 14:00 Last Admin: 08/12/20 14:48 Dose: 5 mg Documented by: Enoxaparin Sodium (Lovenox) 40 mg SUBCUT DAILY [facility] Last Admin: 08/13/20 08:29 Dose: 40 mg Documented by: Enoxaparin Sodium (Lovenox) 120 mg SUBCUT Q12H [facility] Last Admin: 08/15/20 13:13 Dose: 120 mg Documented by: Fentanyl (Duragesic) 25 mcg TOP Q72H [facility] Last Admin: 08/13/20 09:16 Dose: 25 mcg Documented by: Furosemide (Lasix) 40 mg IVPUSH DAILY [facility] Furosemide (Lasix) 60 mg IVPUSH NOW ONE Stop: 08/13/20 17:53 Last Admin: 08/13/20 18:09 Dose: 60 mg Documented by: Furosemide (Lasix) 40 mg IVPUSH NOW ONE Stop: 08/14/20 08:12 Last Admin: 08/14/20 08:35 Dose: 40 mg Documented by: Furosemide (Lasix) 40 mg IVPUSH NOW ONE Stop: 08/14/20 12:31 Last Admin: 08/14/20 12:48 Dose: 40 mg Documented by: Furosemide (Lasix) 40 mg IVPUSH Q12H [facility] Sodium Chloride (Normal Saline) 1,000 mls @ 125 mls/hr IV ASDIRECTED [facility] Sodium Chloride (Normal Saline) 1,000 mls @ 1,000 mls/hr IV ONETIME ONE Stop: 08/12/20 10:51 Last Admin: 08/12/20 10:39 Dose: 1,000 mls/hr Documented by: Ceftriaxone Sodium 2 gm/ (Sodium Chloride) 100 mls @ 200 mls/hr IV ONETIME ONE Stop: 08/12/20 11:38 Last Admin: 08/12/20 11:50 Dose: 200 mls/hr Documented by: Lactated Ringer's (Ringers, Lactated) 500 mls @ 999 mls/hr IV .BOLUS ONE Stop: 08/12/20 14:28 Last Admin: 08/12/20 14:16 Dose: 999 mls/hr Documented by: Lactated Ringer's (Ringers, Lactated) 1,000 mls @ 100 mls/hr IV ASDIRECTED [facility] Last Admin: 08/13/20 21:46 Dose: 100 mls/hr Documented by: Diltiazem HCl 100 mg/ Sodium (Chloride) 100 mls @ 5 mls/hr IV TITRATE [facility]; Protocol Meropenem/Sodium Chloride 500 (mg/ Premix) 50 mls @ 100 mls/hr IV Q6H [facility] Last Admin: 08/13/20 10:09 Dose: 100 mls/hr Documented by: Vancomycin HCl 1 gm/Vancomycin HCl 500 mg/ Sodium Chloride 500 mls @ 250 mls/hr IV ONETIME ONE Stop: 08/12/20 19:59 Last Admin: 08/12/20 18:37 Dose: 250 mls/hr Documented by: Vancomycin HCl 1 gm/Vancomycin HCl 250 mg/ Sodium Chloride 250 mls @ 166 mls/hr IV Q12H [facility] Last Admin: 08/13/20 05:17 Dose: 166 mls/hr Documented by: Lactated Ringer's (Ringers, Lactated) 500 mls @ 500 mls/hr IV .BOLUS ONE Stop: 08/12/20 21:05 Last Admin: 08/12/20 21:11 Dose: 500 mls/hr Documented by: Vancomycin HCl 1 gm/Vancomycin HCl 250 mg/ Sodium Chloride 250 mls @ 166.667 mls/hr IV Q18H [facility] Remdesivir 200 mg/ Sodium (Chloride) 250 mls @ 250 mls/hr IV ONETIME ONE Stop: 08/13/20 19:49 Last Admin: 08/13/20 20:14 Dose: 250 mls/hr Documented by: Lactated Ringer's (Ringers, Lactated) 250 mls @ 999 mls/hr IV ONETIME ONE Stop: 08/13/20 22:15 Last Admin: 08/13/20 21:59 Dose: 999 mls/hr Documented by: Lactated Ringer's (Ringers, Lactated) 250 mls @ 999 mls/hr IV ONETIME ONE Stop: 08/14/20 00:18 Last Admin: 08/14/20 00:36 Dose: 999 mls/hr Documented by: Metoprolol Tartrate 5 mg/ (Sodium Chloride) 55 mls @ 100 mls/hr IV Q4H PRN PRN Reason: Tachycardia Furosemide 100 mg/ Sodium (Chloride) 100 mls @ 10 mls/hr IV TITRATE [facility]; Protocol Stop: 08/15/20 12:00 Last Titration: 08/15/20 11:16 Dose: 0 mg/hr, 0 mls/hr Documented by: Vancomycin HCl 1 gm/Vancomycin HCl 250 mg/ Sodium Chloride 250 mls @ 166.667 mls/hr IV Q24H [facility] Last Admin: 08/15/20 17:55 Dose: 166.667 mls/hr Documented by: Sodium Chloride (Normal Saline) Confirm Administered Dose 100 mls @ as directed .ROUTE .STK-MED ONE Stop: 08/15/20 20:00 Last Admin: 08/15/20 20:12 Dose: Not Given Documented by: Insulin Glargine (Lantus) 56 unit SUBCUT DAILY [facility] Losartan Potassium (Cozaar) 50 mg PO DAILY [facility] Last Admin: 08/16/20 08:04 Dose: 50 mg Documented by: Meropenem (Merrem) 1 gm IVPUSH Q8H [facility] Last Admin: 08/12/20 20:32 Dose: Not Given Documented by: Metoprolol Tartrate (Lopressor) 25 mg PO ONETIME ONE Stop: 08/13/20 17:31 Last Admin: 08/13/20 17:32 Dose: 25 mg Documented by: Metoprolol Tartrate (Lopressor) 50 mg PO Q12H [facility] Last Admin: 08/14/20 09:03 Dose: Not Given Documented by: Metoprolol Tartrate (Lopressor) 25 mg PO ONETIME ONE Stop: 08/13/20 22:01 Last Admin: 08/13/20 22:05 Dose: 25 mg Documented by: Metoprolol Tartrate (Lopressor) 5 mg IVPUSH Q4H PRN PRN Reason: Tachycardia Last Admin: 08/14/20 11:52 Dose: 5 mg Documented by: Miscellaneous Information (Remove Patch) 1 ea TRDERM Q72H [facility] Last Admin: 08/13/20 09:16 Dose: 1 ea Documented by: Naloxone HCl (Narcan) 0.4 mg IVPUSH ONETIME ONE Stop: 08/14/20 09:58 Last Admin: 08/14/20 10:11 Dose: 0.4 mg Documented by: Naloxone HCl (Narcan) 0.4 mg IVPUSH ONETIME ONE Stop: 08/14/20 10:31 Last Admin: 08/14/20 10:46 Dose: 0.4 mg Documented by: Rivaroxaban (Xarelto) 15 mg PO DAILY [facility] Last Admin: 08/14/20 09:03 Dose: Not Given Documented by: Vancomycin HCl (Pharmacy To Dose - Vancomycin) 0 dose .XX ASDIRECTED PRN PRN Reason: RX TO DOSE VANCOMYCIN Vancomycin HCl (Pharmacy To Dose - Vancomycin) 1 dose .XX ASDIRECTED PRN PRN Reason: RX TO DOSE VANCO - Exam Physical Findings Comments:: General: No acute distress, on BiPAP HEENT: Conjunctiva Clear, EOMI, Mucosa Moist & [place] Neck: Supple, Trachea Midline, NO JVD Lungs: Diminished breathing sounds, bibasilar crackles Cardiovascular: Regular Rate, Regular Rhythm GI/Abdominal Exam: Normal Bowel Sounds, Soft, Non-Tender, No Organomegaly, No Distention, No Abnormal Bruit, No Mass Extremities: Bilateral BKA, normal Inspection, Non-Tender Skin: Warm, Dry, Intact Neurology: A+O x 3, no focal neurological deficits Psychiatric: Normal Mood Sepsis Event Note - Evaluation Sepsis Screening Result: No Definite Risk - Focused Exam Vital Signs: Vital Signs Temp Pulse Resp BP BP Pulse Ox Pulse Ox 08/16/20 15:00 85 105/57 L 08/16/20 14:00 75 111/64 08/16/20 13:09 94 L 08/16/20 13:00 78 118/60 08/16/20 12:00 36.3 C 75 18 120/53 L 96 08/16/20 11:00 75 128/78 08/16/20 10:06 132 H 169/133 H 08/16/20 10:00 149 H 169/133 H 08/16/20 09:00 36.1 C 110 H 20 142/115 H 94 L 08/16/20 08:12 93 L 08/16/20 08:04 145/103 H 08/16/20 08:01 120 H 08/16/20 07:52 36.5 C 107 H 20 145/103 H 95 08/16/20 07:22 95 08/16/20 07:12 116 H 08/16/20 07:00 122 H 166/80 H 08/16/20 06:30 96 17 149/91 H 93 L 08/16/20 06:29 13 94 L 08/16/20 06:01 18 138/56 L 93 L 08/16/20 06:00 99 17 94 L 08/16/20 05:31 19 123/58 L 95 08/16/20 05:30 21 H 94 L 08/16/20 05:01 18 133/56 L 94 L 08/16/20 05:00 15 95 08/16/20 04:31 21 H 132/65 95 08/16/20 04:30 16 95 08/16/20 04:01 16 136/58 L 95 08/16/20 04:00 36.2 C 18 132/65 94 L 08/16/20 03:31 17 125/73 95 08/16/20 03:30 15 95 - Problem List Review Problem List Initiated/Reviewed/Updated: Yes - My Orders Last 24 Hours: My Active Orders 08/16/20 08:50 CULTURE CATHETER TIP [RM] Routine 08/16/20 09:49 hydrALAZINE [Apresoline] 10 mg IVPUSH Q4H PRN 08/16/20 09:53 Urinary Catheter Assessment [RC] Q4HR 08/16/20 10:00 Insert [place] Catheter [Insert Urinary Catheter] [OM.PC] Q24H Metoprolol Tartrate [Lopressor] 12.5 mg PO Q12H 08/17/20 05:00 CBC WITH AUTO DIFF [HEME] DAILY CMP [COMPREHENSIVE METABOLIC PN,CMP] [CHEM] DAILY CRP [C-REACTIVE PROTEIN] [CHEM] DAILY 08/18/20 05:00 CBC WITH AUTO DIFF [HEME] DAILY CBC WITH AUTO DIFF [HEME] DAILY CMP [COMPREHENSIVE METABOLIC PN,CMP] [CHEM] DAILY CMP [COMPREHENSIVE METABOLIC PN,CMP] [CHEM] DAILY CRP [C-REACTIVE PROTEIN] [CHEM] DAILY CRP [C-REACTIVE PROTEIN] [CHEM] DAILY D-DIMER QUANTITATIVE [COAG] DAILY 08/19/20 05:00 CBC WITH AUTO DIFF [HEME] DAILY CBC WITH AUTO DIFF [HEME] DAILY CMP [COMPREHENSIVE METABOLIC PN,CMP] [CHEM] DAILY CMP [COMPREHENSIVE METABOLIC PN,CMP] [CHEM] DAILY CRP [C-REACTIVE PROTEIN] [CHEM] DAILY CRP [C-REACTIVE PROTEIN] [CHEM] DAILY D-DIMER QUANTITATIVE [COAG] DAILY 08/20/20 05:00 CBC WITH AUTO DIFF [HEME] DAILY CBC WITH AUTO DIFF [HEME] DAILY CMP [COMPREHENSIVE METABOLIC PN,CMP] [CHEM] DAILY CMP [COMPREHENSIVE METABOLIC PN,CMP] [CHEM] DAILY CRP [C-REACTIVE PROTEIN] [CHEM] DAILY CRP [C-REACTIVE PROTEIN] [CHEM] DAILY D-DIMER QUANTITATIVE [COAG] DAILY 08/21/20 05:00 CBC WITH AUTO DIFF [HEME] DAILY CMP [COMPREHENSIVE METABOLIC PN,CMP] [CHEM] DAILY CRP [C-REACTIVE PROTEIN] [CHEM] DAILY - Plan Plan:: Assessment 80-year-old male with history of COVID-19 teen in March and vaccination last month comes to the emergency department with from his primary care providers office with UTI, sepsis, and reinfection from COVID-19. Severe sepsis UTI * Patient fulfills sepsis criteria * White count 14.2, C-reactive protein of 9.3 * Lactic acid 1.5 * Given Rocephin in the emergency department. * Blood cultures and urine cultures obtained prior to Rocephin * Given 1 L bolus in the emergency department Atrial flutter/SVT Elevated troponin CHF * EKG obtained at clinic showed SVT * Subsequent EKG done on admission showed atrial flutter with 2: 1 AV block. Borderline/minimal ST elevation in lead III. * Troponin 0.452. This is a independent risk factor for poor outcome. With the minimal ST elevation and elevated troponin this could signify a type II DC versus myocardial strain. * Trial of Cardizem drip in ER was stopped because of low blood pressure. * No proBNP done in the emergency department Renal insufficiency stage III * Outpatient records are not available so it makes it difficult to know if this is a change from baseline or if this is his baseline GFR. * Creatinine 1.4, GFR 49, BUN 48 Type 2 diabetesinsulin-dependent * Unknown hemoglobin A1c. * Home insulin: Lantus 56 units every morning, 54 units every afternoon. NovoLog unknown 7 units 3 times daily with meals and sliding scale. COVID-19 reinfection * Initial infection in March 2020 * Vaccination last month * Respiratory status is at baseline * No D-dimer ordered Plan * Admit to ICU * Treat for complicated UTI to include vancomycin and meropenem * Follow blood cultures and urine cultures * 500 mL fluid bolus * Cardizem 5 mg IV x1 then start Cardizem drip as long as blood pressure holds * If he does not convert out of atrial flutter will need to anticoagulate * Continue FiO2 to keep SPO2 above 90%. * Repeat troponin in the morning. This will be a lagging indicator secondary to renal function. * Get proBNP for baseline * Get hemoglobin A1c and TSH * VTE prophylaxis with Lovenox, but will need to switch to full anticoagulation if he does not convert out of atrial flutter. * CODE STATUS: DNR/DNI August 13, 2020 Severe sepsisresolved UTI Atrial flutter/atrial fibrillation with rapid ventricular response CHF Renal insufficiency stage III COVID-19 reinfection Insulin-dependent type 2 diabetes * Patient continues to be tachycardic but his hypotension has resolved. * Continue to increase Cardizem drip until heart rate is less than 90 then switch to oral * Start dexamethasone 6 mg daily * Continue meropenem until sensitivities on urine culture * Stop vancomycin * Creatinine 1.3improved * Hemoglobin A1c 7.6 * Restart small dose of long-acting insulin * Discharge likely in 3 to 4 days. August 14, 2020 COVID-19 reinfection Respiratory failure D-dimer did increase to 2.37 Patient developed respiratory failure with exacerbation of CHF and renal failure overnight. [facility] That was not continued here last night. Patient also appears to have severe sleep apnea and likely pickwickian syndrome. He had a significant elevation in his CO2 overnight and decrease in mentation. This was followed by an ABG showing severe hypercapnia with a PCO2 greater than 80. Patient was placed on BiPAP and PCO2 decreased to 66. Patient's mentation is improving, but he still not following commands. Acute kidney injury stage II-likely secondary to ATN from sepsis versus prerenal disease from circulating hypovolemia His urine output went to less than 0.5 mL/kg/h for over 12 hours. This placed him at stage II acute kidney injury. Patient was given several fluid boluses over the evening and after then giving him Lasix 40 mg x 2 he had very urine output greater than 100 mL/h. Fortunately his creatinine did not change overn ight and his creatinine was 1.3 although his BUN was 43. UTI Sepsis resolved UA growing gram-negative rods, gram-positive cocci, and a separate gram-negative rods Vancomycin was stopped yesterday secondary to initial cultures growing out only gram-negative rods Atrial flutter/atrial fibrillation with rapid ventricular response CHF Elevated troponintroponin decreased to 0.136 Patient has had good response to beta-miriam with calcium channel miriam. Unfortunately we do not have a recent echocardiogram. Patient was switched over to digoxin and a calcium channel miriam. This may be adjusted or have a beta- miriam added to digoxin at a later date. Plan echocardiogram if rate is less than 90 in the morning. Insulin-dependent type 2 diabetes Essentially half of his Lantus was started overnight at 25 units twice daily. Unfortunately, patient is no longer able to take p.o. and will continue to follow his blood sugars 4 times daily. Will stick to sliding scale and hold his long-acting insulin at this time. Plan * Continue BiPAP * Lasix drip to keep urine output greater than 100 mL/h * Repeat ABGs as needed * Hold fentanyl at this time avoid centrally acting sedating agents including gabapentin for now * Follow CBC, CMP, magnesium, Phos, C-reactive protein * Digoxin loading with 500 mcg x 1 then 250 mcg x 2 * Diltiazem drip to keep heart rate less than 90 * Hold metoprolol * Echocardiogram in the morning * Restart vancomycin secondary to gram-positive cocci in urine possible Enteroco ccus * Continue meropenem * Start Lovenox 1 mg/kg every 12 hours and stop Xarelto * Hold Lantus until taking orally * Follow potassium closely secondary to Lasix drip and digoxin. Will repeat BMP this evening. * Continue remdesivir and dexamethasone. Switch dexamethasone to IV. August 15, 2020 Acute on chronic hypoxic respiratory failure COVID-19 reinfection D-dimer did increase to 2.37 Patient [facility] That was not continued here last night. Patient also appears to have severe sleep apnea and likely pickwickian syndrome. He had a significant elevation in his CO2 overnight and decrease in mentation. This was followed by an ABG showing severe hypercapnia with a PCO2 greater than 80. Patient was placed on BiPAP and PCO2 decreased to 66. Patient's mentation is improving. He can follow simple commands Acute kidney injury stage II-likely secondary to ATN from sepsis versus prerenal disease from circulating hypovolemia urine output > 5L today, patient developed polyuria. Creatinine 1.1 With discontinue Lasix Monitor I and O UTI Sepsis resolved UA growing gram-negative rods, gram-positive cocci, and a separate gram-negative rods Continue vancomycin and meropenem, pending sensitivities Atrial flutter/atrial fibrillation with rapid ventricular response CHF Elevated troponintroponin decreased to 0.136 Patient has had good response to beta-miriam with calcium channel miriam. Unfortunately we do not have a recent echocardiogram. Patient was switched over to digoxin and a calcium channel miriam. This may be adjusted or have a beta- miriam added to digoxin at a later date. Echocardiogram Insulin-dependent type 2 diabetes Essentially half of his Lantus was started overnight at 25 units twice daily. patient is no longer able to take p.o. check blood glucose 4 times a day. Will stick to sliding scale and hold his long-acting insulin at this time. Plan * Continue BiPAP, trying to wean from all BiPAP * Discontinued Lasix. Monitor I&O * Repeat ABGs as needed * Hold fentanyl at this time avoid centrally acting sedating agents including gabapentin for now * Follow CBC, CMP, magnesium, Phos, C-reactive protein * Digoxin loading with 500 mcg x 1 then 250 mcg x 2. Digoxin level tomorrow mor ivana * Diltiazem drip to keep heart rate less than 90 * Hold metoprolol * vancomycin secondary to gram-positive cocci in urine possible Enterococcus * Continue meropenem * Start Lovenox 1 mg/kg every 12 hours * Hold Lantus until taking orally * Continue remdesivir and IV dexamethasone. Deprivation: Length of stay greater than 96 hours due to multiple comorbidities and slow res ponse to treatment August 16, 2020 Acute on chronic hypoxic respiratory failure COVID-19 reinfection, pneumonia CRP decreased to 6.0 and D-dimer decreased to 2 1.77 Repeat chest x-ray today-improving Patient [facility]. Patient also appears to have severe sleep apnea and likely pickwickian syndrome. ABG showed PCO2 and PO2 improving Continue dexamethasone 6 mg p.o. daily Lovenox 120 mg twice daily Remdesivir 5-day course Acute kidney injury stage II-likely secondary to ATN from sepsis versus prerenal disease from circulating hypovolemia urine output > 4L today, patient developed polyuria. Creatinine 1.1 Lasix is on hold Monitor I and O Discontinued losartan UTI Sepsis resolved Urine culture showed positive for Ecoli, Enterococcus and Baumannii/haemolytics which are sensitive to meropenem. Discontinued vancomycin Continue meropenem Atrial flutter/atrial fibrillation with rapid ventricular response CHF Elevated troponintroponin decreased to 0.136 Continue digoxin to 250 MCG daily Metoprolol 12.5 mg twice daily. Discontinued losartan Diltiazem drip as needed Therapeutic Lovenox Echocardiogram Insulin-dependent type 2 diabetes Essentially half of his Lantus was started overnight at 25 units twice daily. check blood glucose 4 times a day. Insulin sliding scale Plan * Continue BiPAP, trying to wean from all BiPAP * Discontinued Lasix. Monitor I&O * Repeat ABGs as needed * Hold fentanyl at this time avoid centrally acting sedating agents including gabapentin for now * Follow CBC, CMP, magnesium, Phos, C-reactive protein * Digoxin loading with 500 mcg x 1 then 250 mcg x 2. Digoxin level 1.6 today * Diltiazem drip to keep heart rate less than 90 * Metoprolol 12.5 mg twice daily * Discontinued vancomycin * Continue meropenem * Lovenox 1 mg/kg every 12 hours Deprivation: Length of stay greater than 96 hours due to multiple comorbidities and slow response to treatment
[2020-08-16] MEDS: REMDESIVIR 100 MG in Sodium Chloride 0.9% 100 ML IV SCH (21:00)
[2020-08-17] MEDS: Meropenem Premix 500 MG in Premix Bag 1 BAG IV SCH ×3 (02:26→17:21)
[2020-08-17] MEDS: Formoterol/Mometasone 200-5 MCG 8.8 GM Inhaler IH SCH ×2 (08:06→20:36)
[2020-08-17] MEDS: Digoxin 250 MCG Tab PO SCH (08:06)
[2020-08-17] MEDS: Dexamethasone 4 MG Tab PO SCH (08:07)
[2020-08-17] MEDS: Cholecalciferol (Vitamin D3) 5,000 UNIT Cap PO SCH (08:07)
[2020-08-17] MEDS: Sertraline 50 MG Tab PO SCH (08:09)
[2020-08-17] MEDS: Gabapentin 300 MG Cap PO SCH ×3 (08:12→20:03)
[2020-08-17] MEDS: Insulin Glarg,Human.Rec.Analog 100 Unit/ML SUBCUT SCH ×3 (08:13→21:05)
[2020-08-17] MEDS: Enoxaparin 120 MG/0.8 ML Syringe SUBCUT SCH (08:15)
[2020-08-17] MEDS: Metoprolol Tartrate 25 MG Tab PO SCH ×2 (08:20→20:04)
[2020-08-17] MEDS ORDERED: Insulin Glarg,Human.Rec.Analog 100 Unit/ML SUBCUT STA (08:49)
[2020-08-17] MEDS: Enoxaparin 30 MG/0.3 ML Syringe SUBCUT SCH ×2 (08:50→20:04)
[2020-08-17] MEDS: Diltiazem 100 MG in Sodium Chloride 0.9% 100 ML IV SCH (08:52)
[2020-08-17] MEDS ORDERED: Digoxin 125 MCG Tab PO ONE ×2 (10:00)
[2020-08-17] MEDS: Potassium Chloride 20 MEQ Tab.ER PO SCH ×3 (10:19→20:03)
--- NOTE | 2020-08-17 11:07 | PCM.PN ---
- General Info Date of Service: 08/17/20 Admission Dx/Problem (Free Text): Admission Diagnosis/Problem Admission Diagnosis/Problem Sepsis Subjective Update: Generally speaking, patient condition is improving. He still needs BiPAP. She would be desaturated, tachycardic and tachypneic when BiPAP is off. I do not think we should not try TPN or PEG tube feeding at this moment. Encourage the patient to complete his meal with short interval without mask on but x multiple times He is now on BiPAP with setting 16/7/FiO2 30% with good oxygen saturation. Patient alert and awake. he can answer questions. He does not have any new complaints. His urine output 4 L today so far WBC 13.8 Potassium 3.2, creatinine 0.9 Glucose 218 CRP 3.6, it was a 6.0 yesterday, D-dimer keeps trending down. He was found venous access sites are oozing blood. Discontinued therapeutic Lovenox 120 mg twice daily. Lovenox 30 mg twice daily was initiated this morning. Increase the Lantus to 27 units twice daily. Increase the metoprolol to 25 mg twice daily, trying to wean off diltiazem drip. - Review of Systems Systems Review Comment:: Positive for shortness of breath and venous access sites oozing blood. All other systems were reviewed and negative. - Patient Data Vitals - Most Recent: Last Vital Signs Temp 36.1 C 08/17/20 08:00 Pulse 78 08/17/20 10:19 Resp 19 08/17/20 08:00 BP 132/71 08/17/20 10:00 Pulse Ox 93 L 08/17/20 08:09 Weight - Most Recent: 116.029 kg I&O - Last 24 Hours: Intake & Output 08/16/20 08/17/20 08/17/20 22:59 06:59 14:59 Intake Total 1754 722 Output Total 970 1020 460 Balance 484 -[phone] Lab Results Last 24 Hours: Laboratory Results - last 24 hr 08/16/20 08/16/20 08/16/20 Range/Units 11:07 16:27 20:39 WBC (4.23-9.07) K/mm3 RBC (4.63-6.08) M/mm3 Hgb (13.7-17.5) gm/dl Hct (40.1-51.0) % MCV (79.0-92.2) fl MCH (25.7-32.2) pg MCHC (32.2-35.5) g/dl RDW Std Deviation (35.1-43.9) fL Plt Count (163-337) K/mm3 MPV (9.4-12.3) fl Neut % (Auto) (34.0-67.9) % Lymph % (Auto) (21.8-53.1) % [place] % (Auto) (5.3-12.2) % Eos % (Auto) (0.8-7.0) Baso % (Auto) (0.1-1.2) % Neut # (Auto) (1.78-5.38) K/mm3 Lymph # (Auto) (1.32-3.57) K/mm3 [place] # (Auto) (0.30-0.82) K/mm3 Eos # (Auto) (0.04-0.54) K/mm3 Baso # (Auto) (0.01-0.08) K/mm3 Manual Slide Review D-Dimer, Quantitative (0.19-0.50) mg/L Sodium (136-145) mEq/L Potassium (3.5-5.1) mEq/L Chloride (98-107) mEq/L Carbon Dioxide (21-32) mEq/L Anion Gap (5-15) BUN (7-18) mg/dL Creatinine (0.7-1.3) mg/dL Est Cr Clr Drug Dosing mL/min Estimated GFR (MDRD) (>60) mL/min BUN/Creatinine Ratio (14-18) Glucose (83-115) mg/dL POC Glucose 162 H 234 H 230 H (83-110) mg/dL Calcium (8.5-10.1) mg/dL Total Bilirubin (0.2-1.0) mg/dL AST (15-37) U/L ALT (16-63) U/L Alkaline Phosphatase (46-116) U/L C-Reactive Protein (<1.0) mg/dL Total Protein (6.4-8.2) g/dl Albumin (3.4-5.0) g/dl Globulin gm/dL Albumin/Globulin Ratio (1-2) Digoxin (0.9-2.0) ng/mL 08/17/20 08/17/20 08/17/20 Range/Units 05:36 05:36 05:36 WBC 13.80 H (4.23-9.07) K/mm3 RBC 4.80 (4.63-6.08) M/mm3 Hgb 13.2 L (13.7-17.5) gm/dl Hct 42.9 (40.1-51.0) % MCV 89.4 (79.0-92.2) fl MCH 27.5 (25.7-32.2) pg MCHC 30.8 L (32.2-35.5) g/dl RDW Std Deviation 51.2 H (35.1-43.9) fL Plt Count 241 (163-337) K/mm3 MPV 9.7 (9.4-12.3) fl Neut % (Auto) 82.2 H (34.0-67.9) % Lymph % (Auto) 5.4 L (21.8-53.1) % [place] % (Auto) 12.3 H (5.3-12.2) % Eos % (Auto) 0.1 L (0.8-7.0) Baso % (Auto) 0.0 L (0.1-1.2) % Neut # (Auto) 11.34 H (1.78-5.38) K/mm3 Lymph # (Auto) 0.75 L (1.32-3.57) K/mm3 [place] # (Auto) 1.70 H (0.30-0.82) K/mm3 Eos # (Auto) 0.01 L (0.04-0.54) K/mm3 Baso # (Auto) 0.00 L (0.01-0.08) K/mm3 Manual Slide Review Abnormal smear D-Dimer, Quantitative (0.19-0.50) mg/L Sodium 139 (136-145) mEq/L Potassium 3.2 L (3.5-5.1) mEq/L Chloride 103 (98-107) mEq/L Carbon Dioxide 32 (21-32) mEq/L Anion Gap 7.2 (5-15) BUN 34 H (7-18) mg/dL Creatinine 0.9 (0.7-1.3) mg/dL Est Cr Clr Drug Dosing 45.52 mL/min Estimated GFR (MDRD) > 60 (>60) mL/min BUN/Creatinine Ratio 37.8 H (14-18) Glucose 203 H (83-115) mg/dL POC Glucose (83-110) mg/dL Calcium 7.5 L (8.5-10.1) mg/dL Total Bilirubin 0.8 (0.2-1.0) mg/dL AST 32 (15-37) U/L ALT 42 (16-63) U/L Alkaline Phosphatase 62 (46-116) U/L C-Reactive Protein 3.6 H* (<1.0) mg/dL Total Protein 5.9 L (6.4-8.2) g/dl Albumin 2.3 L (3.4-5.0) g/dl Globulin 3.6 gm/dL Albumin/Globulin Ratio 0.6 L (1-2) Digoxin 1.2 (0.9-2.0) ng/mL 08/17/20 08/17/20 08/17/20 Range/Units 06:19 09:49 10:24 WBC (4.23-9.07) K/mm3 RBC (4.63-6.08) M/mm3 Hgb (13.7-17.5) gm/dl Hct (40.1-51.0) % MCV (79.0-92.2) fl MCH (25.7-32.2) pg MCHC (32.2-35.5) g/dl RDW Std Deviation (35.1-43.9) fL Plt Count (163-337) K/mm3 MPV (9.4-12.3) fl Neut % (Auto) (34.0-67.9) % Lymph % (Auto) (21.8-53.1) % [place] % (Auto) (5.3-12.2) % Eos % (Auto) (0.8-7.0) Baso % (Auto) (0.1-1.2) % Neut # (Auto) (1.78-5.38) K/mm3 Lymph # (Auto) (1.32-3.57) K/mm3 [place] # (Auto) (0.30-0.82) K/mm3 Eos # (Auto) (0.04-0.54) K/mm3 Baso # (Auto) (0.01-0.08) K/mm3 Manual Slide Review D-Dimer, Quantitative 1.51 H (0.19-0.50) mg/L Sodium (136-145) mEq/L Potassium (3.5-5.1) mEq/L Chloride (98-107) mEq/L Carbon Dioxide (21-32) mEq/L Anion Gap (5-15) BUN (7-18) mg/dL Creatinine (0.7-1.3) mg/dL Est Cr Clr Drug Dosing mL/min Estimated GFR (MDRD) (>60) mL/min BUN/Creatinine Ratio (14-18) Glucose (83-115) mg/dL POC Glucose 218 H 248 H (83-110) mg/dL Calcium (8.5-10.1) mg/dL Total Bilirubin (0.2-1.0) mg/dL AST (15-37) U/L ALT (16-63) U/L Alkaline Phosphatase (46-116) U/L C-Reactive Protein (<1.0) mg/dL Total Protein (6.4-8.2) g/dl Albumin (3.4-5.0) g/dl Globulin gm/dL Albumin/Globulin Ratio (1-2) Digoxin (0.9-2.0) ng/mL Karlos Results Last 24 Hours: Microbiology 08/12/20 10:15 Aerobic Blood Culture - Preliminary Blood - Venous - Lab Draw NO GROWTH AFTER 5 DAYS Anaerobic Blood Culture - Preliminary NO GROWTH AFTER 5 DAYS 08/12/20 10:00 Aerobic Blood Culture - Preliminary Blood - Venous NO GROWTH AFTER 5 DAYS Anaerobic Blood Culture - Preliminary NO GROWTH AFTER 5 DAYS 08/12/20 10:05 Urine Culture - Final Urine, Catheterized Escherichia Coli Enterococcus Faecalis A Baumannii/Haemolyticus Med Orders - Current: Current Medications Acetaminophen (Tylenol) 650 mg PO Q4H PRN PRN Reason: Pain (Mild 1-3)/fever Albuterol (Proventil Hfa) 0 gm INH QID PRN PRN Reason: Wheezing Bisacodyl (Dulcolax) 10 mg RECTAL DAILY PRN PRN Reason: Constipation Cholecalciferol (Vitamin D3) 5,000 unit PO DAILY [facility] Last Admin: 08/17/20 08:07 Dose: 5,000 unit Documented by: Dexamethasone (Dexamethasone) 6 mg PO DAILY [facility] Stop: 08/21/20 09:01 Last Admin: 08/17/20 08:07 Dose: 6 mg Documented by: Digoxin (Lanoxin) 250 mcg PO DAILY [facility] Last Admin: 08/17/20 08:06 Dose: 250 mcg Documented by: Enoxaparin Sodium (Lovenox) 30 mg SUBCUT Q12H [facility] Last Admin: 08/17/20 08:50 Dose: Not Given Documented by: Gabapentin (Neurontin) 900 mg PO TID [facility] Last Admin: 08/17/20 08:12 Dose: 900 mg Documented by: Hydralazine HCl (Apresoline) 10 mg IVPUSH Q4H PRN PRN Reason: Hypertension Diltiazem HCl 100 mg/ Sodium (Chloride) 100 mls @ 5 mls/hr IV TITRATE [facility]; Protocol Last Titration: 08/17/20 09:16 Dose: 0 mg/hr, 0 mls/hr Documented by: Meropenem/Sodium Chloride 500 (mg/ Premix) 50 mls @ 100 mls/hr IV Q8H [facility] Last Admin: 08/17/20 09:02 Dose: 100 mls/hr Documented by: Remdesivir 100 mg/ Sodium (Chloride) 100 mls @ 100 mls/hr IV Q24H [facility] Stop: 08/17/20 20:59 Last Admin: 08/16/20 21:00 Dose: 100 mls/hr Documented by: Insulin Glargine (Lantus) 27 unit SUBCUT BID [facility] Last Admin: 08/17/20 08:51 Dose: Not Given Documented by: Insulin Human Lispro (Humalog) 0 unit SUBCUT QIDACANDBED [facility]; Protocol Last Admin: 08/17/20 10:34 Dose: 4 units Documented by: Levalbuterol HCl (Xopenex) 1.25 mg NEB Q2H PRN PRN Reason: Wheezing Last Admin: 08/14/20 21:02 Dose: 1.25 mg Documented by: Levothyroxine Sodium (Levothyroxine) 200 mcg PO ACBREAKFAST [facility] Last Admin: 08/17/20 06:16 Dose: 200 mcg Documented by: Metoprolol Tartrate (Lopressor) 25 mg PO BID [facility] Last Admin: 08/17/20 08:20 Dose: 25 mg Documented by: Mometasone Furoate/Formoterol Fumar (Dulera 200-5 Mcg) 2 puff IH BID [facility] Last Admin: 08/17/20 08:06 Dose: 2 dose Documented by: Ondansetron HCl (Zofran) 4 mg IV Q4H PRN PRN Reason: Nausea/Vomiting Oxycodone HCl (Oxycodone) 5 mg PO Q4H PRN PRN Reason: Pain (moderate 4-6) Potassium Chloride (Klor-Con M20) 20 meq PO TID [facility] Stop: 08/17/20 21:01 Last Admin: 08/17/20 10:19 Dose: 20 meq Documented by: Senna/Docusate Sodium (Senna Plus) 3 tab PO BID [facility] Last Admin: 08/17/20 08:12 Dose: 3 tab Documented by: Sertraline HCl (Zoloft) 50 mg PO DAILY [facility] Last Admin: 08/17/20 08:09 Dose: 50 mg Documented by: Sodium Chloride (Saline Flush) 10 ml FLUSH ASDIRECTED PRN PRN Reason: Keep Vein Open Last Admin: 08/12/20 10:42 Dose: 10 ml Documented by: Discontinued Medications Dexamethasone (Decadron) 6 mg IV ONETIME ONE Stop: 08/14/20 09:49 Last Admin: 08/14/20 10:11 Dose: 6 mg Documented by: Digoxin (Lanoxin) 500 mcg IVPUSH ONETIME ONE Stop: 08/14/20 12:31 Last Admin: 08/14/20 12:40 Dose: 500 mcg Documented by: Digoxin (Lanoxin) 250 mcg IVPUSH Q6H [facility] Stop: 08/15/20 01:01 Last Admin: 08/14/20 20:28 Dose: 250 mcg Documented by: Digoxin (Lanoxin) 250 mcg IVPUSH ONETIME ONE Stop: 08/15/20 02:31 Last Admin: 08/15/20 02:34 Dose: 250 mcg Documented by: Digoxin (Lanoxin) 100 mcg PO ONETIME ONE Stop: 08/17/20 10:01 Last Admin: 08/17/20 10:28 Dose: Not Given Documented by: Digoxin (Lanoxin) 125 mcg PO ONETIME ONE Stop: 08/17/20 10:01 Last Admin: 08/17/20 10:19 Dose: 125 mcg Documented by: Diltiazem HCl (Cardizem) 10 mg IVPUSH ONETIME ONE Stop: 08/12/20 09:58 Last Admin: 08/12/20 10:40 Dose: 10 mg Documented by: Diltiazem HCl (Cardizem) 5 mg IVPUSH ONETIME ONE Stop: 08/12/20 14:00 Last Admin: 08/12/20 14:48 Dose: 5 mg Documented by: Enoxaparin Sodium (Lovenox) 40 mg SUBCUT DAILY [facility] Last Admin: 08/13/20 08:29 Dose: 40 mg Documented by: Enoxaparin Sodium (Lovenox) 120 mg SUBCUT Q12H [facility] Last Admin: 08/15/20 13:13 Dose: 120 mg Documented by: Enoxaparin Sodium (Lovenox) 120 mg SUBCUT Q12H [facility] Last Admin: 08/17/20 08:15 Dose: Not Given Documented by: Fentanyl (Duragesic) 25 mcg TOP Q72H [facility] Last Admin: 08/13/20 09:16 Dose: 25 mcg Documented by: Furosemide (Lasix) 40 mg IVPUSH DAILY [facility] Furosemide (Lasix) 60 mg IVPUSH NOW ONE Stop: 08/13/20 17:53 Last Admin: 08/13/20 18:09 Dose: 60 mg Documented by: Furosemide (Lasix) 40 mg IVPUSH NOW ONE Stop: 08/14/20 08:12 Last Admin: 08/14/20 08:35 Dose: 40 mg Documented by: Furosemide (Lasix) 40 mg IVPUSH NOW ONE Stop: 08/14/20 12:31 Last Admin: 08/14/20 12:48 Dose: 40 mg Documented by: Furosemide (Lasix) 40 mg IVPUSH Q12H [facility] Sodium Chloride (Normal Saline) 1,000 mls @ 125 mls/hr IV ASDIRECTED [facility] Sodium Chloride (Normal Saline) 1,000 mls @ 1,000 mls/hr IV ONETIME ONE Stop: 08/12/20 10:51 Last Admin: 08/12/20 10:39 Dose: 1,000 mls/hr Documented by: Ceftriaxone Sodium 2 gm/ (Sodium Chloride) 100 mls @ 200 mls/hr IV ONETIME ONE Stop: 08/12/20 11:38 Last Admin: 08/12/20 11:50 Dose: 200 mls/hr Documented by: Lactated Ringer's (Ringers, Lactated) 500 mls @ 999 mls/hr IV .BOLUS ONE Stop: 08/12/20 14:28 Last Admin: 08/12/20 14:16 Dose: 999 mls/hr Documented by: Lactated Ringer's (Ringers, Lactated) 1,000 mls @ 100 mls/hr IV ASDIRECTED [facility] Last Admin: 08/13/20 21:46 Dose: 100 mls/hr Documented by: Diltiazem HCl 100 mg/ Sodium (Chloride) 100 mls @ 5 mls/hr IV TITRATE [facility]; Protocol Meropenem/Sodium Chloride 500 (mg/ Premix) 50 mls @ 100 mls/hr IV Q6H [facility] Last Admin: 08/13/20 10:09 Dose: 100 mls/hr Documented by: Vancomycin HCl 1 gm/Vancomycin HCl 500 mg/ Sodium Chloride 500 mls @ 250 mls/hr IV ONETIME ONE Stop: 08/12/20 19:59 Last Admin: 08/12/20 18:37 Dose: 250 mls/hr Documented by: Vancomycin HCl 1 gm/Vancomycin HCl 250 mg/ Sodium Chloride 250 mls @ 166 mls/hr IV Q12H [facility] Last Admin: 08/13/20 05:17 Dose: 166 mls/hr Documented by: Lactated Ringer's (Ringers, Lactated) 500 mls @ 500 mls/hr IV .BOLUS ONE Stop: 08/12/20 21:05 Last Admin: 08/12/20 21:11 Dose: 500 mls/hr Documented by: Vancomycin HCl 1 gm/Vancomycin HCl 250 mg/ Sodium Chloride 250 mls @ 166.667 mls/hr IV Q18H [facility] Remdesivir 200 mg/ Sodium (Chloride) 250 mls @ 250 mls/hr IV ONETIME ONE Stop: 08/13/20 19:49 Last Admin: 08/13/20 20:14 Dose: 250 mls/hr Documented by: Lactated Ringer's (Ringers, Lactated) 250 mls @ 999 mls/hr IV ONETIME ONE Stop: 08/13/20 22:15 Last Admin: 08/13/20 21:59 Dose: 999 mls/hr Documented by: Lactated Ringer's (Ringers, Lactated) 250 mls @ 999 mls/hr IV ONETIME ONE Stop: 08/14/20 00:18 Last Admin: 08/14/20 00:36 Dose: 999 mls/hr Documented by: Metoprolol Tartrate 5 mg/ (Sodium Chloride) 55 mls @ 100 mls/hr IV Q4H PRN PRN Reason: Tachycardia Furosemide 100 mg/ Sodium (Chloride) 100 mls @ 10 mls/hr IV TITRATE [facility]; Protocol Stop: 08/15/20 12:00 Last Titration: 08/15/20 11:16 Dose: 0 mg/hr, 0 mls/hr Documented by: Vancomycin HCl 1 gm/Vancomycin HCl 250 mg/ Sodium Chloride 250 mls @ 166.667 mls/hr IV Q24H [facility] Last Admin: 08/15/20 17:55 Dose: 166.667 mls/hr Documented by: Sodium Chloride (Normal Saline) Confirm Administered Dose 100 mls @ as directed .ROUTE .STK-MED ONE Stop: 08/15/20 20:00 Last Admin: 08/15/20 20:12 Dose: Not Given Documented by: Insulin Glargine (Lantus) 56 unit SUBCUT DAILY [facility] Insulin Glargine (Lantus) 25 unit SUBCUT BID [facility] Last Admin: 08/17/20 08:13 Dose: 25 units Documented by: Insulin Glargine (Lantus) 2 unit SUBCUT NOW [facility] Stop: 08/17/20 08:50 Last Admin: 08/17/20 08:55 Dose: 2 units Documented by: Losartan Potassium (Cozaar) 50 mg PO DAILY [facility] Last Admin: 08/16/20 08:04 Dose: 50 mg Documented by: Meropenem (Merrem) 1 gm IVPUSH Q8H [facility] Last Admin: 08/12/20 20:32 Dose: Not Given Documented by: Metoprolol Tartrate (Lopressor) 25 mg PO ONETIME ONE Stop: 08/13/20 17:31 Last Admin: 08/13/20 17:32 Dose: 25 mg Documented by: Metoprolol Tartrate (Lopressor) 50 mg PO Q12H [facility] Last Admin: 08/14/20 09:03 Dose: Not Given Documented by: Metoprolol Tartrate (Lopressor) 25 mg PO ONETIME ONE Stop: 08/13/20 22:01 Last Admin: 08/13/20 22:05 Dose: 25 mg Documented by: Metoprolol Tartrate (Lopressor) 5 mg IVPUSH Q4H PRN PRN Reason: Tachycardia Last Admin: 08/14/20 11:52 Dose: 5 mg Documented by: Metoprolol Tartrate (Lopressor) 12.5 mg PO Q12H [facility] Last Admin: 08/16/20 21:03 Dose: 12.5 mg Documented by: Miscellaneous Information (Remove Patch) 1 ea TRDERM Q72H [facility] Last Admin: 08/13/20 09:16 Dose: 1 ea Documented by: Naloxone HCl (Narcan) 0.4 mg IVPUSH ONETIME ONE Stop: 08/14/20 09:58 Last Admin: 08/14/20 10:11 Dose: 0.4 mg Documented by: Naloxone HCl (Narcan) 0.4 mg IVPUSH ONETIME ONE Stop: 08/14/20 10:31 Last Admin: 08/14/20 10:46 Dose: 0.4 mg Documented by: Rivaroxaban (Xarelto) 15 mg PO DAILY [facility] Last Admin: 08/14/20 09:03 Dose: Not Given Documented by: Vancomycin HCl (Pharmacy To Dose - Vancomycin) 0 dose .XX ASDIRECTED PRN PRN Reason: RX TO DOSE VANCOMYCIN Vancomycin HCl (Pharmacy To Dose - Vancomycin) 1 dose .XX ASDIRECTED PRN PRN Reason: RX TO DOSE VANCO - Exam Physical Findings Comments:: General: No acute distress, on BiPAP HEENT: Conjunctiva Clear, EOMI, Mucosa Moist & [place] Neck: Supple, Trachea Midline, NO JVD Lungs: Diminished breathing sounds, bibasilar crackles Cardiovascular: Regular Rate, Regular Rhythm GI/Abdominal Exam: Normal Bowel Sounds, Soft, Non-Tender, No Organomegaly, No Distention, No Abnormal Bruit, No Mass Extremities: Bilateral BKA, normal Inspection, Non-Tender Skin: Warm, Dry, Intact Neurology: A+O x 3, no focal neurological deficits Psychiatric: Normal Mood Sepsis Event Note - Evaluation Sepsis Screening Result: Severe Sepsis Risk - Focused Exam Vital Signs: Vital Signs Temp Pulse Resp BP BP Pulse Ox Pulse Ox 08/17/20 10:19 78 08/17/20 10:00 77 132/71 08/17/20 09:17 85 08/17/20 09:00 102 H 142/66 H 08/17/20 08:20 112 H 123/71 08/17/20 08:09 08/17/20 08:06 99 08/17/20 08:00 36.1 C 106 H 19 123/71 94 L 08/17/20 06:43 36.6 C 104 H 20 143/71 H 93 L 08/17/20 06:22 93 L 08/17/20 05:57 36.4 C 20 143/71 H 93 L 08/17/20 05:00 36.6 C 20 138/72 96 08/17/20 04:00 36.4 C 20 127/68 95 08/17/20 02:59 36.2 C 17 144/61 H 96 08/17/20 02:53 97 08/17/20 02:00 36.4 C 18 132/59 L 95 08/17/20 01:00 36.2 C 20 143/77 H 95 08/17/20 00:00 36.1 C 20 139/74 95 Pulse Ox 08/17/20 10:19 08/17/20 10:00 08/17/20 09:17 08/17/20 09:00 08/17/20 08:20 08/17/20 08:09 93 L 08/17/20 08:06 08/17/20 08:00 08/17/20 06:43 08/17/20 06:22 08/17/20 05:57 08/17/20 05:00 08/17/20 04:00 08/17/20 02:59 08/17/20 02:53 08/17/20 02:00 08/17/20 01:00 08/17/20 00:00 - Problem List Review Problem List Initiated/Reviewed/Updated: Yes - My Orders Last 24 Hours: My Active Orders 08/17/20 09:00 Enoxaparin [Lovenox] 30 mg SUBCUT Q12H Insulin Glarg,Human.Rec.Analog [LantUS] 27 unit SUBCUT BID Metoprolol Tartrate [Lopressor] 25 mg PO BID 08/17/20 10:00 Potassium Chloride [Klor-Con M20] 20 meq PO TID 08/18/20 05:00 CBC WITH AUTO DIFF [HEME] DAILY CBC WITH AUTO DIFF [HEME] DAILY CMP [COMPREHENSIVE METABOLIC PN,CMP] [CHEM] DAILY CMP [COMPREHENSIVE METABOLIC PN,CMP] [CHEM] DAILY CRP [C-REACTIVE PROTEIN] [CHEM] DAILY CRP [C-REACTIVE PROTEIN] [CHEM] DAILY D-DIMER QUANTITATIVE [COAG] DAILY 08/18/20 05:10 DIGOXIN [CHEM] DAILY 08/18/20 05:11 D-DIMER QUANTITATIVE [COAG] DAILY MAGNESIUM [CHEM] DAILY 08/18/20 06:00 ABG [BLOOD GAS ARTERIAL] [BG] Timed 08/19/20 05:00 CBC WITH AUTO DIFF [HEME] DAILY CBC WITH AUTO DIFF [HEME] DAILY CMP [COMPREHENSIVE METABOLIC PN,CMP] [CHEM] DAILY CMP [COMPREHENSIVE METABOLIC PN,CMP] [CHEM] DAILY CRP [C-REACTIVE PROTEIN] [CHEM] DAILY CRP [C-REACTIVE PROTEIN] [CHEM] DAILY D-DIMER QUANTITATIVE [COAG] DAILY 08/19/20 05:10 DIGOXIN [CHEM] DAILY 08/19/20 05:11 D-DIMER QUANTITATIVE [COAG] DAILY MAGNESIUM [CHEM] DAILY 08/20/20 05:00 CBC WITH AUTO DIFF [HEME] DAILY CBC WITH AUTO DIFF [HEME] DAILY CMP [COMPREHENSIVE METABOLIC PN,CMP] [CHEM] DAILY CMP [COMPREHENSIVE METABOLIC PN,CMP] [CHEM] DAILY CRP [C-REACTIVE PROTEIN] [CHEM] DAILY CRP [C-REACTIVE PROTEIN] [CHEM] DAILY D-DIMER QUANTITATIVE [COAG] DAILY 08/20/20 05:10 DIGOXIN [CHEM] DAILY 08/20/20 05:11 D-DIMER QUANTITATIVE [COAG] DAILY MAGNESIUM [CHEM] DAILY 08/21/20 05:00 CBC WITH AUTO DIFF [HEME] DAILY CMP [COMPREHENSIVE METABOLIC PN,CMP] [CHEM] DAILY CRP [C-REACTIVE PROTEIN] [CHEM] DAILY 08/21/20 05:10 DIGOXIN [CHEM] DAILY 08/21/20 05:11 D-DIMER QUANTITATIVE [COAG] DAILY MAGNESIUM [CHEM] DAILY 08/22/20 05:10 DIGOXIN [CHEM] DAILY 08/22/20 05:11 D-DIMER QUANTITATIVE [COAG] DAILY MAGNESIUM [CHEM] DAILY 08/23/20 05:11 D-DIMER QUANTITATIVE [COAG] DAILY MAGNESIUM [CHEM] DAILY - Plan Plan:: Assessment 80-year-old male with history of COVID-19 teen in March and vaccination last month comes to the emergency department with from his primary care providers office with UTI, sepsis, and reinfection from COVID-19. Severe sepsis UTI * Patient fulfills sepsis criteria * White count 14.2, C-reactive protein of 9.3 * Lactic acid 1.5 * Given Rocephin in the emergency department. * Blood cultures and urine cultures obtained prior to Rocephin * Given 1 L bolus in the emergency department Atrial flutter/SVT Elevated troponin CHF * EKG obtained at clinic showed SVT * Subsequent EKG done on admission showed atrial flutter with 2: 1 AV block. Borderline/minimal ST elevation in lead III. * Troponin 0.452. This is a independent risk factor for poor outcome. With the minimal ST elevation and elevated troponin this could signify a type II ME versus myocardial strain. * Trial of Cardizem drip in ER was stopped because of low blood pressure. * No proBNP done in the emergency department Renal insufficiency stage III * Outpatient records are not available so it makes it difficult to know if this is a change from baseline or if this is his baseline GFR. * Creatinine 1.4, GFR 49, BUN 48 Type 2 diabetesinsulin-dependent * Unknown hemoglobin A1c. * Home insulin: Lantus 56 units every morning, 54 units every afternoon. NovoLog unknown 7 units 3 times daily with meals and sliding scale. COVID-19 reinfection * Initial infection in March 2020 * Vaccination last month * Respiratory status is at baseline * No D-dimer ordered Plan * Admit to ICU * Treat for complicated UTI to include vancomycin and meropenem * Follow blood cultures and urine cultures * 500 mL fluid bolus * Cardizem 5 mg IV x1 then start Cardizem drip as long as blood pressure holds * If he does not convert out of atrial flutter will need to anticoagulate * Continue FiO2 to keep SPO2 above 90%. * Repeat troponin in the morning. This will be a lagging indicator secondary to renal function. * Get proBNP for baseline * Get hemoglobin A1c and TSH * VTE prophylaxis with Lovenox, but will need to switch to full anticoagulation if he does not convert out of atrial flutter. * CODE STATUS: DNR/DNI August 13, 2020 Severe sepsisresolved UTI Atrial flutter/atrial fibrillation with rapid ventricular response CHF Renal insufficiency stage III COVID-19 reinfection Insulin-dependent type 2 diabetes * Patient continues to be tachycardic but his hypotension has resolved. * Continue to increase Cardizem drip until heart rate is less than 90 then switch to oral * Start dexamethasone 6 mg daily * Continue meropenem until sensitivities on urine culture * Stop vancomycin * Creatinine 1.3improved * Hemoglobin A1c 7.6 * Restart small dose of long-acting insulin * Discharge likely in 3 to 4 days. August 14, 2020 COVID-19 reinfection Respiratory failure D-dimer did increase to 2.37 Patient developed respiratory failure with exacerbation of CHF and renal failure overnight. Apparently patient has a CPAP/BiPAP at the correction. That was not continued here last night. Patient also appears to have severe sleep apnea and likely pickwickian syndrome. He had a significant elevation in his CO2 overnight and decrease in mentation. This was followed by an ABG showing severe hypercapnia with a PCO2 greater than 80. Patient was placed on BiPAP and PCO2 decreased to 66. Patient's mentation is improving, but he still not following commands. Acute kidney injury stage II-likely secondary to ATN from sepsis versus prerenal disease from circulating hypovolemia His urine output went to less than 0.5 mL/kg/h for over 12 hours. This placed him at stage II acute kidney injury. Patient was given several fluid boluses over the evening and after then giving him Lasix 40 mg x 2 he had very urine output greater than 100 mL/h. Fortunately his creatinine did not change overnight and his creatinine was 1.3 although his BUN was 43. UTI Sepsis resolved UA growing gram-negative rods, gram-positive cocci, and a separate gram-negative rods Vancomycin was stopped yesterday secondary to initial cultures growing out only gram-negative rods Atrial flutter/atrial fibrillation with rapid ventricular response CHF Elevated troponintroponin decreased to 0.136 Patient has had good response to beta-miriam with calcium channel miriam. Unfortunately we do not have a recent echocardiogram. Patient was switched over to digoxin and a calcium channel miriam. This may be adjusted or have a beta- miriam added to digoxin at a later date. Plan echocardiogram if rate is less than 90 in the morning. Insulin-dependent type 2 diabetes Essentially half of his Lantus was started overnight at 25 units twice daily. Unfortunately, patient is no longer able to take p.o. and will continue to follow his blood sugars 4 times daily. Will stick to sliding scale and hold his long-acting insulin at this time. Plan * Continue BiPAP * Lasix drip to keep urine output greater than 100 mL/h * Repeat ABGs as needed * Hold fentanyl at this time avoid centrally acting sedating agents including gabapentin for now * Follow CBC, CMP, magnesium, Phos, C-reactive protein * Digoxin loading with 500 mcg x 1 then 250 mcg x 2 * Diltiazem drip to keep heart rate less than 90 * Hold metoprolol * Echocardiogram in the morning * Restart vancomycin secondary to gram-positive cocci in urine possible Enterococcus * Continue meropenem * Start Lovenox 1 mg/kg every 12 hours and stop Xarelto * Hold Lantus until taking orally * Follow potassium closely secondary to Lasix drip and digoxin. Will repeat BMP this evening. * Continue remdesivir and dexamethasone. Switch dexamethasone to IV. August 15, 2020 Acute on chronic hypoxic respiratory failure COVID-19 reinfection D-dimer did increase to 2.37 Patient has a CPAP/BiPAP at the correction. That was not continued here last night. Patient also appears to have severe sleep apnea and likely pickwickian syndrome. He had a significant elevation in his CO2 overnight and decrease in mentation. This was followed by an ABG showing severe hypercapnia with a PCO2 greater than 80. Patient was placed on BiPAP and PCO2 decreased to 66. Patient's mentation is improving. He can follow simple commands Acute kidney injury stage II-likely secondary to ATN from sepsis versus prerenal disease from circulating hypovolemia urine output > 5L today, patient developed polyuria. Creatinine 1.1 With discontinue Lasix Monitor I and O UTI Sepsis resolved UA growing gram-negative rods, gram-positive cocci, and a separate gram-negative rods Continue vancomycin and meropenem, pending sensitivities Atrial flutter/atrial fibrillation with rapid ventricular response CHF Elevated troponintroponin decreased to 0.136 Patient has had good response to beta-miriam with calcium channel miriam. Unfortunately we do not have a recent echocardiogram. Patient was switched over to digoxin and a calcium channel miriam. This may be adjusted or have a beta- miriam added to digoxin at a later date. Echocardiogram Insulin-dependent type 2 diabetes Essentially half of his Lantus was started overnight at 25 units twice daily. patient is no longer able to take p.o. check blood glucose 4 times a day. Will stick to sliding scale and hold his long-acting insulin at this time. Plan * Continue BiPAP, trying to wean from all BiPAP * Discontinued Lasix. Monitor I&O * Repeat ABGs as needed * Hold fentanyl at this time avoid centrally acting sedating agents including gabapentin for now * Follow CBC, CMP, magnesium, Phos, C-reactive protein * Digoxin loading with 500 mcg x 1 then 250 mcg x 2. Digoxin level tomorrow morning * Diltiazem drip to keep heart rate less than 90 * Hold metoprolol * vancomycin secondary to gram-positive cocci in urine possible Enterococcus * Continue meropenem * Start Lovenox 1 mg/kg every 12 hours * Hold Lantus until taking orally * Continue remdesivir and IV dexamethasone. Deprivation: Length of stay greater than 96 hours due to multiple comorbidities and slow response to treatment August 16, 2020 Acute on chronic hypoxic respiratory failure COVID-19 reinfection, pneumonia CRP decreased to 6.0 and D-dimer decreased to 2 1.77 Repeat chest x-ray today-improving Patient has a CPAP/BiPAP at the correction. Patient also appears to have severe sleep apnea and likely pickwickian syndrome. ABG showed PCO2 and PO2 improving Continue dexamethasone 6 mg p.o. daily Lovenox 120 mg twice daily Remdesivir 5-day course Acute kidney injury stage II-likely secondary to ATN from sepsis versus prerenal disease from circulating hypovolemia urine output > 4L today, patient developed polyuria. Creatinine 1.1 Lasix is on hold Monitor I and O Discontinued losartan UTI Sepsis resolved Urine culture showed positive for Ecoli, Enterococcus and Baumannii/haemolytics which are sensitive to meropenem. Discontinued vancomycin Continue meropenem Atrial flutter/atrial fibrillation with rapid ventricular response CHF Elevated troponintroponin decreased to 0.136 Continue digoxin to 250 MCG daily Metoprolol 12.5 mg twice daily. Discontinued losartan Diltiazem drip as needed Therapeutic Lovenox Echocardiogram Insulin-dependent type 2 diabetes Essentially half of his Lantus was started overnight at 25 units twice daily. check blood glucose 4 times a day. Insulin sliding scale Plan * Continue BiPAP, trying to wean from all BiPAP * Discontinued Lasix. Monitor I&O * Repeat ABGs as needed * Hold fentanyl at this time avoid centrally acting sedating agents including gabapentin for now * Follow CBC, CMP, magnesium, Phos, C-reactive protein * Digoxin loading with 500 mcg x 1 then 250 mcg x 2. Digoxin level 1.6 today * Diltiazem drip to keep heart rate less than 90 * Metoprolol 12.5 mg twice daily * Discontinued vancomycin * Continue meropenem * Lovenox 1 mg/kg every 12 hours Deprivation: Length of stay greater than 96 hours due to multiple comorbidities and slow response to treatment August 17, 2020 Acute on chronic hypoxic respiratory failure BiPAP dependent, setting -23/01 with FiO2 30% COVID-19 reinfection, pneumonia CRP decreased to 3.26 and D-dimer keeps trending down Repeat chest x-ray August 16-improving Patient has a CPAP/BiPAP at the correction. Patient also appears to have severe sleep apnea and likely pickwickian syndrome. ABG showed PCO2 and PO2 improving Continue dexamethasone 6 mg p.o. daily Discontinued Lovenox 120 mg twice daily on August 17 due to oozing blood. Initiated Lovenox to 30 mg twice daily Remdesivir 5-day course Acute kidney injury stage II-likely secondary to ATN from sepsis versus prerenal disease from circulating hypovolemia urine output > 4L today, patient developed polyuria. Creatinine 1.1 Lasix is on hold Monitor I and O Discontinued losartan UTI Sepsis resolved Urine culture showed positive for Ecoli, Enterococcus and Baumannii/haemolytics which are sensitive to meropenem. Discontinued vancomycin Continue meropenem Atrial flutter/atrial fibrillation with rapid ventricular response CHF Elevated troponintroponin decreased to 0.136 Continue digoxin to 250 MCG daily + 125mcg x 1 today Digoxin level daily Increased metoprolol to 25 mg twice daily. Discontinued losartan Diltiazem drip as needed, trying to wean off Therapeutic Lovenox (on hold due to oozing blood) Echocardiogram Insulin-dependent type 2 diabetes Increased Lantus to 27 units twice daily Insulin sliding scale Plan * Continue BiPAP, trying to wean off * Discontinued Lasix. Monitor I&O * Repeat ABGs as needed * Hold fentanyl at this time avoid centrally acting sedating agents including gabapentin for now * Follow CBC, CMP, magnesium, Phos, C-reactive protein * CRP and D-dimer daily * Digoxin loading with 500 mcg x 1 and 250 mcg. Digoxin level daily. Adjusted digoxin based on digoxin level * Metoprolol 25 mg twice daily, diltiazem drip as needed to keep heart rate less than 90 * Discontinued vancomycin * Continue meropenem * DVT prophylaxis: Lovenox 30 mg subcutaneous every 12 hours. Therapeutic Lovenox was discontinued today due to oozing blood Deprivation: Length of stay greater than 96 hours due to multiple comorbidities, nature of covid pneumonia and slow response to treatment
[2020-08-17] MEDS: oxyCODONE 5 MG Tab PO PRN ×2 (15:22→23:55)
[2020-08-17] MEDS: REMDESIVIR 100 MG in Sodium Chloride 0.9% 100 ML IV SCH (20:01)
[2020-08-18] MEDS: Meropenem Premix 500 MG in Premix Bag 1 BAG IV SCH ×3 (02:07→17:19)
[2020-08-18] MEDS: Formoterol/Mometasone 200-5 MCG 8.8 GM Inhaler IH SCH ×2 (08:34→20:00)
[2020-08-18] MEDS: Dexamethasone 4 MG Tab PO SCH (09:31)
[2020-08-18] MEDS: Sertraline 50 MG Tab PO SCH (09:31)
[2020-08-18] MEDS: Cholecalciferol (Vitamin D3) 5,000 UNIT Cap PO SCH (09:31)
[2020-08-18] MEDS: Gabapentin 300 MG Cap PO SCH ×3 (09:32→20:55)
[2020-08-18] MEDS: Digoxin 250 MCG Tab PO SCH (09:32)
[2020-08-18] MEDS: Enoxaparin 30 MG/0.3 ML Syringe SUBCUT SCH ×2 (09:32→20:54)
[2020-08-18] MEDS: Insulin Glarg,Human.Rec.Analog 100 Unit/ML SUBCUT SCH ×2 (09:33→21:10)
[2020-08-18] MEDS: Metoprolol Tartrate 25 MG Tab PO SCH ×2 (09:33→20:55)
--- NOTE | 2020-08-18 12:08 | PCM.PN ---
- General Info Date of Service: 08/18/20 Admission Dx/Problem (Free Text): Admission Diagnosis/Problem Admission Diagnosis/Problem Sepsis Subjective Update: Generally speaking, patient condition is improving. He is now on nasal cannula, 4 L. Patient alert and awake. he can answer questions. He does not have any new complaints. Heart rate is better controlled. WBC 16.2 CRP dropped to 12.9, D-dimer dropped to 1.47 PCO2 53.6, PO2 98 Creatinine 1.0, glucose 210, magnesium 2.6 Digoxin 1.7 I&O balance negative 1200ml - Review of Systems Systems Review Comment:: Positive for shortness of breath. All other systems were reviewed and negative. - Patient Data Vitals - Most Recent: Last Vital Signs Temp 36.8 C 08/18/20 11:48 Pulse 80 08/18/20 11:48 Resp 15 08/18/20 11:48 BP 148/83 H 08/18/20 11:48 Pulse Ox 96 08/18/20 11:48 Weight - Most Recent: 115.802 kg I&O - Last 24 Hours: Intake & Output 08/17/20 08/18/20 08/18/20 22:59 06:59 14:59 Intake Total 400 560 560 Output Total 780 625 625 Balance -380 -65 -65 Lab Results Last 24 Hours: Laboratory Results - last 24 hr 08/17/20 08/17/20 08/18/20 Range/Units 17:16 20:06 04:35 WBC 16.20 H (4.23-9.07) K/mm3 RBC 5.58 (4.63-6.08) M/mm3 Hgb 15.1 D (13.7-17.5) gm/dl Hct 50.0 (40.1-51.0) % MCV 89.6 (79.0-92.2) fl MCH 27.1 (25.7-32.2) pg MCHC 30.2 L (32.2-35.5) g/dl RDW Std Deviation 51.5 H (35.1-43.9) fL Plt Count 237 (163-337) K/mm3 MPV 9.5 (9.4-12.3) fl Neut % (Auto) 84.0 H (34.0-67.9) % Lymph % (Auto) 4.9 L (21.8-53.1) % Emanuel % (Auto) 10.4 (5.3-12.2) % Eos % (Auto) 0 L (0.8-7.0) Baso % (Auto) 0.1 (0.1-1.2) % Neut # (Auto) 13.61 H (1.78-5.38) K/mm3 Lymph # (Auto) 0.79 L (1.32-3.57) K/mm3 Emanuel # (Auto) 1.69 H (0.30-0.82) K/mm3 Eos # (Auto) 0.00 L (0.04-0.54) K/mm3 Baso # (Auto) 0.01 (0.01-0.08) K/mm3 Manual Slide Review Abnormal smear D-Dimer, Quantitative (0.19-0.50) mg/L Puncture Site ABG pH (7.35-7.45) ABG pCO2 (35.0-45.0) mmHg ABG pO2 (80.0-100.0) mmHg ABG HCO3 (22.0-26.0) meq/L ABG O2 Saturation (96.0-97.0) % ABG Base Excess (-2-2.0) Abdullahi Test A-a Gradient mmHg O2 Delivery Device FiO2 (21.00-100.00) % Blood Gas Comments Sodium (136-145) mEq/L Potassium (3.5-5.1) mEq/L Chloride (98-107) mEq/L Carbon Dioxide (21-32) mEq/L Anion Gap (5-15) BUN (7-18) mg/dL Creatinine (0.7-1.3) mg/dL Est Cr Clr Drug Dosing mL/min Estimated GFR (MDRD) (>60) mL/min BUN/Creatinine Ratio (14-18) Glucose (83-115) mg/dL POC Glucose 229 H 184 H (83-110) mg/dL Calcium (8.5-10.1) mg/dL Magnesium (1.8-2.4) mg/dl Total Bilirubin (0.2-1.0) mg/dL AST (15-37) U/L ALT (16-63) U/L Alkaline Phosphatase (46-116) U/L C-Reactive Protein (<1.0) mg/dL Total Protein (6.4-8.2) g/dl Albumin (3.4-5.0) g/dl Globulin gm/dL Albumin/Globulin Ratio (1-2) Digoxin (0.9-2.0) ng/mL 08/18/20 08/18/20 08/18/20 Range/Units 04:35 04:35 04:35 WBC (4.23-9.07) K/mm3 RBC (4.63-6.08) M/mm3 Hgb (13.7-17.5) gm/dl Hct (40.1-51.0) % MCV (79.0-92.2) fl MCH (25.7-32.2) pg MCHC (32.2-35.5) g/dl RDW Std Deviation (35.1-43.9) fL Plt Count (163-337) K/mm3 MPV (9.4-12.3) fl Neut % (Auto) (34.0-67.9) % Lymph % (Auto) (21.8-53.1) % Emanuel % (Auto) (5.3-12.2) % Eos % (Auto) (0.8-7.0) Baso % (Auto) (0.1-1.2) % Neut # (Auto) (1.78-5.38) K/mm3 Lymph # (Auto) (1.32-3.57) K/mm3 Emanuel # (Auto) (0.30-0.82) K/mm3 Eos # (Auto) (0.04-0.54) K/mm3 Baso # (Auto) (0.01-0.08) K/mm3 Manual Slide Review D-Dimer, Quantitative 1.47 H (0.19-0.50) mg/L Puncture Site ABG pH (7.35-7.45) ABG pCO2 (35.0-45.0) mmHg ABG pO2 (80.0-100.0) mmHg ABG HCO3 (22.0-26.0) meq/L ABG O2 Saturation (96.0-97.0) % ABG Base Excess (-2-2.0) Abdullahi Test A-a Gradient mmHg O2 Delivery Device FiO2 (21.00-100.00) % Blood Gas Comments Sodium 143 (136-145) mEq/L Potassium 4.7 D (3.5-5.1) mEq/L Chloride 103 (98-107) mEq/L Carbon Dioxide 32 (21-32) mEq/L Anion Gap 12.7 (5-15) BUN 36 H (7-18) mg/dL Creatinine 1.0 (0.7-1.3) mg/dL Est Cr Clr Drug Dosing 40.97 mL/min Estimated GFR (MDRD) > 60 (>60) mL/min BUN/Creatinine Ratio 36.0 H (14-18) Glucose 241 H (83-115) mg/dL POC Glucose (83-110) mg/dL Calcium 8.9 (8.5-10.1) mg/dL Magnesium 2.6 H (1.8-2.4) mg/dl Total Bilirubin 0.8 (0.2-1.0) mg/dL AST 32 (15-37) U/L ALT 52 (16-63) U/L Alkaline Phosphatase 73 (46-116) U/L C-Reactive Protein 2.9 H* (<1.0) mg/dL Total Protein 6.8 (6.4-8.2) g/dl Albumin 2.7 L (3.4-5.0) g/dl Globulin 4.1 gm/dL Albumin/Globulin Ratio 0.7 L (1-2) Digoxin 1.7 1.7 (0.9-2.0) ng/mL 08/18/20 08/18/20 08/18/20 Range/Units 06:11 06:20 11:42 WBC (4.23-9.07) K/mm3 RBC (4.63-6.08) M/mm3 Hgb (13.7-17.5) gm/dl Hct (40.1-51.0) % MCV (79.0-92.2) fl MCH (25.7-32.2) pg MCHC (32.2-35.5) g/dl RDW Std Deviation (35.1-43.9) fL Plt Count (163-337) K/mm3 MPV (9.4-12.3) fl Neut % (Auto) (34.0-67.9) % Lymph % (Auto) (21.8-53.1) % Emanuel % (Auto) (5.3-12.2) % Eos % (Auto) (0.8-7.0) Baso % (Auto) (0.1-1.2) % Neut # (Auto) (1.78-5.38) K/mm3 Lymph # (Auto) (1.32-3.57) K/mm3 Emanuel # (Auto) (0.30-0.82) K/mm3 Eos # (Auto) (0.04-0.54) K/mm3 Baso # (Auto) (0.01-0.08) K/mm3 Manual Slide Review D-Dimer, Quantitative (0.19-0.50) mg/L Puncture Site Rt radial ABG pH 7.40 (7.35-7.45) ABG pCO2 53.6 H (35.0-45.0) mmHg ABG pO2 98.0 (80.0-100.0) mmHg ABG HCO3 32.6 H (22.0-26.0) meq/L ABG O2 Saturation 96.7 (96.0-97.0) % ABG Base Excess 6.6 H (-2-2.0) Abdullahi Test Positive A-a Gradient 106 mmHg O2 Delivery Device Bipap FiO2 38.00 (21.00-100.00) % Blood Gas Comments Bipap 15/7 Sodium (136-145) mEq/L Potassium (3.5-5.1) mEq/L Chloride (98-107) mEq/L Carbon Dioxide (21-32) mEq/L Anion Gap (5-15) BUN (7-18) mg/dL Creatinine (0.7-1.3) mg/dL Est Cr Clr Drug Dosing mL/min Estimated GFR (MDRD) (>60) mL/min BUN/Creatinine Ratio (14-18) Glucose (83-115) mg/dL POC Glucose 210 H 231 H (83-110) mg/dL Calcium (8.5-10.1) mg/dL Magnesium (1.8-2.4) mg/dl Total Bilirubin (0.2-1.0) mg/dL AST (15-37) U/L ALT (16-63) U/L Alkaline Phosphatase (46-116) U/L C-Reactive Protein (<1.0) mg/dL Total Protein (6.4-8.2) g/dl Albumin (3.4-5.0) g/dl Globulin gm/dL Albumin/Globulin Ratio (1-2) Digoxin (0.9-2.0) ng/mL Karlos Results Last 24 Hours: Microbiology 08/12/20 10:15 Aerobic Blood Culture - Preliminary Blood - Venous - Lab Draw NO GROWTH AFTER 6 DAYS Anaerobic Blood Culture - Preliminary NO GROWTH AFTER 6 DAYS 08/12/20 10:00 Aerobic Blood Culture - Preliminary Blood - Venous NO GROWTH AFTER 6 DAYS Anaerobic Blood Culture - Preliminary NO GROWTH AFTER 6 DAYS 08/12/20 10:05 Urine Culture - Final Urine, Catheterized Escherichia Coli Enterococcus Faecalis A Baumannii/Haemolyticus Med Orders - Current: Current Medications Acetaminophen (Tylenol) 650 mg PO Q4H PRN PRN Reason: Pain (Mild 1-3)/fever Albuterol (Proventil Hfa) 0 gm INH QID PRN PRN Reason: Wheezing Bisacodyl (Dulcolax) 10 mg RECTAL DAILY PRN PRN Reason: Constipation Cholecalciferol (Vitamin D3) 5,000 unit PO DAILY [facility] Last Admin: 08/18/20 09:31 Dose: 5,000 unit Documented by: Dexamethasone (Dexamethasone) 6 mg PO DAILY [facility] Stop: 08/21/20 09:01 Last Admin: 08/18/20 09:31 Dose: 6 mg Documented by: Digoxin (Lanoxin) 250 mcg PO DAILY [facility] Last Admin: 08/18/20 09:32 Dose: 250 mcg Documented by: Enoxaparin Sodium (Lovenox) 30 mg SUBCUT Q12H [facility] Last Admin: 08/18/20 09:32 Dose: 30 mg Documented by: Gabapentin (Neurontin) 900 mg PO TID [facility] Last Admin: 08/18/20 09:32 Dose: 900 mg Documented by: Hydralazine HCl (Apresoline) 10 mg IVPUSH Q4H PRN PRN Reason: Hypertension Diltiazem HCl 100 mg/ Sodium (Chloride) 100 mls @ 5 mls/hr IV TITRATE [facility]; Protocol Last Titration: 08/17/20 09:16 Dose: 0 mg/hr, 0 mls/hr Documented by: Meropenem/Sodium Chloride 500 (mg/ Premix) 50 mls @ 100 mls/hr IV Q8H [facility] Last Admin: 08/18/20 09:34 Dose: 100 mls/hr Documented by: Insulin Glargine (Lantus) 27 unit SUBCUT BID [facility] Last Admin: 08/18/20 09:33 Dose: 27 units Documented by: Insulin Human Lispro (Humalog) 0 unit SUBCUT QIDACANDBED [facility]; Protocol Last Admin: 08/18/20 07:08 Dose: 4 units Documented by: Levalbuterol HCl (Xopenex) 1.25 mg NEB Q2H PRN PRN Reason: Wheezing Last Admin: 08/14/20 21:02 Dose: 1.25 mg Documented by: Levothyroxine Sodium (Levothyroxine) 200 mcg PO ACBREAKFAST [facility] Last Admin: 08/18/20 05:29 Dose: 200 mcg Documented by: Metoprolol Tartrate (Lopressor) 25 mg PO BID [facility] Last Admin: 08/18/20 09:33 Dose: 25 mg Documented by: Mometasone Furoate/Formoterol Fumar (Dulera 200-5 Mcg) 2 puff IH BID [facility] Last Admin: 08/18/20 08:34 Dose: 2 dose Documented by: Ondansetron HCl (Zofran) 4 mg IV Q4H PRN PRN Reason: Nausea/Vomiting Oxycodone HCl (Oxycodone) 5 mg PO Q4H PRN PRN Reason: Pain (moderate 4-6) Last Admin: 08/17/20 23:55 Dose: 5 mg Documented by: Senna/Docusate Sodium (Senna Plus) 3 tab PO BID [facility] Last Admin: 08/18/20 09:34 Dose: Not Given Documented by: Sertraline HCl (Zoloft) 50 mg PO DAILY [facility] Last Admin: 08/18/20 09:31 Dose: 50 mg Documented by: Sodium Chloride (Saline Flush) 10 ml FLUSH ASDIRECTED PRN PRN Reason: Keep Vein Open Last Admin: 08/12/20 10:42 Dose: 10 ml Documented by: Discontinued Medications Dexamethasone (Decadron) 6 mg IV ONETIME ONE Stop: 08/14/20 09:49 Last Admin: 08/14/20 10:11 Dose: 6 mg Documented by: Digoxin (Lanoxin) 500 mcg IVPUSH ONETIME ONE Stop: 08/14/20 12:31 Last Admin: 08/14/20 12:40 Dose: 500 mcg Documented by: Digoxin (Lanoxin) 250 mcg IVPUSH Q6H [facility] Stop: 08/15/20 01:01 Last Admin: 08/14/20 20:28 Dose: 250 mcg Documented by: Digoxin (Lanoxin) 250 mcg IVPUSH ONETIME ONE Stop: 08/15/20 02:31 Last Admin: 08/15/20 02:34 Dose: 250 mcg Documented by: Digoxin (Lanoxin) 100 mcg PO ONETIME ONE Stop: 08/17/20 10:01 Last Admin: 08/17/20 10:28 Dose: Not Given Documented by: Digoxin (Lanoxin) 125 mcg PO ONETIME ONE Stop: 08/17/20 10:01 Last Admin: 08/17/20 10:19 Dose: 125 mcg Documented by: Diltiazem HCl (Cardizem) 10 mg IVPUSH ONETIME ONE Stop: 08/12/20 09:58 Last Admin: 08/12/20 10:40 Dose: 10 mg Documented by: Diltiazem HCl (Cardizem) 5 mg IVPUSH ONETIME ONE Stop: 08/12/20 14:00 Last Admin: 08/12/20 14:48 Dose: 5 mg Documented by: Enoxaparin Sodium (Lovenox) 40 mg SUBCUT DAILY [facility] Last Admin: 08/13/20 08:29 Dose: 40 mg Documented by: Enoxaparin Sodium (Lovenox) 120 mg SUBCUT Q12H [facility] Last Admin: 08/15/20 13:13 Dose: 120 mg Documented by: Enoxaparin Sodium (Lovenox) 120 mg SUBCUT Q12H [facility] Last Admin: 08/17/20 08:15 Dose: Not Given Documented by: Fentanyl (Duragesic) 25 mcg TOP Q72H [facility] Last Admin: 08/13/20 09:16 Dose: 25 mcg Documented by: Furosemide (Lasix) 40 mg IVPUSH DAILY [facility] Furosemide (Lasix) 60 mg IVPUSH NOW ONE Stop: 08/13/20 17:53 Last Admin: 08/13/20 18:09 Dose: 60 mg Documented by: Furosemide (Lasix) 40 mg IVPUSH NOW ONE Stop: 08/14/20 08:12 Last Admin: 08/14/20 08:35 Dose: 40 mg Documented by: Furosemide (Lasix) 40 mg IVPUSH NOW ONE Stop: 08/14/20 12:31 Last Admin: 08/14/20 12:48 Dose: 40 mg Documented by: Furosemide (Lasix) 40 mg IVPUSH Q12H [facility] Sodium Chloride (Normal Saline) 1,000 mls @ 125 mls/hr IV ASDIRECTED [facility] Sodium Chloride (Normal Saline) 1,000 mls @ 1,000 mls/hr IV ONETIME ONE Stop: 08/12/20 10:51 Last Admin: 08/12/20 10:39 Dose: 1,000 mls/hr Documented by: Ceftriaxone Sodium 2 gm/ (Sodium Chloride) 100 mls @ 200 mls/hr IV ONETIME ONE Stop: 08/12/20 11:38 Last Admin: 08/12/20 11:50 Dose: 200 mls/hr Documented by: Lactated Ringer's (Ringers, Lactated) 500 mls @ 999 mls/hr IV .BOLUS ONE Stop: 08/12/20 14:28 Last Admin: 08/12/20 14:16 Dose: 999 mls/hr Documented by: Lactated Ringer's (Ringers, Lactated) 1,000 mls @ 100 mls/hr IV ASDIRECTED [facility] Last Admin: 08/13/20 21:46 Dose: 100 mls/hr Documented by: Diltiazem HCl 100 mg/ Sodium (Chloride) 100 mls @ 5 mls/hr IV TITRATE [facility]; Protocol Meropenem/Sodium Chloride 500 (mg/ Premix) 50 mls @ 100 mls/hr IV Q6H [facility] Last Admin: 08/13/20 10:09 Dose: 100 mls/hr Documented by: Vancomycin HCl 1 gm/Vancomycin HCl 500 mg/ Sodium Chloride 500 mls @ 250 mls/hr IV ONETIME ONE Stop: 08/12/20 19:59 Last Admin: 08/12/20 18:37 Dose: 250 mls/hr Documented by: Vancomycin HCl 1 gm/Vancomycin HCl 250 mg/ Sodium Chloride 250 mls @ 166 mls/hr IV Q12H [facility] Last Admin: 08/13/20 05:17 Dose: 166 mls/hr Documented by: Lactated Ringer's (Ringers, Lactated) 500 mls @ 500 mls/hr IV .BOLUS ONE Stop: 08/12/20 21:05 Last Admin: 08/12/20 21:11 Dose: 500 mls/hr Documented by: Vancomycin HCl 1 gm/Vancomycin HCl 250 mg/ Sodium Chloride 250 mls @ 166.667 mls/hr IV Q18H [facility] Remdesivir 200 mg/ Sodium (Chloride) 250 mls @ 250 mls/hr IV ONETIME ONE Stop: 08/13/20 19:49 Last Admin: 08/13/20 20:14 Dose: 250 mls/hr Documented by: Remdesivir 100 mg/ Sodium (Chloride) 100 mls @ 100 mls/hr IV Q24H [facility] Stop: 08/17/20 20:59 Last Admin: 08/17/20 20:01 Dose: 100 mls/hr Documented by: Lactated Ringer's (Ringers, Lactated) 250 mls @ 999 mls/hr IV ONETIME ONE Stop: 08/13/20 22:15 Last Admin: 08/13/20 21:59 Dose: 999 mls/hr Documented by: Lactated Ringer's (Ringers, Lactated) 250 mls @ 999 mls/hr IV ONETIME ONE Stop: 08/14/20 00:18 Last Admin: 08/14/20 00:36 Dose: 999 mls/hr Documented by: Metoprolol Tartrate 5 mg/ (Sodium Chloride) 55 mls @ 100 mls/hr IV Q4H PRN PRN Reason: Tachycardia Furosemide 100 mg/ Sodium (Chloride) 100 mls @ 10 mls/hr IV TITRATE [facility]; Protocol Stop: 08/15/20 12:00 Last Titration: 08/15/20 11:16 Dose: 0 mg/hr, 0 mls/hr Documented by: Vancomycin HCl 1 gm/Vancomycin HCl 250 mg/ Sodium Chloride 250 mls @ 166.667 mls/hr IV Q24H [facility] Last Admin: 08/15/20 17:55 Dose: 166.667 mls/hr Documented by: Sodium Chloride (Normal Saline) Confirm Administered Dose 100 mls @ as directed .ROUTE .STK-MED ONE Stop: 08/15/20 20:00 Last Admin: 08/15/20 20:12 Dose: Not Given Documented by: Insulin Glargine (Lantus) 56 unit SUBCUT DAILY [facility] Insulin Glargine (Lantus) 25 unit SUBCUT BID [facility] Last Admin: 08/17/20 08:13 Dose: 25 units Documented by: Insulin Glargine (Lantus) 2 unit SUBCUT NOW [facility] Stop: 08/17/20 08:50 Last Admin: 08/17/20 08:55 Dose: 2 units Documented by: Losartan Potassium (Cozaar) 50 mg PO DAILY [facility] Last Admin: 08/16/20 08:04 Dose: 50 mg Documented by: Meropenem (Merrem) 1 gm IVPUSH Q8H [facility] Last Admin: 08/12/20 20:32 Dose: Not Given Documented by: Metoprolol Tartrate (Lopressor) 25 mg PO ONETIME ONE Stop: 08/13/20 17:31 Last Admin: 08/13/20 17:32 Dose: 25 mg Documented by: Metoprolol Tartrate (Lopressor) 50 mg PO Q12H [facility] Last Admin: 08/14/20 09:03 Dose: Not Given Documented by: Metoprolol Tartrate (Lopressor) 25 mg PO ONETIME ONE Stop: 08/13/20 22:01 Last Admin: 08/13/20 22:05 Dose: 25 mg Documented by: Metoprolol Tartrate (Lopressor) 5 mg IVPUSH Q4H PRN PRN Reason: Tachycardia Last Admin: 08/14/20 11:52 Dose: 5 mg Documented by: Metoprolol Tartrate (Lopressor) 12.5 mg PO Q12H [facility] Last Admin: 08/16/20 21:03 Dose: 12.5 mg Documented by: Miscellaneous Information (Remove Patch) 1 ea TRDERM Q72H [facility] Last Admin: 08/13/20 09:16 Dose: 1 ea Documented by: Naloxone HCl (Narcan) 0.4 mg IVPUSH ONETIME ONE Stop: 08/14/20 09:58 Last Admin: 08/14/20 10:11 Dose: 0.4 mg Documented by: Naloxone HCl (Narcan) 0.4 mg IVPUSH ONETIME ONE Stop: 08/14/20 10:31 Last Admin: 08/14/20 10:46 Dose: 0.4 mg Documented by: Potassium Chloride (Klor-Con M20) 20 meq PO TID [facility] Stop: 08/17/20 21:01 Last Admin: 08/17/20 20:03 Dose: 20 meq Documented by: Rivaroxaban (Xarelto) 15 mg PO DAILY [facility] Last Admin: 08/14/20 09:03 Dose: Not Given Documented by: Vancomycin HCl (Pharmacy To Dose - Vancomycin) 0 dose .XX ASDIRECTED PRN PRN Reason: RX TO DOSE VANCOMYCIN Vancomycin HCl (Pharmacy To Dose - Vancomycin) 1 dose .XX ASDIRECTED PRN PRN Reason: RX TO DOSE VANCO - Exam Physical Findings Comments:: General: No acute distress, on oxygen via nasal cannula HEENT: Conjunctiva Clear, EOMI, Mucosa Moist & [place] Neck: Supple, Trachea Midline, NO JVD Lungs: Diminished breathing sounds, bibasilar crackles Cardiovascular: Regular Rate, Regular Rhythm GI/Abdominal Exam: Normal Bowel Sounds, Soft, Non-Tender, No Organomegaly, No Distention, No Abnormal Bruit, No Mass Extremities: Bilateral BKA, normal Inspection, Non-Tender Skin: Warm, Dry, Intact Neurology: A+O x 3, no focal neurological deficits Psychiatric: Normal Mood Sepsis Event Note - Evaluation Sepsis Screening Result: No Definite Risk - Focused Exam Vital Signs: Vital Signs Temp Pulse Resp BP BP Pulse Ox Pulse Ox 08/18/20 11:48 36.8 C 80 15 148/83 H 96 08/18/20 09:33 76 124/82 08/18/20 09:32 113 H 08/18/20 08:34 08/18/20 08:00 36.1 C 18 101/83 97 08/18/20 06:00 17 96 08/18/20 05:35 96 08/18/20 05:10 88 L 08/18/20 05:00 18 86 L 08/18/20 04:00 36.6 C 14 132/71 95 08/18/20 03:00 16 94 L 08/18/20 02:00 15 94 L 08/18/20 01:00 17 95 08/18/20 00:15 17 94 L Pulse Ox 08/18/20 11:48 08/18/20 09:33 08/18/20 09:32 08/18/20 08:34 93 L 08/18/20 08:00 08/18/20 06:00 08/18/20 05:35 08/18/20 05:10 08/18/20 05:00 08/18/20 04:00 08/18/20 03:00 08/18/20 02:00 08/18/20 01:00 08/18/20 00:15 - Problem List Review Problem List Initiated/Reviewed/Updated: Yes - My Orders Last 24 Hours: My Active Orders 08/18/20 Lunch Regular Diet [DIET] 08/19/20 05:00 CBC WITH AUTO DIFF [HEME] DAILY CBC WITH AUTO DIFF [HEME] DAILY CMP [COMPREHENSIVE METABOLIC PN,CMP] [CHEM] DAILY CMP [COMPREHENSIVE METABOLIC PN,CMP] [CHEM] DAILY CRP [C-REACTIVE PROTEIN] [CHEM] DAILY CRP [C-REACTIVE PROTEIN] [CHEM] DAILY DIGOXIN [CHEM] DAILY 08/19/20 05:10 DIGOXIN [CHEM] DAILY 08/19/20 05:11 D-DIMER QUANTITATIVE [COAG] DAILY MAGNESIUM [CHEM] DAILY 08/20/20 05:00 CBC WITH AUTO DIFF [HEME] DAILY CBC WITH AUTO DIFF [HEME] DAILY CMP [COMPREHENSIVE METABOLIC PN,CMP] [CHEM] DAILY CMP [COMPREHENSIVE METABOLIC PN,CMP] [CHEM] DAILY CRP [C-REACTIVE PROTEIN] [CHEM] DAILY CRP [C-REACTIVE PROTEIN] [CHEM] DAILY DIGOXIN [CHEM] DAILY 08/20/20 05:10 DIGOXIN [CHEM] DAILY 08/20/20 05:11 D-DIMER QUANTITATIVE [COAG] DAILY MAGNESIUM [CHEM] DAILY 08/21/20 05:00 CBC WITH AUTO DIFF [HEME] DAILY CMP [COMPREHENSIVE METABOLIC PN,CMP] [CHEM] DAILY CRP [C-REACTIVE PROTEIN] [CHEM] DAILY DIGOXIN [CHEM] DAILY 08/21/20 05:10 DIGOXIN [CHEM] DAILY 08/21/20 05:11 D-DIMER QUANTITATIVE [COAG] DAILY MAGNESIUM [CHEM] DAILY 08/22/20 05:00 DIGOXIN [CHEM] DAILY 08/22/20 05:10 DIGOXIN [CHEM] DAILY 08/22/20 05:11 D-DIMER QUANTITATIVE [COAG] DAILY MAGNESIUM [CHEM] DAILY 08/23/20 05:11 D-DIMER QUANTITATIVE [COAG] DAILY MAGNESIUM [CHEM] DAILY - Plan Plan:: Assessment 80-year-old male with history of COVID-19 teen in March and vaccination last month comes to the emergency department with from his primary care providers office with UTI, sepsis, and reinfection from COVID-19. Severe sepsis UTI * Patient fulfills sepsis criteria * White count 14.2, C-reactive protein of 9.3 * Lactic acid 1.5 * Given Rocephin in the emergency department. * Blood cultures and urine cultures obtained prior to Rocephin * Given 1 L bolus in the emergency department Atrial flutter/SVT Elevated troponin CHF * EKG obtained at clinic showed SVT * Subsequent EKG done on admission showed atrial flutter with 2: 1 AV block. Borderline/minimal ST elevation in lead III. * Troponin 0.452. This is a independent risk factor for poor outcome. With the minimal ST elevation and elevated troponin this could signify a type II OR versus myocardial strain. * Trial of Cardizem drip in ER was stopped because of low blood pressure. * No proBNP done in the emergency department Renal insufficiency stage III * Outpatient records are not available so it makes it difficult to know if this is a change from baseline or if this is his baseline GFR. * Creatinine 1.4, GFR 49, BUN 48 Type 2 diabetesinsulin-dependent * Unknown hemoglobin A1c. * Home insulin: Lantus 56 units every morning, 54 units every afternoon. NovoLog unknown 7 units 3 times daily with meals and sliding scale. COVID-19 reinfection * Initial infection in March 2020 * Vaccination last month * Respiratory status is at baseline * No D-dimer ordered Plan * Admit to ICU * Treat for complicated UTI to include vancomycin and meropenem * Follow blood cultures and urine cultures * 500 mL fluid bolus * Cardizem 5 mg IV x1 then start Cardizem drip as long as blood pressure holds * If he does not convert out of atrial flutter will need to anticoagulate * Continue FiO2 to keep SPO2 above 90%. * Repeat troponin in the morning. This will be a lagging indicator secondary to renal function. * Get proBNP for baseline * Get hemoglobin A1c and TSH * VTE prophylaxis with Lovenox, but will need to switch to full anticoagulation if he does not convert out of atrial flutter. * CODE STATUS: DNR/DNI August 13, 2020 Severe sepsisresolved UTI Atrial flutter/atrial fibrillation with rapid ventricular response CHF Renal insufficiency stage III COVID-19 reinfection Insulin-dependent type 2 diabetes * Patient continues to be tachycardic but his hypotension has resolved. * Continue to increase Cardizem drip until heart rate is less than 90 then switch to oral * Start dexamethasone 6 mg daily * Continue meropenem until sensitivities on urine culture * Stop vancomycin * Creatinine 1.3improved * Hemoglobin A1c 7.6 * Restart small dose of long-acting insulin * Discharge likely in 3 to 4 days. August 14, 2020 COVID-19 reinfection Respiratory failure D-dimer did increase to 2.37 Patient developed respiratory failure with exacerbation of CHF and renal failure overnight. Apparently patient has a CPAP/BiPAP at the longterm. That was not continued here last night. Patient also appears to have severe sleep apnea and likely pickwickian syndrome. He had a significant elevation in his CO2 overnight and decrease in mentation. This was followed by an ABG showing severe hypercapnia with a PCO2 greater than 80. Patient was placed on BiPAP and PCO2 decreased to 66. Patient's mentation is improving, but he still not following commands. Acute kidney injury stage II-likely secondary to ATN from sepsis versus prerenal disease from circulating hypovolemia His urine output went to less than 0.5 mL/kg/h for over 12 hours. This placed him at stage II acute kidney injury. Patient was given several fluid boluses over the evening and after then giving him Lasix 40 mg x 2 he had very urine output greater than 100 mL/h. Fortunately his creatinine did not change overnight and his creatinine was 1.3 although his BUN was 43. UTI Sepsis resolved UA growing gram-negative rods, gram-positive cocci, and a separate gram-negative rods Vancomycin was stopped yesterday secondary to initial cultures growing out only gram-negative rods Atrial flutter/atrial fibrillation with rapid ventricular response CHF Elevated troponintroponin decreased to 0.136 Patient has had good response to beta-miriam with calcium channel miriam. Unfortunately we do not have a recent echocardiogram. Patient was switched over to digoxin and a calcium channel miriam. This may be adjusted or have a beta- miriam added to digoxin at a later date. Plan echocardiogram if rate is less than 90 in the morning. Insulin-dependent type 2 diabetes Essentially half of his Lantus was started overnight at 25 units twice daily. Unfortunately, patient is no longer able to take p.o. and will continue to follow his blood sugars 4 times daily. Will stick to sliding scale and hold his long-acting insulin at this time. Plan * Continue BiPAP * Lasix drip to keep urine output greater than 100 mL/h * Repeat ABGs as needed * Hold fentanyl at this time avoid centrally acting sedating agents including gabapentin for now * Follow CBC, CMP, magnesium, Phos, C-reactive protein * Digoxin loading with 500 mcg x 1 then 250 mcg x 2 * Diltiazem drip to keep heart rate less than 90 * Hold metoprolol * Echocardiogram in the morning * Restart vancomycin secondary to gram-positive cocci in urine possible Enterococcus * Continue meropenem * Start Lovenox 1 mg/kg every 12 hours and stop Xarelto * Hold Lantus until taking orally * Follow potassium closely secondary to Lasix drip and digoxin. Will repeat BMP this evening. * Continue remdesivir and dexamethasone. Switch dexamethasone to IV. August 15, 2020 Acute on chronic hypoxic respiratory failure COVID-19 reinfection D-dimer did increase to 2.37 Patient has a CPAP/BiPAP at the longterm. That was not continued here last night. Patient also appears to have severe sleep apnea and likely pickwickian syndrome. He had a significant elevation in his CO2 overnight and decrease in mentation. This was followed by an ABG showing severe hypercapnia with a PCO2 greater than 80. Patient was placed on BiPAP and PCO2 decreased to 66. Patient's mentation is improving. He can follow simple commands Acute kidney injury stage II-likely secondary to ATN from sepsis versus prerenal disease from circulating hypovolemia urine output > 5L today, patient developed polyuria. Creatinine 1.1 With discontinue Lasix Monitor I and O UTI Sepsis resolved UA growing gram-negative rods, gram-positive cocci, and a separate gram-negative rods Continue vancomycin and meropenem, pending sensitivities Atrial flutter/atrial fibrillation with rapid ventricular response CHF Elevated troponintroponin decreased to 0.136 Patient has had good response to beta-miriam with calcium channel miriam. Unfortunately we do not have a recent echocardiogram. Patient was switched over to digoxin and a calcium channel miriam. This may be adjusted or have a beta- miriam added to digoxin at a later date. Echocardiogram Insulin-dependent type 2 diabetes Essentially half of his Lantus was started overnight at 25 units twice daily. patient is no longer able to take p.o. check blood glucose 4 times a day. Will stick to sliding scale and hold his long-acting insulin at this time. Plan * Continue BiPAP, trying to wean from all BiPAP * Discontinued Lasix. Monitor I&O * Repeat ABGs as needed * Hold fentanyl at this time avoid centrally acting sedating agents including gabapentin for now * Follow CBC, CMP, magnesium, Phos, C-reactive protein * Digoxin loading with 500 mcg x 1 then 250 mcg x 2. Digoxin level tomorrow morning * Diltiazem drip to keep heart rate less than 90 * Hold metoprolol * vancomycin secondary to gram-positive cocci in urine possible Enterococcus * Continue meropenem * Start Lovenox 1 mg/kg every 12 hours * Hold Lantus until taking orally * Continue remdesivir and IV dexamethasone. Deprivation: Length of stay greater than 96 hours due to multiple comorbidities and slow response to treatment August 16, 2020 Acute on chronic hypoxic respiratory failure COVID-19 reinfection, pneumonia CRP decreased to 6.0 and D-dimer decreased to 2 1.77 Repeat chest x-ray today-improving Patient has a CPAP/BiPAP at the longterm. Patient also appears to have severe sleep apnea and likely pickwickian syndrome. ABG showed PCO2 and PO2 improving Continue dexamethasone 6 mg p.o. daily Lovenox 120 mg twice daily Remdesivir 5-day course Acute kidney injury stage II-likely secondary to ATN from sepsis versus prerenal disease from circulating hypovolemia urine output > 4L today, patient developed polyuria. Creatinine 1.1 Lasix is on hold Monitor I and O Discontinued losartan UTI Sepsis resolved Urine culture showed positive for Ecoli, Enterococcus and Baumannii/haemolytics which are sensitive to meropenem. Discontinued vancomycin Continue meropenem Atrial flutter/atrial fibrillation with rapid ventricular response CHF Elevated troponintroponin decreased to 0.136 Continue digoxin to 250 MCG daily Metoprolol 12.5 mg twice daily. Discontinued losartan Diltiazem drip as needed Therapeutic Lovenox Echocardiogram Insulin-dependent type 2 diabetes Essentially half of his Lantus was started overnight at 25 units twice daily. check blood glucose 4 times a day. Insulin sliding scale Plan * Continue BiPAP, trying to wean from all BiPAP * Discontinued Lasix. Monitor I&O * Repeat ABGs as needed * Hold fentanyl at this time avoid centrally acting sedating agents including gabapentin for now * Follow CBC, CMP, magnesium, Phos, C-reactive protein * Digoxin loading with 500 mcg x 1 then 250 mcg x 2. Digoxin level 1.6 today * Diltiazem drip to keep heart rate less than 90 * Metoprolol 12.5 mg twice daily * Discontinued vancomycin * Continue meropenem * Lovenox 1 mg/kg every 12 hours Deprivation: Length of stay greater than 96 hours due to multiple comorbidities and slow response to treatment August 17, 2020 Acute on chronic hypoxic respiratory failure BiPAP dependent, setting -23/01 with FiO2 30% COVID-19 reinfection, pneumonia CRP decreased to 3.26 and D-dimer keeps trending down Repeat chest x-ray August 16-improving Patient has a CPAP/BiPAP at the longterm. Patient also appears to have severe sleep apnea and likely pickwickian syndrome. ABG showed PCO2 and PO2 improving Continue dexamethasone 6 mg p.o. daily Discontinued Lovenox 120 mg twice daily on August 17 due to oozing blood. Initiated Lovenox to 30 mg twice daily Remdesivir 5-day course Acute kidney injury stage II-likely secondary to ATN from sepsis versus prerenal disease from circulating hypovolemia urine output > 4L today, patient developed polyuria. Creatinine 1.1 Lasix is on hold Monitor I and O Discontinued losartan UTI Sepsis resolved Urine culture showed positive for Ecoli, Enterococcus and Baumannii/haemolytics which are sensitive to meropenem. Discontinued vancomycin Continue meropenem Atrial flutter/atrial fibrillation with rapid ventricular response CHF Elevated troponintroponin decreased to 0.136 Continue digoxin to 250 MCG daily + 125mcg x 1 today Digoxin level daily Increased metoprolol to 25 mg twice daily. Discontinued losartan Diltiazem drip as needed, trying to wean off Therapeutic Lovenox (on hold due to oozing blood) Echocardiogram Insulin-dependent type 2 diabetes Increased Lantus to 27 units twice daily Insulin sliding scale Plan * Continue BiPAP, trying to wean off * Discontinued Lasix. Monitor I&O * Repeat ABGs as needed * Hold fentanyl at this time avoid centrally acting sedating agents including gabapentin for now * Follow CBC, CMP, magnesium, Phos, C-reactive protein * CRP and D-dimer daily * Digoxin loading with 500 mcg x 1 and 250 mcg. Digoxin level daily. Adjusted digoxin based on digoxin level * Metoprolol 25 mg twice daily, diltiazem drip as needed to keep heart rate less than 90 * Discontinued vancomycin * Continue meropenem * DVT prophylaxis: Lovenox 30 mg subcutaneous every 12 hours. Therapeutic Lovenox was discontinued today due to oozing blood Deprivation: Length of stay greater than 96 hours due to multiple comorbidities, nature of covid pneumonia and slow response to treatment August 18, 2020 Acute on chronic hypoxic respiratory failure On NC, 4L. ABG showed PCO2 53.6, PO2 98 COVID-19 reinfection, pneumonia CRP decreased to 2.9 and D-dimer dropped to 1.47 Repeat chest x-ray August 16-improving Patient has a CPAP/BiPAP at the longterm. Patient also appears to have severe sleep apnea and likely pickwickian syndrome. ABG showed PO2 improving Continue dexamethasone 6 mg p.o. daily Continue Lovenox to 30 mg twice daily. Lovenox 120 mg twice daily was discontinued due to bleeding. Completed remdesivir 5-day course today. Acute kidney injury stage II-likely secondary to ATN from sepsis versus prerenal disease from circulating hypovolemia patient developed polyuria. Creatinine 1.0 Lasix is on hold Monitor I and O: Negative balance 1245 cc Discontinued losartan UTI Sepsis resolved Urine culture showed positive for Ecoli, Enterococcus and Baumannii/haemolytics which are sensitive to meropenem. Discontinued vancomycin Continue meropenem Atrial flutter/atrial fibrillation with rapid ventricular response CHF Elevated troponintroponin decreased to 0.136 Continue digoxin to 250 MCG daily Digoxin level daily Continue metoprolol to 25 mg twice daily. Discontinued losartan Diltiazem drip as needed, trying to wean off Therapeutic Lovenox on hold due to oozing blood Echocardiogram Insulin-dependent type 2 diabetes Increased Lantus to 29 units twice daily Insulin sliding scale Plan * Patient condition is improving, she still on oxygen via nasal cannula today. I will possibly downgrade this patient to telemetry tomorrow if he no longer needs a BiPAP. * Discontinued Lasix. Monitor I&O * Repeat ABGs as needed * Hold fentanyl at this time avoid centrally acting sedating agents including gabapentin for now * Follow CBC, CMP, magnesium, Phos, digoxin level * CRP and D-dimer daily * Adjusted digoxin based on digoxin level * Metoprolol 25 mg twice daily, diltiazem drip as needed to keep heart rate less than 90 * Discontinued vancomycin * Continue meropenem * DVT prophylaxis: Lovenox 30 mg subcutaneous every 12 hours. Therapeutic Lovenox was discontinued today due to oozing blood Deprivation: Length of stay greater than 96 hours due to multiple comorbidities, nature of covid pneumonia and slow response to treatment
[2020-08-18] MEDS ORDERED: Metoprolol Tartrate 25 MG Tab PO ONE (16:30)
[2020-08-18] MEDS: oxyCODONE 5 MG Tab PO PRN ×2 (16:36→20:56)
[2020-08-19] MEDS: Meropenem Premix 500 MG in Premix Bag 1 BAG IV SCH ×3 (02:03→17:55)
[2020-08-19] MEDS: Gabapentin 300 MG Cap PO SCH ×3 (08:16→22:06)
[2020-08-19] MEDS: Sertraline 50 MG Tab PO SCH (08:16)
[2020-08-19] MEDS: Insulin Glarg,Human.Rec.Analog 100 Unit/ML SUBCUT SCH ×2 (08:16→22:04)
[2020-08-19] MEDS: Cholecalciferol (Vitamin D3) 5,000 UNIT Cap PO SCH (08:16)
[2020-08-19] MEDS: Digoxin 250 MCG Tab PO SCH (08:16)
[2020-08-19] MEDS: Enoxaparin 30 MG/0.3 ML Syringe SUBCUT SCH ×2 (08:17→22:05)
[2020-08-19] MEDS: Dexamethasone 4 MG Tab PO SCH (08:17)
[2020-08-19] MEDS: Metoprolol Tartrate 25 MG Tab PO SCH ×3 (08:19→22:06)
[2020-08-19] MEDS: Formoterol/Mometasone 200-5 MCG 8.8 GM Inhaler IH SCH ×2 (08:30→20:05)
[2020-08-19] MEDS ORDERED: Digoxin 125 MCG Tab PO ONE (10:04)
--- NOTE | 2020-08-19 14:34 | PCM.PN ---
- General Info Date of Service: 08/19/20 Admission Dx/Problem (Free Text): Admission Diagnosis/Problem Admission Diagnosis/Problem Sepsis Subjective Update: Generally speaking, patient condition has difficult today improved. He is now on nasal cannula, 2 L. Patient alert and awake. he can answer questions. He does not have any new complaints. Heart rate is better controlled. WBC 19.78, platelets 231 CRP trending down to 1.29 today, D-dimer mildly elevated to 3.04 Creatinine 0.9, mag 2.5 Negative balance 225 so far Patient downgraded to telemetry from ICU today - Review of Systems Systems Review Comment:: Positive for shortness of breath. All other systems were were reviewed and negative. - Patient Data Vitals - Most Recent: Last Vital Signs Temp 36.8 C 08/19/20 12:46 Pulse 72 08/19/20 12:46 Resp 12 08/19/20 12:46 BP 157/92 H 08/19/20 12:46 Pulse Ox 93 L 08/19/20 12:46 Weight - Most Recent: 115.303 kg I&O - Last 24 Hours: Intake & Output 08/18/20 08/19/20 08/19/20 22:59 06:59 14:59 Intake Total 1050 850 440 Output Total 850 875 525 Balance 200 -25 -85 Lab Results Last 24 Hours: Laboratory Results - last 24 hr 08/18/20 08/18/20 08/19/20 Range/Units 16:39 21:01 05:33 WBC 19.78 H (4.23-9.07) K/mm3 RBC 5.57 (4.63-6.08) M/mm3 Hgb 15.0 (13.7-17.5) gm/dl Hct 50.0 (40.1-51.0) % MCV 89.8 (79.0-92.2) fl MCH 26.9 (25.7-32.2) pg MCHC 30.0 L (32.2-35.5) g/dl RDW Std Deviation 51.6 H (35.1-43.9) fL Plt Count 231 (163-337) K/mm3 MPV 9.9 (9.4-12.3) fl Neut % (Auto) 82.3 H (34.0-67.9) % Lymph % (Auto) 9.9 L (21.8-53.1) % Graham % (Auto) 6.9 (5.3-12.2) % Eos % (Auto) 0.1 L (0.8-7.0) Baso % (Auto) 0.1 (0.1-1.2) % Neut # (Auto) 16.30 H (1.78-5.38) K/mm3 Lymph # (Auto) 1.95 (1.32-3.57) K/mm3 Graham # (Auto) 1.37 H (0.30-0.82) K/mm3 Eos # (Auto) 0.01 L (0.04-0.54) K/mm3 Baso # (Auto) 0.01 (0.01-0.08) K/mm3 Manual Slide Review Abnormal smear D-Dimer, Quantitative (0.19-0.50) mg/L Sodium (136-145) mEq/L Potassium (3.5-5.1) mEq/L Chloride (98-107) mEq/L Carbon Dioxide (21-32) mEq/L Anion Gap (5-15) BUN (7-18) mg/dL Creatinine (0.7-1.3) mg/dL Est Cr Clr Drug Dosing mL/min Estimated GFR (MDRD) (>60) mL/min BUN/Creatinine Ratio (14-18) Glucose (83-115) mg/dL POC Glucose 301 H 338 H (83-110) mg/dL Calcium (8.5-10.1) mg/dL Magnesium (1.8-2.4) mg/dl Total Bilirubin (0.2-1.0) mg/dL AST (15-37) U/L ALT (16-63) U/L Alkaline Phosphatase (46-116) U/L C-Reactive Protein (<1.0) mg/dL Total Protein (6.4-8.2) g/dl Albumin (3.4-5.0) g/dl Globulin gm/dL Albumin/Globulin Ratio (1-2) Digoxin (0.9-2.0) ng/mL 08/19/20 08/19/20 08/19/20 Range/Units 05:33 05:33 05:33 WBC (4.23-9.07) K/mm3 RBC (4.63-6.08) M/mm3 Hgb (13.7-17.5) gm/dl Hct (40.1-51.0) % MCV (79.0-92.2) fl MCH (25.7-32.2) pg MCHC (32.2-35.5) g/dl RDW Std Deviation (35.1-43.9) fL Plt Count (163-337) K/mm3 MPV (9.4-12.3) fl Neut % (Auto) (34.0-67.9) % Lymph % (Auto) (21.8-53.1) % Graham % (Auto) (5.3-12.2) % Eos % (Auto) (0.8-7.0) Baso % (Auto) (0.1-1.2) % Neut # (Auto) (1.78-5.38) K/mm3 Lymph # (Auto) (1.32-3.57) K/mm3 Graham # (Auto) (0.30-0.82) K/mm3 Eos # (Auto) (0.04-0.54) K/mm3 Baso # (Auto) (0.01-0.08) K/mm3 Manual Slide Review D-Dimer, Quantitative 3.04 H (0.19-0.50) mg/L Sodium 142 (136-145) mEq/L Potassium 5.1 (3.5-5.1) mEq/L Chloride 104 (98-107) mEq/L Carbon Dioxide 33 H (21-32) mEq/L Anion Gap 10.1 (5-15) BUN 36 H (7-18) mg/dL Creatinine 0.9 (0.7-1.3) mg/dL Est Cr Clr Drug Dosing 45.52 mL/min Estimated GFR (MDRD) > 60 (>60) mL/min BUN/Creatinine Ratio 40.0 H (14-18) Glucose 244 H (83-115) mg/dL POC Glucose (83-110) mg/dL Calcium 9.0 (8.5-10.1) mg/dL Magnesium 2.5 H (1.8-2.4) mg/dl Total Bilirubin 0.9 (0.2-1.0) mg/dL AST 32 (15-37) U/L ALT 64 H (16-63) U/L Alkaline Phosphatase 75 (46-116) U/L C-Reactive Protein 1.9 H* (<1.0) mg/dL Total Protein 6.7 (6.4-8.2) g/dl Albumin 2.7 L (3.4-5.0) g/dl Globulin 4.0 gm/dL Albumin/Globulin Ratio 0.7 L (1-2) Digoxin 1.5 (0.9-2.0) ng/mL 08/19/20 08/19/20 Range/Units 05:36 11:21 WBC (4.23-9.07) K/mm3 RBC (4.63-6.08) M/mm3 Hgb (13.7-17.5) gm/dl Hct (40.1-51.0) % MCV (79.0-92.2) fl MCH (25.7-32.2) pg MCHC (32.2-35.5) g/dl RDW Std Deviation (35.1-43.9) fL Plt Count (163-337) K/mm3 MPV (9.4-12.3) fl Neut % (Auto) (34.0-67.9) % Lymph % (Auto) (21.8-53.1) % Graham % (Auto) (5.3-12.2) % Eos % (Auto) (0.8-7.0) Baso % (Auto) (0.1-1.2) % Neut # (Auto) (1.78-5.38) K/mm3 Lymph # (Auto) (1.32-3.57) K/mm3 Graham # (Auto) (0.30-0.82) K/mm3 Eos # (Auto) (0.04-0.54) K/mm3 Baso # (Auto) (0.01-0.08) K/mm3 Manual Slide Review D-Dimer, Quantitative (0.19-0.50) mg/L Sodium (136-145) mEq/L Potassium (3.5-5.1) mEq/L Chloride (98-107) mEq/L Carbon Dioxide (21-32) mEq/L Anion Gap (5-15) BUN (7-18) mg/dL Creatinine (0.7-1.3) mg/dL Est Cr Clr Drug Dosing mL/min Estimated GFR (MDRD) (>60) mL/min BUN/Creatinine Ratio (14-18) Glucose (83-115) mg/dL POC Glucose 244 H 282 H (83-110) mg/dL Calcium (8.5-10.1) mg/dL Magnesium (1.8-2.4) mg/dl Total Bilirubin (0.2-1.0) mg/dL AST (15-37) U/L ALT (16-63) U/L Alkaline Phosphatase (46-116) U/L C-Reactive Protein (<1.0) mg/dL Total Protein (6.4-8.2) g/dl Albumin (3.4-5.0) g/dl Globulin gm/dL Albumin/Globulin Ratio (1-2) Digoxin (0.9-2.0) ng/mL Karlos Results Last 24 Hours: Microbiology 08/12/20 10:15 Aerobic Blood Culture - Final Blood - Venous - Lab Draw NO GROWTH AFTER 7 DAYS Anaerobic Blood Culture - Final NO GROWTH AFTER 7 DAYS 08/12/20 10:00 Aerobic Blood Culture - Final Blood - Venous NO GROWTH AFTER 7 DAYS Anaerobic Blood Culture - Final NO GROWTH AFTER 7 DAYS Med Orders - Current: Current Medications Acetaminophen (Tylenol) 650 mg PO Q4H PRN PRN Reason: Pain (Mild 1-3)/fever Albuterol (Proventil Hfa) 0 gm INH QID PRN PRN Reason: Wheezing Bisacodyl (Dulcolax) 10 mg RECTAL DAILY PRN PRN Reason: Constipation Cholecalciferol (Vitamin D3) 5,000 unit PO DAILY [facility] Last Admin: 08/19/20 08:16 Dose: 5,000 unit Documented by: Dexamethasone (Dexamethasone) 4 mg PO DAILY [facility] Digoxin (Lanoxin) 250 mcg PO DAILY [facility] Last Admin: 08/19/20 08:16 Dose: 250 mcg Documented by: Enoxaparin Sodium (Lovenox) 30 mg SUBCUT Q12H [facility] Last Admin: 08/19/20 08:17 Dose: 30 mg Documented by: Gabapentin (Neurontin) 900 mg PO TID [facility] Last Admin: 08/19/20 08:16 Dose: 900 mg Documented by: Hydralazine HCl (Apresoline) 10 mg IVPUSH Q4H PRN PRN Reason: Hypertension Diltiazem HCl 100 mg/ Sodium (Chloride) 100 mls @ 5 mls/hr IV TITRATE [facility]; Protocol Last Titration: 08/17/20 09:16 Dose: 0 mg/hr, 0 mls/hr Documented by: Meropenem/Sodium Chloride 500 (mg/ Premix) 50 mls @ 100 mls/hr IV Q8H [facility] Last Admin: 08/19/20 10:22 Dose: 100 mls/hr Documented by: Insulin Glargine (Lantus) 27 unit SUBCUT BID [facility] Last Admin: 08/19/20 08:16 Dose: 27 units Documented by: Insulin Human Lispro (Humalog) 0 unit SUBCUT QIDACANDBED [facility]; Protocol Last Admin: 08/19/20 12:28 Dose: 6 units Documented by: Levalbuterol HCl (Xopenex) 1.25 mg NEB Q2H PRN PRN Reason: Wheezing Last Admin: 08/14/20 21:02 Dose: 1.25 mg Documented by: Levothyroxine Sodium (Levothyroxine) 200 mcg PO ACBREAKFAST [facility] Last Admin: 08/19/20 05:37 Dose: 200 mcg Documented by: Metoprolol Tartrate (Lopressor) 25 mg PO BID [facility] Last Admin: 08/19/20 08:19 Dose: 25 mg Documented by: Mometasone Furoate/Formoterol Fumar (Dulera 200-5 Mcg) 2 puff IH BID [facility] Last Admin: 08/19/20 08:30 Dose: 2 puff Documented by: Ondansetron HCl (Zofran) 4 mg IV Q4H PRN PRN Reason: Nausea/Vomiting Oxycodone HCl (Oxycodone) 5 mg PO Q4H PRN PRN Reason: Pain (moderate 4-6) Last Admin: 08/18/20 20:56 Dose: 5 mg Documented by: Senna/Docusate Sodium (Senna Plus) 3 tab PO BID [facility] Last Admin: 08/19/20 08:15 Dose: 3 tab Documented by: Sertraline HCl (Zoloft) 50 mg PO DAILY [facility] Last Admin: 08/19/20 08:16 Dose: 50 mg Documented by: Sodium Chloride (Saline Flush) 10 ml FLUSH ASDIRECTED PRN PRN Reason: Keep Vein Open Last Admin: 08/12/20 10:42 Dose: 10 ml Documented by: Discontinued Medications Dexamethasone (Dexamethasone) 6 mg PO DAILY [facility] Stop: 08/21/20 09:01 Last Admin: 08/19/20 08:17 Dose: 6 mg Documented by: Dexamethasone (Decadron) 6 mg IV ONETIME ONE Stop: 08/14/20 09:49 Last Admin: 08/14/20 10:11 Dose: 6 mg Documented by: Digoxin (Lanoxin) 500 mcg IVPUSH ONETIME ONE Stop: 08/14/20 12:31 Last Admin: 08/14/20 12:40 Dose: 500 mcg Documented by: Digoxin (Lanoxin) 250 mcg IVPUSH Q6H [facility] Stop: 08/15/20 01:01 Last Admin: 08/14/20 20:28 Dose: 250 mcg Documented by: Digoxin (Lanoxin) 250 mcg IVPUSH ONETIME ONE Stop: 08/15/20 02:31 Last Admin: 08/15/20 02:34 Dose: 250 mcg Documented by: Digoxin (Lanoxin) 100 mcg PO ONETIME ONE Stop: 08/17/20 10:01 Last Admin: 08/17/20 10:28 Dose: Not Given Documented by: Digoxin (Lanoxin) 125 mcg PO ONETIME ONE Stop: 08/17/20 10:01 Last Admin: 08/17/20 10:19 Dose: 125 mcg Documented by: Digoxin (Lanoxin) 125 mcg PO ONETIME ONE Stop: 08/19/20 10:05 Last Admin: 08/19/20 10:21 Dose: 125 mcg Documented by: Diltiazem HCl (Cardizem) 10 mg IVPUSH ONETIME ONE Stop: 08/12/20 09:58 Last Admin: 08/12/20 10:40 Dose: 10 mg Documented by: Diltiazem HCl (Cardizem) 5 mg IVPUSH ONETIME ONE Stop: 08/12/20 14:00 Last Admin: 08/12/20 14:48 Dose: 5 mg Documented by: Enoxaparin Sodium (Lovenox) 40 mg SUBCUT DAILY [facility] Last Admin: 08/13/20 08:29 Dose: 40 mg Documented by: Enoxaparin Sodium (Lovenox) 120 mg SUBCUT Q12H [facility] Last Admin: 08/15/20 13:13 Dose: 120 mg Documented by: Enoxaparin Sodium (Lovenox) 120 mg SUBCUT Q12H [facility] Last Admin: 08/17/20 08:15 Dose: Not Given Documented by: Fentanyl (Duragesic) 25 mcg TOP Q72H [facility] Last Admin: 08/13/20 09:16 Dose: 25 mcg Documented by: Furosemide (Lasix) 40 mg IVPUSH DAILY [facility] Furosemide (Lasix) 60 mg IVPUSH NOW ONE Stop: 08/13/20 17:53 Last Admin: 08/13/20 18:09 Dose: 60 mg Documented by: Furosemide (Lasix) 40 mg IVPUSH NOW ONE Stop: 08/14/20 08:12 Last Admin: 08/14/20 08:35 Dose: 40 mg Documented by: Furosemide (Lasix) 40 mg IVPUSH NOW ONE Stop: 08/14/20 12:31 Last Admin: 08/14/20 12:48 Dose: 40 mg Documented by: Furosemide (Lasix) 40 mg IVPUSH Q12H [facility] Sodium Chloride (Normal Saline) 1,000 mls @ 125 mls/hr IV ASDIRECTED [facility] Sodium Chloride (Normal Saline) 1,000 mls @ 1,000 mls/hr IV ONETIME ONE Stop: 08/12/20 10:51 Last Admin: 08/12/20 10:39 Dose: 1,000 mls/hr Documented by: Ceftriaxone Sodium 2 gm/ (Sodium Chloride) 100 mls @ 200 mls/hr IV ONETIME ONE Stop: 08/12/20 11:38 Last Admin: 08/12/20 11:50 Dose: 200 mls/hr Documented by: Lactated Ringer's (Ringers, Lactated) 500 mls @ 999 mls/hr IV .BOLUS ONE Stop: 08/12/20 14:28 Last Admin: 08/12/20 14:16 Dose: 999 mls/hr Documented by: Lactated Ringer's (Ringers, Lactated) 1,000 mls @ 100 mls/hr IV ASDIRECTED [facility] Last Admin: 08/13/20 21:46 Dose: 100 mls/hr Documented by: Diltiazem HCl 100 mg/ Sodium (Chloride) 100 mls @ 5 mls/hr IV TITRATE [facility]; Protocol Meropenem/Sodium Chloride 500 (mg/ Premix) 50 mls @ 100 mls/hr IV Q6H [facility] Last Admin: 08/13/20 10:09 Dose: 100 mls/hr Documented by: Vancomycin HCl 1 gm/Vancomycin HCl 500 mg/ Sodium Chloride 500 mls @ 250 mls/hr IV ONETIME ONE Stop: 08/12/20 19:59 Last Admin: 08/12/20 18:37 Dose: 250 mls/hr Documented by: Vancomycin HCl 1 gm/Vancomycin HCl 250 mg/ Sodium Chloride 250 mls @ 166 mls/hr IV Q12H [facility] Last Admin: 08/13/20 05:17 Dose: 166 mls/hr Documented by: Lactated Ringer's (Ringers, Lactated) 500 mls @ 500 mls/hr IV .BOLUS ONE Stop: 08/12/20 21:05 Last Admin: 08/12/20 21:11 Dose: 500 mls/hr Documented by: Vancomycin HCl 1 gm/Vancomycin HCl 250 mg/ Sodium Chloride 250 mls @ 166.667 mls/hr IV Q18H [facility] Remdesivir 200 mg/ Sodium (Chloride) 250 mls @ 250 mls/hr IV ONETIME ONE Stop: 08/13/20 19:49 Last Admin: 08/13/20 20:14 Dose: 250 mls/hr Documented by: Remdesivir 100 mg/ Sodium (Chloride) 100 mls @ 100 mls/hr IV Q24H [facility] Stop: 08/17/20 20:59 Last Admin: 08/17/20 20:01 Dose: 100 mls/hr Documented by: Lactated Ringer's (Ringers, Lactated) 250 mls @ 999 mls/hr IV ONETIME ONE Stop: 08/13/20 22:15 Last Admin: 08/13/20 21:59 Dose: 999 mls/hr Documented by: Lactated Ringer's (Ringers, Lactated) 250 mls @ 999 mls/hr IV ONETIME ONE Stop: 08/14/20 00:18 Last Admin: 08/14/20 00:36 Dose: 999 mls/hr Documented by: Metoprolol Tartrate 5 mg/ (Sodium Chloride) 55 mls @ 100 mls/hr IV Q4H PRN PRN Reason: Tachycardia Furosemide 100 mg/ Sodium (Chloride) 100 mls @ 10 mls/hr IV TITRATE [facility]; Protocol Stop: 08/15/20 12:00 Last Titration: 08/15/20 11:16 Dose: 0 mg/hr, 0 mls/hr Documented by: Vancomycin HCl 1 gm/Vancomycin HCl 250 mg/ Sodium Chloride 250 mls @ 166.667 mls/hr IV Q24H [facility] Last Admin: 08/15/20 17:55 Dose: 166.667 mls/hr Documented by: Sodium Chloride (Normal Saline) Confirm Administered Dose 100 mls @ as directed .ROUTE .STK-MED ONE Stop: 08/15/20 20:00 Last Admin: 08/15/20 20:12 Dose: Not Given Documented by: Insulin Glargine (Lantus) 56 unit SUBCUT DAILY [facility] Insulin Glargine (Lantus) 25 unit SUBCUT BID [facility] Last Admin: 08/17/20 08:13 Dose: 25 units Documented by: Insulin Glargine (Lantus) 2 unit SUBCUT NOW [facility] Stop: 08/17/20 08:50 Last Admin: 08/17/20 08:55 Dose: 2 units Documented by: Losartan Potassium (Cozaar) 50 mg PO DAILY [facility] Last Admin: 08/16/20 08:04 Dose: 50 mg Documented by: Meropenem (Merrem) 1 gm IVPUSH Q8H [facility] Last Admin: 08/12/20 20:32 Dose: Not Given Documented by: Metoprolol Tartrate (Lopressor) 25 mg PO ONETIME ONE Stop: 08/13/20 17:31 Last Admin: 08/13/20 17:32 Dose: 25 mg Documented by: Metoprolol Tartrate (Lopressor) 50 mg PO Q12H [facility] Last Admin: 08/14/20 09:03 Dose: Not Given Documented by: Metoprolol Tartrate (Lopressor) 25 mg PO ONETIME ONE Stop: 08/13/20 22:01 Last Admin: 08/13/20 22:05 Dose: 25 mg Documented by: Metoprolol Tartrate (Lopressor) 5 mg IVPUSH Q4H PRN PRN Reason: Tachycardia Last Admin: 08/14/20 11:52 Dose: 5 mg Documented by: Metoprolol Tartrate (Lopressor) 12.5 mg PO Q12H [facility] Last Admin: 08/16/20 21:03 Dose: 12.5 mg Documented by: Metoprolol Tartrate (Lopressor) 12.5 mg PO ONETIME ONE Stop: 08/18/20 16:31 Last Admin: 08/18/20 16:40 Dose: 12.5 mg Documented by: Miscellaneous Information (Remove Patch) 1 ea TRDERM Q72H [facility] Last Admin: 08/13/20 09:16 Dose: 1 ea Documented by: Naloxone HCl (Narcan) 0.4 mg IVPUSH ONETIME ONE Stop: 08/14/20 09:58 Last Admin: 08/14/20 10:11 Dose: 0.4 mg Documented by: Naloxone HCl (Narcan) 0.4 mg IVPUSH ONETIME ONE Stop: 08/14/20 10:31 Last Admin: 08/14/20 10:46 Dose: 0.4 mg Documented by: Potassium Chloride (Klor-Con M20) 20 meq PO TID [facility] Stop: 08/17/20 21:01 Last Admin: 08/17/20 20:03 Dose: 20 meq Documented by: Rivaroxaban (Xarelto) 15 mg PO DAILY [facility] Last Admin: 08/14/20 09:03 Dose: Not Given Documented by: Vancomycin HCl (Pharmacy To Dose - Vancomycin) 0 dose .XX ASDIRECTED PRN PRN Reason: RX TO DOSE VANCOMYCIN Vancomycin HCl (Pharmacy To Dose - Vancomycin) 1 dose .XX ASDIRECTED PRN PRN Reason: RX TO DOSE VANCO - Exam Physical Findings Comments:: General: No acute distress, on oxygen via nasal cannula HEENT: Conjunctiva Clear, EOMI, Mucosa Moist & [place] Neck: Supple, Trachea Midline, NO JVD Lungs: Diminished breathing sounds, bibasilar crackles Cardiovascular: Regular Rate, Regular Rhythm GI/Abdominal Exam: Normal Bowel Sounds, Soft, Non-Tender, No Organomegaly, No Distention, No Abnormal Bruit, No Mass Extremities: Bilateral BKA, normal Inspection, Non-Tender Skin: Warm, Dry, Intact Neurology: A+O x 3, no focal neurological deficits Psychiatric: Normal Mood Sepsis Event Note - Evaluation Sepsis Screening Result: No Definite Risk - Focused Exam Vital Signs: Vital Signs Temp Temp Pulse Resp BP BP Pulse Ox 08/19/20 12:46 36.8 C 72 12 157/92 H 93 L 08/19/20 10:21 104 H 08/19/20 08:31 08/19/20 08:19 108 H 140/72 08/19/20 08:16 112 H 08/19/20 08:00 36.3 C 108 H 23 H 140/72 93 L 08/19/20 06:21 08/19/20 06:00 18 99 08/19/20 05:49 08/19/20 05:41 25 H 145/93 H 96 08/19/20 05:00 16 94 L 08/19/20 04:01 14 90 L 08/19/20 04:00 36.4 C 18 110/57 L 94 L 08/19/20 03:00 21 H 95 Pulse Ox 08/19/20 12:46 08/19/20 10:21 08/19/20 08:31 94 L 08/19/20 08:19 08/19/20 08:16 08/19/20 08:00 08/19/20 06:21 97 08/19/20 06:00 08/19/20 05:49 96 08/19/20 05:41 08/19/20 05:00 08/19/20 04:01 08/19/20 04:00 08/19/20 03:00 - Problem List Review Problem List Initiated/Reviewed/Updated: Yes - My Orders Last 24 Hours: My Active Orders 08/20/20 05:00 CBC WITH AUTO DIFF [HEME] DAILY CBC WITH AUTO DIFF [HEME] DAILY CMP [COMPREHENSIVE METABOLIC PN,CMP] [CHEM] DAILY CMP [COMPREHENSIVE METABOLIC PN,CMP] [CHEM] DAILY CRP [C-REACTIVE PROTEIN] [CHEM] DAILY CRP [C-REACTIVE PROTEIN] [CHEM] DAILY DIGOXIN [CHEM] DAILY 08/20/20 05:10 DIGOXIN [CHEM] DAILY 08/20/20 05:11 D-DIMER QUANTITATIVE [COAG] DAILY MAGNESIUM [CHEM] DAILY 08/20/20 09:00 dexAMETHasone 4 mg PO DAILY 08/21/20 05:00 CBC WITH AUTO DIFF [HEME] DAILY CMP [COMPREHENSIVE METABOLIC PN,CMP] [CHEM] DAILY CRP [C-REACTIVE PROTEIN] [CHEM] DAILY DIGOXIN [CHEM] DAILY 08/21/20 05:10 DIGOXIN [CHEM] DAILY 08/21/20 05:11 D-DIMER QUANTITATIVE [COAG] DAILY MAGNESIUM [CHEM] DAILY 08/22/20 05:00 DIGOXIN [CHEM] DAILY 08/22/20 05:10 DIGOXIN [CHEM] DAILY 08/22/20 05:11 D-DIMER QUANTITATIVE [COAG] DAILY MAGNESIUM [CHEM] DAILY 08/23/20 05:11 D-DIMER QUANTITATIVE [COAG] DAILY MAGNESIUM [CHEM] DAILY - Plan Plan:: Assessment 80-year-old male with history of COVID-19 teen in March and vaccination last month comes to the emergency department with from his primary care providers office with UTI, sepsis, and reinfection from COVID-19. Severe sepsis UTI * Patient fulfills sepsis criteria * White count 14.2, C-reactive protein of 9.3 * Lactic acid 1.5 * Given Rocephin in the emergency department. * Blood cultures and urine cultures obtained prior to Rocephin * Given 1 L bolus in the emergency department Atrial flutter/SVT Elevated troponin CHF * EKG obtained at clinic showed SVT * Subsequent EKG done on admission showed atrial flutter with 2: 1 AV block. Borderline/minimal ST elevation in lead III. * Troponin 0.452. This is a independent risk factor for poor outcome. With the minimal ST elevation and elevated troponin this could signify a type II VA versus myocardial strain. * Trial of Cardizem drip in ER was stopped because of low blood pressure. * No proBNP done in the emergency department Renal insufficiency stage III * Outpatient records are not available so it makes it difficult to know if this is a change from baseline or if this is his baseline GFR. * Creatinine 1.4, GFR 49, BUN 48 Type 2 diabetesinsulin-dependent * Unknown hemoglobin A1c. * Home insulin: Lantus 56 units every morning, 54 units every afternoon. NovoLog unknown 7 units 3 times daily with meals and sliding scale. COVID-19 reinfection * Initial infection in March 2020 * Vaccination last month * Respiratory status is at baseline * No D-dimer ordered Plan * Admit to ICU * Treat for complicated UTI to include vancomycin and meropenem * Follow blood cultures and urine cultures * 500 mL fluid bolus * Cardizem 5 mg IV x1 then start Cardizem drip as long as blood pressure holds * If he does not convert out of atrial flutter will need to anticoagulate * Continue FiO2 to keep SPO2 above 90%. * Repeat troponin in the morning. This will be a lagging indicator secondary to renal function. * Get proBNP for baseline * Get hemoglobin A1c and TSH * VTE prophylaxis with Lovenox, but will need to switch to full anticoagulation if he does not convert out of atrial flutter. * CODE STATUS: DNR/DNI August 13, 2020 Severe sepsisresolved UTI Atrial flutter/atrial fibrillation with rapid ventricular response CHF Renal insufficiency stage III COVID-19 reinfection Insulin-dependent type 2 diabetes * Patient continues to be tachycardic but his hypotension has resolved. * Continue to increase Cardizem drip until heart rate is less than 90 then switch to oral * Start dexamethasone 6 mg daily * Continue meropenem until sensitivities on urine culture * Stop vancomycin * Creatinine 1.3improved * Hemoglobin A1c 7.6 * Restart small dose of long-acting insulin * Discharge likely in 3 to 4 days. August 14, 2020 COVID-19 reinfection Respiratory failure D-dimer did increase to 2.37 Patient developed respiratory failure with exacerbation of CHF and renal failure overnight. Apparently patient [facility] That was not continued here last night. Patient also appears to have severe sleep apnea and likely pickwickian syndrome. He had a significant elevation in his CO2 overnight and decrease in mentation. This was followed by an ABG showing severe hypercapnia with a PCO2 greater than 80. Patient was placed on BiPAP and PCO2 decreased to 66. Patient's mentation is improving, but he still not following commands. Acute kidney injury stage II-likely secondary to ATN from sepsis versus prerenal disease from circulating hypovolemia His urine output went to less than 0.5 mL/kg/h for over 12 hours. This placed him at stage II acute kidney injury. Patient was given several fluid boluses over the evening and after then giving him Lasix 40 mg x 2 he had very urine output greater than 100 mL/h. Fortunately his creatinine did not change overnight and his creatinine was 1.3 although his BUN was 43. UTI Sepsis resolved UA growing gram-negative rods, gram-positive cocci, and a separate gram-negative rods Vancomycin was stopped yesterday secondary to initial cultures growing out only gram-negative rods Atrial flutter/atrial fibrillation with rapid ventricular response CHF Elevated troponintroponin decreased to 0.136 Patient has had good response to beta-miriam with calcium channel miriam. Unfortunately we do not have a recent echocardiogram. Patient was switched over to digoxin and a calcium channel miriam. This may be adjusted or have a beta- miriam added to digoxin at a later date. Plan echocardiogram if rate is less than 90 in the morning. Insulin-dependent type 2 diabetes Essentially half of his Lantus was started overnight at 25 units twice daily. Unfortunately, patient is no longer able to take p.o. and will continue to follow his blood sugars 4 times daily. Will stick to sliding scale and hold his long-acting insulin at this time. Plan * Continue BiPAP * Lasix drip to keep urine output greater than 100 mL/h * Repeat ABGs as needed * Hold fentanyl at this time avoid centrally acting sedating agents including gabapentin for now * Follow CBC, CMP, magnesium, Phos, C-reactive protein * Digoxin loading with 500 mcg x 1 then 250 mcg x 2 * Diltiazem drip to keep heart rate less than 90 * Hold metoprolol * Echocardiogram in the morning * Restart vancomycin secondary to gram-positive cocci in urine possible Enterococcus * Continue meropenem * Start Lovenox 1 mg/kg every 12 hours and stop Xarelto * Hold Lantus until taking orally * Follow potassium closely secondary to Lasix drip and digoxin. Will repeat BMP this evening. * Continue remdesivir and dexamethasone. Switch dexamethasone to IV. August 15, 2020 Acute on chronic hypoxic respiratory failure COVID-19 reinfection D-dimer did increase to 2.37 Patient has a [facility]. That was not continued here last night. Patient also appears to have severe sleep apnea and likely pickwickian syndrome. He had a significant elevation in his CO2 overnight and decrease in mentation. This was followed by an ABG showing severe hypercapnia with a PCO2 greater than 80. Patient was placed on BiPAP and PCO2 decreased to 66. Patient's mentation is improving. He can follow simple commands Acute kidney injury stage II-likely secondary to ATN from sepsis versus prerenal disease from circulating hypovolemia urine output > 5L today, patient developed polyuria. Creatinine 1.1 With discontinue Lasix Monitor I and O UTI Sepsis resolved UA growing gram-negative rods, gram-positive cocci, and a separate gram-negative rods Continue vancomycin and meropenem, pending sensitivities Atrial flutter/atrial fibrillation with rapid ventricular response CHF Elevated troponintroponin decreased to 0.136 Patient has had good response to beta-miriam with calcium channel miriam. Unfortunately we do not have a recent echocardiogram. Patient was switched over to digoxin and a calcium channel miriam. This may be adjusted or have a beta- miriam added to digoxin at a later date. Echocardiogram Insulin-dependent type 2 diabetes Essentially half of his Lantus was started overnight at 25 units twice daily. patient is no longer able to take p.o. check blood glucose 4 times a day. Will stick to sliding scale and hold his long-acting insulin at this time. Plan * Continue BiPAP, trying to wean from all BiPAP * Discontinued Lasix. Monitor I&O * Repeat ABGs as needed * Hold fentanyl at this time avoid centrally acting sedating agents including gabapentin for now * Follow CBC, CMP, magnesium, Phos, C-reactive protein * Digoxin loading with 500 mcg x 1 then 250 mcg x 2. Digoxin level tomorrow morning * Diltiazem drip to keep heart rate less than 90 * Hold metoprolol * vancomycin secondary to gram-positive cocci in urine possible Enterococcus * Continue meropenem * Start Lovenox 1 mg/kg every 12 hours * Hold Lantus until taking orally * Continue remdesivir and IV dexamethasone. Deprivation: Length of stay greater than 96 hours due to multiple comorbidities and slow response to treatment August 16, 2020 Acute on chronic hypoxic respiratory failure COVID-19 reinfection, pneumonia CRP decreased to 6.0 and D-dimer decreased to 2 1.77 Repeat chest x-ray today-improving Patient [facility] Patient also appears to have severe sleep apnea and likely pickwickian syndrome. ABG showed PCO2 and PO2 improving Continue dexamethasone 6 mg p.o. daily Lovenox 120 mg twice daily Remdesivir 5-day course Acute kidney injury stage II-likely secondary to ATN from sepsis versus prerenal disease from circulating hypovolemia urine output > 4L today, patient developed polyuria. Creatinine 1.1 Lasix is on hold Monitor I and O Discontinued losartan UTI Sepsis resolved Urine culture showed positive for Ecoli, Enterococcus and Baumannii/haemolytics which are sensitive to meropenem. Discontinued vancomycin Continue meropenem Atrial flutter/atrial fibrillation with rapid ventricular response CHF Elevated troponintroponin decreased to 0.136 Continue digoxin to 250 MCG daily Metoprolol 12.5 mg twice daily. Discontinued losartan Diltiazem drip as needed Therapeutic Lovenox Echocardiogram Insulin-dependent type 2 diabetes Essentially half of his Lantus was started overnight at 25 units twice daily. c heck blood glucose 4 times a day. Insulin sliding scale Plan * Continue BiPAP, trying to wean from all BiPAP * Discontinued Lasix. Monitor I&O * Repeat ABGs as needed * Hold fentanyl at this time avoid centrally acting sedating agents including gabapentin for now * Follow CBC, CMP, magnesium, Phos, C-reactive protein * Digoxin loading with 500 mcg x 1 then 250 mcg x 2. Digoxin level 1.6 today * Diltiazem drip to keep heart rate less than 90 * Metoprolol 12.5 mg twice daily * Discontinued vancomycin * Continue meropenem * Lovenox 1 mg/kg every 12 hours Deprivation: Length of stay greater than 96 hours due to multiple comorbidities and slow response to treatment August 17, 2020 Acute on chronic hypoxic respiratory failure BiPAP dependent, setting -23/01 with FiO2 30% COVID-19 reinfection, pneumonia CRP decreased to 3.26 and D-dimer keeps trending down Repeat chest x-ray August 16-improving Patient [facility] Patient also appears to have severe sleep apnea and likely pickwickian syndrome. ABG showed PCO2 and PO2 improving Continue dexamethasone 6 mg p.o. daily Discontinued Lovenox 120 mg twice daily on August 17 due to oozing blood. Initiated Lovenox to 30 mg twice daily Remdesivir 5-day course Acute kidney injury stage II-likely secondary to ATN from sepsis versus prerenal disease from circulating hypovolemia urine output > 4L today, patient developed polyuria. Creatinine 1.1 Lasix is on hold Monitor I and O Discontinued losartan UTI Sepsis resolved Urine culture showed positive for Ecoli, Enterococcus and Baumannii/haemolytics which are sensitive to meropenem. Discontinued vancomycin Continue meropenem Atrial flutter/atrial fibrillation with rapid ventricular response CHF Elevated troponintroponin decreased to 0.136 Continue digoxin to 250 MCG daily + 125mcg x 1 today Digoxin level daily Increased metoprolol to 25 mg twice daily. Discontinued losartan Diltiazem drip as needed, trying to wean off Therapeutic Lovenox (on hold due to oozing blood) Echocardiogram Insulin-dependent type 2 diabetes Increased Lantus to 27 units twice daily Insulin sliding scale Plan * Continue BiPAP, trying to wean off * Discontinued Lasix. Monitor I&O * Repeat ABGs as needed * Hold fentanyl at this time avoid centrally acting sedating agents including gabapentin for now * Follow CBC, CMP, magnesium, Phos, C-reactive protein * CRP and D-dimer daily * Digoxin loading with 500 mcg x 1 and 250 mcg. Digoxin level daily. Adjusted digoxin based on digoxin level * Metoprolol 25 mg twice daily, diltiazem drip as needed to keep heart rate less than 90 * Discontinued vancomycin * Continue meropenem * DVT prophylaxis: Lovenox 30 mg subcutaneous every 12 hours. Therapeutic Lovenox was discontinued today due to oozing blood Deprivation: Length of stay greater than 96 hours due to multiple comorbidities, nature of covid pneumonia and slow response to treatment August 18, 2020 Acute on chronic hypoxic respiratory failure On [place], 4L. ABG showed PCO2 53.6, PO2 98 COVID-19 reinfection, pneumonia CRP decreased to 2.9 and D-dimer dropped to 1.47 Repeat chest x-ray August 16-improving [facility]. Patient also appears to have severe sleep apnea and likely pickwickian syndrome. ABG showed PO2 improving Continue dexamethasone 6 mg p.o. daily Continue Lovenox to 30 mg twice daily. Lovenox 120 mg twice daily was discontinued due to bleeding. Completed remdesivir 5-day course today. Acute kidney injury stage II-likely secondary to ATN from sepsis versus prerenal disease from circulating hypovolemia patient developed polyuria. Creatinine 1.0 Lasix is on hold Monitor I and O: Negative balance 1245 cc Discontinued losartan UTI Sepsis resolved Urine culture showed positive for Ecoli, Enterococcus and Baumannii/haemolytics which are sensitive to meropenem. Discontinued vancomycin Continue meropenem Atrial flutter/atrial fibrillation with rapid ventricular response CHF Elevated troponintroponin decreased to 0.136 Continue digoxin to 250 MCG daily Digoxin level daily Continue metoprolol to 25 mg twice daily. Discontinued losartan Diltiazem drip as needed, trying to wean off Therapeutic Lovenox on hold due to oozing blood Echocardiogram Insulin-dependent type 2 diabetes Increased Lantus to 29 units twice daily Insulin sliding scale Plan * Patient condition is improving, she still on oxygen via nasal cannula today. I will possibly downgrade this patient to telemetry tomorrow if he no longer needs a BiPAP. * Discontinued Lasix. Monitor I&O * Repeat ABGs as needed * Hold fentanyl at this time avoid centrally acting sedating agents including gabapentin for now * Follow CBC, CMP, magnesium, Phos, digoxin level * CRP and D-dimer daily * Adjusted digoxin based on digoxin level * Metoprolol 25 mg twice daily, diltiazem drip as needed to keep heart rate less than 90 * Discontinued vancomycin * Continue meropenem * DVT prophylaxis: Lovenox 30 mg subcutaneous every 12 hours. Therapeutic Lovenox was discontinued today due to oozing blood Deprivation: Length of stay greater than 96 hours due to multiple comorbidities, nature of covid pneumonia and slow response to treatment August 19, 2020 Acute on chronic hypoxic respiratory failure On [place], 2L. COVID-19 reinfection, pneumonia CRP decreased to 1.9 and D-dimer 3.04 Repeat chest x-ray August 16-improving [facility]. Patient also appears to have severe sleep apnea and likely pickwickian syndrome. ABG showed PO2 improving Decreased dexamethasone to 4 mg daily from 6 mg p.o. daily today Continue Lovenox to 30 mg twice daily. Lovenox 120 mg twice daily was discontinued due to bleeding. Completed remdesivir 5-day course August 18. Acute kidney injury stage II-likely secondary to ATN from sepsis versus prerenal disease from circulating hypovolemia patient developed polyuria (improving). Creatinine 0.9 Lasix is on hold Monitor I and O: Negative balance 225 ml so far Discontinued losartan UTI Sepsis resolved Urine culture showed positive for Ecoli, Enterococcus and Baumannii/haemolytics which are sensitive to meropenem. Discontinued vancomycin Continue meropenem Atrial flutter/atrial fibrillation with rapid ventricular response CHF Elevated troponintroponin decreased to 0.136 Continue digoxin to 250 MCG daily + 125mcg x 1 today Digoxin level daily Continue metoprolol to 25 mg twice daily. Discontinued losartan Diltiazem drip as needed, trying to wean off Therapeutic Lovenox on hold due to oozing blood Echocardiogram - Insulin-dependent type 2 diabetes Increased Lantus to 29 units twice daily Insulin sliding scale Plan * Patient condition is improving, she still on oxygen but via nasal cannula today. He still needed BiPAP last night. Downgraded this patient to telemetry today. * Discontinued Lasix. Monitor I&O * Repeat ABGs as needed * Hold fentanyl at this time avoid centrally acting sedating agents including gabapentin for now * Follow CBC, CMP, magnesium, Phos, digoxin level * CRP and D-dimer daily * Adjusted digoxin based on digoxin level * Metoprolol 25 mg twice daily, diltiazem drip as needed to keep heart rate less than 90 * Discontinued vancomycin * Continue meropenem * DVT prophylaxis: Lovenox 30 mg subcutaneous every 12 hours. Therapeutic Lovenox was discontinued today due to oozing blood Deprivation: Length of stay greater than 96 hours due to multiple comorbidities, nature of covid pneumonia and slow response to treatment
[2020-08-19] MEDS ORDERED: DILTIAZEM IV SCH (16:00)
[2020-08-19] MEDS ORDERED: SODIUM CHLORIDE 0.9% IV SCH (16:00)
[2020-08-19] MEDS ORDERED: Diltiazem 50 MG/10 ML SDV IVPUSH ONE (16:15)
[2020-08-19] MEDS ORDERED: Insulin Lispro 100 Units/ML 3 ML Vial SUBCUT ONE (18:34)
[2020-08-19] MEDS ORDERED: Diltiazem 50 MG/10 ML SDV IVPUSH PRN (21:23)
[2020-08-19] MEDS ORDERED: Simvastatin 40 MG Tab PO SCH (23:30)
[2020-08-19] MEDS ORDERED: Aspirin 81 MG Tab.EC PO SCH (23:30)
[2020-08-20] MEDS: Meropenem Premix 500 MG in Premix Bag 1 BAG IV SCH ×2 (03:19→09:37)
[2020-08-20] MEDS: Metoprolol Tartrate 25 MG Tab PO SCH (05:42)
[2020-08-20] MEDS: Formoterol/Mometasone 200-5 MCG 8.8 GM Inhaler IH SCH ×2 (07:48→08:55)
[2020-08-20] MEDS ORDERED: Dexamethasone 4 MG Tab PO SCH (09:00)
[2020-08-20] MEDS: Insulin Glarg,Human.Rec.Analog 100 Unit/ML SUBCUT SCH (09:32)
[2020-08-20] MEDS: Enoxaparin 30 MG/0.3 ML Syringe SUBCUT SCH (09:33)
[2020-08-20] MEDS: Gabapentin 300 MG Cap PO SCH (09:37)
[2020-08-20] MEDS: Sertraline 50 MG Tab PO SCH (09:38)
[2020-08-20] MEDS: Digoxin 250 MCG Tab PO SCH (09:38)
[2020-08-20] MEDS: Cholecalciferol (Vitamin D3) 5,000 UNIT Cap PO SCH (09:38)
[2020-08-20 09:39] VITALS: PULSE 92
--- NOTE | 2020-08-20 10:02 | PCM.DCSUM1 ---
Discharge Summary - Hospital Course HPI Initial Comments: 80-year-old male with history of CHF, CAD, COPD, COVID-19 infection in March, BPH with urinary retention, diabetes with bilateral below the knee amputation secondary to peripheral vascular disease presents to the ER with elevated heart rate, hypoglycemia, and fever. Patient is a resident of a local longterm and he saw his primary care provider Dr. Anna for his generalized weakness. Patient was found to be tachycardic with a blood sugar in the 20s. Patient was given a snack which apparently brought his blood sugars up to the 200s. He had a fever of 101 for EMS and a heart rate in the 140s appearing to be SVT. He is on 2 L of oxygen via nasal cannula as an outpatient and does complain of a slight cough. Patient is a very poor historian secondary to being hard of hearing and likely some underlying dementia. It appears he received at least 1 dose of the Covid vaccination around a month ago. In the emergency department patient was swabbed for COVID-19 and was positive. R clinical education coordinator contacted the state who stated that he should be considered a new infection or reinfection. Chest x-ray in the emergency department did show cardiomegaly with suspicious findings for minimal CHF. Initial labs showed a white count of 14.24 with hemoglobin of 13.4 and a platelet count of 248. Sodium slightly low at 134, potassium 4.1, BUN 48, creatinine of 1.4, estimated GFR of 49. Troponin was elevated at 0.452 and C- reactive protein of 9.3. INR is 1.19 with a lactic acid of 1.5. Patient does have an indwelling urinary catheter with UA showing 50-75 WBCs, nitrites positive, and many bacteria. Patient was given ceftriaxone 2 g in the emergency department diagnosed with sepsis, UTI, and CHF and transferred to the unit. Assessment 80-year-old male with history of COVID-19 teen in March and vaccination last month comes to the emergency department with from his primary care providers office with UTI, sepsis, and reinfection from COVID-19. Severe sepsis UTI * Patient fulfills sepsis criteria * White count 14.2, C-reactive protein of 9.3 * Lactic acid 1.5 * Given Rocephin in the emergency department. * Blood cultures and urine cultures obtained prior to Rocephin * Given 1 L bolus in the emergency department Atrial flutter/SVT Elevated troponin CHF * EKG obtained at clinic showed SVT * Subsequent EKG done on admission showed atrial flutter with 2: 1 AV block. Borderline/minimal ST elevation in lead III. * Troponin 0.452. This is a independent risk factor for poor outcome. With the minimal ST elevation and elevated troponin this could signify a type II CT versus myocardial strain. * Trial of Cardizem drip in ER was stopped because of low blood pressure. * No proBNP done in the emergency department Renal insufficiency stage III * Outpatient records are not available so it makes it difficult to know if this is a change from baseline or if this is his baseline GFR. * Creatinine 1.4, GFR 49, BUN 48 Type 2 diabetesinsulin-dependent * Unknown hemoglobin A1c. * Home insulin: Lantus 56 units every morning, 54 units every afternoon. NovoLog unknown 7 units 3 times daily with meals and sliding scale. COVID-19 reinfection * Initial infection in March 2020 * Vaccination last month * Respiratory status is at baseline * No D-dimer ordered Plan * Admit to ICU * Treat for complicated UTI to include vancomycin and meropenem * Follow blood cultures and urine cultures * 500 mL fluid bolus * Cardizem 5 mg IV x1 then start Cardizem drip as long as blood pressure holds * If he does not convert out of atrial flutter will need to anticoagulate * Continue FiO2 to keep SPO2 above 90%. * Repeat troponin in the morning. This will be a lagging indicator secondary to renal function. * Get proBNP for baseline * Get hemoglobin A1c and TSH * VTE prophylaxis with Lovenox, but will need to switch to full anticoagulation if he does not convert out of atrial flutter. * CODE STATUS: DNR/DNI - Mortality Measure Prognosis:: Poor Diagnosis: Stroke: No - Discharge Data Discharge Date: 08/20/20 Discharge Disposition: DC/Tfer to Acute Hospital 02 Condition: Good - Referral to Home Health Primary Care Physician: Gil Mcginnis MD - Discharge Diagnosis/Problem(s) (1) CHF (congestive heart failure) SNOMED Code(s): 35927378 ICD Code: I50.9 - HEART FAILURE, UNSPECIFIED Status: Acute Current Visit: Yes Qualifiers: Heart failure type: unspecified Heart failure chronicity: unspecified Qualified Code(s): I50.9 - Heart failure, unspecified (2) COVID-19 SNOMED Code(s): 430680872 ICD Code: U07.1 - COVID-19 Status: Acute Current Visit: Yes (3) Elevated troponin SNOMED Code(s): 106985714, 112766685, 590321020 ICD Code: R77.8 - OTHER SPECIFIED ABNORMALITIES OF PLASMA PROTEINS Status: Acute Current Visit: Yes (4) Sepsis SNOMED Code(s): 85956071 ICD Code: A41.9 - SEPSIS, UNSPECIFIED ORGANISM Status: Acute Current Visit: Yes Qualifiers: Sepsis type: sepsis due to unspecified organism Sepsis acute organ dysfunction status: unspecified Qualified Code(s): A41.9 - Sepsis, unspecified organism (5) UTI (urinary tract infection) SNOMED Code(s): 16222036 ICD Code: N39.0 - URINARY TRACT INFECTION, SITE NOT SPECIFIED Status: Acute Current Visit: Yes Qualifiers: Urinary tract infection type: acute cystitis Hematuria presence: without hematuria Qualified Code(s): N30.00 - Acute cystitis without hematuria (6) Renal insufficiency SNOMED Code(s): 056224493, 545263162 ICD Code: N28.9 - DISORDER OF KIDNEY AND URETER, UNSPECIFIED Status: Chronic Priority: Medium Current Visit: Yes - Patient Summary/Data Hospital Course: Assessment 80-year-old male with history of COVID-19 teen in March and vaccination last month comes to the emergency department with from his primary care providers office with UTI, sepsis, and reinfection from COVID-19. Severe sepsis UTI * Patient fulfills sepsis criteria * White count 14.2, C-reactive protein of 9.3 * Lactic acid 1.5 * Given Rocephin in the emergency department. * Blood cultures and urine cultures obtained prior to Rocephin * Given 1 L bolus in the emergency department Atrial flutter/SVT Elevated troponin CHF * EKG obtained at clinic showed SVT * Subsequent EKG done on admission showed atrial flutter with 2: 1 AV block. Borderline/minimal ST elevation in lead III. * Troponin 0.452. This is a independent risk factor for poor outcome. With the minimal ST elevation and elevated troponin this could signify a type II CT versus myocardial strain. * Trial of Cardizem drip in ER was stopped because of low blood pressure. * No proBNP done in the emergency department Renal insufficiency stage III * Outpatient records are not available so it makes it difficult to know if this is a change from baseline or if this is his baseline GFR. * Creatinine 1.4, GFR 49, BUN 48 Type 2 diabetesinsulin-dependent * Unknown hemoglobin A1c. * Home insulin: Lantus 56 units every morning, 54 units every afternoon. NovoLog unknown 7 units 3 times daily with meals and sliding scale. COVID-19 reinfection * Initial infection in March 2020 * Vaccination last month * Respiratory status is at baseline * No D-dimer ordered Plan * Admit to ICU * Treat for complicated UTI to include vancomycin and meropenem * Follow blood cultures and urine cultures * 500 mL fluid bolus * Cardizem 5 mg IV x1 then start Cardizem drip as long as blood pressure holds * If he does not convert out of atrial flutter will need to anticoagulate * Continue FiO2 to keep SPO2 above 90%. * Repeat troponin in the morning. This will be a lagging indicator secondary to renal function. * Get proBNP for baseline * Get hemoglobin A1c and TSH * VTE prophylaxis with Lovenox, but will need to switch to full anticoagulation if he does not convert out of atrial flutter. * CODE STATUS: DNR/DNI August 13, 2020 Severe sepsisresolved UTI Atrial flutter/atrial fibrillation with rapid ventricular response CHF Renal insufficiency stage III COVID-19 reinfection Insulin-dependent type 2 diabetes * Patient continues to be tachycardic but his hypotension has resolved. * Continue to increase Cardizem drip until heart rate is less than 90 then switch to oral * Start dexamethasone 6 mg daily * Continue meropenem until sensitivities on urine culture * Stop vancomycin * Creatinine 1.3improved * Hemoglobin A1c 7.6 * Restart small dose of long-acting insulin * Discharge likely in 3 to 4 days. August 14, 2020 COVID-19 reinfection Respiratory failure D-dimer did increase to 2.37 Patient developed respiratory failure with exacerbation of CHF and renal failure overnight. Apparently patient has a CPAP/BiPAP at the longterm. That was not continued here last night. Patient also appears to have severe sleep apnea and likely pickwickian syndrome. He had a significant elevation in his CO2 overnight and decrease in mentation. This was followed by an ABG showing severe hypercapnia with a PCO2 greater than 80. Patient was placed on BiPAP and PCO2 decreased to 66. Patient's mentation is improving, but he still not following commands. Acute kidney injury stage II-likely secondary to ATN from sepsis versus prerenal disease from circulating hypovolemia His urine output went to less than 0.5 mL/kg/h for over 12 hours. This placed him at stage II acute kidney injury. Patient was given several fluid boluses over the evening and after then giving him Lasix 40 mg x 2 he had very urine output greater than 100 mL/h. Fortunately his creatinine did not change overnight and his creatinine was 1.3 although his BUN was 43. UTI Sepsis resolved UA growing gram-negative rods, gram-positive cocci, and a separate gram-negative rods Vancomycin was stopped yesterday secondary to initial cultures growing out only gram-negative rods Atrial flutter/atrial fibrillation with rapid ventricular response CHF Elevated troponintroponin decreased to 0.136 Patient has had good response to beta-miriam with calcium channel miriam. Unfortunately we do not have a recent echocardiogram. Patient was switched over to digoxin and a calcium channel miriam. This may be adjusted or have a beta- miriam added to digoxin at a later date. Plan echocardiogram if rate is less than 90 in the morning. Insulin-dependent type 2 diabetes Essentially half of his Lantus was started overnight at 25 units twice daily. Unfortunately, patient is no longer able to take p.o. and will continue to follow his blood sugars 4 times daily. Will stick to sliding scale and hold his long-acting insulin at this time. Plan * Continue BiPAP * Lasix drip to keep urine output greater than 100 mL/h * Repeat ABGs as needed * Hold fentanyl at this time avoid centrally acting sedating agents including gabapentin for now * Follow CBC, CMP, magnesium, Phos, C-reactive protein * Digoxin loading with 500 mcg x 1 then 250 mcg x 2 * Diltiazem drip to keep heart rate less than 90 * Hold metoprolol * Echocardiogram in the morning * Restart vancomycin secondary to gram-positive cocci in urine possible Enterococcus * Continue meropenem * Start Lovenox 1 mg/kg every 12 hours and stop Xarelto * Hold Lantus until taking orally * Follow potassium closely secondary to Lasix drip and digoxin. Will repeat BMP this evening. * Continue remdesivir and dexamethasone. Switch dexamethasone to IV. August 15, 2020 Acute on chronic hypoxic respiratory failure COVID-19 reinfection D-dimer did increase to 2.37 Patient has a CPAP/BiPAP at the longterm. That was not continued here last night. Patient also appears to have severe sleep apnea and likely pickwickian syndrome. He had a significant elevation in his CO2 overnight and decrease in mentation. This was followed by an ABG showing severe hypercapnia with a PCO2 greater than 80. Patient was placed on BiPAP and PCO2 decreased to 66. Patient's mentation is improving. He can follow simple commands Acute kidney injury stage II-likely secondary to ATN from sepsis versus prerenal disease from circulating hypovolemia urine output > 5L today, patient developed polyuria. Creatinine 1.1 With discontinue Lasix Monitor I and O UTI Sepsis resolved UA growing gram-negative rods, gram-positive cocci, and a separate gram-negative rods Continue vancomycin and meropenem, pending sensitivities Atrial flutter/atrial fibrillation with rapid ventricular response CHF Elevated troponintroponin decreased to 0.136 Patient has had good response to beta-miriam with calcium channel miriam. Unfortunately we do not have a recent echocardiogram. Patient was switched over to digoxin and a calcium channel miriam. This may be adjusted or have a beta- miriam added to digoxin at a later date. Echocardiogram Insulin-dependent type 2 diabetes Essentially half of his Lantus was started overnight at 25 units twice daily. patient is no longer able to take p.o. check blood glucose 4 times a day. Will stick to sliding scale and hold his long-acting insulin at this time. Plan * Continue BiPAP, trying to wean from all BiPAP * Discontinued Lasix. Monitor I&O * Repeat ABGs as needed * Hold fentanyl at this time avoid centrally acting sedating agents including gabapentin for now * Follow CBC, CMP, magnesium, Phos, C-reactive protein * Digoxin loading with 500 mcg x 1 then 250 mcg x 2. Digoxin level tomorrow morning * Diltiazem drip to keep heart rate less than 90 * Hold metoprolol * vancomycin secondary to gram-positive cocci in urine possible Enterococcus * Continue meropenem * Start Lovenox 1 mg/kg every 12 hours * Hold Lantus until taking orally * Continue remdesivir and IV dexamethasone. Deprivation: Length of stay greater than 96 hours due to multiple comorbidities and slow response to treatment August 16, 2020 Acute on chronic hypoxic respiratory failure COVID-19 reinfection, pneumonia CRP decreased to 6.0 and D-dimer decreased to 2 1.77 Repeat chest x-ray today-improving Patient has a CPAP/BiPAP at the longterm. Patient also appears to have severe sleep apnea and likely pickwickian syndrome. ABG showed PCO2 and PO2 improving Continue dexamethasone 6 mg p.o. daily Lovenox 120 mg twice daily Remdesivir 5-day course Acute kidney injury stage II-likely secondary to ATN from sepsis versus prerenal disease from circulating hypovolemia urine output > 4L today, patient developed polyuria. Creatinine 1.1 Lasix is on hold Monitor I and O Discontinued losartan UTI Sepsis resolved Urine culture showed positive for Ecoli, Enterococcus and Baumannii/haemolytics which are sensitive to meropenem. Discontinued vancomycin Continue meropenem Atrial flutter/atrial fibrillation with rapid ventricular response CHF Elevated troponintroponin decreased to 0.136 Continue digoxin to 250 MCG daily Metoprolol 12.5 mg twice daily. Discontinued losartan Diltiazem drip as needed Therapeutic Lovenox Echocardiogram Insulin-dependent type 2 diabetes Essentially half of his Lantus was started overnight at 25 units twice daily. check blood glucose 4 times a day. Insulin sliding scale Plan * Continue BiPAP, trying to wean from all BiPAP * Discontinued Lasix. Monitor I&O * Repeat ABGs as needed * Hold fentanyl at this time avoid centrally acting sedating agents including gabapentin for now * Follow CBC, CMP, magnesium, Phos, C-reactive protein * Digoxin loading with 500 mcg x 1 then 250 mcg x 2. Digoxin level 1.6 today * Diltiazem drip to keep heart rate less than 90 * Metoprolol 12.5 mg twice daily * Discontinued vancomycin * Continue meropenem * Lovenox 1 mg/kg every 12 hours Deprivation: Length of stay greater than 96 hours due to multiple comorbidities and slow response to treatment August 17, 2020 Acute on chronic hypoxic respiratory failure BiPAP dependent, setting -23/01 with FiO2 30% COVID-19 reinfection, pneumonia CRP decreased to 3.26 and D-dimer keeps trending down Repeat chest x-ray August 16-improving Patient has a CPAP/BiPAP at the longterm. Patient also appears to have severe sleep apnea and likely pickwickian syndrome. ABG showed PCO2 and PO2 improving Continue dexamethasone 6 mg p.o. daily Discontinued Lovenox 120 mg twice daily on August 17 due to oozing blood. Initiated Lovenox to 30 mg twice daily Remdesivir 5-day course Acute kidney injury stage II-likely secondary to ATN from sepsis versus prerenal disease from circulating hypovolemia urine output > 4L today, patient developed polyuria. Creatinine 1.1 Lasix is on hold Monitor I and O Discontinued losartan UTI Sepsis resolved Urine culture showed positive for Ecoli, Enterococcus and Baumannii/haemolytics which are sensitive to meropenem. Discontinued vancomycin Continue meropenem Atrial flutter/atrial fibrillation with rapid ventricular response CHF Elevated troponintroponin decreased to 0.136 Continue digoxin to 250 MCG daily + 125mcg x 1 today Digoxin level daily Increased metoprolol to 25 mg twice daily. Discontinued losartan Diltiazem drip as needed, trying to wean off Therapeutic Lovenox (on hold due to oozing blood) Echocardiogram Insulin-dependent type 2 diabetes Increased Lantus to 27 units twice daily Insulin sliding scale Plan * Continue BiPAP, trying to wean off * Discontinued Lasix. Monitor I&O * Repeat ABGs as needed * Hold fentanyl at this time avoid centrally acting sedating agents including gabapentin for now * Follow CBC, CMP, magnesium, Phos, C-reactive protein * CRP and D-dimer daily * Digoxin loading with 500 mcg x 1 and 250 mcg. Digoxin level daily. Adjusted digoxin based on digoxin level * Metoprolol 25 mg twice daily, diltiazem drip as needed to keep heart rate less than 90 * Discontinued vancomycin * Continue meropenem * DVT prophylaxis: Lovenox 30 mg subcutaneous every 12 hours. Therapeutic Lovenox was discontinued today due to oozing blood Deprivation: Length of stay greater than 96 hours due to multiple comorbidities, nature of covid pneumonia and slow response to treatment August 18, 2020 Acute on chronic hypoxic respiratory failure On NC, 4L. ABG showed PCO2 53.6, PO2 98 COVID-19 reinfection, pneumonia CRP decreased to 2.9 and D-dimer dropped to 1.47 Repeat chest x-ray August 16-improving Patient has a CPAP/BiPAP at the longterm. Patient also appears to have severe sleep apnea and likely pickwickian syndrome. ABG showed PO2 improving Continue dexamethasone 6 mg p.o. daily Continue Lovenox to 30 mg twice daily. Lovenox 120 mg twice daily was discontinued due to bleeding. Completed remdesivir 5-day course today. Acute kidney injury stage II-likely secondary to ATN from sepsis versus prerenal disease from circulating hypovolemia patient developed polyuria. Creatinine 1.0 Lasix is on hold Monitor I and O: Negative balance 1245 cc Discontinued losartan UTI Sepsis resolved Urine culture showed positive for Ecoli, Enterococcus and Baumannii/haemolytics which are sensitive to meropenem. Discontinued vancomycin Continue meropenem Atrial flutter/atrial fibrillation with rapid ventricular response CHF Elevated troponintroponin decreased to 0.136 Continue digoxin to 250 MCG daily Digoxin level daily Continue metoprolol to 25 mg twice daily. Discontinued losartan Diltiazem drip as needed, trying to wean off Therapeutic Lovenox on hold due to oozing blood Echocardiogram Insulin-dependent type 2 diabetes Increased Lantus to 29 units twice daily Insulin sliding scale Plan * Patient condition is improving, she still on oxygen via nasal cannula today. I will possibly downgrade this patient to telemetry tomorrow if he no longer needs a BiPAP. * Discontinued Lasix. Monitor I&O * Repeat ABGs as needed * Hold fentanyl at this time avoid centrally acting sedating agents including gabapentin for now * Follow CBC, CMP, magnesium, Phos, digoxin level * CRP and D-dimer daily * Adjusted digoxin based on digoxin level * Metoprolol 25 mg twice daily, diltiazem drip as needed to keep heart rate less than 90 * Discontinued vancomycin * Continue meropenem * DVT prophylaxis: Lovenox 30 mg subcutaneous every 12 hours. Therapeutic Lovenox was discontinued today due to oozing blood Deprivation: Length of stay greater than 96 hours due to multiple comorbidities, nature of covid pneumonia and slow response to treatment August 19, 2020 Acute on chronic hypoxic respiratory failure On NC, 2L. COVID-19 reinfection, pneumonia CRP decreased to 1.9 and D-dimer 3.04 Repeat chest x-ray August 16-improving Patient has a CPAP/BiPAP at the longterm. Patient also appears to have severe sleep apnea and likely pickwickian syndrome. ABG showed PO2 improving Decreased dexamethasone to 4 mg daily from 6 mg p.o. daily today Continue Lovenox to 30 mg twice daily. Lovenox 120 mg twice daily was discontinued due to bleeding. Completed remdesivir 5-day course August 18. Acute kidney injury stage II-likely secondary to ATN from sepsis versus prerenal disease from circulating hypovolemia patient developed polyuria (improving). Creatinine 0.9 Lasix is on hold Monitor I and O: Negative balance 225 ml so far Discontinued losartan UTI Sepsis resolved Urine culture showed positive for Ecoli, Enterococcus and Baumannii/haemolytics which are sensitive to meropenem. Discontinued vancomycin Continue meropenem Atrial flutter/atrial fibrillation with rapid ventricular response CHF Elevated troponintroponin decreased to 0.136 Continue digoxin to 250 MCG daily + 125mcg x 1 today Digoxin level daily Continue metoprolol to 25 mg twice daily. Discontinued losartan Diltiazem drip as needed, trying to wean off Therapeutic Lovenox on hold due to oozing blood Echocardiogram - Insulin-dependent type 2 diabetes Increased Lantus to 29 units twice daily Insulin sliding scale Plan * Patient condition is improving, she still on oxygen but via nasal cannula today. He still needed BiPAP last night. Downgraded this patient to telemetry today. * Discontinued Lasix. Monitor I&O * Repeat ABGs as needed * Hold fentanyl at this time avoid centrally acting sedating agents including gabapentin for now * Follow CBC, CMP, magnesium, Phos, digoxin level * CRP and D-dimer daily * Adjusted digoxin based on digoxin level * Metoprolol 25 mg twice daily, diltiazem drip as needed to keep heart rate less than 90 * Discontinued vancomycin * Continue meropenem * DVT prophylaxis: Lovenox 30 mg subcutaneous every 12 hours. Therapeutic Lovenox was discontinued today due to oozing blood August 20, 2020 Patient had another episode of SVT yesterday. Heart rate was in the 140s and 150s and he did have chest pain. This morning troponin went up to 1.0. Last night he did receive 1 dose of Cardizem 5 mg IV. He is currently on digoxin 250 mcg daily and metoprolol tartrate 12.5 mg every 6 hours. Heart rate has been in the low 100s this morning after being in the 40s overnight. At this time it was felt that the patient would benefit from higher level of care and transfer to has been arranged. Dr. Guzman is the accepting hospitalist physician and Dr. Espinosa is the builder operator. Acute on chronic hypoxic respiratory failure On NC, 2L. COVID-19 reinfection, pneumonia Repeat chest x-ray August 16- Patient has a CPAP/BiPAP at the longterm. Patient also appears to have severe sleep apnea and likely pickwickian syndrome. ABG showed PO2 improving Decreased dexamethasone to 4 mg daily from 6 mg p.o. daily Continue Lovenox to 30 mg twice daily. Lovenox 120 mg twice daily was discontinued due to bleeding. Completed remdesivir 5-day course August 18. Acute kidney injury stage II-likely secondary to ATN from sepsis versus prerenal disease from circulating hypovolemia patient developed polyuria (improving). Creatinine 0.9 Lasix is on hold Discontinued losartan UTI Sepsis resolved Urine culture showed positive for Ecoli, Enterococcus and Baumannii/haemolytics which are sensitive to meropenem. Discontinued vancomycin Finished meropenem Atrial flutter/atrial fibrillation with rapid ventricular response CHF Elevated troponintroponin decreased to 0.136 Continue digoxin to 250 MCG daily + 125mcg x 1 today Digoxin level daily Continue metoprolol to 12.5 mg qid . Discontinued losartan Diltiazem IV as needed, Therapeutic Lovenox on hold due to oozing blood Echocardiogram -technically difficult study related to body habitus. LVEF around 55%. Unable to assess completely for regional wall motion abnormalities. Probable inferior lateral hypokinesis to akinesis. Insulin-dependent type 2 diabetes Increased Lantus to 29 units twice daily Insulin sliding scale - Patient Instructions Diet: Heart Healthy Diet - Discharge Plan *PRESCRIPTION DRUG MONITORING PROGRAM REVIEWED*: No *COPY OF PRESCRIPTION DRUG MONITORING REPORT IN PATIENT JUAN MIGUEL: No Home Medications: Home Meds Gabapentin [Neurontin] 900 mg PO TID 01/08/15 [History] Simvastatin [Zocor] 40 mg PO BEDTIME 01/08/15 [History] Bisacodyl [Dulcolax] 10 mg RECTAL DAILY PRN 09/10/16 [History] Levothyroxine [Synthroid] 200 mcg PO ACBREAKFAST 02/14/18 [History] Sennosides/Docusate Sodium [Senna Plus Tablet] 3 tab PO BID 02/14/18 [History] Sertraline [Zoloft] 50 mg PO DAILY 02/14/18 [History] Budesonide/Formoterol [Symbicort 160-4.5 MCG] 2 puff INH BID 03/16/19 [History] Acetaminophen [Tylenol] 650 mg PO Q4H PRN tablet 08/20/20 [Rx] Aspirin [Halfprin] 81 mg PO BEDTIME tab.ec 08/20/20 [Rx] Cholecalciferol (Vitamin D3) [Vitamin D3] 5,000 unit PO DAILY cap 08/20/20 [Rx] Diltiazem [Cardizem] 5 mg IVPUSH Q6H PRN sdv 08/20/20 [Rx] Enoxaparin [Lovenox] 30 mg SUBCUT Q12H syringe 08/20/20 [Rx] Insulin Glarg,Human.Rec.Analog [Lantus] 29 unit SUBCUT BID ml 08/20/20 [Rx] Insulin Lispro [Humalog] 0 unit SUBCUT QIDACANDBED ml 08/20/20 [Rx] Metoprolol Tartrate [Lopressor] 12.5 mg PO Q6H tablet 08/20/20 [Rx] Ondansetron [Zofran] 4 mg IV Q4H PRN vial 08/20/20 [Rx] Sodium Chloride 0.9% [Saline Flush] 10 ml FLUSH ASDIRECTED PRN syringe 08/20/20 [Rx] dexAMETHasone [Dexamethasone] 4 mg PO DAILY tablet 08/20/20 [Rx] hydrALAZINE [Apresoline] 10 mg IVPUSH Q4H PRN sdv 08/20/20 [Rx] levalbuterol HCL [Xopenex] 1.25 mg NEB Q2H PRN neb 08/20/20 [Rx] oxyCODONE 5 mg PO Q4H PRN tablet 08/20/20 [Rx] Oxygen Therapy Mode: Nasal Cannula Oxygen Flow Rate (L/min): 2 Patient Handouts: Heart Failure, Self Care, Heart Failure Action Plan, 10 T hings You Can Do to Manage Your COVID-19 Symptoms at Home - CDC, Sepsis, Diagnosis, Adult, Home Oxygen Use, Adult Forms: ED Department Discharge Referrals: Gil Mcginnis MD [Primary Care Provider] - - Discharge Summary/Plan Comment DC Time >30 min.: Yes - General Info Date of Service: 08/20/20 Admission Dx/Problem (Free Text: Admission Diagnosis/Problem Admission Diagnosis/Problem Sepsis Subjective Update: Patient states he is not having any chest pain. Functional Status: Reports: Pain Controlled - Review of Systems General: Reports: No Symptoms HEENT: Reports: No Symptoms Pulmonary: Reports: No Symptoms Cardiovascular: Reports: No Symptoms Gastrointestinal: Reports: No Symptoms Musculoskeletal: Reports: No Symptoms - Patient Data Vitals - Most Recent: Last Vital Signs Temp 97.7 F 08/20/20 08:01 Pulse 92 08/20/20 09:38 Resp 20 08/20/20 08:01 BP 156/63 H 08/20/20 08:01 Pulse Ox 99 08/20/20 08:01 Weight - Most Recent: 252 lb 6.4 oz I&O - Last 24 hours: Intake & Output 08/19/20 08/20/20 08/20/20 22:59 06:59 14:59 Intake Total 1300 500 Output Total 1150 1900 Balance 150 -1400 Lab Results - Last 24 hrs: Laboratory Results - last 24 hr 08/19/20 08/19/20 08/19/20 Range/Units 11:21 16:30 17:48 WBC (4.23-9.07) K/mm3 RBC (4.63-6.08) M/mm3 Hgb (13.7-17.5) gm/dl Hct (40.1-51.0) % MCV (79.0-92.2) fl MCH (25.7-32.2) pg MCHC (32.2-35.5) g/dl RDW Std Deviation (35.1-43.9) fL Plt Count (163-337) K/mm3 MPV (9.4-12.3) fl Neut % (Auto) (34.0-67.9) % Lymph % (Auto) (21.8-53.1) % [place] % (Auto) (5.3-12.2) % Eos % (Auto) (0.8-7.0) Baso % (Auto) (0.1-1.2) % Neut # (Auto) (1.78-5.38) K/mm3 Lymph # (Auto) (1.32-3.57) K/mm3 [place] # (Auto) (0.30-0.82) K/mm3 Eos # (Auto) (0.04-0.54) K/mm3 Baso # (Auto) (0.01-0.08) K/mm3 Manual Slide Review D-Dimer, Quantitative (0.19-0.50) mg/L Sodium (136-145) mEq/L Potassium (3.5-5.1) mEq/L Chloride (98-107) mEq/L Carbon Dioxide (21-32) mEq/L Anion Gap (5-15) BUN (7-18) mg/dL Creatinine (0.7-1.3) mg/dL Est Cr Clr Drug Dosing mL/min Estimated GFR (MDRD) (>60) mL/min BUN/Creatinine Ratio (14-18) Glucose 393 H (83-115) mg/dL POC Glucose 282 H (83-110) mg/dL Calcium (8.5-10.1) mg/dL Magnesium (1.8-2.4) mg/dl Total Bilirubin (0.2-1.0) mg/dL AST (15-37) U/L ALT (16-63) U/L Alkaline Phosphatase (46-116) U/L Troponin I 0.052 (0.00-0.056) ng/mL C-Reactive Protein (<1.0) mg/dL Total Protein (6.4-8.2) g/dl Albumin (3.4-5.0) g/dl Globulin gm/dL Albumin/Globulin Ratio (1-2) Digoxin (0.9-2.0) ng/mL 08/19/20 08/19/20 08/20/20 Range/Units 21:04 21:58 05:41 WBC 21.15 H (4.23-9.07) K/mm3 RBC 5.50 (4.63-6.08) M/mm3 Hgb 15.1 (13.7-17.5) gm/dl Hct 48.6 (40.1-51.0) % MCV 88.4 (79.0-92.2) fl MCH 27.5 (25.7-32.2) pg MCHC 31.1 L (32.2-35.5) g/dl RDW Std Deviation 50.6 H (35.1-43.9) fL Plt Count 219 (163-337) K/mm3 MPV 10.0 (9.4-12.3) fl Neut % (Auto) 80.8 H (34.0-67.9) % Lymph % (Auto) 6.9 L (21.8-53.1) % [place] % (Auto) 11.1 (5.3-12.2) % Eos % (Auto) 0.3 L (0.8-7.0) Baso % (Auto) 0.0 L (0.1-1.2) % Neut # (Auto) 17.09 H (1.78-5.38) K/mm3 Lymph # (Auto) 1.45 (1.32-3.57) K/mm3 [place] # (Auto) 2.35 H (0.30-0.82) K/mm3 Eos # (Auto) 0.07 (0.04-0.54) K/mm3 Baso # (Auto) 0.00 L (0.01-0.08) K/mm3 Manual Slide Review Abnormal smear D-Dimer, Quantitative (0.19-0.50) mg/L Sodium (136-145) mEq/L Potassium (3.5-5.1) mEq/L Chloride (98-107) mEq/L Carbon Dioxide (21-32) mEq/L Anion Gap (5-15) BUN (7-18) mg/dL Creatinine (0.7-1.3) mg/dL Est Cr Clr Drug Dosing mL/min Estimated GFR (MDRD) (>60) mL/min BUN/Creatinine Ratio (14-18) Glucose (83-115) mg/dL POC Glucose 393 H (83-110) mg/dL Calcium (8.5-10.1) mg/dL Magnesium (1.8-2.4) mg/dl Total Bilirubin (0.2-1.0) mg/dL AST (15-37) U/L ALT (16-63) U/L Alkaline Phosphatase (46-116) U/L Troponin I 0.874 H* (0.00-0.056) ng/mL C-Reactive Protein (<1.0) mg/dL Total Protein (6.4-8.2) g/dl Albumin (3.4-5.0) g/dl Globulin gm/dL Albumin/Globulin Ratio (1-2) Digoxin (0.9-2.0) ng/mL 08/20/20 08/20/20 08/20/20 Range/Units 05:41 05:41 05:41 WBC (4.23-9.07) K/mm3 RBC (4.63-6.08) M/mm3 Hgb (13.7-17.5) gm/dl Hct (40.1-51.0) % MCV (79.0-92.2) fl MCH (25.7-32.2) pg MCHC (32.2-35.5) g/dl RDW Std Deviation (35.1-43.9) fL Plt Count (163-337) K/mm3 MPV (9.4-12.3) fl Neut % (Auto) (34.0-67.9) % Lymph % (Auto) (21.8-53.1) % [place] % (Auto) (5.3-12.2) % Eos % (Auto) (0.8-7.0) Baso % (Auto) (0.1-1.2) % Neut # (Auto) (1.78-5.38) K/mm3 Lymph # (Auto) (1.32-3.57) K/mm3 [place] # (Auto) (0.30-0.82) K/mm3 Eos # (Auto) (0.04-0.54) K/mm3 Baso # (Auto) (0.01-0.08) K/mm3 Manual Slide Review D-Dimer, Quantitative 2.50 H (0.19-0.50) mg/L Sodium 140 (136-145) mEq/L Potassium 4.6 (3.5-5.1) mEq/L Chloride 102 (98-107) mEq/L Carbon Dioxide 35 H (21-32) mEq/L Anion Gap 7.6 (5-15) BUN 33 H (7-18) mg/dL Creatinine 0.9 (0.7-1.3) mg/dL Est Cr Clr Drug Dosing 45.52 mL/min Estimated GFR (MDRD) > 60 (>60) mL/min BUN/Creatinine Ratio 36.7 H (14-18) Glucose 174 H (83-115) mg/dL POC Glucose (83-110) mg/dL Calcium 9.3 (8.5-10.1) mg/dL Magnesium 2.4 (1.8-2.4) mg/dl Total Bilirubin 0.9 (0.2-1.0) mg/dL AST 28 (15-37) U/L ALT 60 (16-63) U/L Alkaline Phosphatase 70 (46-116) U/L Troponin I 1.009 H* (0.00-0.056) ng/mL C-Reactive Protein 2.0 H* (<1.0) mg/dL Total Protein 6.5 (6.4-8.2) g/dl Albumin 2.7 L (3.4-5.0) g/dl Globulin 3.8 gm/dL Albumin/Globulin Ratio 0.7 L (1-2) Digoxin 1.2 (0.9-2.0) ng/mL JACOB Results - Last 24 hrs: Microbiology 08/12/20 10:15 Aerobic Blood Culture - Final Blood - Venous - Lab Draw NO GROWTH AFTER 7 DAYS Anaerobic Blood Culture - Final NO GROWTH AFTER 7 DAYS 08/12/20 10:00 Aerobic Blood Culture - Final Blood - Venous NO GROWTH AFTER 7 DAYS Anaerobic Blood Culture - Final NO GROWTH AFTER 7 DAYS Med Orders - Current: Current Medications Acetaminophen (Tylenol) 650 mg PO Q4H PRN PRN Reason: Pain (Mild 1-3)/fever Aspirin (Halfprin) 81 mg PO BEDTIME [facility] Last Admin: 08/19/20 23:50 Dose: 81 mg Documented by: Bisacodyl (Dulcolax) 10 mg RECTAL DAILY PRN PRN Reason: Constipation Cholecalciferol (Vitamin D3) 5,000 unit PO DAILY [facility] Last Admin: 08/20/20 09:38 Dose: 5,000 unit Documented by: Dexamethasone (Dexamethasone) 4 mg PO DAILY [facility] Stop: 08/22/20 09:01 Last Admin: 08/20/20 09:38 Dose: 4 mg Documented by: Digoxin (Lanoxin) 250 mcg PO DAILY [facility] Last Admin: 08/20/20 09:38 Dose: 250 mcg Documented by: Diltiazem HCl (Cardizem) 5 mg IVPUSH Q6H PRN PRN Reason: TACHYCARDIA Last Admin: 08/19/20 21:31 Dose: 5 mg Documented by: Enoxaparin Sodium (Lovenox) 30 mg SUBCUT Q12H [facility] Last Admin: 08/20/20 09:33 Dose: 30 mg Documented by: Gabapentin (Neurontin) 900 mg PO TID [facility] Last Admin: 08/20/20 09:37 Dose: 900 mg Documented by: Hydralazine HCl (Apresoline) 10 mg IVPUSH Q4H PRN PRN Reason: Hypertension Meropenem/Sodium Chloride 500 (mg/ Premix) 50 mls @ 100 mls/hr IV Q8H [facility] Last Admin: 08/20/20 09:37 Dose: 100 mls/hr Documented by: Insulin Glargine (Lantus) 29 unit SUBCUT BID [facility] Last Admin: 08/20/20 09:32 Dose: 29 units Documented by: Insulin Human Lispro (Humalog) 0 unit SUBCUT QIDACANDBED [facility]; Protocol Last Admin: 08/20/20 09:31 Dose: 2 units Documented by: Levalbuterol HCl (Xopenex) 1.25 mg NEB Q2H PRN PRN Reason: Wheezing Last Admin: 08/14/20 21:02 Dose: 1.25 mg Documented by: Levothyroxine Sodium (Levothyroxine) 200 mcg PO ACBREAKFAST [facility] Last Admin: 08/20/20 05:42 Dose: 200 mcg Documented by: Metoprolol Tartrate (Lopressor) 12.5 mg PO Q6H [facility] Last Admin: 08/20/20 05:42 Dose: 12.5 mg Documented by: Mometasone Furoate/Formoterol Fumar (Dulera 200-5 Mcg) 2 puff IH BID [facility] Last Admin: 08/20/20 08:55 Dose: Not Given Documented by: Ondansetron HCl (Zofran) 4 mg IV Q4H PRN PRN Reason: Nausea/Vomiting Oxycodone HCl (Oxycodone) 5 mg PO Q4H PRN PRN Reason: Pain (moderate 4-6) Last Admin: 08/18/20 20:56 Dose: 5 mg Documented by: Senna/Docusate Sodium (Senna Plus) 3 tab PO BID [facility] Last Admin: 08/20/20 09:38 Dose: 3 tab Documented by: Sertraline HCl (Zoloft) 50 mg PO DAILY [facility] Last Admin: 08/20/20 09:38 Dose: 50 mg Documented by: Simvastatin (Zocor) 40 mg PO BEDTIME [facility] Last Admin: 08/19/20 23:50 Dose: 40 mg Documented by: Sodium Chloride (Saline Flush) 10 ml FLUSH ASDIRECTED PRN PRN Reason: Keep Vein Open Last Admin: 08/12/20 10:42 Dose: 10 ml Documented by: Discontinued Medications Albuterol (Proventil Hfa) 0 gm INH QID PRN PRN Reason: Wheezing Dexamethasone (Dexamethasone) 6 mg PO DAILY [facility] Stop: 08/21/20 09:01 Last Admin: 08/19/20 08:17 Dose: 6 mg Documented by: Dexamethasone (Decadron) 6 mg IV ONETIME ONE Stop: 08/14/20 09:49 Last Admin: 08/14/20 10:11 Dose: 6 mg Documented by: Digoxin (Lanoxin) 500 mcg IVPUSH ONETIME ONE Stop: 08/14/20 12:31 Last Admin: 08/14/20 12:40 Dose: 500 mcg Documented by: Digoxin (Lanoxin) 250 mcg IVPUSH Q6H [facility] Stop: 08/15/20 01:01 Last Admin: 08/14/20 20:28 Dose: 250 mcg Documented by: Digoxin (Lanoxin) 250 mcg IVPUSH ONETIME ONE Stop: 08/15/20 02:31 Last Admin: 08/15/20 02:34 Dose: 250 mcg Documented by: Digoxin (Lanoxin) 100 mcg PO ONETIME ONE Stop: 08/17/20 10:01 Last Admin: 08/17/20 10:28 Dose: Not Given Documented by: Digoxin (Lanoxin) 125 mcg PO ONETIME ONE Stop: 08/17/20 10:01 Last Admin: 08/17/20 10:19 Dose: 125 mcg Documented by: Digoxin (Lanoxin) 125 mcg PO ONETIME ONE Stop: 08/19/20 10:05 Last Admin: 08/19/20 10:21 Dose: 125 mcg Documented by: Diltiazem HCl (Cardizem) 10 mg IVPUSH ONETIME ONE Stop: 08/12/20 09:58 Last Admin: 08/12/20 10:40 Dose: 10 mg Documented by: Diltiazem HCl (Cardizem) 5 mg IVPUSH ONETIME ONE Stop: 08/12/20 14:00 Last Admin: 08/12/20 14:48 Dose: 5 mg Documented by: Diltiazem HCl (Cardizem) 10 mg IVPUSH ONETIME ONE Stop: 08/19/20 16:16 Last Admin: 08/19/20 16:19 Dose: 10 mg Documented by: Enoxaparin Sodium (Lovenox) 40 mg SUBCUT DAILY [facility] Last Admin: 08/13/20 08:29 Dose: 40 mg Documented by: Enoxaparin Sodium (Lovenox) 120 mg SUBCUT Q12H [facility] Last Admin: 08/15/20 13:13 Dose: 120 mg Documented by: Enoxaparin Sodium (Lovenox) 120 mg SUBCUT Q12H [facility] Last Admin: 08/17/20 08:15 Dose: Not Given Documented by: Fentanyl (Duragesic) 25 mcg TOP Q72H [facility] Last Admin: 08/13/20 09:16 Dose: 25 mcg Documented by: Furosemide (Lasix) 40 mg IVPUSH DAILY [facility] Furosemide (Lasix) 60 mg IVPUSH NOW ONE Stop: 08/13/20 17:53 Last Admin: 08/13/20 18:09 Dose: 60 mg Documented by: Furosemide (Lasix) 40 mg IVPUSH NOW ONE Stop: 08/14/20 08:12 Last Admin: 08/14/20 08:35 Dose: 40 mg Documented by: Furosemide (Lasix) 40 mg IVPUSH NOW ONE Stop: 08/14/20 12:31 Last Admin: 08/14/20 12:48 Dose: 40 mg Documented by: Furosemide (Lasix) 40 mg IVPUSH Q12H [facility] Sodium Chloride (Normal Saline) 1,000 mls @ 125 mls/hr IV ASDIRECTED [facility] Sodium Chloride (Normal Saline) 1,000 mls @ 1,000 mls/hr IV ONETIME ONE Stop: 08/12/20 10:51 Last Admin: 08/12/20 10:39 Dose: 1,000 mls/hr Documented by: Diltiazem HCl 100 mg/ Sodium (Chloride) 100 mls @ 5 mls/hr IV TITRATE [facility]; Protocol Last Titration: 08/17/20 09:16 Dose: 0 mg/hr, 0 mls/hr Documented by: Ceftriaxone Sodium 2 gm/ (Sodium Chloride) 100 mls @ 200 mls/hr IV ONETIME ONE Stop: 08/12/20 11:38 Last Admin: 08/12/20 11:50 Dose: 200 mls/hr Documented by: Lactated Ringer's (Ringers, Lactated) 500 mls @ 999 mls/hr IV .BOLUS ONE Stop: 08/12/20 14:28 Last Admin: 08/12/20 14:16 Dose: 999 mls/hr Documented by: Lactated Ringer's (Ringers, Lactated) 1,000 mls @ 100 mls/hr IV ASDIRECTED [facility] Last Admin: 08/13/20 21:46 Dose: 100 mls/hr Documented by: Diltiazem HCl 100 mg/ Sodium (Chloride) 100 mls @ 5 mls/hr IV TITRATE [facility]; Protocol Meropenem/Sodium Chloride 500 (mg/ Premix) 50 mls @ 100 mls/hr IV Q6H [facility] Last Admin: 08/13/20 10:09 Dose: 100 mls/hr Documented by: Vancomycin HCl 1 gm/Vancomycin HCl 500 mg/ Sodium Chloride 500 mls @ 250 mls/hr IV ONETIME ONE Stop: 08/12/20 19:59 Last Admin: 08/12/20 18:37 Dose: 250 mls/hr Documented by: Vancomycin HCl 1 gm/Vancomycin HCl 250 mg/ Sodium Chloride 250 mls @ 166 mls/hr IV Q12H [facility] Last Admin: 08/13/20 05:17 Dose: 166 mls/hr Documented by: Lactated Ringer's (Ringers, Lactated) 500 mls @ 500 mls/hr IV .BOLUS ONE Stop: 08/12/20 21:05 Last Admin: 08/12/20 21:11 Dose: 500 mls/hr Documented by: Vancomycin HCl 1 gm/Vancomycin HCl 250 mg/ Sodium Chloride 250 mls @ 166.667 mls/hr IV Q18H [facility] Remdesivir 200 mg/ Sodium (Chloride) 250 mls @ 250 mls/hr IV ONETIME ONE Stop: 08/13/20 19:49 Last Admin: 08/13/20 20:14 Dose: 250 mls/hr Documented by: Remdesivir 100 mg/ Sodium (Chloride) 100 mls @ 100 mls/hr IV Q24H [facility] Stop: 08/17/20 20:59 Last Admin: 08/17/20 20:01 Dose: 100 mls/hr Documented by: Lactated Ringer's (Ringers, Lactated) 250 mls @ 999 mls/hr IV ONETIME ONE Stop: 08/13/20 22:15 Last Admin: 08/13/20 21:59 Dose: 999 mls/hr Documented by: Lactated Ringer's (Ringers, Lactated) 250 mls @ 999 mls/hr IV ONETIME ONE Stop: 08/14/20 00:18 Last Admin: 08/14/20 00:36 Dose: 999 mls/hr Documented by: Metoprolol Tartrate 5 mg/ (Sodium Chloride) 55 mls @ 100 mls/hr IV Q4H PRN PRN Reason: Tachycardia Furosemide 100 mg/ Sodium (Chloride) 100 mls @ 10 mls/hr IV TITRATE [facility]; Protocol Stop: 08/15/20 12:00 Last Titration: 08/15/20 11:16 Dose: 0 mg/hr, 0 mls/hr Documented by: Vancomycin HCl 1 gm/Vancomycin HCl 250 mg/ Sodium Chloride 250 mls @ 166.667 mls/hr IV Q24H [facility] Last Admin: 08/15/20 17:55 Dose: 166.667 mls/hr Documented by: Sodium Chloride (Normal Saline) Confirm Administered Dose 100 mls @ as directed .ROUTE .STK-MED ONE Stop: 08/15/20 20:00 Last Admin: 08/15/20 20:12 Dose: Not Given Documented by: Diltiazem HCl 5 mg/ Sodium (Chloride) 100 mls @ 5 mls/hr IV Q6H PRN PRN Reason: Tachycardia Insulin Glargine (Lantus) 56 unit SUBCUT DAILY [facility] Insulin Glargine (Lantus) 25 unit SUBCUT BID [facility] Last Admin: 08/17/20 08:13 Dose: 25 units Documented by: Insulin Glargine (Lantus) 27 unit SUBCUT BID [facility] Last Admin: 08/19/20 08:16 Dose: 27 units Documented by: Insulin Glargine (Lantus) 2 unit SUBCUT [facility] Stop: 08/17/20 08:50 Last Admin: 08/17/20 08:55 Dose: 2 units Documented by: Insulin Human Lispro (Humalog) 6 unit SUBCUT ONETIME ONE Stop: 08/19/20 18:35 Last Admin: 08/19/20 19:10 Dose: 6 units Documented by: Losartan Potassium (Cozaar) 50 mg PO DAILY [facility] Last Admin: 08/16/20 08:04 Dose: 50 mg Documented by: Meropenem (Merrem) 1 gm IVPUSH Q8H [facility] Last Admin: 08/12/20 20:32 Dose: Not Given Documented by: Metoprolol Tartrate (Lopressor) 25 mg PO ONETIME ONE Stop: 08/13/20 17:31 Last Admin: 08/13/20 17:32 Dose: 25 mg Documented by: Metoprolol Tartrate (Lopressor) 50 mg PO Q12H [facility] Last Admin: 08/14/20 09:03 Dose: Not Given Documented by: Metoprolol Tartrate (Lopressor) 25 mg PO ONETIME ONE Stop: 08/13/20 22:01 Last Admin: 08/13/20 22:05 Dose: 25 mg Documented by: Metoprolol Tartrate (Lopressor) 5 mg IVPUSH Q4H PRN PRN Reason: Tachycardia Last Admin: 08/14/20 11:52 Dose: 5 mg Documented by: Metoprolol Tartrate (Lopressor) 12.5 mg PO Q12H [facility] Last Admin: 08/16/20 21:03 Dose: 12.5 mg Documented by: Metoprolol Tartrate (Lopressor) 25 mg PO BID [facility] Last Admin: 08/19/20 08:19 Dose: 25 mg Documented by: Metoprolol Tartrate (Lopressor) 12.5 mg PO ONETIME ONE Stop: 08/18/20 16:31 Last Admin: 08/18/20 16:40 Dose: 12.5 mg Documented by: Miscellaneous Information (Remove Patch) 1 ea TRDERM Q72H [facility] Last Admin: 08/13/20 09:16 Dose: 1 ea Documented by: Naloxone HCl (Narcan) 0.4 mg IVPUSH ONETIME ONE Stop: 08/14/20 09:58 Last Admin: 08/14/20 10:11 Dose: 0.4 mg Documented by: Naloxone HCl (Narcan) 0.4 mg IVPUSH ONETIME ONE Stop: 08/14/20 10:31 Last Admin: 08/14/20 10:46 Dose: 0.4 mg Documented by: Potassium Chloride (Klor-Con M20) 20 meq PO TID [facility] Stop: 08/17/20 21:01 Last Admin: 08/17/20 20:03 Dose: 20 meq Documented by: Rivaroxaban (Xarelto) 15 mg PO DAILY [facility] Last Admin: 08/14/20 09:03 Dose: Not Given Documented by: Vancomycin HCl (Pharmacy To Dose - Vancomycin) 0 dose .XX ASDIRECTED PRN PRN Reason: RX TO DOSE VANCOMYCIN Vancomycin HCl (Pharmacy To Dose - Vancomycin) 1 dose .XX ASDIRECTED PRN PRN Reason: RX TO DOSE VANCO - Exam Quality Assessment: Reports: Supplemental Oxygen General: Reports: Alert, Oriented HEENT: Reports: Pupils Equal, Mucous Membr. Moist/Elias-Fela Solis Neck: Reports: Supple Lungs: Reports: Decreased Breath Sounds Cardiovascular: Reports: Tachycardia GI/Abdominal Exam: Normal Bowel Sounds, Soft, Non-Tender, No Distention, No Abnormal Bruit
[2020-08-20 10:03] VITALS: BP 122/90
== END 2020-08-20 10:51 | DRG 871 ==
LOC: JD.ED 09:38 → JD.ICU 11:58 → JD.MS 08-19 12:26
PROVIDERS: ADMIT Internal Medicine; ATTEND Internal Medicine
PROC: XW033E5 Introduction of Remdesivir Anti-infective into Peripheral Vein, Percutaneous Approach, New Technology Group 5 (ICD-10-PCS; principal; 2020-08-12)
PROC: 5A09557 Assistance with Respiratory Ventilation, Greater than 96 Consecutive Hours, Continuous Positive Airway Pressure (ICD-10-PCS; 2020-08-14)
DX: A41.9 Sepsis, unspecified organism (principal); U07.1 COVID-19; J12.82 Pneumonia due to coronavirus disease 2019; N28.9 Disorder of kidney and ureter, unspecified; N30.00 Acute cystitis without hematuria; N17.0 Acute kidney failure with tubular necrosis; N39.0 Urinary tract infection, site not specified; I48.92 Unspecified atrial flutter; I11.0 Hypertensive heart disease with heart failure; J96.11 Chronic respiratory failure with hypoxia; I73.9 Peripheral vascular disease, unspecified; I47.1 Supraventricular tachycardia; G47.30 Sleep apnea, unspecified; E66.2 Morbid (severe) obesity with alveolar hypoventilation; Z66 Do not resuscitate; I50.9 Heart failure, unspecified; Z93.6 Other artificial openings of urinary tract status; E11.40 Type 2 diabetes mellitus with diabetic neuropathy, unspecified; F32.9 Major depressive disorder, single episode, unspecified; I25.10 Atherosclerotic heart disease of native coronary artery without angina pectoris; D64.9 Anemia, unspecified; Z95.5 Presence of coronary angioplasty implant and graft; C61 Malignant neoplasm of prostate; J44.9 Chronic obstructive pulmonary disease, unspecified; N40.1 Benign prostatic hyperplasia with lower urinary tract symptoms; R33.8 Other retention of urine; E11.22 Type 2 diabetes mellitus with diabetic chronic kidney disease; E11.51 Type 2 diabetes mellitus with diabetic peripheral angiopathy without gangrene; Z79.51 Long term (current) use of inhaled steroids; H91.90 Unspecified hearing loss, unspecified ear; F03.90 Unspecified dementia, unspecified severity, without behavioral disturbance, psychotic disturbance, mood disturbance, and anxiety; R65.20 Severe sepsis without septic shock; R77.8 Other specified abnormalities of plasma proteins; N18.30 Chronic kidney disease, stage 3 unspecified; H54.7 Unspecified visual loss; E78.00 Pure hypercholesterolemia, unspecified; K21.9 Gastro-esophageal reflux disease without esophagitis; E11.42 Type 2 diabetes mellitus with diabetic polyneuropathy; E03.9 Hypothyroidism, unspecified; Z89.512 Acquired absence of left leg below knee; Z89.511 Acquired absence of right leg below knee; Z79.890 Hormone replacement therapy; Z79.82 Long term (current) use of aspirin; Z79.899 Other long term (current) drug therapy; Z79.4 Long term (current) use of insulin; Z88.1 Allergy status to other antibiotic agents; Z88.2 Allergy status to sulfonamides; Z87.11 Personal history of peptic ulcer disease; Z85.46 Personal history of malignant neoplasm of prostate; Z98.49 Cataract extraction status, unspecified eye; Z90.49 Acquired absence of other specified parts of digestive tract; Z95.828 Presence of other vascular implants and grafts; Z87.891 Personal history of nicotine dependence
CPT/HCPCS: 0240U; 36415; 36600; 51702; 71045; 80048; 80053; 80162; 81001; 82306; 82803; 82947; 82962; 83036; 83605; 83735; 83880; 84100; 84443; 84484; 85025; 85379; 85610; 85730; 86140; 87040; 87086; 87088; 87186; 93005; 93306; 94640; 94660; 94761; 96365; 96375; 99285; 87070; 93010; 99223; 99233; 99239; A9270-GY; J0696; J1100; J1160; J1650; J1815-GY; J1940; J2185; J2310; J3370; J3490; J7030; J7040; J7050; J7120; J7612-GY; J8540